=== PATIENT | female | born 1980 | race Caucasian/White ===

== ENCOUNTER → 2019-05-11 16:18 | Outpatient (BNVA) | payer MEDICAID, SELFPAY | PROVIDERS: Family Provider Family Medicine; PCP Family Medicine; Visit Provider Podiatrist Foot & Ankle Surgery | DX: M20.42 Other hammer toe(s) (acquired), left foot (principal); M21.619 Bunion of unspecified foot; Z98.890 Other specified postprocedural states | CPT/HCPCS: 73630 ==

== ENCOUNTER 2019-05-11 17:08 | Outpatient (CLI) | payer MEDICAID, SELFPAY | END 2019-05-11 17:09 | disposition home or self-care (01) | LOC: SPT 17:11 | PROVIDERS: Family Provider Family Medicine; PCP Family Medicine; Visit Provider Podiatrist Foot & Ankle Surgery | DX: M20.42 Other hammer toe(s) (acquired), left foot (principal); M21.619 Bunion of unspecified foot | CPT/HCPCS: L4361 ==

== ENCOUNTER → 2019-05-18 13:18 | Outpatient (BNVA) | payer MEDICAID, SELFPAY | PROVIDERS: Family Provider Family Medicine; PCP Family Medicine; Visit Provider Podiatrist Foot & Ankle Surgery | DX: M79.673 Pain in unspecified foot (principal) | CPT/HCPCS: 73620; 73630 ==

== ENCOUNTER 2019-05-23 21:58 | Emergency (ER) | payer MEDICAID, SELFPAY ==
[2019-05-23 23:10] VITALS: BMI 23.0
[2019-05-23 23:13] VITALS: BP 119/84; PULSE 104; RESP 16; TEMP 36.6; O2SAT 97
--- NOTE | 2019-05-24 00:03 | ED_ITS ---
Entered by Ne De La Torre, acting as scribe for Maranda Choi MD May 23, 2019 21:58 HPI - Extremity Problem General: Chief complaint: Extremity Problem,Nontraumatic Stated complaint: SURGERY SITE OPENED Time Seen by Provider: 05/24/19 00:01 Source: patient Limitations: no limitations History of Present Illness: HPI Narrative: 38 y/o female presents to the ED with complaint of left lower extremity pain post bunionectomy. Pt states Dr. West removed a bunion in April 2019. She recently had the stitches removed and today she noticed [place] green discharge when she removed the bandage. Pt s tates she has pain that radiates into her ankle and up her left leg. Complaint: extremity pain Onset (ago): hour(s) Pain Consistency: constant Location: left and lower extremity Severity scale (1-10): 10 Quality: stabbing, sharp and constant Relieving factors: nothing Exacerbating factors: walking and palpation Associated symptoms: Deny chest pain, fever(s) or rash Context: recent surgery/procedure Review of Systems Const: Denies: fever or chills Eyes: Denies: change in vision ENMT: Denies: throat pain or mouth pain Card: Denies: chest pain Resp: Denies: shortness of breath GI: Denies: abdominal pain, nausea, vomiting or diarrhea : Denies: difficulty urinating Musc: Denies: back pain or joint pain Skin/Breast: Reports: skin tenderness; Denies: rash Neuro: Denies: headache or behavioral changes Psych: Denies: depression Endo: Denies: excessive urination Ilya/Lymph: Denies: easy bruising All/Imm: Denies: hives PFSH ED PFSH: Statuses (acute, chronic, etc) shown below reflect problem list status as previously entered and may not be historically accurate Social History Smoking and tobacco status: current every day smoker Alcohol intake: never Physical Exam Const: COMMON NORMALS: no apparent distress, oriented x3 and healthy appearing HENMT: COMMON NORMALS: normocephalic and external nose normal HEAD & SCALP: normocephalic NOSE: external nose normal Eye: COMMON NORMALS: PERRL PUPIL: Yes PERRL Neck/C-Spine: COMMON NORMALS: full ROM and no lymphadenopathy Chest: COMMONS NORMALS: inspection of chest normal Resp: COMMON NORMALS: normal respiratory effort, no use of accessory muscles and clear to auscultation bilaterally AUSCULTATION: clear to auscultation bilaterally Cardio: COMMON NORMALS: regular rate and regular rhythm RATE: regular rate RHYTHM: regular rhythm GI: COMMON NORMALS: normal to inspection, nondistended, normoactive bowel sounds, soft to palpation, non-tender and no masses PALPATION: Yes soft Back/Pelvis: THORACIC SPINE/UPPER BACK: Yes normal to inspection Extremity: COMMON NORMALS: normal capillary refill GENERAL: Yes calf tenderness LEFT LOWER EXTREMITY: Yes lower leg Neuro: COMMON NORMALS: oriented x3 Psych: COMMON NORMALS: mental status grossly normal and cooperative Skin: NARRATIVE SKIN EXAM: incision noted to left foot. Mild erythema around it with very mild cellulitis. No pus noted. Course Vital Signs: Vital signs: Vital Signs Temperature 97.9 F 05/23/19 23:13 Pulse Rate 97 05/24/19 01:44 Respiratory Rate 17 05/24/19 01:44 Blood Pressure 124/90 05/24/19 01:44 Pulse Oximetry 95 05/24/19 01:44 MDM - Extremity (Nontraumatic) MDM Narrative: Medical decision making narrative: Patient presents here with foot pain after her surgery. Patient has very mild cellulitis. She has no signs of osteomyelitis. Patient is stable for discharge and will place on Keflex. She is to follow-up with her office coordinator receptionist in 2 to 4 days and return if worsening. Lab Data: Labs: Lab Results 05/24/19 Range/Units 00:15 WBC 11.1 H (4.0-10.0) 10^3/ uL RBC 4.18 (4.1-5.3) 10^6/u L Hgb 13.5 (11.5-15.3) g/dL Hct 39.3 (37.0-47.0) % MCV 94.0 (81-99) fL MCH 32.3 (28.0-34.0) pg MCHC 34.4 (30.0-36.0) g/dL RDW 13.0 (12.1-15.1) % Plt Count 316 (130-400) 10^3/c mm MPV 9.1 (7.4-10.4) fL Neut % (Auto) 54.6 % Lymph % (Auto) 38.8 % [place] % (Auto) 4.4 % Eos % (Auto) 1.3 % Baso % (Auto) 0.6 % Neut # (Auto) 6.1 (1.8-7.7) 10^3/u L Lymph # (Auto) 4.3 (0.8-4.8) 10^3/u L [place] # (Auto) 0.5 (0.2-0.9) 10^3/u L Eos # (Auto) 0.2 (0.0-0.8) 10^3/u L Baso # (Auto) 0.1 (0.0-0.1) 10^3/u L Nucleated RBC % (a uto) 0 % Nucleated RBCs # 0.0 /100WBC Imaging Data^: xr left foot: Attestation: I personally reviewed and interpreted this imaging study as follows: My impression: no acute fx Discharge Plan Discharge Patient Disposition: Home, Self-Care Clinical Impression: Post-op pain Condition: Stable Prescriptions: New Keflex 500 mg capsule 500 mg PO Q6H 7 Days Qty: 28 RF: 0 No Action dicyclomine 20 mg tablet 20 mg PO QID RF: 0 ondansetron HCl [Zofran] 4 mg tablet 4 mg PO Q8H PRN (Reason: nausea and vomiting) RF: 0 oxycodone-acetaminophen [Percocet] 7.5-325 mg tablet 1 tab PO Q6H PRNRF: 0 diphenoxylate-atropine [Lomotil] 2.5-0.025 mg tablet 3 tab PO QID RF: 0 Viberzi 100 mg tablet 100 mg PO BID RF: 0 tramadol 50 mg tablet 50 mg PO Q6H PRNRF: 0 prenat.vits,greg,etv-jpmb-eehwe Tablet 1 tab PO ONCE RF: 0 acetaminophen [Tylenol] 325 mg tablet 650 mg PO Q6H PRNRF: 0 albuterol sulfate [Proventil HFA] 90 mcg/actuation HFA aerosol inhaler 2 puff INHALATION Q6H PRNRF: 0 montelukast [Singulair] 10 mg tablet 10 mg PO ONCE RF: 0 (DME) CAM WALKER Qty: 1 RF: 0 sulfamethoxazole-trimethoprim [Bactrim DS] 800-160 mg tablet 1 tab PO BID 10 Days Qty: 20 RF: 0 Discharge Orders: Discharge Order (Routine); Ordered 05/24/19 Ordered By: Maranda Choi Referrals: Akshat Hoskins MD [Primary Care Provider] - Discharge Diet: Advance as tolerated Discharge Activity: Resume usual activity Patient Instructions: Cellulitis (ED) Discharge Date/Time: 05/24/19 01:44 Coding Level of Care Code ED Fur Scraper for Chg Fwd Exam Problem Focused The documentation recorded by the Wil wynne Ashley, accurately reflects the service I personally performed and the decisions made by Jimbo velarde Korby, MD May 23, 2019 21:58
[2019-05-24 00:04] VITALS: BP 148/87; PULSE 101; RESP 18; O2SAT 98
--- NOTE | 2019-05-24 00:05 | XR_ITS ---
WS: [id number] LEFT FOOT: 3 VIEW(S) TECHNIQUE: PA, oblique and lateral. HISTORY: pain COMPARISON: 05/18/2019 Postoperative hardware for osteotomy fixation and bunionectomy and at the proximal second phalanx aga in identified. No change in position or alignment. No obvious lucency around the screws. Mild soft tissue swelling around the first toe. XR/XR foot LT min 3V* [id number] IMPRESSION: 1. Postsurgical changes of bunionectomy and osteotomy remain unchanged. 2. Mild soft tissue swelling around the first toe. No significant change since the prior study. No definite bone involvement or osteomyelitis identified radi ographically.
--- NOTE | 2019-05-24 00:08 | PC.NURSE ---
Patient reports that she had surgery on her foot Apr 28. Patient states yesterday she began to get a lot of pain in her foot. Patient also states her foot is still swollen, red, warm to touch, and had green pus on the incision site.
[2019-05-24 00:20] VITALS: RESP 18; O2SAT 98
[2019-05-24] MEDS: morphine 4 mg/mL SDV 1 mL IVP (00:20)
[2019-05-24] MEDS: vancomycin 1,000 MG in sodium chloride 0.9% 250 ML 250 MG IV (00:24)
[2019-05-24 00:35] LABS: Basophils # 0.1 10^3/uL (0.0-0.1); Basophils % 0.6 %; Eosinophils # 0.2 10^3/uL (0.0-0.8); Eosinophils % 1.3 %; Hematocrit 39.3 % (37.0-47.0); Hemoglobin 13.5 g/dL (11.5-15.3); Lymphocytes # 4.3 10^3/uL (0.8-4.8); Lymphocytes % 38.8 %; Mean Corpuscular HGB Conc 34.4 g/dL (30.0-36.0); Mean Corpuscular Hemoglobin 32.3 pg (28.0-34.0); Mean Platelet Volume 9.1 fL (7.4-10.4); Monocytes # 0.5 10^3/uL (0.2-0.9); Monocytes % 4.4 %; Neutrophils # 6.1 10^3/uL (1.8-7.7); Neutrophils % 54.6 %; Nucleated Red Blood Cells % 0 %; Platelet Count 316 10^3/cmm (130-400); Red Blood Count 4.18 10^6/uL (4.1-5.3); White Blood Count 11.1 10^3/uL (4.0-10.0)
[2019-05-24] MEDS: diphenhydrAMINE 50 mg/mL SDV 1mL IVP (01:06)
[2019-05-24] MEDS: ondansetron 2 mg/ML SDV 2 mL 4 MG IVP (01:08)
--- NOTE | 2019-05-24 01:09 | PC.NURSE ---
Patient calls out using the call light. Patient states I am itching all over. Patient shows me her stomach she has a red rash on her stomach. Patient continues itching her body. Physician notified and orders given for Benadryl. Benadryl obtained and administered.
[2019-05-24 01:44] VITALS: BP 124/90; PULSE 97; RESP 17; O2SAT 95
== END 2019-05-24 01:44 | disposition home or self-care (01) ==
PROVIDERS: Emergency Provider Emergency Medicine; Family Provider Family Medicine; PCP Family Medicine
DX: G89.18 Other acute postprocedural pain (principal); F17.210 Nicotine dependence, cigarettes, uncomplicated
CPT/HCPCS: 36415; 73630; 85025; 96365; 96374; 99281; J1200; J2270; J2405; J3370; J7050

== ENCOUNTER 2019-05-27 10:01 | Inpatient (IN) | payer MEDICAID, SELFPAY ==
[2019-05-27] VITALS (7 sets, daily range): BP systolic 100–101; BP diastolic 60–66; PULSE 70–105; RESP 16–24; TEMP 36.6–36.8; O2SAT 93–98; BMI 23.0
--- NOTE | 2019-05-27 10:06 | ED_ITS ---
Entered by Azalea Gutiérrez, acting as scribe for HPI - Psych General: Chief Complaint: Altered Mental Status Stated Complaint: AMS S/P DRUG USE Time Seen by Provider: 05/27/19 10:07 Source: patient, EMS and police Mode of arrival: ambulatory Limitations: no limitations History of Present Illness: HPI Narrative: 38 yo female presents with hallucinations that the IRS was at her house digging in and around her house. pt has recently used laced drugs last night around 11 pm. pt's daughter's are in the waiting room of the ED filling out affidavits due to their mothers conditions. Pt denies any other symptoms. MD complaint: other (hallucinations ) Onset (ago): day(s) (today) Duration: constant History of same: Yes Relieving factors: none Exacerbating factors: drug use Context: recent drug abuse (laced weed per pt) Associated symptoms: Reports auditory hallucinations (IRS at her home), delusions and racing thoughts Treatments prior to arrival: other (Pt brought in by EMS and police) Review of Systems Const: Denies: fever, chills, body aches, fatigue, malaise or night sweats Eyes: Denies: change in vision or blurry vision ENMT: Denies: throat pain, oral sores/lesions, dental pain, nasal discharge or nasal congestion Card: Denies: chest pain, palpitations, irregular heart rhythm, edema, syncope, shortness of breath on exertion, shortness of breath when lying down or leg pain with exertion Resp: Denies: shortness of breath, productive cough, non-productive cough or wheezing : Denies: flank pain, painful urination, urinary frequency, urinary urgency, urinary incontinence or blood in urine Musc: Denies: neck pain, back pain, extremity pain, extremity swelling, joint pain or joint swelling Skin/Breast: Denies: rash, itching or redness Neuro: Denies: headache, numbness in extremities, weakness in extremities, changes in sensation, lack of coordination, difficulty walking, frequent falls, dizziness, vertigo or confusion Psych: Reports: auditory hallucinations (IRS at her home) Endo: Denies: excessive urination, excessive thirst, tired all the time or cold intolerance Ilya/Lymph: Denies: easy bruising, easy bleeding, petechiae, enlarged lymph nodes or tender lymph nodes PFSH ED PFSH: Statuses (acute, chronic, etc) shown below reflect problem list status as previously entered and may not be historically accurate Medical History History of drug use (Acute) Social History Smoking and tobacco status: current every day smoker Alcohol intake: never Physical Exam Const: COMMON NORMALS: average body habitus EXAM LIMITATIONS: altered mental status GENERAL APPEARANCE: anxious, disheveled and ill appearing ORIENTATION/CONSCIOUSNESS: Yes awake and Yes confused HENMT: COMMON NORMALS: normocephalic, head/scalp atraumatic, EAC's normal, TM's normal bilaterally, external nose normal, moist oral mucous membranes and oropharynx normal HEAD & SCALP: normocephalic and atraumatic NOSE: external nose normal EXTERNAL AUDITORY CANAL: EAC's normal TYMPANIC MEMBRANE: TM's normal bilaterally MOUTH: oral and palatal mucosa normal, lip normal and tongue normal THROAT: posterior oropharynx normal and tonsils normal Eye: COMMON NORMALS: PERRL, EOMs intact bilaterally, conjunctivae normal and no scleral icterus CONJUNCTIVA: Yes conjunctivae normal PUPIL: Yes PERRL Neck/C-Spine: COMMON NORMALS: full ROM, no lymphadenopathy, supple, no meningeal signs and thyroid normal THYROID: thyroid normal and asymmetrical Lymph: LYMPHATIC: no lymphadenopathy noted Resp: COMMON NORMALS: normal respiratory effort, no retractions, no use of accessory muscles and clear to auscultation bilaterally AUSCULTATION: clear to auscultation bilaterally Cardio: COMMON NORMALS: regular rate and regular rhythm RATE: regular rate RHYTHM: regular rhythm HEART SOUNDS: no murmurs GI: COMMON NORMALS: normal to inspection, nondistended, normoactive bowel sounds, soft to palpation and no hepatosplenomegaly PALPATION: Yes soft and Yes no hepatosplenomegaly : COMMON NORMALS: Yes no CVA tenderness BLADDER/KIDNEY EXAM: Yes no CVA tenderness Back/Pelvis: COMMON NORMALS: no CVA tenderness LUMBAR SPINE/LOWER BACK: Yes normal to inspection Extremity: NARRATIVE EXTREMITY EXAM: chronic foot pain Neuro: MENINGEAL SIGNS: Yes no meningeal signs Psych: COMMON NORMALS: negative for thought process normal APPEARANCE: Yes disheveled ATTITUDE: Yes paranoid and Yes bizarre ACTIVITY/MOTOR BEHAVIOR: Yes psychomotor agitation SPEECH: Yes excessive and Yes rapid MOOD & AFFECT: Yes anxious, Yes irritable and Yes labile affect THOUGHT PROCESS: abnormal, confabulating, illogical and loose associations THOUGHT CONTENT: No suicidality, No homicidality and Yes delusion(s) Skin: COMMON NORMALS: no rashes or lesions noted and skin turgor normal GENERAL SKIN EXAM: no rashes or lesions noted and turgor normal MDM - Psych Lab Data: Attestation: I reviewed the patient's lab results. Labs: Lab Results 05/27/19 05/27/19 Range/Units 09:48 09:48 WBC 15.9 H (4.0-10.0) 10^3/ uL RBC 4.09 L (4.1-5.3) 10^6/u L Hgb 12.8 (11.5-15.3) g/dL Hct 37.1 (37.0-47.0) % MCV 90.7 (81-99) fL MCH 31.3 (28.0-34.0) pg MCHC 34.5 (30.0-36.0) g/dL RDW 12.7 (12.1-15.1) % Plt Count 357 (130-400) 10^3/c mm MPV 10.0 (7.4-10.4) fL Neut % (Auto) 75.8 % Lymph % (Auto) 16.6 % [place] % (Auto) 6.3 % Eos % (Auto) 0.5 % Baso % (Auto) 0.4 % Neut # (Auto) 12.1 H (1.8-7.7) 10^3/u L Lymph # (Auto) 2.7 (0.8-4.8) 10^3/u L [place] # (Auto) 1.0 H (0.2-0.9) 10^3/u L Eos # (Auto) 0.1 (0.0-0.8) 10^3/u L Baso # (Auto) 0.1 (0.0-0.1) 10^3/u L Nucleated RBC % (a uto) 0 % Nucleated RBCs # 0.0 /100WBC TSH 1.00 (0.27-4.20) uIU/ mL Salicylates < 0.3 L (3-10) mg/dL Acetaminophen 17.5 (10-30) ug/mL Ethyl Alcohol < 10 (0-10) mg/dL Discharge Plan Discharge Patient Disposition: Admitted As Inpatient Admit Provider: Karlos Elias Referrals: Akshat Hoskins MD [Primary Care Provider] - Discharge Date/Time: 05/27/19 12:38 Coding Level of Care Code ED Drafter (Cad) Electrical for Chg Fwd Exam Problem Focused The documentation recorded by the Brock wynne Bridget Annette, accurately reflects the service I personally performed and the decisions made by , Madi Blum, May 27, 2019 10:01
--- NOTE | 2019-05-27 10:33 | PC.NURSE ---
Patient moving continuously, all extremities while sitting in bed. Patient is calm but is uncooperative due to mental state at this time. Pt is alert to herself only at this time and mumbles incoherently when speaking. unable to obtain accurrate BP due to continuous movement and not cooperating. One on one sitter has been placed with pt for her safety. Will continue to monitor.
[2019-05-27] MEDS: LORazepam 1 mg Tablet PO (10:52)
[2019-05-27] MEDS: ziprasidone 20 mg/mL SDV 10 MG IM (10:53)
[2019-05-27 10:54] LABS: Basophils # 0.1 10^3/uL (0.0-0.1); Basophils % 0.4 %; Eosinophils # 0.1 10^3/uL (0.0-0.8); Eosinophils % 0.5 %; Hematocrit 37.1 % (37.0-47.0); Hemoglobin 12.8 g/dL (11.5-15.3); Lymphocytes # 2.7 10^3/uL (0.8-4.8); Lymphocytes % 16.6 %; Mean Corpuscular HGB Conc 34.5 g/dL (30.0-36.0); Mean Corpuscular Hemoglobin 31.3 pg (28.0-34.0); Mean Corpuscular Volume 90.7 fL (81-99); Monocytes % 6.3 %; Neutrophils # 12.1 10^3/uL (1.8-7.7); Neutrophils % 75.8 %; Nucleated Red Blood Cells % 0 %; Platelet Count 357 10^3/cmm (130-400); Red Blood Count 4.09 10^6/uL (4.1-5.3); Red Cell Distribution Width 12.7 % (12.1-15.1); White Blood Count 15.9 10^3/uL (4.0-10.0)
[2019-05-27] MEDS: water for injection-sterile 10 ML 1.2 ML (10:55)
[2019-05-27 11:22] LABS: Acetaminophen 17.5 ug/mL (10-30)
[2019-05-27 11:54] LABS: Alcohol Level < 10 mg/dL (0-10); Salicylate < 0.3 mg/dL (3-10)
--- NOTE | 2019-05-27 11:57 | PC.NURSE ---
HOspital sitter remains with patient for safety. Patient is resting with both eyes closed at this time.
--- NOTE | 2019-05-27 12:12 | PC.NURSE ---
Hospital sitter remains present to sit one on one with patient. Patient is resting with both eyes closed at this time. Will continue to monitor.
[2019-05-27] MEDS: acetaminophen 325 mg Tablet 650 MG PO (23:35)
[2019-05-28 06:00] VITALS: BP 99/66; PULSE 113; RESP 22; TEMP 36.6; O2SAT 96
--- NOTE | 2019-05-28 07:09 | P.HP_ITS ---
Providers/Chief Complaint Admitting Physician: Karlos Elias MD Primary Care Provider: Akshat Hoskins MD Chief Complaint: AMS S/P DRUG USE HPI NPU History of Present Illness Ann Fuentes is a 38 year old female Chief complaint: What I thought was truly wasn't. History of present illness: Ann Fuentes is a 38 year old Woman with no history of psychosis up until this past week. She reports that on 2 separate occasions, she became confused to the point where she was not sure what was real and was not. She describes that prior to her presentation, she was fairly convinced that agents from the internal revenue service were sitting at her kit morgan table. They were talking about arresting her. She reported multiple other perceptions that she firmly believed to be true at the time but now realizes they were not. She recalls her daughter telling her that the things that she was verbalizing and experiencing were not accurate. She is glad that she took her daughter's advice and came to the emergency room. She is unsure why she has had this experience. She had surgery on her foot one week ago. She was given Percocet for pain following this surgery on the bunion on her foot. However she has had pain medications in the past and in fact takes tramadol on occasion for pain and has never had any problems with changes in perception or cognition. Her other explanation was that she does smoke marijuana and it is possible that she could have had some marijuana that was laced with something else. Unfortunately no drug screen was performed in the emergency room so we have no correlating data. Whatever the event, she is now 36 hours out from the insult to her brain. She feels that she is generally able to think clearly. She is not questioning her perceptions at this time. She is quite embarrassed. She does endorse symptoms of depression. She feels hopeless and helpless at times. She would like her life to be different. However she denies suicidal or homicidal ideation. She denies the presence of auditory or visual hallucinations. She has good hedonic capacity in that she enjoys her children although they are quite a burden on her. She also enjoys going to zoroastrianism. Information provided by emergency room:HPI Narrative: 38 yo female presents with hallucinations that the IRS was at her house digging in and around her house. pt has recently used laced drugs last night around 11 pm. pt's daughter's are in the waiting room of the ED filling out affidavits due to their mothers conditions. Pt denies any other symptoms. IT IS NOTED THAT NO URINE DRUG SCREEN WAS PERFORMED ON THIS DELIRIOUS DISORIENTED PATIENT. Mental health history:The patient has 1 prior psychiatric hospitalization nearly 10 years ago. She was admitted for a self-inflicted injury to her neck that she said was involving suicidal thoughts but was not a suicide attempt. She has never had any such problems since then. Family psychiatric history is positive for a daughter who has apparently been admitted to this unit on multiple occasions. She says that the daughter also to last admission. The identity of her daughter is unknown to this physician. Social history:The patient grew up in [place]. She has an associates degree from college. She moved to this area in 1999, returned to [place] in 2006 for her children benefit, and then returned to the [facility] in 2013. She has children ages 24, 18, 16, 7, and 4. She is a [id number] mom. Legal history:There are no reports of arrests or convictions in the public record. Past medical history:The patient was diagnosed with colon cancer in 18 years of age. She has had a hemicolectomy and resection of part of her small intestine. Mental Status Exam: The patient is alert and appropriately engaged. She is disheveled. She demonstrates elevated psychomotoric action and has difficulty sitting still. She exhibits a multiple twitches and moves in short quick movements. She has some difficulty ambulating due to the effects of her bunion surgery. Eye contact is good. She is believed to be a reliable informant to the best of her ability. Appearance: hygiene is fair; no gross neurological deficits., No tics or tremors. Speech: Speech is of normal rate and rhythm and easily understood. Thought processes: Thought processes are abstract. Judgment is adequate for safety. Associations: intact Psychotic processes: There is no indication of guarding or paranoia. There is no attention to the internal stimuli. Auditory and visual hallucinations are denied. Judgment: Insight is fair. Problem solving skills are adequate for safety. Orientation: The patient is oriented to person, place time and situation. Memory: no deficits noted in immediate, intermediate, or remote spheres. Attention: The patient is alert and interpersonally engaged. Language: Verbalizations are coherent. Fund of knowledge: Fund of knowledge is adequate. Affect/Mood: Affect is consistent with a depressed mood. She denied suicidal ideation Affective range appropriate. Psychosis: perception unimpaired except through cognitive distortion; reality testing intact. Diagnoses: Delirium?presumably substance-induced Assessment:The patient apparently presented in a floridly psychotic state oriented not even to herself. He is not in the habit of being psychotic. Her mental health history is generally clean but she does present with symptoms of depression. Her explanation that she smoked marijuana with some sort of contaminant is most likely to be accurate. She is being treated status post surgery to her bunion, she says that opiates were given sparsely and not likely to cause the radical events leading to her hospitalization. Treatment plan: Due to the psychiatric conditions and treatment listed in the Assessment and Plan - the patient requires continued hospitalization. Will provide a safe and therapeutic environment for patient.. Will continue inpatient treatment to allow for medication adjustment and monitoring. Will continue q15 min safety checks. Will continue Home medications and monitor for medication side effects. Will continue to monitor for signs of psychosis. Monitor patient's mood, sleep, appetite, and behavior closely. Encourage patient to participate in individual and group therapeutic sessions on the alfaro. Estimated length of stay 5 days The expected benefits and potential side effects of patient's psychiatric medications were discussed with the patient. The patient understands and consents to treatment.CRITERIA FOR DISCHARGE: stable on medications and no longer an im Meds NPU Home Medications Medication Instructions Recorded Confirmed Type acetaminophen 325 mg tablet 650 mg PO Q6H PRN 05/11/19 05/18/19 History albuterol sulfate 90 mcg/actuation 2 puff INHALATION Q6H PRN 05/11/19 05/18/19 History aerosol inhaler dicyclomine 20 mg tablet 20 mg PO QID 05/11/19 05/18/19 History diphenoxylate-atropine 2.5 3 tab PO QID tab 05/11/19 05/18/19 History mg-0.025 mg tablet eluxadoline 100 mg tablet 100 mg PO BID 05/11/19 05/18/19 History montelukast 10 mg tablet 10 mg PO ONCE 05/11/19 05/18/19 History ondansetron HCl 4 mg tablet 4 mg PO Q8H PRN 05/11/19 05/18/19 History oxycodone-acetaminophen 7.5 mg-325 1 tab PO Q6H PRN 05/11/19 05/18/19 History mg tablet prenat.vits,greg,bxs-rinl-yecvo 1 tab PO ONCE 05/11/19 05/18/19 History tramadol 50 mg tablet 50 mg PO Q6H PRN 05/11/19 05/18/19 History Allergies Allergy/AdvReac Type Severity Reaction Status Date / Time codeine Allergy Unknown Verified 05/11/19 16:29 PFSH NPU PFSH: Statuses (acute, chronic, etc) shown below reflect problem list status as previously entered and may not be historically accurate Medical History History of drug use (Acute) Social History Smoking and tobacco status: current every day smoker Alcohol intake: never Vitals/I&O/Wt Last Vital Signs Temp 97.9 F 05/28/19 06:00 Pulse 113 H 05/28/19 06:00 Resp 22 H 05/28/19 06:00 BP 99/66 05/28/19 06:00 Pulse Ox 96 05/28/19 06:00 Weight last 48 hrs Weight 52.98 kg Weight 52.98 kg Weight 57.153 kg Data NPU : 05/27/19 09:48 Other Labs: IT IS NOTED THAT NO URINE DRUG SCREEN WAS PERFORMED ON THIS DELIRIOUS DISORIENTED PATIENT. Involuntary Hold Information 96 Hour Hold: 96 Hour Involuntary Admission: Yes Attestations NPU Medical Necessity Statement*: Patient will remain at hospital 3 more nights until the completion of her involuntary commitment. Coding Level of Care Code Acute Sex Crimes Detective for Anton Ruff
[2019-05-28] MEDS: prenatal vitamin Capsule 1 CAP PO (10:31)
[2019-05-28 10:46] LABS: HCG Qualitative Urine. Negative (Negative)
[2019-05-28] MEDS: dicyclomine 20 mg Tablet PO ×4 (10:49→20:21)
[2019-05-28 10:54] LABS: Add Urine Microscopic? YES; Bilirubin Urine Neg (NEGATIVE); Blood Urine Neg (Negative); Glucose Urine UA Norm (Normal); Ketones Urine 1+ (Negative); Leukocyte Esterase Urine Negative (Negative); Nitrate Urine Negative (Negative); Protein Urine Neg (Negative); Specific Gravity, Urine 1.025 (1.005-1.030); Urine Appearance SL Hazy (CLEAR); Urine Color Straw (Yellow); Urobilinogen Urine Norm (Negative); pH Urine 5 (5-7)
[2019-05-28 10:55] LABS: Bacteria Urine TRACE; Mucus Urine 2+; Squamous Epithelial Cell Urine 15-25 (0-5)
[2019-05-28 10:56] LABS: Add Urine Culture? No
[2019-05-28] MEDS: ondansetron 4 MG Tablet PO ×2 (11:07→16:40)
[2019-05-28] MEDS: diphenoxylate/atropine Tablet 1 TAB PO ×2 (11:07→16:51)
[2019-05-28 11:09] LABS: Barbiturates Screen Urine Negative (Negative); Benzodiazepines Screen Urine Negative (Negative); Cocaine Screen Urine Negative (Negative); Opiate Screen Urine Negative (Negative); PCP Screen Urine Negative (Negative); THC Screen Urine Negative (Negative)
[2019-05-28 11:11] LABS: Amphetamines Screen Urine Positive (Negative)
[2019-05-28 14:00] VITALS: BP 107/80; PULSE 87; RESP 18; TEMP 36.7; O2SAT 97
[2019-05-28] MEDS: montelukast sodium 10 mg Tablet PO (17:51)
[2019-05-28] MEDS: acetaminophen 325 mg Tablet 650 MG PO (19:48)
[2019-05-28 19:57] VITALS: BP 102/65; PULSE 92; RESP 18; TEMP 36.7; O2SAT 97
[2019-05-28] MEDS: LORazepam 1 mg Tablet PO (20:21)
[2019-05-29 06:00] VITALS: BP 86/44; PULSE 102; RESP 18; TEMP 36.8; O2SAT 97
[2019-05-29] MEDS: prenatal vitamin Capsule 1 CAP PO (09:39)
[2019-05-29] MEDS: dicyclomine 20 mg Tablet PO ×2 (09:41→12:30)
[2019-05-29] MEDS: acetaminophen 325 mg Tablet 650 MG PO ×2 (09:42→15:14)
[2019-05-29] MEDS: diphenoxylate/atropine Tablet 1 TAB PO (09:42)
[2019-05-29] MEDS: loperamide 2 mg Capsule PO (12:29)
[2019-05-29] MEDS: ondansetron 4 MG Tablet PO (12:30)
[2019-05-29 14:00] VITALS: BP 93/62; PULSE 76; RESP 20; TEMP 36.7; O2SAT 98
[2019-05-29 15:16] VITALS: BP 93/62; PULSE 76; RESP 20; TEMP 36.7; O2SAT 98
[2019-05-29 15:31] VITALS: BP 93/62; PULSE 76; RESP 20; TEMP 36.7; O2SAT 98
[2019-05-29 15:48] VITALS: BP 93/62; PULSE 76; RESP 20; TEMP 36.7; O2SAT 98
== END 2019-05-29 15:49 | disposition home or self-care (01) | DRG 897 ==
LOC: ER 10:14 → NP 12:32
PROVIDERS: Admitting Provider Psychiatry & Neurology Psychiatry; Emergency Provider Family Medicine; Family Provider Family Medicine; PCP Family Medicine; Visit Provider Psychiatry & Neurology Psychiatry
DX: F19.921 Other psychoactive substance use, unspecified with intoxication with delirium (principal); F32.9 Major depressive disorder, single episode, unspecified; Z91.5 Personal history of self-harm; Z85.038 Personal history of other malignant neoplasm of large intestine; Z90.49 Acquired absence of other specified parts of digestive tract; Z81.8 Family history of other mental and behavioral disorders; Z79.899 Other long term (current) drug therapy; Z88.5 Allergy status to narcotic agent
CPT/HCPCS: 12345; 80307; 81003; 81025; 84443; 85025; 96372; 99281; J3486; Q0162

== ENCOUNTER → 2019-06-08 15:23 | Outpatient (BNVA) | payer MEDICAID, SELFPAY | PROVIDERS: Family Provider Family Medicine; PCP Family Medicine; Visit Provider Podiatrist Foot & Ankle Surgery | DX: Z98.890 Other specified postprocedural states (principal); M79.672 Pain in left foot | CPT/HCPCS: 73630 ==

== ENCOUNTER → 2019-06-21 13:28 | Outpatient (BNVA) | payer MEDICAID, SELFPAY | PROVIDERS: Family Provider Family Medicine; PCP Family Medicine; Visit Provider Podiatrist Foot & Ankle Surgery | DX: M79.672 Pain in left foot (principal); Z98.890 Other specified postprocedural states | CPT/HCPCS: 73630 ==

== ENCOUNTER → 2019-07-27 07:56 | Outpatient (BNVA) | payer MEDICAID, SELFPAY | PROVIDERS: Family Provider Family Medicine; PCP Family Medicine; Visit Provider Psychiatry & Neurology Psychiatry | DX: F60.3 Borderline personality disorder (principal); F33.1 Major depressive disorder, recurrent, moderate; F12.20 Cannabis dependence, uncomplicated; F11.21 Opioid dependence, in remission; F15.11 Other stimulant abuse, in remission; F42.9 Obsessive-compulsive disorder, unspecified | CPT/HCPCS: 99204 ==

== ENCOUNTER → 2019-08-24 07:57 | Outpatient (BNVA) | payer MEDICAID, SELFPAY | PROVIDERS: Family Provider Family Medicine; PCP Family Medicine; Visit Provider Psychiatry & Neurology Psychiatry | DX: F42.9 Obsessive-compulsive disorder, unspecified (principal); F15.11 Other stimulant abuse, in remission; F11.21 Opioid dependence, in remission; F12.20 Cannabis dependence, uncomplicated; F33.1 Major depressive disorder, recurrent, moderate; F60.3 Borderline personality disorder | CPT/HCPCS: 99213 ==

== ENCOUNTER → 2019-09-21 08:24 | Outpatient (BNVA) | payer MEDICAID, SELFPAY | PROVIDERS: Family Provider Family Medicine; Visit Provider Psychiatry & Neurology Psychiatry | DX: F42.9 Obsessive-compulsive disorder, unspecified (principal); F15.11 Other stimulant abuse, in remission; F11.21 Opioid dependence, in remission; F12.20 Cannabis dependence, uncomplicated; F33.1 Major depressive disorder, recurrent, moderate | CPT/HCPCS: 99213 ==

== ENCOUNTER 2019-11-07 20:36 | Emergency (ER) | payer MEDICAID, SELFPAY ==
[2019-11-07 20:47] VITALS: BP 139/97; PULSE 92; RESP 14; TEMP 36.7; O2SAT 97; BMI 24.7
--- NOTE | 2019-11-07 20:56 | CTR_ITS ---
PROCEDURE INFORMATION: Exam: CT Abdomen And Pelvis With Contrast Exam date and time: 11/07/2019 9:17 PM Age: 39 years old Clinical indication: Abdominal pain; Localized; Right; Prior surgery; Surgery type: Gb, bowel, appy, hyst, liver, hernia; Additional info: Abd pain TECHNIQUE: Imaging protocol: Computed tomography of the abdomen and pelvis with intravenous contrast. Radiation optimization: All CT scans at this facility use at least one of these dose optimization techniques: automated exposure control; mA and/or kV adjustment per patient size (includes targeted exams where dose is matched to clinical indication); or iterative reconstruction. Contrast material: OMNI 300; Contrast volume: 95 ml; Contrast route: INTRAVENOUS (IV); COMPARISON: CT abdomen pelvis w con* [id number] 05/07/2016 4:37 AM RADIATION DOSE METRICS: Total DLP (mGy-cm): 530.38 FINDINGS: Liver: The liver is mildly enlarged. No parenchymal lesion. Gallbladder and bile ducts: The gallbladder has been removed. No biliary ductal dilatation. Pancreas: Normal. No ductal dilation. Spleen: Normal. No splenomegaly. Adrenals: Normal. No mass. Kidneys and ureters: Normal. No hydronephrosis. Stomach and bowel: Surgical changes of subtotal colectomy with enterorectal anastomosis are appreciated. No intestinal obstruction. Appendix: No evidence of appendicitis. Intraperitoneal space: Unremarkable. No free air. No significant fluid collection. Vasculature: Unremarkable. No abdominal aortic aneurysm. Lymph nodes: Unremarkable. No enlarged lymph nodes. Bladder: Unremarkable as visualized. Reproductive: The uterus has been removed. The ovaries appear normal. Bones/joints: Unremarkable. No acute fracture. Soft tissues: Unremarkable. CT/CT abdomen pelvis w con* [id number] IMPRESSION: No acute abnormality is seen in the abdomen or pelvis. Mild hepatomegaly is noted. Radiation Dose CTDIVOL = (mGy): DLP = 530.38 (mGy-cm)
--- NOTE | 2019-11-07 20:57 | ED_ITS ---
HPI - Abdominal Pain General: Chief Complaint: Abdominal Pain Stated Complaint: abd pain Time Seen by Provider: 11/07/19 20:51 History of Present Illness: HPI narrative: Right upper abdominal pain that started his afternoon. Denies any other related symptoms. MD elicited complaint: abdominal pain Pertinent past history: constipation, gastritis and other Onset (ago): hour(s) Pain Consistency: constant Location: RUQ Severity: moderate Quality: cramping Migration to: no migration Exacerbating factors: nothing Relieving factors: nothing Associated Symptoms: Reports no associated symptoms; Denies chills, fever(s), nausea and vomiting Related Data: Date of Last Menstrual Period: 05/27/19 Review of Systems Const: Denies: fever(s), chills or body aches Eyes: Denies: change in vision or blurry vision ENMT: Denies: throat pain or nasal congestion Card: Denies: chest pain or dyspnea on exertion Resp: Denies: dyspnea, productive cough or non-productive cough GI: Reports: abdominal pain; Denies: nausea or vomiting Musc: Denies: extremity pain Skin/Breast: Denies: rash Neuro: Denies: headache(s) Psych: Denies: anxiety or depression Ilya/Lymph: Denies: easy bruising PFSH ED PFSH: Medical History Colon cancer History of drug use Surgical History (Updated 06/25/19 @ 19:25 by Ten West DPM) History of bunionectomy History of hammertoe correction Family History (Updated 06/21/19 @ 13:28 by Ne Ndiaye LPN) Denies family history of Diabetes CAD (coronary artery disease) Clotting disorder Dementia Hyperlipidemia Psychiatric illness Chronic kidney disease (CKD) Suicide Anesthesia complication Bleeding disorder Family history of premature coronary artery disease Lung disease Cancer Hypertension Stroke Social History (Updated 07/27/19 @ 09:02 by Arsen Lester LPN) Smoking and tobacco status: current every day smoker cigarettes Packs smoked per day: 1 Years cigarettes smoked: 25 Quit status (tobacco): has tried quititng Number of times tried to quit tobacco: 3 Second hand smoke exposure: Yes Alcohol intake: never Current gender identity: Female Female Reproductive History: Date of last menstrual period: 05/27/19 Physical Exam Const: COMMON NORMALS: no acute distress, average body habitus and patient oriented x3 HENMT: COMMON NORMALS: normocephalic HEAD & SCALP: normal to inspection and normocephalic FACE & SINUS: normal facial exam Eye: COMMON NORMALS: conjunctivae normal GENERAL EYE: appearance normal, both eyes and all related structures CONJUNCTIVA: Yes conjunctivae normal Neck/C-Spine: COMMON NORMALS: no JVD Chest: COMMONS NORMALS: normal inspection of the chest Resp: COMMON NORMALS: normal respiratory effort and clear to auscultation bilaterally AUSCULTATION: clear to auscultation bilaterally Cardio: COMMON NORMALS: no JVD, regular rate and regular rhythm RATE: regular rate RHYTHM: regular rhythm GI: COMMON NORMALS: Normal to inspection, nondistended, normoactive bowel so unds present PALPATION: Yes Tenderness to palpation present (GI) Details: RUQ Extremity: COMMON NORMALS: normal to inspection and full ROM Neuro: COMMON NORMALS: patient oriented x3 Course Vital Signs: Vital signs: Vital Signs Temperature 98.0 F 11/07/19 20:47 Pulse Rate 86 11/07/19 22:47 Respiratory Rate 18 11/07/19 22:47 Blood Pressure 132/94 11/07/19 22:47 Pulse Oximetry 97 11/07/19 22:47 MDM - Abdominal Pain 2 MDM Narrative: Medical decision making narrative: Patient with resolve of abdominal pain after acetaminophen CT was negative labs look good patient follow-up family medical provider if no significant provement Lab Data: Labs: Lab Results 11/07/19 11/07/19 Range/Units 21:15 21:15 WBC 14.5 H (4.0-10.0) 10^3/ uL RBC 4.45 (4.1-5.3) 10^6/u L Hgb 13.7 (11.5-15.3) g/dL Hct 41.3 (37.0-47.0) % MCV 92.8 (81-99) fL MCH 30.8 (28.0-34.0) pg MCHC 33.2 (30.0-36.0) g/dL RDW 14.1 (12.1-15.1) % Plt Count 384 (130-400) 10^3/c mm MPV 8.8 (7.4-10.4) fL Neut % (Auto) 82.5 % Lymph % (Auto) 12.9 % [facility] % (Auto) 3.3 % Eos % (Auto) 0.4 % Baso % (Auto) 0.6 % Neut # (Auto) 11.9 H (1.8-7.7) 10^3/u L Lymph # (Auto) 1.9 (0.8-4.8) 10^3/u L [facility] # (Auto) 0.5 (0.2-0.9) 10^3/u L Eos # (Auto) 0.1 (0.0-0.8) 10^3/u L Baso # (Auto) 0.1 (0.0-0.1) 10^3/u L Nucleated RBC % (a uto) 0 % Nucleated RBCs # 0.0 /100WBC Sodium 137 (136-145) mmol/L Potassium 4.2 (3.5-5.1) mmol/L Chloride 102 (98-107) mmol/L Carbon Dioxide 24 (22-29) mmol/L Anion Gap 15.2 (5-19) BUN 8 (6-20) mg/dL Creatinine 0.5 (0.5-0.9) mg/dL GFR Calculation 136.0 H (90-130) mL/min Glucose 133 H (65-115) mg/dL Calculated Osmolal ity 282 L (285-295) mOsm/k g Calcium 9.3 (8.5-10.5) mg/dL Total Bilirubin 0.2 (0.15-1.2) mg/dL AST 18 (0-32) U/L ALT 17 (0-33) U/L Alkaline Phosphata se 100 (35-105) IU/L Total Protein 7.1 (6.6-8.7) g/dL Albumin 4.4 (3.5-5.2) g/dL Globulin 2.7 (1.3-4.6) g/dL Lipase 19 (13-60) U/L Discharge Plan Discharge Patient Disposition: Home, Self-Care Clinical Impression: Abdominal pain Qualifiers: Abdominal location: right upper quadrant Qualified Code(s): R10.11 - Right upper quadrant pain Condition: Stable Prescriptions: No Action prenat.vits,greg,ooy-uhct-jfsag Tablet 1 tab PO QDAY RF: 0 ondansetron 4 mg tablet,disintegrating 4 mg PO Q8H PRN (Reason: NAUSEA/VOMITING) RF: 0 gabapentin 100 mg capsule 100 mg PO BID RF: 0 diphenoxylate-atropine [Lomotil] 2.5-0.025 mg tablet 3 tab PO QID RF: 0 dicyclomine 20 mg tablet 20 mg PO QID RF: 0 Viberzi 75 mg tablet 75 mg PO BID RF: 0 tizanidine [Zanaflex] 2 mg capsule 2 mg PO BID PRN (Reason: UNKNOWN) RF: 0 tramadol 50 mg tablet 100 mg PO BID RF: 0 clomipramine 50 mg capsule 100 mg PO .HS Qty: 60 RF: 1 Tylenol 325 mg Tablet 325 mg PO QID PRN (Reason: Pain) RF: 0 ProAir HFA 90 mcg/actuation Hfa Aerosol Inhaler 2 puff INHALATION QID PRN (Reason: Bronchospasm) RF: 0 Discharge Orders: Discharge Order (Routine); Ordered 11/07/19 Ordered By: Андрей Fisher Referrals: Akshat Hoskins MD [Primary Care Provider] - Discharge Diet: As Directed Discharge Activity: Increase activity as tolerated Patient Instructions: Abdominal Pain (ED) Activity Restrictions/Additional Instructions: Follow-up your family medicine provider if no significant improvement try Gas-X tablets bland diet for next few days Discharge Date/Time: 11/07/19 22:48 Coding Level of Care Code ED Viscosity Inspector for Chg Fwd Exam Comprehensive
[2019-11-07 21:30] LABS: Basophils # 0.1 10^3/uL (0.0-0.1); Basophils % 0.6 %; Eosinophils # 0.1 10^3/uL (0.0-0.8); Eosinophils % 0.4 %; Hematocrit 41.3 % (37.0-47.0); Hemoglobin 13.7 g/dL (11.5-15.3); Lymphocytes # 1.9 10^3/uL (0.8-4.8); Lymphocytes % 12.9 %; Mean Corpuscular HGB Conc 33.2 g/dL (30.0-36.0); Mean Corpuscular Hemoglobin 30.8 pg (28.0-34.0); Mean Corpuscular Volume 92.8 fL (81-99); Mean Platelet Volume 8.8 fL (7.4-10.4); Monocytes # 0.5 10^3/uL (0.2-0.9); Monocytes % 3.3 %; Neutrophils # 11.9 10^3/uL (1.8-7.7); Neutrophils % 82.5 %; Nucleated Red Blood Cells % 0 %; Platelet Count 384 10^3/cmm (130-400); Red Blood Count 4.45 10^6/uL (4.1-5.3); Red Cell Distribution Width 14.1 % (12.1-15.1); White Blood Count 14.5 10^3/uL (4.0-10.0)
[2019-11-07] MEDS: sodium chloride 0.9% 1,000 ML 999 ML IV (21:35)
[2019-11-07] MEDS: iohexol 300 mg/mL 100 mL Btl IV (21:43)
[2019-11-07 21:54] LABS: Alanine Aminotransferase 17 U/L (0-33); Albumin Level 4.4 g/dL (3.5-5.2); Alkaline Phosphatase 100 IU/L (35-105); Anion Gap 15.2 (5-19); Aspartate Amino Transferase 18 U/L (0-32); Blood Urea Nitrogen 8 mg/dL (6-20); Calcium 9.3 mg/dL (8.5-10.5); Carbon Dioxide 24 mmol/L (22-29); Chloride 102 mmol/L (98-107); Globulin 2.7 g/dL (1.3-4.6); Glucose 133 mg/dL (65-115); Lipase 19 U/L (13-60); Osmolality Calculated 282 mOsm/kg (285-295); Potassium 4.2 mmol/L (3.5-5.1); Sodium 137 mmol/L (136-145); Total Bilirubin 0.2 mg/dL (0.15-1.2); Total Protein 7.1 g/dL (6.6-8.7)
[2019-11-07 22:47] VITALS: BP 132/94; PULSE 86; RESP 18; O2SAT 97
== END 2019-11-07 22:48 | disposition home or self-care (01) ==
PROVIDERS: Emergency Provider Nurse Practitioner Family; PCP Family Medicine
DX: R10.11 Right upper quadrant pain (principal); Z85.038 Personal history of other malignant neoplasm of large intestine; F17.210 Nicotine dependence, cigarettes, uncomplicated
CPT/HCPCS: 12345; 36415; 74177; 80053; 83690; 85025; 96361; 96374; 99282; 99283; J0131; J7030; Q9967

== ENCOUNTER → 2019-11-16 07:49 | Outpatient (BNVA) | payer MEDICAID, SELFPAY | PROVIDERS: PCP Family Medicine; Visit Provider Psychiatry & Neurology Psychiatry | DX: F42.9 Obsessive-compulsive disorder, unspecified (principal); F15.11 Other stimulant abuse, in remission; F11.21 Opioid dependence, in remission; F12.20 Cannabis dependence, uncomplicated; F33.1 Major depressive disorder, recurrent, moderate; F60.3 Borderline personality disorder | CPT/HCPCS: 99213 ==

== ENCOUNTER → 2020-02-29 08:10 | Outpatient (BNVA) | payer MEDICAID, SELFPAY | PROVIDERS: PCP Family Medicine; Visit Provider Psychiatry & Neurology Psychiatry | DX: F42.9 Obsessive-compulsive disorder, unspecified (principal); F33.1 Major depressive disorder, recurrent, moderate; F60.3 Borderline personality disorder; F15.11 Other stimulant abuse, in remission; F11.21 Opioid dependence, in remission; F12.20 Cannabis dependence, uncomplicated; F32.9 Major depressive disorder, single episode, unspecified | CPT/HCPCS: 99214 ==

== ENCOUNTER → 2020-04-10 07:42 | Outpatient (BNVA) | payer MEDICAID, SELFPAY | PROVIDERS: PCP Family Medicine; Visit Provider Psychiatry & Neurology Psychiatry | DX: F42.9 Obsessive-compulsive disorder, unspecified (principal); F33.1 Major depressive disorder, recurrent, moderate; F15.11 Other stimulant abuse, in remission; F11.21 Opioid dependence, in remission; F12.20 Cannabis dependence, uncomplicated; F60.3 Borderline personality disorder; F41.1 Generalized anxiety disorder | CPT/HCPCS: 99213 ==

== ENCOUNTER 2020-06-06 06:02 | Emergency (ER) | payer MEDICAID, SELFPAY ==
[2020-06-06 06:07] VITALS: BP 124/83; PULSE 95; RESP 20; TEMP 36.7; O2SAT 96; BMI 25.6
[2020-06-06 06:19] VITALS: O2SAT 96
--- NOTE | 2020-06-06 06:27 | W.ED.COVID ---
HPI - COVID General: Chief Complaint: COVID symptoms Stated Complaint: SOB/Coughing Time Seen by Provider: 06/06/20 06:17 Triage information: No fever, cough or shortness of breath. No known COVID + exposure last 14 days History of Present Illness: HPI Narrative: 39-year-old female presents to the emergency room with complaint of cough congestion short of breath and anosmia that began over the last 3 to 4 days getting progressively worse. When she is resting she has no difficulty. She has some chronic diarrhea due to a previous colon resection. He has no known Covid exposure. MD complaint: has COVID symptoms Prior covid testing: no COVID 19 common symptoms: positive fever(s), chills, cough and non-productive cough; negative throat pain, nasal congestion, nausea, vomiting or diarrhea COVID 19 other sytmptoms: negative chest pain or requiring oxygen Onset (ago): day(s) Severity: mild Treatment prior to arrival: none COVID Results: Nasal/Oral Coronavirus 2019 PCR Not detected 06/06/20 06:25 06/06/20 Review of Systems Const: Reports: fever(s) and chills ENMT: Denies: throat pain, ear or mastoid pain, nasal discharge or nasal congestion Card: Denies: chest pain, edema, dyspnea on exertion or orthopnea Resp: Reports: non-productive cough GI: Denies: abdominal pain, nausea, vomiting, hematemesis, coffee ground emesis, diarrhea, constipation, bloating, hematochezia or melena : Denies: flank pain, difficulty voiding, dysuria, urinary frequency or urinary urgency Skin/Breast: Denies: rash or pruritus PFSH ED PFSH: Medical History Colon cancer History of drug use Surgical History History of bunionectomy History of hammertoe correction Family History Denies family history of Diabetes CAD (coronary artery disease) Clotting disorder Dementia Hyperlipidemia Psychiatric illness Chronic kidney disease (CKD) Suicide Anesthesia complication Bleeding disorder Family history of premature coronary artery disease Lung disease Cancer Hypertension Stroke Social History Smoking and tobacco status: current every day smoker cigarettes Packs smoked per day: 1 Years cigarettes smoked: 25 Quit status (tobacco): has tried quititng Number of times tried to quit tobacco: 3 Second hand smoke exposure: Yes Alcohol intake: never Current gender identity: Female Female Reproductive History: Date of last menstrual period: 05/27/19 Physical Exam Const: COMMON NORMALS: no acute distress GENERAL APPEARANCE: cooperative and comfortable ORIENTATION/CONSCIOUSNESS: Yes awake, Yes oriented to person, Yes oriented to place and Yes oriented to time HENMT: COMMON NORMALS: normocephalic, atraumatic and hearing grossly normal bilaterally HEAD & SCALP: normocephalic and atraumatic Neck/C-Spine: COMMON NORMALS: no JVD Resp: COMMON NORMALS: normal respiratory effort, No retractions, No use of accessory muscles and clear to auscultation bilaterally AUSCULTATION: clear to auscultation bilaterally Cardio: COMMON NORMALS: no JVD, regular rate, regular rhythm and No murmurs present (Cardio) RATE: regular rate RHYTHM: regular rhythm GI: COMMON NORMALS: Soft to palpation and No hepatosplenomegaly present AUSCULTATION: Yes normoactive bowel sounds PALPATION: Yes Soft to palpation, No Tenderness to palpation present (GI), No Guarding due to palpation present (GI) and Yes No hepatosplenomegaly present Extremity: COMMON NORMALS: normal to inspection, capillary refill normal, no clubbing, cyanosis or edema, no calf tenderness and no pedal edema Neuro: SENSORIUM/ORIENTATION: Yes oriented to person, Yes oriented to place and Yes oriented to time Skin: COMMON NORMALS: no rashes or lesions noted GENERAL SKIN EXAM: no rashes or lesions noted Course Vital Signs: Vital signs: Vital Signs Temperature 98.1 F 06/06/20 06:07 Pulse Rate 101 H 06/06/20 06:42 Respiratory Rate 20 H 06/06/20 06:07 Blood Pressure 124/83 06/06/20 06:07 Pulse Oximetry 97 06/06/20 06:42 MDM - COVID Lab Data: Labs: Lab Results 06/06/20 Range/Units 06:25 Nasal/Oral COVID-1 9 PCR Not detected COVID Results: Nasal/Oral Coronavirus 2019 PCR Not detected 06/06/20 06:25 06/06/20 Discharge Plan Discharge Patient Disposition: Home Clinical Impression: Suspected severe acute respiratory syndrome coronavirus 2 (SARS-CoV-2) infection Condition: Stable Prescriptions: No Action prenat.vits,greg,dbp-pagz-ychxk Tablet 1 tab PO QDAY RF: 0 ondansetron 4 mg tablet,disintegrating 4 mg PO Q8H PRN (Reason: NAUSEA/VOMITING) RF: 0 gabapentin 100 mg capsule 100 mg PO BID RF: 0 diphenoxylate-atropine [Lomotil] 2.5-0.025 mg tablet 3 tab PO QID RF: 0 dicyclomine 20 mg tablet 20 mg PO QID RF: 0 Viberzi 75 mg tablet 75 mg PO BID RF: 0 tizanidine [Zanaflex] 2 mg capsule 2 mg PO BID PRN (Reason: UNKNOWN) RF: 0 tramadol 50 mg tablet 100 mg PO BID RF: 0 fluoxetine [Prozac] 40 mg capsule 40 mg PO QAM Qty: 30 RF: 2 trazodone 50 mg tablet 100 mg PO .HS Qty: 60 RF: 2 Tylenol 325 mg Tablet 325 mg PO QID PRN (Reason: Pain) RF: 0 ProAir HFA 90 mcg/actuation Hfa Aerosol Inhaler 2 puff INHALATION QID PRN (Reason: Bronchospasm) RF: 0 Discharge Orders: Discharge ED (Routine); Ordered 06/06/20 Ordered By: Madi Blum Referrals: Akshat Hoskins MD [Primary Care Provider] - Discharge Diet: Usual diet Discharge Activity: Limit activity as instructed Activity Restrictions/Additional Instructions: Maintain self quarantine until results are available. Wear a mask whenever you are not alone. Return if he has significant shortness of breath. Coding Level of Care Code ED Ballast Cleaning Operator for Anton Ruff
[2020-06-06 06:42] VITALS: PULSE 101; O2SAT 97
[2020-06-06 15:20] LABS: Coronavirus Test Green County Not Detected
--- NOTE | 2020-06-06 16:09 | PC.NURSE ---
Patient called to be notified of COVID results. No answer at this time. Message left to call the ER back to get results.
== END 2020-06-06 06:44 | disposition home or self-care (01) ==
PROVIDERS: Emergency Provider Family Medicine; PCP Family Medicine
DX: Z20.822 Contact with and (suspected) exposure to COVID-19 (principal); Z85.038 Personal history of other malignant neoplasm of large intestine; F17.210 Nicotine dependence, cigarettes, uncomplicated
CPT/HCPCS: 12345; 87635; 99281

== ENCOUNTER → 2020-06-10 08:35 | Outpatient (BNVA) | payer MEDICAID, SELFPAY | PROVIDERS: PCP Family Medicine; Visit Provider Psychiatry & Neurology Psychiatry | DX: F33.1 Major depressive disorder, recurrent, moderate (principal); F42.9 Obsessive-compulsive disorder, unspecified; F15.11 Other stimulant abuse, in remission; F11.21 Opioid dependence, in remission; F12.20 Cannabis dependence, uncomplicated; F60.3 Borderline personality disorder | CPT/HCPCS: 99214 ==

== ENCOUNTER → 2020-07-01 15:35 | Outpatient (BNVA) | payer MEDICAID, SELFPAY | PROVIDERS: PCP Family Medicine; Visit Provider Podiatrist Foot & Ankle Surgery | DX: Z47.89 Encounter for other orthopedic aftercare (principal) | CPT/HCPCS: 73630 ==

== ENCOUNTER → 2020-09-25 08:35 | Outpatient (BNVA) | payer MEDICAID, SELFPAY | PROVIDERS: PCP Family Medicine; Visit Provider Podiatrist Foot & Ankle Surgery | DX: M77.42 Metatarsalgia, left foot (principal); M20.42 Other hammer toe(s) (acquired), left foot; M24.572 Contracture, left ankle | CPT/HCPCS: 73630 ==

== ENCOUNTER 2020-09-25 11:09 | Outpatient (CLI) | payer MEDICAID, SELFPAY ==
[2020-09-25 12:23] LABS: Basophils # 0.1 10^3/uL (0.0-0.1); Basophils % 0.8 %; Eosinophils # 0.4 10^3/uL (0.0-0.8); Eosinophils % 3.3 %; Hematocrit 38.1 % (37.0-47.0); Hemoglobin 12.8 g/dL (11.5-15.3); Lymphocytes # 3.8 10^3/uL (0.8-4.8); Lymphocytes % 35.8 %; Mean Corpuscular HGB Conc 33.6 g/dL (30.0-36.0); Mean Corpuscular Hemoglobin 31.4 pg (28.0-34.0); Mean Corpuscular Volume 93.4 fL (81-99); Mean Platelet Volume 9.3 fL (7.4-10.4); Monocytes # 0.7 10^3/uL (0.2-0.9); Monocytes % 6.6 %; Neutrophils # 5.65 10^3/uL (1.8-7.7); Nucleated Red Blood Cells % 0 %; Platelet Count 340 10^3/cmm (130-400); Red Blood Count 4.08 10^6/uL (4.1-5.3); Red Cell Distribution Width 14.9 % (12.1-15.1); White Blood Count 10.6 10^3/uL (4.0-10.0)
[2020-09-25 12:55] LABS: 25 Hydroxy Vitamin D 17 ng/mL (30-100); Anion Gap 11.8 (5-19); Blood Urea Nitrogen 12 mg/dL (6-20); C Reactive Protein 6.5 mg/L (0.0-4.9); Calcium 8.4 mg/dL (8.5-10.5); Carbon Dioxide 26 mmol/L (22-29); Chloride 104 mmol/L (98-107); Glucose 120 mg/dL (65-115); Osmolality Calculated 287 mOsm/kg (285-295); Potassium 3.8 mmol/L (3.5-5.1); Sodium 138 mmol/L (136-145)
[2020-09-25 13:15] LABS: Erythrocyte Sedimentation Rate 15 mm/hr (0-15)
[2020-09-26 12:13] LABS: COMPLEMENT COMPONENT C3C 137 mg/dL (83-193); COMPLEMENT COMPONENT C4C 16 mg/dL (15-57)
[2020-09-26 13:53] LABS: CENTROMERE B ANTIBODY <1.0 NEG AI (<1.0 NEG); JO-1 ANTIBODY <1.0 NEG AI (<1.0 NEG); RNP ANTIBODY <1.0 NEG AI (<1.0 NEG); SCL-70 ANTIBODY <1.0 NEG AI (<1.0 NEG); SJOGREN'S ANTIBODY (SS-A) <1.0 NEG AI (<1.0 NEG); SM ANTIBODY <1.0 NEG AI (<1.0 NEG); SS-B <1.0 NEG AI (<1.0 NEG)
[2020-09-27 13:38] LABS: ANA SCREEN, IFA NEGATIVE (NEGATIVE); COMPLEMENT, TOTAL (CH50) >60 U/mL (31-60)
[2020-09-27 14:48] LABS: THYROID PEROXIDASE ANTIBODIES <1 IU/mL (<9)
[2020-09-27 18:08] LABS: HLA-B27 POSITIVE (NEGATIVE)
[2020-09-28 23:17] LABS: ANCA Interp Negative (Negative)
[2020-09-30 23:27] LABS: DNA AB (DS) CRITHIDIA,IFA NEGATIVE (NEGATIVE)
== END 2020-09-25 11:10 | disposition home or self-care (01) ==
LOC: LAB 11:25
PROVIDERS: PCP Family Medicine; Visit Provider Podiatrist Foot & Ankle Surgery
DX: M24.572 Contracture, left ankle (principal); M79.673 Pain in unspecified foot; M77.42 Metatarsalgia, left foot
CPT/HCPCS: 36415; 80048; 82306; 83516; 85025; 85651; 86140; 86160; 86162; 86235; 86255; 86376; 86431; 86812

== ENCOUNTER 2020-12-17 14:07 | Outpatient (CLI) | payer MEDICAID, SELFPAY | END 2020-12-17 14:08 | disposition home or self-care (01) | LOC: SPT 14:08 | PROVIDERS: PCP Family Medicine; Visit Provider Podiatrist Foot & Ankle Surgery | DX: Z46.89 Encounter for fitting and adjustment of other specified devices (principal); M21.619 Bunion of unspecified foot; M20.42 Other hammer toe(s) (acquired), left foot | CPT/HCPCS: 97760; L4361 ==

== ENCOUNTER → 2020-12-18 10:20 | Outpatient (BNVA) | payer MEDICAID, SELFPAY | PROVIDERS: PCP Family Medicine; Visit Provider Internal Medicine Rheumatology | DX: Z15.89 Genetic susceptibility to other disease (principal); Z79.899 Other long term (current) drug therapy; M54.89 Other dorsalgia; M15.9 Polyosteoarthritis, unspecified; Z11.59 Encounter for screening for other viral diseases; Z11.1 Encounter for screening for respiratory tuberculosis; Z85.038 Personal history of other malignant neoplasm of large intestine; Z92.21 Personal history of antineoplastic chemotherapy; Z90.49 Acquired absence of other specified parts of digestive tract; F17.210 Nicotine dependence, cigarettes, uncomplicated | CPT/HCPCS: 99204 ==

== ENCOUNTER 2020-12-20 11:38 | Emergency (ER) | payer MEDICAID, SELFPAY ==
[2020-12-20 12:16] VITALS: BP 130/86; PULSE 97; RESP 18; TEMP 36.8; O2SAT 97; BMI 27.2
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
== END 2020-12-20 13:37 | disposition home or self-care (01) ==
PROVIDERS: Emergency Provider Nurse Practitioner Family; PCP Family Medicine
DX: M54.5 Low back pain (principal); F17.210 Nicotine dependence, cigarettes, uncomplicated
CPT/HCPCS: 99281

== ENCOUNTER → 2020-12-23 16:12 | Outpatient (BNVA) | payer MEDICAID, SELFPAY | PROVIDERS: PCP Family Medicine; Visit Provider Podiatrist Foot & Ankle Surgery | DX: Z01.812 Encounter for preprocedural laboratory examination (principal); Z20.822 Contact with and (suspected) exposure to COVID-19 | CPT/HCPCS: 87635 ==

== ENCOUNTER 2020-12-27 07:17 | Day surgery (SDC) | payer MEDICAID, SELFPAY ==
[2020-12-26 16:35] VITALS: BMI 26.4
[2020-12-27] VITALS (7 sets, daily range): BP systolic 103–125; BP diastolic 40–86; PULSE 88–118; RESP 16–20; TEMP 36.3–36.7; O2SAT 94–97
--- NOTE | 2020-12-27 | SCC_ITS ---
Procedure Done: Left first metatarsophalangeal joint arthrodesis, left second metatarsal head resection, left third metatarsal head resection, left second, third, fourth, fifth hammertoe corrections, deep hardware removal left foot. 15 seconds of fluoroscopic guidance, for a cumulative dose of 0.228 mGy, was provided to Dr. West by the radiology department. C-arm images of the LEFT foot were saved for the patient's permanent record. JOSE
[2020-12-27] MEDS: sodium chloride 0.9% 1,000 ML 30 ML IV (07:54)
[2020-12-27 07:59] LABS: Amphetamines Screen Urine Negative (Negative); Barbiturates Screen Urine Negative (Negative); Benzodiazepines Screen Urine Negative (Negative); Cocaine Screen Urine Negative (Negative); Opiate Screen Urine Negative (Negative); PCP Screen Urine Negative (Negative); THC Screen Urine Negative (Negative)
--- NOTE | 2020-12-27 08:01 | ANES.PREANE2 ---
Pre-Anesthetic Assessment Pre-Anesthetic Assessment: Height/Weight: Height 1.6 m Weight 67.585 kg Temp Pulse Resp BP Pulse Ox 98.1 F 88 19 H 104/74 94 12/27/20 07:42 12/27/20 07:42 12/27/20 07:42 12/27/20 07:42 12/27/20 07:42 Preop Diagnosis: Equinus, hammertoe 2 through 5 and bunion, painful hardware, left foot Proposed Procedure: Operation Date: 12/27/20 08:15 Proposed Procedures p Gastrocnemius recession, first metatarsophalangeal joint arthrodesis, deep hardware removal, hammertoe correction 2, 3, 4 and 5, Galiloe osteotomy metatarsals 2 and 3 all left lower extremity 95246, 84954, 89142, 10851, 95534 M20.42(Left) - [facility] D[facility] s Gastrocnemius recession, first metatarsophalangeal joint arthrodesis, deep hardware removal, hammertoe correction 2, 3, 4 and 5, Galileo osteotomy metatarsals 2 and 3 all left lower extremity 38286, 00489, 55789, 59446, 90973 M20.42(Left) - [facility] Gastrocnemius recession, first metatarsophalangeal joint arthrodesis, deep hardware removal, hammertoe correction 2, 3, 4 and 5, Galileo osteotomy metatarsals 2 and 3 all left lower extremity 49981, 00208, 78049, 66909, 71826 M20.42(Left) - [facility] Gastrocnemius recession, first metatarsophalangeal joint arthrodesis, deep hardware removal, hammertoe correction 2, 3, 4 and 5, Galileo osteotomy metatarsals 2 and 3 all left lower extremity 13978, 64366, 37182, 98538, 66527 M20.42(Left) - [facility] Gastrocnemius recession, first metatarsophalangeal joint arthrodesis, deep hardware removal, hammertoe correction 2, 3, 4 and 5, Galileo osteotomy metatarsals 2 and 3 all left lower extremity 83263, 85618, 62229, 84613, 56772 M20.42(Left) - [facility] Familial anesthetic complications: NOne Was Clonidine taken within 24 hours: N/A Last intake: Intake Last Liquid Date 12/27/20 Last Liquid Time 02:00 Last Solid Date 12/26/20 Last Solid Time 23:00 Social: Social History: Tobacco and No alcohol Comment: Denies recent illicit drug use Exam: Pre-Anes Outpt Exam: alert, oriented x 3, clear to auscultation bilaterally and regular rate & rhythm Airway: Cervical ROM: WNL MP: 2 Dentition: False GI: GI: GERD Comments: IBS Musc/skel: Comments: inflammatory arthritis Anesthetic Plan: ASA status: 2 Anesthesia: General and Regional (specify below) (popliteal) Risk of > 500 ml blood loss (7ml/kg in children): No Meds/Allergies Current Medications: Current Medications Generic Name Dose Route Start Last Admin Trade Name Freq PRN Reason Stop Dose Admin Sodium Chloride 1,000 mls @ 30 ml s/hr 12/27/20 07:30 12/27/20 07:54 Sodium Chloride 0.9% IV 12/28/20 07:29 30 mls/hr .Q24H MARYAN Administration PFSH Anesthesia PFSH: Medical History (Updated 12/20/20 @ 12:58 by PARMINDER Perez) Cervical cancer pt had hysterectomy Colon cancer High risk medication use History of drug use Inflammatory arthritis Inflammatory back pain Surgical History (Updated 12/18/20 @ 11:36 by Chase Casas MD) History of appendectomy History of bunionectomy History of cholecystectomy History of hammertoe correction History of hysterectomy pt states done for cervical cancer History of intestinal surgery pt states had removal of large intestines and uses antidiarrhea meds and vitamins due to low absorption Family History (Updated 12/18/20 @ 10:48 by Ellie Gilbert LPN) Other Cancer Chronic kidney disease (CKD) Lung disease Lupus Rheumatoid arthritis Denies family history of Diabetes CAD (coronary artery disease) Clotting disorder Dementia Hyperlipidemia Psychiatric illness Suicide Anesthesia complication Bleeding disorder Family history of premature coronary artery disease Hypertension Stroke Social History (Updated 12/18/20 @ 10:47 by Ellie Gilbert LPN) Smoking and tobacco status: current some day smoker cigarettes Packs smoked per day: 1 Years cigarettes smoked: 25 [ Other cigarette details: states is quitting ] Quit status (tobacco): has tried quititng Number of times tried to quit tobacco: 3 Second hand smoke exposure: Yes Alcohol intake: never History of recent travel: No Current gender identity: Female Female Reproductive History: Date of last menstrual period: 05/27/19 Data Anesthesia Other Labs: Laboratory Results - last 48 hr 12/27/20 07:40 Urine Opiates Screen Negative Ur Barbiturates Screen Negative Ur Phencyclidine Scrn Negative Ur Amphetamines Screen Negative U Benzodiazepines Scrn Negative Urine Cocaine Screen Negative U Marijuana (THC) Screen Negative Cardiac Studies: No Data to Display
[2020-12-27] MEDS: midazolam 1 mg/mL INJ 5 ML 5 MG IVP (08:15)
--- NOTE | 2020-12-27 08:44 | P.HPUD_ITS ---
Surgery/Procedure H&P Update DATE OF PROCEDURE: December 27, 2020 DATE H&P PERFORMED: 12/02/20 H&P UPDATE INFORMATION: I have reviewed H&P completed within last 30 days, I have examined patient prior to procedure and H&P is in [facility] EMR on date indicated PREOP DIAGNOSIS: Equinus, hammertoe 2 through 5 and bunion, painful hardware, left foot PLANNED PROCEDURE: Operation Date: 12/27/20 08:15 Proposed Procedures p Gastrocnemius recession, first metatarsophalangeal joint arthrodesis, deep hardware removal, hammertoe correction 2, 3, 4 and 5, Galileo osteotomy metatarsals 2 and 3 all left lower extremity 98784, 18752, 38400, 96740, 35073 M20.42(Left) - [facility] Gastrocnemius recession, first metatarsophalangeal joint arthrodesis, deep hardware removal, hammertoe correction 2, 3, 4 and 5, Galileo osteotomy metatarsals 2 and 3 all left lower extremity 90355, 34018, 82312, 50577, 44692 M20.42(Left) - [facility] Gastrocnemius recession, first metatarsophalangeal joint arthrodesis, deep hardware removal, hammertoe correction 2, 3, 4 and 5, Galileo osteotomy metatarsals 2 and 3 all left lower extremity 57986, 79805, 85720, 36531, 50536 M20.42(Left) - [facility] Gastrocnemius recession, first metatarsophalangeal joint arthrodesis, deep hardware removal, hammertoe correction 2, 3, 4 and 5, Galileo osteotomy metatarsals 2 and 3 all left lower extremity 32283, 17178, 08023, 60720, 18044 M20.42(Left) - [facility] s Gastrocnemius recession, first metatarsophalangeal joint arthrodesis, deep hardware removal, hammertoe correction 2, 3, 4 and 5, Galileo osteotomy metatarsals 2 and 3 all left lower extremity 79364, 33877, 40747, 07265, 93025 M20.42(Left) - [facility]
--- NOTE | 2020-12-27 08:44 | W.PM.OPSUD ---
Surgery/Procedure H&P Update DATE OF PROCEDURE: December 27, 2020 DATE H&P PERFORMED: 12/02/20 H&P UPDATE INFORMATION: I have reviewed H&P completed within last 30 days, I have examined patient prior to procedure and H&P is in [facility] EMR on date indicated PREOP DIAGNOSIS: Equinus, hammertoe 2 through 5 and bunion, painful hardware, left foot PLANNED PROCEDURE: Operation Date: 12/27/20 08:15 Proposed Procedures p Gastrocnemius recession, first metatarsophalangeal joint arthrodesis, deep hardware removal, hammertoe correction 2, 3, 4 and 5, Galileo osteotomy metatarsals 2 and 3 all left lower extremity 90651, 18078, 13999, 63450, 97742 M20.42(Left) - [facility] s Gastrocnemius recession, first metatarsophalangeal joint arthrodesis, deep hardware removal, hammertoe correction 2, 3, 4 and 5, Galileo osteotomy metatarsals 2 and 3 all left lower extremity 48933, 68726, 40509, 43040, 63580 M20.42(Left) - [facility] Gastrocnemius recession, first metatarsophalangeal joint arthrodesis, deep hardware removal, hammertoe correction 2, 3, 4 and 5, Galileo osteotomy metatarsals 2 and 3 all left lower extremity 70689, 97765, 43658, 25499, 80947 M20.42(Left) - [facility] Gastrocnemius recession, first metatarsophalangeal joint arthrodesis, deep hardware removal, hammertoe correction 2, 3, 4 and 5, Galileo osteotomy metatarsals 2 and 3 all left lower extremity 40447, 57001, 00827, 54942, 42323 M20.42(Left) - [facility] s Gastrocnemius recession, first metatarsophalangeal joint arthrodesis, deep hardware removal, hammertoe correction 2, 3, 4 and 5, Galileo osteotomy metatarsals 2 and 3 all left lower extremity 12779, 13124, 01624, 91193, 25546 M20.42(Left) - [facility]
--- NOTE | 2020-12-27 09:07 | ANES.PROC ---
Anesthesia Procedures Procedure/Date: 12/27/20 Nerve Block ^: Nerve Block 1: Main Anesthesia: general anesthesia Time Out Performed: Yes Consent: requested by attending/covering physician, from patient, risks and benefits reviewed and patient agrees to proceed Nerve block location: popliteal (L) Anesthesia monitors applied: pulse oximetry, EKG, BP cuff and oxygen Nerve block position: supine Anesthetic Used: ropivicaine 0.5% (30 ml) and with decadron (4 mg) Ultrasound used to: recognize landmarks Nerve Stimulator Used?: No Interscalene/Femoral BLK: 4 stimuplex 21 g needle used for position and inplane approach, visualize local anesthetic spread and no vascular puncture identified Injection: neg aspiration of heme Patient Tolerated Procedure: well and no complications Complications: none
[2020-12-27] MEDS: lidocaine 1% INJ 20 mL 10 ML INJECTION (09:45)
--- NOTE | 2020-12-27 12:16 | XR_ITS ---
WS: [id number] Left foot, 3 views, 12/27/2020 Clinical Data: post op Comparison: Left foot, 09/25/2020 Findings: The patient has had extensive revision of the previous fusions and deformities. The plate on the medi al aspect of the base of the left first metatarsal and left first cuneiform has been removed and now there is only a single orthopedic screw fusing the joint space. There is a plate on the distal left f irst metatarsal and base of left first proximal phalanx attached with multiple screws straightening t he left great toe. There are orthopedic pins in the second through fifth toes extending into the meta tarsals correcting the flexion deformities and subluxations of those toes. XR/XR foot LT min 3V* [id number] Impression: Extensive surgery correcting medial and flexion deformities of the toes of the left foot.
--- NOTE | 2020-12-27 12:17 | P.OP_ITS ---
Operative Report Date of procedure: December 27, 2020 Pre-op Diagnosis: Buinion, hammertoe two, three, four, five, painful hardware, all left foot Post-op diagnosis: same Post-op Findings: Arthrosis of the second and third metatarsal heads with significant joint space loss and cartilage loss. Procedure Done: Left first metatarsophalangeal joint arthrodesis, left second metatarsal head resection, left third metatarsal head resection, left second, third, fourth, fifth hammertoe corrections, deep hardware removal left foot. Implants: Sundown 28 first metatarsophalangeal joint arthrodesis plate with a combination of 3.5 millimeter screws and 2.7 millimeters screws, 0.062 K wire x4, 4-0 Vicryl, 3-0 Vicryl, 4-0 nylon. Specimens removed/disposition: Deep hardware screws and plate from [facility] site as well as staple from [facility] site Pathology: none sent Surgeon: [facility] D.P.M. Supervisor [employer] Education: Zander Anesthesia: General Estimated blood loss: Less than 25 mL Tourniquet time: 120 minutes IV fluids: None Urine output: None Complications: None Findings: Arthrosis of the first,And third metatarsophalangeal joints Condition: stable Disposition: PACU Brief History: Patient recently diagnosed with inflammatory arthropathy has had a progression of forefoot pedal deformities consisting of bunion deformity and hammertoe deformities of 2, 3, 4 and 5 this has debilitated her ability to enjoy everyday activities standing and walking has pain that is significant. Would like to discuss surgical intervention. I am recommending hardware removal, first metatarsophalangeal arthrodesis, hammertoe correction 2 through 5 all left foot. Will also consist of metatarsal osteotomies 2 and 3. Patient is agreeable wishes to proceed. No guarantees written, expressed or implied. Risks discussed at length include but are not limited to pain, bleeding, numbness, infection, hardware failure, hardware irritation, recurrence of deformity, transfer pressure, transfer lesions, altered gait, altered mechanics, failure to correct deformity, overcorrection of deformity, chronic swelling, there is a likelihood for need for further surgical intervention down the road due to underlying inflammatory arthropathy. Patient is agreeable wishes to proceed has been n.p.o. since midnight, screening negative informed consent signed on initialed her left foot. Procedure: Under mild sedation the patient was brought to the operating room and placed on the operating table in supine position. A timeout was performed. Anesthesia was then administered by the anesthesia service. Popliteal block per anesthesia performed preoperatively. Well-padded pneumatic tourniquet applied to the left ankle. Left lower extremity was scrubbed, prepped and draped utilizing normal aseptic technique. Left foot was wrapped with an Esmarch bandage and a tourniquet inflated to 250 mmHg. Attention was directed to the previous cicatrix at the [place] site where a linear longitudinal incision was made and dissection carried down to hardware which was removed in total of this was commendation of plate and screws confirmed with fluoroscopy no remaining hardware is was passed from operative field the area was flushed and closed in a layered fashion 3-0 Vicryl and 4-0 nylon. Attention was then directed to the left first metatarsophalangeal joint where over the previous cicatrix a linear longitudinal incision was made down to and including subcutaneous tissue and periosteum. Care taken to retract and preserve neurovascular tendinous structures. All bleeders were ligated and cauterized as necessary. Linear periosteal incision was made in the head of the first metatarsal was denuded of its articular surface as well as the base of the proximal phalanx incision was flushed with saline solution followed by subchondral drilling at the first metatarsal head and base of the proximal phalanx a Sundown 28 first metatarsophalangeal joint arthrodesis plate was then inserted and fixated utilizing a combination of 3.5 millimeter screws proximally and 2.7 millimeter screws distally accommodation of locking and nonlocking screws with excellent bony apposition and compression noted. Confirmed a more rectus first ray with slight valgus and dorsiflexion on all 3 views of intraoperative C arm. Incision was flushed with saline solution and closed in a layered fashion utilizing 3-0 Vicryl and 4-0 nylon. Attention was then directed to the first and second metatarsophalangeal joints where a linear longitudinal incision was made with dissection carried down to the second and third metatarsal heads utilizing a combination of blunt and sharp technique with care taken to retract and preserve neurovascular tendinous structures. All bleeders were ligated and cauterized as necessary. A linear capsulotomy was performed in the head of the second and third metatarsal respectively was exposed and under direct association was noted to have significant arthrosis there was a lack of cartilage surface on the second and third metatarsal heads with dorsal enthesophyte. Due to underlying arthropathy the decision to avoid a Galileo osteotomy and due to a met head osteotomy/resection was performed this osteotomies performed at the head of the second and third metatarsal with a sagittal saw and the head was passed per operative field. The second and third toe dorsal metatarsophalangeal joint incisions were then extended distally to the intermediate phalanx of the second and third toe followed by resection of the second and third proximal phalanx heads and noted the articular surface of the base of the intermediate phalanx of the second and third toes area was flushed and a antegrade versus retrograde pinning of the second and third toe with a 0.062 K wire across the metatarsal phalangeal joint was performed keeping the toe out at length and in a rectus position followed flush of saline solution. Extensor tendon was reapproximated with 4-0 Vicryl, interpositional capsular closure with 4-0 Vicryl at the second and third metatarsophalangeal joints and skin closed with 4-0 nylon on the second and third hammertoe corrections. Attention was then directed to the left fourth and fifth hammertoe deformities where over the proximal interphalangeal joint of the fourth and fifth toes a linear longitudinal incision was made through skin and a transection of the extensor tendon at the proximal interphalangeal joint was performed in the head of the proximal phalanx and base of the intermediate phalanx was resected of its articular surface these were then fixated and pinned across the metatarsophalangeal joint utilizing a 0.062 K wire with excellent correction and all 3 planes noted. Incision of the fourth and fifth toe flushed with saline solution followed by extensor tendon reapproximation with 4-0 Vicryl and skin closed with 4-0 nylon. K wires and toes 2, 3, 4 and 5 bent at 90 degrees vertically and protected with a Barak ball. Total tourniquet time 120 minutes there was a prompt hyperemic response noted on toes 1 through 5 boot for leaving the operating room. Incision sites were dressed with Adaptic, sterile 4 x 4, Kerlix and a multilayer compressive Chester splint with posterior splint consisting of 4 inch Ortho-Magdiel. Tourniquet was deflated and a prompt hyperemic response is noted to the distal digits of the left foot. Patient tolerated the procedure well and was transferred to the PACU with vital signs stable and vascular status intact. Following a period of postoperative monitoring she will be discharged home is to remain strict nonweightbearing to the left lower extremity to elevate her left foot at all times while at rest. . Patient will require a wheelchair postoperatively to facilitate strict nonweightbearing will also require leg extension to elevate her left leg to avoid surgical site dehiscence and management of edema. She is not a candidate for crutches she has bad shoulders as well as bad balance with history of falls. Will require a wheelchair for greater than 99 days.
--- NOTE | 2020-12-27 18:25 | ANE.PACU2 ---
Inpatient post-anesthesia follow up: Airway intact: Yes Vital signs: Temperature 97.8 F Pulse Rate 104 Respiratory Rate 20 Blood Pressure 120/80 Pulse Oximetry 94 Oxygen Delivery Me thod Room Air Oxygen Flow Rate Fraction of Inspir ed Oxygen Hydration adequate: Yes Nausea and vomiting: No Pain level: 2 Mental status: Baseline
== END 2020-12-27 13:20 | disposition home or self-care (01) ==
PROVIDERS: Anesthesiology; PCP Family Medicine; Visit Provider Podiatrist Foot & Ankle Surgery
PROC: (CPT 20680; principal; 2020-12-27 08:15)
PROC: (CPT 28740; 2020-12-27 08:15)
PROC: (CPT 28308; 2020-12-27 08:15)
DX: M21.612 Bunion of left foot (principal); M20.42 Other hammer toe(s) (acquired), left foot; M77.42 Metatarsalgia, left foot; T84.84XA Pain due to internal orthopedic prosthetic devices, implants and grafts, initial encounter; Z85.41 Personal history of malignant neoplasm of cervix uteri; Z90.710 Acquired absence of both cervix and uterus; Z85.038 Personal history of other malignant neoplasm of large intestine; Z79.899 Other long term (current) drug therapy; F17.210 Nicotine dependence, cigarettes, uncomplicated
CPT/HCPCS: 20680; 28112 ×2; 28285 ×4; 28750; 64450; 73630; 76000; 76942; 80306; 96365; C1713; J0690; J1100; J2250; J2405; J2704; J2795; J3010; J3490; J7030

== ENCOUNTER 2021-01-09 15:42 | Outpatient (CLI) | payer MEDICAID, SELFPAY | END 2021-01-09 15:43 | disposition home or self-care (01) | LOC: SPT 15:43 | PROVIDERS: PCP Family Medicine; Visit Provider Podiatrist Foot & Ankle Surgery | DX: Z46.89 Encounter for fitting and adjustment of other specified devices (principal); M20.42 Other hammer toe(s) (acquired), left foot; M21.612 Bunion of left foot; M77.42 Metatarsalgia, left foot; M24.572 Contracture, left ankle; Q66.221 Congenital metatarsus adductus, right foot; Q66.222 Congenital metatarsus adductus, left foot; Z15.89 Genetic susceptibility to other disease; E55.9 Vitamin D deficiency, unspecified; Z98.890 Other specified postprocedural states; M79.673 Pain in unspecified foot | CPT/HCPCS: 97760; L4361 ==

== ENCOUNTER → 2021-01-14 12:45 | Outpatient (BNVA) | payer MEDICAID, SELFPAY | PROVIDERS: PCP Family Medicine; Visit Provider Podiatrist Foot & Ankle Surgery | DX: M79.672 Pain in left foot (principal); Z98.890 Other specified postprocedural states | CPT/HCPCS: 73630 ==

== ENCOUNTER → 2021-01-23 14:16 | Outpatient (BNVA) | payer MEDICAID, SELFPAY | PROVIDERS: PCP Family Medicine; Visit Provider Podiatrist Foot & Ankle Surgery | DX: Z98.890 Other specified postprocedural states (principal) | CPT/HCPCS: 73630 ==

== ENCOUNTER → 2021-01-30 13:42 | Outpatient (BNVA) | payer MEDICAID, SELFPAY | PROVIDERS: PCP Family Medicine; Visit Provider Podiatrist Foot & Ankle Surgery | DX: Z98.890 Other specified postprocedural states (principal) | CPT/HCPCS: 73630 ==

== ENCOUNTER 2021-07-11 17:45 | Inpatient (IN) | payer MEDICAID, SELFPAY ==
[2021-07-11 18:06] VITALS: BMI 21.2
[2021-07-11 18:52] LABS: HCG Qualitative Urine. Negative (Negative)
--- NOTE | 2021-07-11 18:55 | W.ED.PSYCHS ---
HPI - Psych General: Chief Complaint: Psychiatric Symptoms Stated Complaint: SI Time Seen by Provider: 07/11/21 18:12 History of Present Illness: Ms. Fuentes is a 40-year-old lady with reported psychiatric history of depression, PTSD, reported bipolar and per chart review borderline personality disorder presents emergency department due to psychiatric concerns. She reports a longstanding history of psychiatric complaints however more recently these have been complicated by prolonged polysubstance abuse. She was in [facility] sometime in 2019 however reports that she was dishonest and therefore therapy was not successful. Additionally she is seeing [facility] [place] though nothing within the past few months. She does endorse continued amphetamine use however feels that her depression is getting worse and that she wants help. Overall intensity symptoms is moderate to severe. Course has been worsening. Denies new medical concerns or traumatic injuries. No other specific exacerbating, alleviating, or provoking factors identified. Onset (ago): month(s) Duration: getting worse History of same: Yes Exacerbating factors: other Context: not taking psychiatric medications and significant life stressor Review of Systems General: Reports: 10 or more systems reviewed and unremarkable except in HPI and below PFSH ED PFSH: Medical History (Updated 07/21/21 @ 16:20 by Natalia Pablo) Cervical cancer pt had hysterectomy Colon cancer High risk medication use History of drug use Inflammatory arthritis Inflammatory back pain Surgical History History of appendectomy History of bunionectomy History of cholecystectomy History of hammertoe correction History of hysterectomy pt states done for cervical cancer History of intestinal surgery pt states had removal of large intestines and uses antidiarrhea meds and vitamins due to low absorption Family History Other Cancer Chronic kidney disease (CKD) Lung disease Lupus Rheumatoid arthritis Denies family history of Diabetes CAD (coronary artery disease) Clotting disorder Dementia Hyperlipidemia Psychiatric illness Suicide Anesthesia complication Bleeding disorder Family history of premature coronary artery disease Hypertension Stroke Social History Quit status (tobacco): has tried quititng Number of times tried to quit tobacco: 3 Second hand smoke exposure: Yes Alcohol intake: never History of recent travel: No Current gender identity: Female Female Reproductive History: Date of last menstrual period: 05/27/19 Physical Exam Const: COMMON NORMALS: alert GENERAL APPEARANCE: cooperative and well developed HENMT: COMMON NORMALS: normocephalic and atraumatic HEAD & SCALP: normocephalic and atraumatic Eye: COMMON NORMALS: conjunctivae normal CONJUNCTIVA: Yes conjunctivae normal SCLERA: sclerae normal Neck/C-Spine: COMMON NORMALS: supple GENERAL: Yes trachea midline Resp: COMMON NORMALS: normal respiratory effort EFFORT & INSPECTION: Yes able to speak in complete sentences Cardio: COMMON NORMALS: regular rate and regular rhythm RATE: regular rate RHYTHM: regular rhythm GI: COMMON NORMALS: Soft to palpation PALPATION: Yes Soft to palpation and No Tenderness to palpation present (GI) PERCUSSION: normal to percussion Extremity: GENERAL: Yes normal exam except as noted and No edema Neuro: COMMON NORMALS: moves all extremities SENSORIUM/ORIENTATION: Yes alert and No Orientation impaired Psych: ATTITUDE: Yes Withdrawn affect present MOOD & AFFECT: Yes depressed mood Course ED course: - Patient was seen and evaluated by me at bedside -Vital signs obtained - Initial evaluation notable for exam as above, depressed, tearful - Labs notable for mild leukocytosis. Mild evidence of dehydration on metabolic panel however patient can adequately orally rehydrate. Hypokalemia present. -Treatment noted for hypokalemia. - Based on ED evaluation at this point there is no obvious condition that would preclude the patient from inpatient management of psychiatric concerns. Urinalysis not concerning for urinary tract infection in the absence of specific urinary symptoms and in the presence of squamous epithelial contamination. Drug screen as tested notable for minimal elevation in ethyl alcohol, phencyclidines and amphetamines screen positive. - Case discussed with psychiatry service. Patient to be admitted to neuropsych unit for definitive treatment and management. Note: Click bubbles or prepopulated arzola in note writing are used for assistance with data collection and billing and are inherently more limited than narrative and other text portions of this note. Please use narrative for additional clinical history and defer to narrative/free test for any case of contradictory information. If information appears in only free text or click bubble it should be considered present or absent as reported. Please contact note fiction writer for clarifications of clinical information or contradictory information. MDM is a brief summary, contradictory or erroneous seeming information should be clarified and full note should be reviewed. Vital Signs: Vital signs: Vital Signs Temperature 97.8 F 07/16/21 06:00 Pulse Rate 93 03/09/22 13:06 Respiratory Rate 16 07/16/21 15:26 Blood Pressure 116/81 07/16/21 06:00 Pulse Oximetry 100 07/16/21 13:06 MDM - Psych Medical Decision Making 40-year-old lady with history of psychiatric disorder and substance abuse disorder presenting with worsening depression. Hypokalemia noted on labs, replenishment ordered. Admitted to neuropsych unit for definitive management and treatment. Medical Records I reviewed the patient's medical records. Lab Data I reviewed the patient's lab results. : 07/11/21 19:09 07/12/21 11:52 Laboratory Results WBC 11.2 10^3/uL (4.0-10.0) H 07/11/21 19:09 RBC 4.30 10^6/uL (4.1-5.3) 07/11/21 19:09 Hgb 13.5 g/dL (11.5-15.3) 07/11/21 19:09 Hct 38.8 % (37.0-47.0) 07/11/21 19:09 MCV 90.2 fl (81-99) 07/11/21 19:09 MCH 31.4 pg (28.0-34.0) 07/11/21 19:09 MCHC 34.8 g/dL (30.0-36.0) 07/11/21 19:09 RDW 13.7 % (12.1-15.1) 07/11/21 19:09 Plt Count 365 10^3/cmm (130-400) 07/11/21 19:09 MPV 9.3 fL (7.4-10.4) 07/11/21 19:09 Neut % (Auto) 62.3 % 07/11/21 19:09 Lymph % (Auto) 28.8 % 07/11/21 19:09 [place] % (Auto) 6.8 % 07/11/21 19:09 Eos % (Auto) 1.2 % 07/11/21 19:09 Baso % (Auto) 0.6 % 07/11/21 19:09 Neut # (Auto) 6.98 10^3/uL (1.8-7.7) 07/11/21 19:09 Lymph # (Auto) 3.2 10^3/uL (0.8-4.8) 07/11/21 19:09 [place] # (Auto) 0.8 10^3/uL (0.2-0.9) 07/11/21 19:09 Eos # (Auto) 0.1 10^3/uL (0.0-0.8) 07/11/21 19:09 Baso # (Auto) 0.1 10^3/uL (0.0-0.1) 07/11/21 19:09 Nucleated RBC % (auto) 0 % 07/11/21 19:09 Nucleated RBCs # 0.0 /100WBC 07/11/21 19:09 Sodium 136 mmol/L (136-145) 07/11/21 19:09 Potassium 2.8 mmol/L (3.5-5.1) L* 07/11/21 19:09 Chloride 102 mmol/L (98-107) 07/11/21 19:09 Carbon Dioxide 21 mmol/L (22-29) L 07/11/21 19:09 Anion Gap 15.8 (5-19) 07/11/21 19:09 BUN 10 mg/dL (6-20) 07/11/21 19:09 Creatinine 0.5 mg/dL (0.5-0.9) 07/11/21 19:09 GFR Calculation 135.3 mL/min (90-130) H 07/11/21 19:09 Glucose 143 mg/dL (65-115) H 07/11/21 19:09 Calculated Osmolality 284 mOsm/kg (285-295) L 07/11/21 19:09 Calcium 9.4 mg/dL (8.5-10.5) 07/11/21 19:09 Total Bilirubin 0.3 mg/dL (0.15-1.2) 07/11/21 19:09 AST 21 U/L (0-32) 07/11/21 19:09 ALT 14 U/L (0-33) 07/11/21 19:09 Alkaline Phosphatase 86 IU/L (35-105) 07/11/21 19:09 Total Protein 7.5 g/dL (6.6-8.7) 07/11/21 19:09 Albumin 4.7 g/dL (3.5-5.2) 07/11/21 19:09 Globulin 2.8 g/dL (1.3-4.6) 07/11/21 19:09 HCG, Qual Negative (Negative) 07/11/21 18:00 Urine Color Yellow (Yellow) 07/11/21 18:00 Urine Appearance Sl hazy (CLEAR) 07/11/21 18:00 Urine pH 5 (5-7) 07/11/21 18:00 Ur Specific Bennett 1.030 (1.005-1.030) 07/11/21 18:00 Urine Protein 1+ (Negative) H 07/11/21 18:00 Urine Glucose (UA) Norm (Normal) 07/11/21 18:00 Urine Ketones 1+ (Negative) H 07/11/21 18:00 Urine Blood 2+ (Negative) H 07/11/21 18:00 Urine Nitrate Positive (Negative) H 07/11/21 18:00 Urine Bilirubin Neg (Negative) 07/11/21 18:00 Urine Urobilinogen 4 mg/dL (Negative) H 07/11/21 18:00 Ur Leukocyte Esterase Trace (Negative) H 07/11/21 18:00 Urine RBC 15-25 /hpf (0-2) H 07/11/21 18:00 Urine WBC 0-4 /hpf (0-5) H 07/11/21 18:00 Ur Squamous Epith Cells 15-25 /hpf (0-5) H 07/11/21 18:00 Calcium Oxalate Crystal 25-40 /hpf H 07/11/21 18:00 Amorphous Sediment Not Reportable 07/11/21 18:00 Urine Bacteria 1+ /hpf (NONE) H 07/11/21 18:00 Urine Mucus 3+ /hpf 07/11/21 18:00 Salicylates 0.5 mg/dL (3-10) L 07/11/21 19:09 Urine Opiates Screen Negative ng/mL (Negative) 07/11/21 18:00 Acetaminophen 6.8 ug/mL (10-30) L 07/11/21 19:09 Ur Barbiturates Screen Negative ng/mL (Negative) 07/11/21 18:00 Ur Phencyclidine Scrn Positive ng/mL (Negative) H 07/11/21 18:00 Ur Amphetamines Screen Positive ng/mL (Negative) H 07/11/21 18:00 U Benzodiazepines Scrn Negative ng/mL (Negative) 07/11/21 18:00 Urine Cocaine Screen Negative ng/mL (Negative) 07/11/21 18:00 U Marijuana (THC) Screen Negative ng/mL (Negative) 07/11/21 18:00 Ethyl Alcohol 15 mg/dL (0-10) H 07/11/21 19:09 Discharge Plan Discharge Patient Disposition: Admitted As Inpatient Admit Provider: Warren Hackett Clinical Impression: Depression Condition: Stable Discharge Diet: Regular Discharge Activity: Resume usual activity Coding Level of Care Code ED [employer] Equipment Operator for Anton Ruff
[2021-07-11 19:04] LABS: Amphetamines Screen Urine Positive (Negative); Barbiturates Screen Urine Negative (Negative); Benzodiazepines Screen Urine Negative (Negative); Cocaine Screen Urine Negative (Negative); Opiate Screen Urine Negative (Negative); PCP Screen Urine Positive (Negative); THC Screen Urine Negative (Negative)
[2021-07-11 19:08] LABS: Add Urine Microscopic? YES; Bilirubin Urine Neg (Negative); Blood Urine 2+ (Negative); Glucose Urine UA Norm (Normal); Ketones Urine 1+ (Negative); Leukocyte Esterase Urine Trace (Negative); Nitrate Urine Positive (Negative); Protein Urine 1+ (Negative); RBC Urine 15-25 /hpf (0-2); Urine Appearance SL Hazy (CLEAR); Urine Color Yellow (Yellow); Urobilinogen Urine 4 mg/dL (Negative); pH Urine 5 (5-7)
[2021-07-11 19:09] LABS: Add Urine Culture? No; Bacteria Urine 1+ /hpf; Calcium Oxalate Crystals Urine 25-40 /hpf; Mucus Urine 3+ /hpf; Squamous Epithelial Cell Urine 15-25 /hpf (0-5); WBC Urine 0-4 /hpf (0-5)
[2021-07-11 19:28] LABS: Basophils # 0.1 10^3/uL (0.0-0.1); Basophils % 0.6 %; Eosinophils # 0.1 10^3/uL (0.0-0.8); Eosinophils % 1.2 %; Hematocrit 38.8 % (37.0-47.0); Hemoglobin 13.5 g/dL (11.5-15.3); Lymphocytes # 3.2 10^3/uL (0.8-4.8); Lymphocytes % 28.8 %; Mean Corpuscular HGB Conc 34.8 g/dL (30.0-36.0); Mean Corpuscular Hemoglobin 31.4 pg (28.0-34.0); Mean Corpuscular Volume 90.2 fl (81-99); Mean Platelet Volume 9.3 fL (7.4-10.4); Monocytes # 0.8 10^3/uL (0.2-0.9); Monocytes % 6.8 %; Neutrophils # 6.98 10^3/uL (1.8-7.7); Neutrophils % 62.3 %; Nucleated Red Blood Cells % 0 %; Platelet Count 365 10^3/cmm (130-400); Red Cell Distribution Width 13.7 % (12.1-15.1); White Blood Count 11.2 10^3/uL (4.0-10.0)
[2021-07-11 19:50] LABS: Acetaminophen 6.8 ug/mL (10-30); Alanine Aminotransferase 14 U/L (0-33); Albumin Level 4.7 g/dL (3.5-5.2); Alcohol Level 15 mg/dL (0-10); Alkaline Phosphatase 86 IU/L (35-105); Anion Gap 15.8 (5-19); Aspartate Amino Transferase 21 U/L (0-32); Blood Urea Nitrogen 10 mg/dL (6-20); Calcium 9.4 mg/dL (8.5-10.5); Carbon Dioxide 21 mmol/L (22-29); Chloride 102 mmol/L (98-107); Globulin 2.8 g/dL (1.3-4.6); Glomerular Filtration Rate 135.3 mL/min (90-130); Glucose 143 mg/dL (65-115); Osmolality Calculated 284 mOsm/kg (285-295); Salicylate 0.5 mg/dL (3-10); Sodium 136 mmol/L (136-145); Total Bilirubin 0.3 mg/dL (0.15-1.2); Total Protein 7.5 g/dL (6.6-8.7)
[2021-07-11 19:58] LABS: Potassium 2.8 mmol/L (3.5-5.1)
[2021-07-11] MEDS: potassium chloride oral liq 20 mEq/15 mL UDC 60 MEQ PO (20:31)
[2021-07-11] MEDS: OLANZapine 5 mg ODT PO (23:19)
[2021-07-11] MEDS: trazodone 50 mg Tablet PO (23:20)
[2021-07-11] MEDS: tizanidine 4 mg Tablet PO (23:20)
--- NOTE | 2021-07-11 23:40 | PC.NURSE ---
patient tearful, agitated. states what happened to my kids what did I do to my kids, are my kids safe . patient verbally redirected
--- NOTE | 2021-07-12 00:05 | PC.NURSE ---
patient banging head against wall, states I can't be alone with my thoughts I want the pain to stop I want the thoughts to stop . Patient tearing up welcome packet in room, threw sandwich on the floor after ripping it up. patient crying. patient cannot be verbally redirected. no obvious deformity to patient's head, no apparent injury. no obvious contusion, bleeding, lacerations, abrasions. patient insistent something terrible happened to her children, believes she is in [place].
--- NOTE | 2021-07-12 00:07 | PC.NURSE ---
patient wants staff to stay at bedside, stating tearfully Please don't leave me alone I can't be alone with my thoughts make them stop . Patient picking at skin, trying to rip off her toenails
[2021-07-12] MEDS: acetaminophen 325 mg Tablet 650 MG PO (00:14)
[2021-07-12] MEDS: LORazepam 2 mg/mL INJ 1 mL IM (00:14)
[2021-07-12] MEDS: haloperidol inj 5 mg/mL INJ 1 mL IM (00:15)
[2021-07-12] MEDS: diphenhydrAMINE 50 mg/mL SDV 1mL IM (00:15)
--- NOTE | 2021-07-12 00:44 | PC.ADMIT ---
[email or web address] Charley Mack Admission Note:patient presents from ED, states her reason for being here is she needs a psych eval. patient has been admitted to psychiatric facilities before, but she says i don't know when asked when and where she was admitted. she does have one past suicide attempt by cutting her wrists, scars noted to bilateral anterior wrists and anterior bilateral thighs. patient has tattoo on lower back above buttocks. patient has flight of ideas, pressured speech, picking at her skin, tearful off and on. she is paranoid, wanting to read the label of all medications she is offered, agitated and easily angered, for example because she can't chew the sandwich given to her. patient responds with i don't know to most questions, has to be asked multiple times to get an answer other than that. patient has overwhelming anxiety and has a hard time catching her breath when these episodes come on. she has been using meth once a week for the past 6 months, and the last week she has used everyday. denies alcohol and other illicit drug use. states her oldest daughter is going to live with her when she is discharged and is a good support system. states she was prescribed Prozac but has not been taking it for several months, when asked why she says I don't know . patient particularly apprehensive when asked about abuse history, states I don't know I don't want to get into it . The patient,Ann Fuentes,40 y/o, was given written information regarding hospital policies, unit procedures and contact persons. Patient's smoking status:
--- NOTE | 2021-07-12 00:45 | PC.NURSE ---
patient resting with eyes closed. respirations even and unlabored. Q15 min rounding.
[2021-07-12] MEDS: cholecalciferol (vitamin D3) 5,000 unit Tablet 5000 UNIT PO (08:56)
[2021-07-12] MEDS: gabapentin 100 mg Capsule PO ×2 (08:56→17:40)
--- NOTE | 2021-07-12 09:47 | P.NPUHP_ITS ---
Providers/Chief Complaint Admitting Physician: Warren Hackett MD Primary Care Provider: Akshat Hoskins MD Chief Complaint: SI HPI NPU History of Present Illness Ann Fuentes is a 40 year old female who presented to the emergency department with the following report: Chief Complaint: Psychiatric Symptoms Stated Complaint: SI Time Seen by Provider: 07/11/21 18:12 History of Present Illness:?? Ms. Fuentes is a 40-year-old lady with reported psychiatric history of depression, PTSD, reported bipolar and per chart review borderline personality disorder presents emergency department due to psychiatric concerns.? She reports a longstanding history of psychiatric complaints however more recently these have been complicated by prolonged polysubstance abuse.? She was in [facility] [place] sometime in 2019 however reports that she was dishonest and therefore therapy was not successful.? Additionally she is seeing [facility] though nothing within the past few months.? She does endorse continued amphetamine use however feels that her depression is getting worse and that she wants help.? Overall intensity symptoms is moderate to severe.? Course has been worsening.? Denies new medical concerns or traumatic injuries.? No other specific exacerbating, alleviating, or provoking factors identified. Patient presented today unable to participate in the evaluation. On multiple occasions I entered her room and try to engage her/wake her up without success. On one occasion she did wake up see this gag writer and make identifying eye contact but then she drifted right back to sleep and was once again unable to be engaged. She had received some medication but she was also likely withdrawing from substances as well as possibly having not slept well. An excerpt of her 1/ History of Present Illness Ann Fuentes is a 38 year old female Chief complaint: What I thought was truly wasn't. History of present illness: Ann Fuentes is a 38 year old Woman with no history of psychosis up until this past week.? She reports that on 2 separate occasions, she became confused to the point where she was not sure what was real and was not.? She describes that prior to her presentation, she was fairly convinced that agents from the internal revenue service were sitting at her kitchen table.? They were talking about arresting her.? She reported multiple other perceptions that she firmly believed to be true at the time but now realizes they were not.? She recalls her daughter telling her that the things that she was verbalizing and experiencing were not accurate.? She is glad that she took her daughter's advice and came to the emergency room.? She is unsure why she has had this experience.? She had surgery on her foot one week ago.? She was given Percocet for pain following this surgery on the bunion on her foot.? However she has had pain medications in the past and in fact takes tramadol on occasion for pain and has never had any problems with changes in perception or cognition.? Her other explanation was that she does smoke marijuana and it is possible that she could have had some marijuana that was laced with something else.? Unfortunately no drug screen was performed in the emergency room so we have no correlating data.? Whatever the event, she is now 36 hours out from the insult to her brain.? She feels that she is generally able to think clearly.? Anderson granados is not questioning her perceptions at this time.? She is quite embarrassed. She does endorse symptoms of depression.? She feels hopeless and helpless at times.? She would like her life to be different.? However she denies suicidal or homicidal ideation.? She denies the presence of auditory or visual hallucinations.? She has good hedonic capacity in that she enjoys her children although they are quite a burden on her.? She also enjoys going to scientology. Information provided by emergency room:HPI Narrative: 38 yo female presents with hallucinations that the [employer] was at her house digging in and around her house. pt has recently used laced drugs last night around 11 pm. pt's daughter's are in t he waiting room of the ED filling out affidavits due to their mothers conditions. Pt denies any other symptoms. IT IS NOTED THAT NO URINE DRUG SCREEN WAS PERFORMED ON THIS DELIRIOUS DISORIENTED PATIENT. Mental health history:The patient has 1 prior psychiatric hospitalization nearly 10 years ago.? She was admitted for a self-inflicted injury to her neck that she said was involving suicidal thoughts but was not a suicide attempt.? She has never had any such problems since then. Family psychiatric history is positive for a daughter who has apparently been admitted to this unit on multiple occasions.? She says that the daughter also to last admission.? The identity of her daughter is unknown to this physician. Social history:The patient grew up in [place].? She has an associates degree fro [employer].? She moved to this area in 1999, returned to [place] in 2006 for her children benefit, and then returned to the [facility] in 2013.? She has children ages 24, 18, 16, 7, and 4.? She is a [id number] mom. Legal history:There are no reports of arrests or convictions in the public cord. Past medical history:The patient was diagnosed with colon cancer in 18 years of age.? She has had a hemicolectomy and resection of part of her small intestine. Mental Status Exam: The patient is alert and appropriately engaged.? She is disheveled.? She demonstrates elevated psychomotoric action and has difficulty sitting still.? She exhibits a multiple twitches and moves in short quick mov ements.? She has some difficulty ambulating due to the effects of her bunion surgery.? Eye contact is good.? She is believed to be a reliable informant to the best of her ability. Appearance: hygiene is fair; no gross neurological deficits., No tics or tremors. Speech: Speech is of normal rate and rhythm and easily understood.? Thought processes: Thought processes are abstract.? Judgment is adequate for safety. Associations: intact Psychotic processes: There is no indication of guarding or paranoia.? There is no attention to the internal stimuli.? Auditory and visual hallucinations are denied.? Judgment: Insight is fair.? Problem solving skills are adequate for safety. Orientation: The patient is oriented to person, place time and situation. Memory: no deficits noted in immediate, intermediate, or remote spheres. Attention: The patient is alert and interpersonally engaged.? Language: Verbalizations are coherent. Fund of knowledge: Fund of knowledge is adequate.? Affect/Mood: Affect is consistent with a depressed mood. She denied suicidal ideation Affective range appropriate.? Psychosis: perception unimpaired except through cognitive distortion; reality testing intact. Diagnoses: Delirium?presumably substance-induced Assessment:The patient apparently presented in a floridly psychotic state oriented not even to herself.? He is not in the habit of being psychotic.? Her mental health history is generally clean but she does present with symptoms of depression.? Her explanation that she smoked marijuana with some sort of contaminant is most likely to be accurate.? She is being treated status post surgery to her bunion, she says that opiates were given sparsely and not likely to cause the radical events leading to her hospitalization. inpatient psychiatric evaluation is included below for context. After that she engaged at [facility] for over a year with her last psychiatric follow-up in June 2020 but she did have some engagement in therapeutic interventions as recently as April last year. Per her 05/28/2019 inpatient psychiatric evaluation: Meds NPU Home Medications Medication Instructions Recorded Confirmed Last Taken Type gabapentin 100 mg capsule 100 mg PO BID 06/08/19 07/11/21 07/11/21 History prenat.vits,greg,kwa-ceor-wpvyq 1 tab PO DAILY 06/08/19 07/11/21 12/25/20 History dicyclomine 20 mg tablet 20 mg PO QID PRN tab 07/27/19 07/11/21 12/25/20 History diphenoxylate-atropine 2.5 3 tab PO QID PRN tab 07/27/19 07/11/21 12/25/20 History mg-0.025 mg tablet (Lomotil) eluxadoline 75 mg tablet (Viberzi) 75 mg PO BID tab 07/27/19 07/11/21 12/25/20 History tizanidine 2 mg capsule (Zanaflex) 4 mg PO TID PRN 07/27/19 07/11/21 12/22/20 History tramadol 50 mg tablet 100 mg PO BID tab 07/27/19 07/11/21 07/11/21 History acetaminophen 325 mg tablet 325 mg PO QID PRN 11/07/19 07/11/21 12/26/20 History (Tylenol) albuterol sulfate 90 mcg/actuation 2 puff INHALATION QID PRN 11/07/19 07/11/21 12/25/20 History aerosol inhaler (ProAir HFA) cyclobenzaprine 5 mg tablet 5 mg PO TID PRN #10 tab 12/20/20 07/11/21 12/20/20 Rx Wheelchair and Bedside Commode #1 ea 12/27/20 07/11/21 Unknown Rx cam boot #1 ea 01/09/21 07/11/21 Unknown Rx cholecalciferol (vitamin D3) 125 125 mcg PO DAILY 07/11/21 07/11/21 07/10/21 History mcg (5,000 unit) capsule Allergies Allergy/AdvReac Type Severity Reaction Status Date / Time codeine Allergy Severe Hives, Verified 01/23/21 14:10 Itching, & breathing problems vancomycin Allergy Severe Hives, Verified 01/23/21 14:10 Itching, Breathing problems PFSH NPU PFSH: Medical History Cervical cancer pt had hysterectomy Colon cancer High risk medication use History of drug use Inflammatory arthritis Inflammatory back pain Psychiatric care Surgical History History of appendectomy History of bunionectomy History of cholecystectomy History of hammertoe correction History of hysterectomy pt states done for cervical cancer History of intestinal surgery pt states had removal of large intestines and uses antidiarrhea meds and vitamins due to low absorption Family History Other Cancer Chronic kidney disease (CKD) Lung disease Lupus Rheumatoid arthritis Denies family history of Diabetes CAD (coronary artery disease) Clotting disorder Dementia Hyperlipidemia Psychiatric illness Suicide Anesthesia complication Bleeding disorder Family history of premature coronary artery disease Hypertension Stroke Social History Quit status (tobacco): has tried quititng Number of times tried to quit tobacco: 3 Second hand smoke exposure: Yes Alcohol intake: never History of recent travel: No Current gender identity: Female Mental Status Exam MSE Comments: This is a slender/underweight white female in hospital scrubs with limited grooming and no eye contact. No abnormal movements except for psychomotor retardation. Uncooperative with exam in no acute distress. Speech was nonexistent and mood not described affect subdued thought process not identified thought content unappreciated as there was no additional communication except for one response to the low at one point in the interview. Vitals/I&O/Wt Weight last 48 hrs Weight 54.431 kg Data NPU : 07/11/21 19:09 07/12/21 11:52 A&P Assessment and plan (1) Depression: Status: Acute (2) Inflammatory back pain: Status: Acute (3) Inflammatory arthritis: Status: Acute (4) Vitamin D deficiency, unspecified: Status: Acute (5) Obsessive compulsive disorder: Status: Acute (6) Opioid use disorder, severe, in sustained remission: Status: Acute (7) Cannabis dependence, uncomplicated: Status: Acute (8) Major depressive disorder, recurrent, moderate: Status: Acute (9) Borderline personality disorder: Status: Acute (10) Methamphetamine addiction: Status: Acute Plan This is a 40-year-old white female with a long history of addiction and mental health concerns who presents to the unit lethargic after receiving medication. 1. Continue current medication. We will discuss medication possibilities when alert. 2. Continue every 15 minute checks for safety. 3. Encourage individual, group and milieu therapies. 4. Encourage sober living treatment after discharge at the highest level of care to which he is willing to commit. Involuntary Hold Information 96 Hour Hold: 96 Hour Involuntary Admission: No Attestations NPU Medical Necessity Statement*: Inpatient hospitalization is medically necessary and the clinically appropriate intervention at this time. We will monitor medication to make changes as indicated. Patient will be in the hospital for over two midnights. Likely length of stay 3 to 5 days. Coding Level of Care Code Acute Sustainable Communities Designer for Anton Ruff Diagnoses Depression F32.A Inflammatory back pain M54.89 Inflammatory arthritis M19.90 Vitamin D deficiency, unspecified E55.9 Obsessive compulsive disorder F42.9 Opioid use disorder, severe, in sustained remission F11.21 Cannabis dependence, uncomplicated F12.20 Major depressive disorder, recurrent, moderate F33.1 Borderline personality disorder F60.3 Methamphetamine addiction F15.20
[2021-07-12] MEDS: potassium chloride oral liq 20 mEq/15 mL UDC 60 MEQ PO (12:04)
[2021-07-12 14:00] VITALS: BP 106/68; PULSE 91; RESP 16; TEMP 36.8; O2SAT 94
--- NOTE | 2021-07-12 16:18 | PC.NURSE ---
prn note Patient has remained very sleepy this shift. She awakens to verbal stimuli and goes back to sleep.
[2021-07-12 20:21] VITALS: RESP 18
[2021-07-13 05:25] VITALS: BP 106/68; PULSE 91; RESP 18; TEMP 36.8; O2SAT 94
--- NOTE | 2021-07-13 06:45 | PC.NURSE ---
0645+ She refused her vital signs this morning.
[2021-07-13 06:54] VITALS: RESP 20
[2021-07-13] MEDS: cholecalciferol (vitamin D3) 5,000 unit Tablet 5000 UNIT PO (08:42)
[2021-07-13] MEDS: gabapentin 100 mg Capsule PO ×2 (08:42→20:28)
[2021-07-13 09:05] VITALS: PULSE 95; RESP 16; O2SAT 97
--- NOTE | 2021-07-13 11:22 | W.PM.NPUPNS ---
Subjective NPU Subjective: Interval history: Patient presented today appearing irritable and upset with this aligner typewriter wondering when she was going to get to see this aligner typewriter. We had a discussion about the fact that this aligner typewriter attempted to engage her multiple times yesterday without success as the other staff members. Eventually we sat down and she was identifying that she had slid back into some old behaviors. But she does not want to and she wants to be sober but she needs help. Identify that she has a lot to live for but that she continues to make this mistake. We discussed that recovery with in large part about accountability and creating situations where people can hold her accountable for what she has established insert interest which is to be sober. She endorses having perceptual disturbances we discussed the risk benefits and alternatives of a trial of Abilify and she understood and agreed proceed as documented in his note. Additionally we discussed the treatment team would convene tomorrow morning and to begin assisting her and determining where she might find options for her sobriety. Mental Status Exam MSE Comments: This is a slender white female in [facility] scr[facility] with improved grooming and contact. No abnormal movements except for psychomotor retardation. More cooperative with exam in mild to moderate distress. Speech was decreased rate and volume. Mood described as depressed and confused affect congruent and tearful. Thought process organized. Thought content: Patient denied suicidal or homicidal ideation, she reported some paranoia and she did appear to be guarded, she endorsed some perceptual disturbances but did not go to details. Attention and concentration were intact and memory was somewhat reliable but none were formally tested. She is alert and oriented x3. Insight and judgment are improving impulse control is impaired. Vitals/I&O/Wt Last Vital Signs Temp 98.2 F 07/13/21 05:25 Pulse 95 07/13/21 09:05 Resp 16 07/13/21 09:05 BP 106/68 07/13/21 05:25 Pulse Ox 97 07/13/21 09:05 Weight last 48 hrs Weight 54.431 kg Data NPU : 07/11/21 19:09 07/12/21 11:52 A&P Assessment and plan (1) Methamphetamine addiction: Status: Acute (2) Depression: Status: Acute (3) Inflammatory back pain: Status: Acute (4) Inflammatory arthritis: Status: Acute (5) Vitamin D deficiency, unspecified: Status: Acute (6) Obsessive compulsive disorder: Status: Acute (7) Opioid use disorder, severe, in sustained remission: Status: Acute (8) Cannabis dependence, uncomplicated: Status: Acute (9) Major depressive disorder, recurrent, moderate: Status: Acute (10) Borderline personality disorder: Status: Acute Plan This is a 40-year-old white female with a long history of addiction and mental health concerns who presents to the unit lethargic after receiving medication. 1.? Continue current medication.? We will discuss medication possibilities when alert. 2.? Continue every 15 minute checks for safety. 3.? Encourage individual, group and milieu therapies. 4.? Encourage sober living treatment after discharge at the highest level of care to which he is willing to commit. Involuntary Hold Information 96 Hour Hold: 96 Hour Involuntary Admission: No Attestations NPU Medical Necessity Statement*: Inpatient hospitalization is medically necessary and the clinically appropriate intervention at this time. We will monitor medication to make changes as indicated. Likely length of stay 2-4 days. Coding Level of Care Code Acute Supervisor Post [employer] for Anton Ruff Diagnoses Methamphetamine addiction F15.20 Depression F32.A Inflammatory back pain M54.89 Inflammatory arthritis M19.90 Vitamin D deficiency, unspecified E55.9 Obsessive compulsive disorder F42.9 Opioid use disorder, severe, in sustained remission F11.21 Cannabis dependence, uncomplicated F12.20 Major depressive disorder, recurrent, moderate F33.1 Borderline personality disorder F60.3
[2021-07-13 14:00] VITALS: BP 106/67; PULSE 112; RESP 17; TEMP 36.9; O2SAT 97
[2021-07-13] MEDS: hyDROXYzine 25 mg Capsule 50 MG PO (19:40)
[2021-07-13] MEDS: OLANZapine 5 mg ODT PO (20:28)
[2021-07-13] MEDS: haloperidol 5 mg Tablet PO (21:20)
--- NOTE | 2021-07-13 21:31 | PC.NURSE ---
Patient anxious, with pressured speech, shaking and rocking back and forth while sitting on bed and holding head. States I just want it to stop, Its so loud, the talking is so loud. When asked she states she hears talking but they arent talking to her. PRN hydroxyzine given, with no effectiveness. Patient continued with same behavior, at times crying. PRN zyprexa given as ordered approx 45 mins later, with no effectiveness. Patient continued with same behavior, pacing in room at times, and on the phone crying. Given PRN haldol approx an hr later as ordered.
[2021-07-14 06:00] VITALS: BP 124/83; PULSE 102; RESP 18; TEMP 36.7; O2SAT 96
[2021-07-14 07:59] VITALS: PULSE 99; RESP 16; O2SAT 77
--- NOTE | 2021-07-14 08:49 | PC.NURSE ---
Am assessment patient is resting quietly with am assessment. She awakens easily to verbal stimuli. She is alert and oriented in all aspects. She denies SI, HI or hallucinations. Affect is bland, depressed and flat. Hr regular in rhythm with ppp x 2, no edema noted. Lungs clear with breathing even and nonlabored. Bowel sounds active in all quads. Denies pain with urination. Denies all other pain. Skin is warm and dry.
[2021-07-14] MEDS: gabapentin 100 mg Capsule PO ×2 (08:57→20:49)
[2021-07-14] MEDS: cholecalciferol (vitamin D3) 5,000 unit Tablet 5000 UNIT PO (08:58)
[2021-07-14] MEDS: ARIPiprazole 10 mg Tablet PO (08:58)
[2021-07-14 14:00] VITALS: BP 108/71; PULSE 97; RESP 18; TEMP 36.6; O2SAT 99
[2021-07-14] MEDS: LORazepam 0.5 mg Tablet PO (18:10)
[2021-07-14] MEDS: acetaminophen 325 mg Tablet 650 MG PO (18:12)
--- NOTE | 2021-07-14 18:14 | W.PM.NPUPNS ---
Subjective NPU Subjective: Interval history: Patient presented today still having residual psychosis likely from methamphetamine use. She continues to seem open to the prospect of recovery based treatment. She reports that she did work with the social work team and filled out some forms and applications. We discussed that we would meet with him in the morning and figure out what options seem to exist. She reports that she is eating okay and sleeping still challenging and we discussed the importance of staying focused on the importance of following through with drug and alcohol treatment. Mental Status Exam MSE Comments: This is a slender white female in [facility] scrubs with improved grooming and eye contact.? No abnormal movements except for psychomotor retardation.? More cooperative with exam in mild to moderate distress.? Speech was decreased rate and volume.? Mood described as depressed and confused, affect congruent and tearful.? Thought process organized.? Thought content: Patient denied suicidal or homicidal ideation, she reported some paranoia and she did appear to be guarded, she endorsed some perceptual disturbances but did not go to details, but expressed being fearful and anxious secondary to those experiences. Attention and concentration were intact and memory was somewhat reliable but none were formally tested.? She is alert and oriented x3.? Insight and judgment are improving, impulse control is impaired. Vitals/I&O/Wt Last Vital Signs Temp 97.6 F 07/14/21 22:00 Pulse 94 07/14/21 22:00 Resp 19 H 07/14/21 22:00 BP 114/83 07/14/21 22:00 Pulse Ox 99 07/14/21 22:00 Data NPU : 07/11/21 19:09 07/12/21 11:52 A&P Assessment and plan (1) Methamphetamine addiction: Status: Acute (2) Depression: Status: Acute (3) High risk medication use: Status: Acute (4) Inflammatory back pain: Status: Acute (5) Inflammatory arthritis: Status: Acute (6) Vitamin D deficiency, unspecified: Status: Acute (7) HLA B27 (HLA B27 positive): Status: Acute (8) Metatarsus adductus of both feet: Status: Acute (9) Equinus contracture of left ankle: Status: Acute (10) Metatarsalgia, left foot: Status: Acute (11) Bunion, left: Status: Acute (12) Acquired hammertoe of left foot: Status: Acute (13) Obsessive compulsive disorder: Status: Acute (14) Amphetamine abuse in remission: Status: Acute (15) Opioid use disorder, severe, in sustained remission: Status: Acute (16) Cannabis dependence, uncomplicated: Status: Acute (17) Major depressive disorder, recurrent, moderate: Status: Acute (18) Borderline personality disorder: Status: Acute Plan This is a 40-year-old white female with a long history of addiction and mental health concerns who presents to the unit lethargic after receiving medication. 1.? Continue current medication.? We will discuss medication possibilities when alert. 2.? Continue every 15 minute checks for safety. 3.? Encourage individual, group and milieu therapies. 4.? Encourage sober living treatment after discharge at the highest level of care to which he is willing to commit. Involuntary Hold Information 96 Hour Hold: 96 Hour Involuntary Admission: No Attestations NPU Medical Necessity Statement*: Inpatient hospitalization is medically necessary and the clinically appropriate intervention at this time. We will monitor medication to make changes as indicated.? Likely length of stay 2-4 days. Coding Level of Care Code Acute Sleep Tech for Anton Tomlinsond Diagnoses Methamphetamine addiction F15.20 Depression F32.A High risk medication use Z79.899 Inflammatory back pain M54.89 Inflammatory arthritis M19.90 Vitamin D deficiency, unspecified E55.9 HLA B27 (HLA B27 positive) Z15.89 Metatarsus adductus of both feet Q66.221; Q66.222 Equinus contracture of left ankle M24.572 Metatarsalgia, left foot M77.42 Bunion, left M21.612 Acquired hammertoe of left foot M20.42 Obsessive compulsive disorder F42.9 Amphetamine abuse in remission F15.11 Opioid use disorder, severe, in sustained remission F11.21 Cannabis dependence, uncomplicated F12.20 Major depressive disorder, recurrent, moderate F33.1 Borderline personality disorder F60.3
[2021-07-14] MEDS: loperamide 2 mg Capsule PO (19:28)
[2021-07-14] MEDS: dicyclomine 20 mg Tablet PO (20:49)
[2021-07-14] MEDS: OLANZapine 5 mg ODT PO (21:00)
[2021-07-14 22:00] VITALS: BP 114/83; PULSE 94; RESP 19; TEMP 36.4; O2SAT 99
[2021-07-15 06:00] VITALS: BP 104/75; PULSE 88; RESP 20; TEMP 36.6; O2SAT 97
[2021-07-15] MEDS: cholecalciferol (vitamin D3) 5,000 unit Tablet 5000 UNIT PO (09:21)
[2021-07-15] MEDS: gabapentin 100 mg Capsule PO ×2 (09:21→20:04)
[2021-07-15] MEDS: ARIPiprazole 10 mg Tablet PO (09:21)
--- NOTE | 2021-07-15 10:39 | NPU.GN ---
[facility] Group Topic:Megan Ruiz General Mood of Group: Ann did attend and participate in group today. She enjoyed the activity and sharing experiences with others in group. Her hygiene was good, She appeared to be stable mentally and emotionally.
[2021-07-15 14:00] VITALS: BP 126/83; PULSE 97; RESP 17; TEMP 36.7; O2SAT 100
[2021-07-15] MEDS: loperamide 2 mg Capsule PO ×2 (15:13→17:28)
[2021-07-15] MEDS: dicyclomine 20 mg Tablet PO (15:13)
[2021-07-15] MEDS: OLANZapine 5 mg ODT PO (19:25)
--- NOTE | 2021-07-15 19:25 | PC.NURSE ---
Pt experiencing anxiety and racing thoughts, administered 5mg zyprexa zydis at this time.
--- NOTE | 2021-07-15 19:50 | P.NPUPN_ITS ---
Subjective NPU Subjective: Interval history: Patient presents today reporting that her work with the treatment team is going okay but still having some soft signs of psychosis, confusion and lack of certainty about what she is even doing here. We spent time talking about the plan overall and how we planned on trying to improve her situation and with the prospects of discharge were specifically the criteria. Otherwise she reports that there are no side effects of the medication and she is eating okay and sleeping fine. Mental Status Exam MSE Comments: This is a slender white female in [facility] scrubs with improved grooming and eye contact.? No abnormal movements except for psychomotor retardation.? More cooperative with exam in mild distress.? Speech was decreased rate and volume.? Mood described as confused, affect congruent and less tearful.? Thought process organized.? Thought content: Patient denied suicidal or homicidal ideation, she reported some paranoia and she did appear to be guarded, she endorsed some perceptual disturbances, but expressed being fearful and anxious secondary to those experiences.? Attention and concentration were intact and memory was somewhat reliable but none were formally tested.? She is alert and oriented x3.? Insight and judgment are improving, impulse control is impaired. Vitals/I&O/Wt Last Vital Signs Temp 98.0 F 07/15/21 14:00 Pulse 97 07/15/21 14:00 Resp 17 07/15/21 14:00 BP 126/83 07/15/21 14:00 Pulse Ox 100 07/15/21 14:00 Data NPU : 07/11/21 19:09 07/12/21 11:52 A&P Assessment and plan (1) Methamphetamine addiction: Status: Acute (2) Depression: Status: Acute (3) High risk medication use: Status: Acute (4) Inflammatory back pain: Status: Acute (5) Inflammatory arthritis: Status: Acute (6) Vitamin D deficiency, unspecified: Status: Acute (7) HLA B27 (HLA B27 positive): Status: Acute (8) Metatarsus adductus of both feet: Status: Acute (9) Equinus contracture of left ankle: Status: Acute (10) Metatarsalgia, left foot: Status: Acute (11) Bunion, left: Status: Acute (12) Acquired hammertoe of left foot: Status: Acute (13) Obsessive compulsive disorder: Status: Acute (14) Opioid use disorder, severe, in sustained remission: Status: Acute (15) Cannabis dependence, uncomplicated: Status: Acute (16) Major depressive disorder, recurrent, moderate: Status: Acute (17) Borderline personality disorder: Status: Acute Plan This is a 40-year-old white female with a long history of addiction and mental health concerns who presents to the unit lethargic after receiving medication with clear thought disorder. 1.? Continue current medication.? Increase Abilify to 15 mg p.o. every morning. 2.? Continue every 15 minute checks for safety. 3.? Encourage individual, group and milieu therapies. 4.? Encourage sober living treatment after discharge at the highest level of care to which he is willing to commit. Involuntary Hold Information 96 Hour Hold: 96 Hour Involuntary Admission: No Attestations NPU Medical Necessity Statement*: Inpatient hospitalization is medically necessary and the clinically appropriate intervention at this time. We will monitor medication to make changes as indicated.? Likely length of stay 2-4 days. Coding Level of Care Code Acute [employer] for [employer] Diagnoses Methamphetamine addiction F15.20 Depression F32.A High risk medication use Z79.899 Inflammatory back pain M54.89 Inflammatory arthritis M19.90 Vitamin D deficiency, unspecified E55.9 HLA B27 (HLA B27 positive) Z15.89 Metatarsus adductus of both feet Q66.221; Q66.222 Equinus contracture of left ankle M24.572 Metatarsalgia, left foot M77.42 Bunion, left M21.612 Acquired hammertoe of left foot M20.42 Obsessive compulsive disorder F42.9 Opioid use disorder, severe, in sustained remission F11.21 Cannabis dependence, uncomplicated F12.20 Major depressive disorder, recurrent, moderate F33.1 Borderline personality disorder F60.3
[2021-07-15 20:30] VITALS: BP 117/82; PULSE 89; RESP 17; TEMP 36.3; O2SAT 100
[2021-07-15] MEDS: haloperidol 5 mg Tablet PO (20:39)
[2021-07-15] MEDS: efferdent effervescent 1 EACH DENTAL (20:43)
[2021-07-15] MEDS: acetaminophen 325 mg Tablet 650 MG PO (21:01)
[2021-07-16 06:00] VITALS: BP 116/81; PULSE 95; RESP 20; TEMP 36.6; O2SAT 96
[2021-07-16] MEDS: fixodent 39 gm Tube 1 APPLIC DENTAL (06:41)
[2021-07-16] MEDS: dicyclomine 20 mg Tablet PO (10:22)
[2021-07-16] MEDS: cyclobenzaprine 10 mg Tablet 5 MG PO (10:22)
[2021-07-16] MEDS: ARIPiprazole 10 mg Tablet 15 MG PO (10:22)
[2021-07-16] MEDS: cholecalciferol (vitamin D3) 5,000 unit Tablet 5000 UNIT PO (10:23)
[2021-07-16] MEDS: gabapentin 100 mg Capsule PO (10:23)
--- NOTE | 2021-07-16 10:31 | NPU.GN ---
[facility] Group Topic: Balta Mendoza General Mood of Group: Ann attended and participated in group. She was social, her hygiene was good and she seemed stable at this time. She did make a complaint about how confusing her stay has been about her hospital stay at the NPU. How meeting the doctor is hard to do and that staff all tell her different things. She wishes that the unit was more structured with treatment.
[2021-07-16] MEDS: loperamide 2 mg Capsule PO (10:48)
[2021-07-16] MEDS: diphenoxylate/atropine Tablet 3 TAB PO (12:44)
[2021-07-16 13:06] VITALS: PULSE 93; RESP 18; O2SAT 100
[2021-07-16 14:00] VITALS: RESP 16
[2021-07-16] MEDS: ondansetron 4 MG Tablet PO (15:20)
--- NOTE | 2021-07-16 15:21 | W.PM.NPUDCS ---
Diagnoses at Discharge Discharge Diagnosis (1) Methamphetamine addiction: Status: Acute (2) Depression: Status: Acute (3) High risk medication use: Status: Acute (4) Inflammatory back pain: Status: Acute (5) Inflammatory arthritis: Status: Acute (6) Vitamin D deficiency, unspecified: Status: Acute (7) HLA B27 (HLA B27 positive): Status: Acute (8) Metatarsus adductus of both feet: Status: Acute (9) Equinus contracture of left ankle: Status: Acute (10) Metatarsalgia, left foot: Status: Acute (11) Bunion, left: Status: Acute (12) Acquired hammertoe of left foot: Status: Acute (13) Obsessive compulsive disorder: Status: Acute (14) Opioid use disorder, severe, in sustained remission: Status: Acute (15) Cannabis dependence, uncomplicated: Status: Acute (16) Major depressive disorder, recurrent, moderate: Status: Acute (17) Borderline personality disorder: Status: Acute Reason for Visit Reason for Visit: SI Brief History: History of Present Illness Ann Fuentes is a 40 year old female who presented to the emergency department with the following report: Chief Complaint: P sychiatric Symptom s Stated Complaint : SI Time Seen by Provider: 07/11/21 18:12? ? History of Present Illness:??? Ms. Fuentes is a 40- year-old lady with reported psychiat mario alberto history of dep ression, PTSD, rep orted bipolar and per chart review b orderline personal ity disorder prese nts emergency depa rtment due to psyc hiatric concerns.? She reports a malinda gstanding history of psychiatric com plaints however mo re recently these have been complica terese by prolonged p olysubstance abuse .? She was in turn ing leaf sometime in 2019 however re ports that she was dishonest and the refore therapy was not successful.? Additionally she i s seeing [facility] thoug h nothing within t he past few months .? She does endors e continued amphet amine use however feels that her dep ression is getting worse and that sh e wants help.? Ove rall intensity sym ptoms is moderate to severe.? Course has been worsenin g.? Denies new med ical concerns or t raumatic injuries. ? No other specifi c exacerbating, al leviating, or prov oking factors iden tified. Patient presented today unable to participate in the evaluation.? On multiple occasions I entered her room and try to engage her/wake her up without success.? On one occasion she did wake up see this script writer and make identifying eye contact but then she drifted right back to sleep and was once again unable to be engaged.? She had received some medication but she was also likely withdrawing from substances as well as possibly having not slept well.? An excerpt of her 05/28/2019 inpatient psychiatric evaluation is included below for context.? After that she engaged at [facility] for over a year with her last psychiatric follow-up in June 2020 but she did have some engagement in therapeutic interventions as recently as April last year. Per her 05/28/2019 inpatient psychiatric evaluation: History of Present Illness Ann Fuentes is a 38 year old female Chief complaint: What I thought was truly wasn't. History of present illness: Ann Fuentes is a 38 year old Woman with no history of psychosis up until this past week.? She reports that on 2 separate occasions, she became confused to the point where she was not sure what was real and was not.? She describes that prior to her presentation, she was fairly convinced that agents from the internal revenue service were sitting at her kitchen table.? They were talking about arresting her.? She reported multiple other perceptions that she firmly believed to be true at the time but now realizes they were not.? She recalls her daughter telling her that the things that she was verbalizing and experiencing were not accurate.? She is glad that she took her daughter's advice and came to the emergency room.? She is unsure why she has had this experience.? She had surgery on her foot one week ago.? She was given Percocet for pain following this surgery on the bunion on her foot.? However she has had pain medications in the past and in fact takes tramadol on occasion for pain and has never had any problems with changes in perception or cognition.? Her other explanation was that she does smoke marijuana and it is possible that she could have had some marijuana that was laced with something else.? Unfortunately no drug screen was performed in the emergency room so we have no correlating data.? Whatever the event, she is now 36 hours out from the insult to her brain.? She feels that she is generally able to think clearly.? She is not questioning her perceptions at this time.? She is quite embarrassed. She does endorse symptoms of depression.? She feels hopeless and helpless at times.? She would like her life to be different.? However she denies suicidal or homicidal ideation.? She denies the presence of auditory or visual hallucinations.? She has good hedonic capacity in that she enjoys her children although they are quite a burden on her.? She also enjoys going to [employer]abaptist. Information provided by emergency room:HPI Narrative: 38 yo female presents with hallucinations that the IRS was at her house digging in and around her house. pt has recently used laced drugs last night around 11 pm. pt's daughter's are in the waiting room of the ED filling out affidavits due to their mothers conditions. Pt denies any other symptoms. IT IS NOTED THAT NO URINE DRUG SCREEN WAS PERFORMED ON THIS DELIRIOUS DISORIENTED PATIENT. Mental health history:The patient has 1 prior psychiatric hospitalization nearly 10 years ago.? She was admitted for a self-inflicted injury to her neck that she said was involving suicidal thoughts but was not a suicide attempt.? She has never had any such problems since then. Family psychiatric history is positive for a daughter who has apparently been admitted to this unit on multiple occasions.? She says that the daughter also to last admission.? The identity of her daughter is unknown to this physician. Social history:The patient grew up in [place].? She has an associates degree from college.? She moved to this area in 1999, returned to [place] in 2006 for her children benefit, and then returned to the [facility] in 2013.? She has children ages 24, 18, 16, 7, and 4.? She is a [id number] mom. Legal history:There are no reports of arrests or convictions in the public record. Past medical history:The patient was diagnosed with colon cancer in 18 years of age.? She has had a hemicolectomy and resection of part of her small intestine. Mental Status Exam: The patient is alert and appropriately engaged.? She is disheveled.? She demonstrates elevated psychomotoric action and has difficulty sitting still.? She exhibits a multiple twitches and moves in short quick movements.? She has some difficulty ambulating due to the effects of her bunion surgery.? Eye contact is good.? She is believed to be a reliable informant to the best of her ability. Appearance: hygiene is fair; no gross neurological deficits., No tics or tremors. Speech: Speech is of normal rate and rhythm and easily understood.? Thought processes: Thought processes are abstract.? Judgment is adequate for safety. Associations: intact Psychotic processes: There is no indication of guarding or paranoia.? There is no attention to the internal stimuli.? Auditory and visual hallucinations are denied.? Judgment: Insight is fair.? Problem solving skills are adequate for safety. Orientation: The patient is oriented to person, place time and situation. Memory: no deficits noted in immediate, intermediate, or remote spheres. Attention: The patient is alert and interpersonally engaged.? Language: Verbalizations are coherent. Fund of knowledge: Fund of knowledge is adequate.? Affect/Mood: Affect is consistent with a depressed mood. She denied suicidal ideation Affective range appropriate.? Psychosis: perception unimpaired except through cognitive distortion; reality testing intact. Diagnoses: Delirium?presumably substance-induced Assessment:The patient apparently presented in a floridly psychotic state oriented not even to herself.? He is not in the habit of being psychotic.? Her mental health history is generally clean but she does present with symptoms of depression.? Her explanation that she smoked marijuana with some sort of contaminant is most likely to be accurate.? She is being treated status post surgery to her bunion, she says that opiates were given sparsely and not likely to cause the radical events leading to her hospitalization. Hospital Course Hospital Course She slowly acclimated to the individual, group milieu therapies provided. When she presented she had significant psychosis and anxiety and eventually was agreeable to a trial of Abilify which was titrated to 10 mg p.o. daily. She showed significant improvement in her psychosis and was able to work with the treatment team to make sure she had appropriate outpatient treatment after discharge. She was able to contract for safety outside the hospital prior to discharge. During the hospitalization, patient had routine laboratory studies which were within normal limits except for few outliers. Additionally there was a general medical evaluation which was also within normal limits and revealed no new acute processes. Discharge Summary: At the time of discharge, lethality was denied and psychosis was resolving. Mood and anxiety were well managed. Patient endorsed a plan to avoid all drugs of abuse and follow-up with the aftercare recommendations of the treatment team. Patient was evaluated and deemed to be absent credible lethality, and had achieved the maximum benefit from an inpatient hospitalization, so was discharged. Involuntary Hold Information 96 Hour Hold: 96 Hour Involuntary Admission: No Mental Status Exam MSE Comments: This is a slender white female in [facility] scrubs with improved grooming and eye contact.? No abnormal movements except for psychomotor retardation.? More cooperative with exam in no acute distress.? Speech was more normal rate and volume.? Mood described as a little better, affect congruent.? Thought process organized.? Thought content: Patient denied suicidal or homicidal ideation, she reported less paranoia and she did appear to be less guarded, she denied any specific auditory or visual hallucinations.? Attention and concentration were intact and memory was somewhat reliable but none were formally tested.? She is alert and oriented x3.? Insight and judgment are improving, impulse control is impaired. Discharge Data Studies Completed and Pending: Laboratory Results WBC 11.2 10^3/uL (4.0 -10.0) H 07/11/21 19:09 RBC 4.30 10^6/uL (4.1 -5.3) 07/11/21 19:09 Hgb 13.5 g/dL (11.5-1 5.3) 07/11/21 19:09 Hct 38.8 % (37.0-47.0 ) 07/11/21 19:09 MCV 90.2 fl (81-99) 07/11/21 19:09 MCH 31.4 pg (28.0-34. 0) 07/11/21 19: MCHC 34.8 g/dL (30.0-3 6.0) 07/11/21 19:09 RDW 13.7 % (12.1-15.1 ) 07/11/21 19:09 Plt Count 365 10^3/cmm (130 -400) 07/11/21 19:09 MPV 9.3 fL (7.4-10.4) 07/11/21 19:09 Neut % (Auto) 62.3 % 07/11/21 19:09 Lymph % (Auto) 28.8 % 07/11/21 19:09 [place] % (Auto) 6.8 % 07/11/21 19:09 Eos % (Auto) 1.2 % 07/11/21 19:09 Baso % (Auto) 0.6 % 07/11/21 19:09 Neut # (Auto) 6.98 10^3/uL (1.8 -7.7) 07/11/21 19:09 Lymph # (Auto) 3.2 10^3/uL (0.8- 4.8) 07/11/21 19:09 [place] # (Auto) 0.8 10^3/uL (0.2- 0.9) 07/11/21 19:09 Eos # (Auto) 0.1 10^3/uL (0.0- 0.8) 07/11/21 19:09 Baso # (Auto) 0.1 10^3/uL (0.0- 0.1) 07/11/21 19:09 Nucleated RBC % (a uto) 0 % 07/11/21 19:09 Nucleated RBCs # 0.0 /100WBC 07/11/21 19:09 Sodium 136 mmol/L (136-1 45) 07/11/21 19:09 Potassium 4.0 mmol/L (3.5-5 .1) 07/12/21 11:52 Chloride 102 mmol/L (98-10 7) 07/11/21 19:09 Carbon Dioxide 21 mmol/L (22-29) L 07/11/21 19:09 Anion Gap 15.8 (5-19) 07/11/21 19:09 BUN 10 mg/dL (6-20) 07/11/21 19:09 Creatinine 0.5 mg/dL (0.5-0. 9) 07/11/21 19:09 GFR Calculation 135.3 mL/min (90- 130) H 07/11/21 19:09 Glucose 143 mg/dL (65-115 ) H 07/11/21 19:09 Calculated Osmolal ity 284 mOsm/kg (285- 295) L 07/11/21 19:09 Calcium 9.4 mg/dL (8.5-10 .5) 07/11/21 19:09 Total Bilirubin 0.3 mg/dL (0.15-1 .2) 07/11/21 19:09 AST 21 U/L (0-32) 07/11/21 19:09 ALT 14 U/L (0-33) 07/11/21 19:09 Alkaline Phosphata se 86 IU/L (35-105) 07/11/21 19:09 Total Protein 7.5 g/dL (6.6-8.7 ) 07/11/21 19:09 Albumin 4.7 g/dL (3.5-5.2 ) 07/11/21 19:09 Globulin 2.8 g/dL (1.3-4.6 ) 07/11/21 19:09 HCG, Qual Negative (Negati ve) 07/11/21 18:00 Urine Color Yellow (Yellow) 07/11/21 18:00 Urine Appearance Sl hazy (CLEAR) 07/11/21 18:00 Urine pH 5 (5-7) 07/11/21 18:00 Ur Specific Gravit y 1.030 (1.005-1.0 30) 07/11/21 18:00 Urine Protein 1+ (Negative) H 07/11/21 18:00 Urine Glucose (UA) Norm (Normal) 07/11/21 18:00 Urine Ketones 1+ (Negative) H 07/11/21 18:00 Urine Blood 2+ (Negative) H 07/11/21 18:00 Urine Nitrate Positive (Negati ve) H 07/11/21 18:00 Urine Bilirubin Neg (Negative) 07/11/21 18:00 Urine Urobilinogen 4 mg/dL (Negative ) H 07/11/21 18:00 Ur Leukocyte Miriam ase Trace (Negative) H 07/11/21 18:00 Urine RBC 15-25 /hpf (0-2) H 07/11/21 18:00 Urine WBC 0-4 /hpf (0-5) H 07/11/21 18:00 Ur Squamous Epith Cells 15-25 /hpf (0-5) H 07/11/21 18:00 Calcium Oxalate Cr ystal 25-40 /hpf H 07/11/21 18:00 Amorphous Sediment Not Reportable 07/11/21 18:00 Urine Bacteria 1+ /hpf (NONE) H 07/11/21 18:00 Urine Mucus 3+ /hpf 07/11/21 18:00 Salicylates 0.5 mg/dL (3-10) L 07/11/21 19:09 Urine Opiates Scre en Negative ng/mL (N egative) 07/11/21 18:00 Acetaminophen 6.8 ug/mL (10-30) L 07/11/21 19:09 Ur Barbiturates Sc reen Negative ng/mL (N egative) 07/11/21 18:00 Ur Phencyclidine S crn Positive ng/mL (N egative) H 07/11/21 18:00 Ur Amphetamines Sc reen Positive ng/mL (N egative) H 07/11/21 18:00 U Benzodiazepines Scrn Negative ng/mL (N egative) 07/11/21 18:00 Urine Cocaine Scre en Negative ng/mL (N egative) 07/11/21 18:00 U Marijuana (THC) Screen Negative ng/mL (N egative) 07/11/21 18:00 Ethyl Alcohol 15 mg/dL (0-10) H 07/11/21 19:09 Vitals: Last Vital Signs Temp 97.8 F 07/16/21 06:00 Pulse 93 07/16/21 13:06 Resp 16 07/16/21 14:00 BP 116/81 07/16/21 06:00 Pulse Ox 100 07/16/21 13:06 Discharge Plan Discharge Patient Disposition: Home Condition: Stable Prescriptions: New aripiprazole 10 mg Tablet 15 mg PO DAILY 30 Days 1RF Continued prenat.vits,greg,xtt-cqoj-poeqt Tablet 1 tab PO DAILY 0RF gabapentin 100 mg capsule 100 mg PO BID 0RF diphenoxylate-atropine [Lomotil] 2.5-0.025 mg tablet 3 tab PO QID PRN (Reason: Diarrhea) 0RF dicyclomine 20 mg tablet 20 mg PO QID PRN (Reason: stomach cramps) 0RF Viberzi 75 mg tablet 75 mg PO BID 0RF tizanidine [Zanaflex] 2 mg capsule 4 mg PO TID PRN (Reason: Muscle Pain) 0RF tramadol 50 mg tablet 100 mg PO BID 0RF (DME) cam boot See Rx Instructions .ROUTE .MEDSUPPLY Qty: 1 0RF Rx Instructions: As directed (DME) Wheelchair and Bedside Commode See Rx Instructions .Route .MEDSUPPLY Qty: 1 0RF Rx Instructions: As directed HOME acetaminophen [Tylenol] 325 mg Tablet 325 mg PO QID PRN (Reason: Pain) 0RF albuterol sulfate [ProAir HFA] 90 mcg/actuation Hfa Aerosol Inhaler 2 puff INHALATION QID PRN (Reason: Bronchospasm) 0RF cholecalciferol (vitamin D3) 125 mcg (5,000 unit) capsule 125 mcg PO DAILY 0RF cyclobenzaprine 5 mg tablet 5 mg PO TID PRN (Reason: muscle spasm) Qty: 10 0RF Discharge Orders: Discharge Order (Routine); Ordered 07/16/21 Ordered By: Warren Hackett Referrals: [facility] [Outside] () Akshat Hoskins MD [Primary Care Provider] - Akshat Garsia MD [Physician] - (Walk in Wednesday or 7:30 am to 3:00 pm. ) Discharge Diet: Regular Discharge Activity: Resume usual activity Patient Instructions: Generalized Anxiety Disorder, Opioid Safety Discharge Attestations NPU Time Spent in Discharge Care*: less than 30 min Specific Discharge Activities: Specific discharge activities: educating patient, discussing with family independence case manager/social workers/dc planners, documenting/other paperwork and evaluating patient/reviewing data Coding Level of Care Code Acute Chg FW DC note Diagnoses Methamphetamine addiction F15.20 Depression F32.A High risk medication use Z79.899 Inflammatory back pain M54.89 Inflammatory arthritis M19.90 Vitamin D deficiency, unspecified E55.9 HLA B27 (HLA B27 positive) Z15.89 Metatarsus adductus of both feet Q66.221; Q66.222 Equinus contracture of left ankle M24.572 Metatarsalgia, left foot M77.42 Bunion, left M21.612 Acquired hammertoe of left foot M20.42 Obsessive compulsive disorder F42.9 Opioid use disorder, severe, in sustained remission F11.21 Cannabis dependence, uncomplicated F12.20 Major depressive disorder, recurrent, moderate F33.1 Borderline personality disorder F60.3
[2021-07-16 15:26] VITALS: RESP 16
== END 2021-07-16 15:52 | disposition home or self-care (01) | DRG 885 ==
LOC: ER 20:46 → NP 21:40
PROVIDERS: Emergency Medicine; Admitting Provider Psychiatry & Neurology Psychiatry; Emergency Provider Emergency Medicine; PCP Family Medicine; Visit Provider Psychiatry & Neurology Psychiatry
DX: F33.1 Major depressive disorder, recurrent, moderate (principal); F15.20 Other stimulant dependence, uncomplicated; F43.10 Post-traumatic stress disorder, unspecified; F60.3 Borderline personality disorder; F17.210 Nicotine dependence, cigarettes, uncomplicated; E87.6 Hypokalemia; F42.9 Obsessive-compulsive disorder, unspecified; F11.11 Opioid abuse, in remission; F12.20 Cannabis dependence, uncomplicated
CPT/HCPCS: 36415; 80053; 80306; 80307; 81001; 81025; 84132; 85025; 96372; 97150; 97165; 99285; J1200; J1630; J2060; Q0162

== ENCOUNTER → 2021-08-07 17:37 | Outpatient (BNVA) | payer MEDICAID, SELFPAY | PROVIDERS: PCP Family Medicine; Visit Provider Registered Nurse Neonatal Intensive Care | DX: M79.672 Pain in left foot (principal) | CPT/HCPCS: 73630 ==

== ENCOUNTER → 2021-09-02 10:13 | Outpatient (BNVA) | payer MEDICAID, SELFPAY | PROVIDERS: PCP Family Medicine; Visit Provider Podiatrist Foot & Ankle Surgery | DX: M77.42 Metatarsalgia, left foot (principal); M24.572 Contracture, left ankle; Q66.221 Congenital metatarsus adductus, right foot; Q66.222 Congenital metatarsus adductus, left foot; Z15.89 Genetic susceptibility to other disease; E55.9 Vitamin D deficiency, unspecified; F17.210 Nicotine dependence, cigarettes, uncomplicated | CPT/HCPCS: 73630; 99214 ==

== ENCOUNTER → 2021-10-21 14:57 | Outpatient (BNVA) | payer MEDICAID, SELFPAY | PROVIDERS: PCP Family Medicine; Visit Provider Internal Medicine Rheumatology | DX: Z15.89 Genetic susceptibility to other disease (principal); M15.9 Polyosteoarthritis, unspecified; Z79.899 Other long term (current) drug therapy; Z11.59 Encounter for screening for other viral diseases; Z11.1 Encounter for screening for respiratory tuberculosis; F15.11 Other stimulant abuse, in remission; Z92.21 Personal history of antineoplastic chemotherapy; Z90.49 Acquired absence of other specified parts of digestive tract; Z85.038 Personal history of other malignant neoplasm of large intestine; Z85.41 Personal history of malignant neoplasm of cervix uteri | CPT/HCPCS: 71046; 72170; 73130; 73562; 80076; 82306; 82565; 85025; 85651; 86140; 86200; 86431; 86480; 86704; 86803; 87340; 99214 ==

== ENCOUNTER → 2021-11-05 13:54 | Outpatient (BNVA) | payer MEDICAID, SELFPAY | PROVIDERS: PCP Family Medicine; Visit Provider Podiatrist Foot & Ankle Surgery | DX: M20.42 Other hammer toe(s) (acquired), left foot (principal); M21.612 Bunion of left foot; M77.42 Metatarsalgia, left foot; M24.572 Contracture, left ankle; M79.672 Pain in left foot; Z15.89 Genetic susceptibility to other disease; E55.9 Vitamin D deficiency, unspecified; M21.622 Bunionette of left foot; S90.32XA Contusion of left foot, initial encounter; W22.09XA Striking against other stationary object, initial encounter | CPT/HCPCS: 73630; 99214 ==

== ENCOUNTER 2021-11-05 15:29 | Outpatient (CLI) | payer MEDICAID, SELFPAY | END 2021-11-05 15:30 | disposition home or self-care (01) | LOC: SPT 15:30 | PROVIDERS: PCP Family Medicine; Visit Provider Podiatrist Foot & Ankle Surgery | DX: Z46.89 Encounter for fitting and adjustment of other specified devices (principal); S99.929D Unspecified injury of unspecified foot, subsequent encounter; X58.XXXD Exposure to other specified factors, subsequent encounter | CPT/HCPCS: 97760; L4361 ==

== ENCOUNTER → 2022-02-03 14:25 | Outpatient (BNVA) | payer MEDICAID, SELFPAY | PROVIDERS: PCP Family Medicine; Visit Provider Internal Medicine Rheumatology | DX: Z79.899 Other long term (current) drug therapy (principal); M19.90 Unspecified osteoarthritis, unspecified site; Z15.89 Genetic susceptibility to other disease | CPT/HCPCS: 36415; 80076; 82565; 85025; 86140 ==

== ENCOUNTER 2022-09-15 17:56 | Outpatient (CLI) | payer MEDICAID, SELFPAY ==
[2022-09-15 18:35] LABS: Basophils # 0.1 10^3/uL (0.0-0.1); Basophils % 0.8 %; Eosinophils # 0.2 10^3/uL (0.0-0.8); Eosinophils % 2.2 %; Hematocrit 39.7 % (37.0-47.0); Hemoglobin 13.5 g/dL (11.5-15.3); Lymphocytes # 5.9 10^3/uL (0.8-4.8); Lymphocytes % 54.5 %; Mean Corpuscular Hemoglobin 30.7 pg (28.0-34.0); Mean Corpuscular Volume 90.2 fl (81-99); Mean Platelet Volume 8.9 fL (7.4-10.4); Monocytes # 0.8 10^3/uL (0.2-0.9); Monocytes % 7.3 %; Neutrophils # 3.74 10^3/uL (1.8-7.7); Neutrophils % 34.9 %; Nucleated Red Blood Cells % 0 %; Platelet Count 410 10^3/cmm (130-400); Red Cell Distribution Width 13.6 % (12.1-15.1); White Blood Count 10.7 10^3/uL (4.0-10.0)
[2022-09-15 18:53] LABS: Alanine Aminotransferase 22 U/L (0-33); Albumin Level 3.8 g/dL (3.5-5.2); Alkaline Phosphatase 90 U/L (35-105); Aspartate Amino Transferase 22 U/L (0-32); C Reactive Protein 4.3 mg/L (0.0-4.9); Globulin 2.5 g/dL (1.3-4.6); Glomerular Filtration Rate 109.1 mL/min (90-130); Total Bilirubin 0.2 mg/dL (0.15-1.2); Total Protein 6.3 g/dL (6.6-8.7)
== END 2022-09-15 17:57 | disposition home or self-care (01) ==
LOC: LAB 17:59
PROVIDERS: PCP Family Medicine; Visit Provider Internal Medicine Rheumatology
DX: M19.90 Unspecified osteoarthritis, unspecified site (principal); M54.89 Other dorsalgia; Z79.899 Other long term (current) drug therapy
CPT/HCPCS: 36415; 80076; 82565; 85025; 86140

== ENCOUNTER → 2023-02-15 15:29 | Outpatient (BNVA) | payer MEDICAID, SELFPAY | PROVIDERS: PCP Family Medicine; Visit Provider Internal Medicine Rheumatology | DX: M46.90 Unspecified inflammatory spondylopathy, site unspecified (principal); Z79.899 Other long term (current) drug therapy; Z15.89 Genetic susceptibility to other disease; M19.90 Unspecified osteoarthritis, unspecified site | CPT/HCPCS: 36415; 80076; 82565; 85025; 86140 ==

== ENCOUNTER 2023-09-24 20:45 | Inpatient (IN) | payer MEDICAID, SELFPAY ==
[2023-09-24 20:50] VITALS: BP 118/67; PULSE 146; RESP 22; TEMP 37.8; O2SAT 94; BMI 26.4
--- NOTE | 2023-09-24 21:03 | XRR_ITS ---
PROCEDURE INFORMATION: Exam: XR Chest Exam date and time: 09/24/2023 9:12 PM Age: 42 years old Clinical indication: Patient HX: Cough; Copd attack; SOB TECHNIQUE: Imaging protocol: Radiologic exam of the chest. Views: 1 view. COMPARISON: CR XR chest 2V* [id number] 10/21/2021 4:06 PM FINDINGS: Lungs: Hazy opacities in the lung bases, possibly artifactual. Pleural spaces: No pleural effusion or pneumothorax. Heart/Mediastinum: The cardiomediastinal silhouette is within normal limits. Bones/joints: No acute osseous abnormalities are seen. XR/XR chest 1V portable [id number] IMPRESSION: Hazy opacities in the lung bases, possibly artifactual related to overlying soft tissue. Peripheral edema or atypical infection could also cause this appearance. Short interval follow-up is recommended.
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
[2023-09-24 21:50] LABS: Basophils # 0.1 10^3/uL (0.0-0.1); Basophils % 0.2 %; Hematocrit 34.3 % (36-47); Lymphocytes # 2.6 10^3/uL (0.8-4.8); Lymphocytes % 10.9 %; Mean Corpuscular HGB Conc 34.1 g/dL (30-55); Mean Corpuscular Hemoglobin 31.4 pg (27-33); Mean Platelet Volume 9.3 fL (7.4-10.4); Monocytes # 1.5 10^3/uL (0.2-0.9); Monocytes % 6.1 %; Neutrophils # 19.45 10^3/uL (1.8-7.7); Neutrophils % 82.3 %; Nucleated Red Blood Cells % 0 %; Platelet Count 349 10^3/cmm (157-399); Red Blood Count 3.73 10^6/uL (3.85-5.65); Red Cell Distribution Width 13.7 % (12.1-15.1); White Blood Count 23.64 10^3/uL (3.29-11.43)
[2023-09-24 22:12] LABS: Alanine Aminotransferase 18 U/L (0-33); Albumin Level 3.8 g/dL (3.5-5.2); Alkaline Phosphatase 100 U/L (35-105); Anion Gap 16.4 (5-19); Aspartate Amino Transferase 34 U/L (0-32); Blood Urea Nitrogen 7 mg/dL (6-20); Calcium 8.4 mg/dL (8.5-10.5); Carbon Dioxide 21 mmol/L (22-29); Chloride 101 mmol/L (98-107); Creatinine Clr Calc Pharmacy 110.4509; Glomerular Filtration Rate 108.6 mL/min (90-130); Glucose 121 mg/dL (65-115); Osmolality Calculated 279 mOsm/kg (285-295); Potassium 3.4 mmol/L (3.5-5.1); Sodium 135 mmol/L (136-145); Total Bilirubin 0.2 mg/dL (0.15-1.2); Total Protein 6.8 g/dL (6.6-8.7)
--- NOTE | 2023-09-24 22:35 | CTR_ITS ---
PROCEDURE INFORMATION: Exam: CT Chest With Contrast; Diagnostic Exam date and time: 09/24/2023 11:17 PM Age: 42 years old Clinical indication: Cough and shortness of breath; Prior surgery; Surgery date: 6+ months; Surgery type: Gb; Patient HX: Persistent dry cough with SOB; Additional info: SOB, cxr findings TECHNIQUE: Imaging protocol: Diagnostic computed tomography of the chest with contrast. Radiation optimization: All CT scans at this facility use at least one of these dose optimization techniques: automated exposure control; mA and/or kV adjustment per patient size (includes targeted exams where dose is matched to clinical indication); or iterative reconstruction. Contrast material: OMNI 350; Contrast volume: 100 ml; Contrast route: INTRAVENOUS (IV); COMPARISON: CR (CHEST, ) 09/24/2023 9:12 PM RADIATION DOSE METRICS: Total DLP (mGy-cm): 354.86 FINDINGS: Lungs: [id number] emphysematous changes. Scattered peripheral interstitial opacities with central lucency are nonspecific. No miley pulmonary consolidation is identified. No pulmonary mass or suspicious pulmonary nodules identified. Pleural spaces: No pleural effusion or pneumothorax. Heart: Heart size is within normal limits. There is no pericardial effusion or pericardial thickening. Coronary arteries: No coronary artery calcification. Lymph nodes: There are no enlarged mediastinal, axillary, or hilar lymph nodes identified. Vasculature: The aorta is normal in course and caliber. No significant atherosclerotic calcifications are present. Bones/joints: No acute osseous abnormalities are seen. Soft tissues: The soft tissues are within normal limits. CT/CT chest w con* [id number] IMPRESSION: Scattered moderate peripheral interstitial opacities are nonspecific. Differential diagnosis includes cryptogenic organizing pneumonia, other interstitial pneumonias, and atypical infection among others. Recommend nonemergent pulmonology consultation.
[2023-09-24] MEDS: ipratropium-albuterol 3 mL Neb INHALATION (22:45)
[2023-09-24 22:46] VITALS: PULSE 128; RESP 24; O2SAT 95
[2023-09-24 22:55] VITALS: PULSE 124
[2023-09-24] MEDS: dexamethasone 4 mg/mL INJ 8 MG IM (23:06)
[2023-09-24] MEDS: acetaminophen 500 mg Tablet 1000 MG PO (23:06)
[2023-09-24] MEDS: LORazepam 0.5 mg Tablet PO (23:06)
[2023-09-24] MEDS: sodium chloride 0.9% 1,000 ML 30 ML IV (23:07)
[2023-09-24] MEDS: iohexol 350 mg/mL 500 mL Btl (per mL) IV (23:18)
--- NOTE | 2023-09-24 23:41 | PC.NURSE ---
VERBAL ORDERS TAKEN FROM DR SMITH FOR LACTIC, BLOOD CULTURES, RESPIRATORY PANEL, ANTIBIOTIC, AND FLUIDS.
[2023-09-24 23:55] LABS: Lactic Sepsis W/Reflex 2.1 mmol/L (0.5-2.2)
[2023-09-24] MEDS: SODIUM CHLORIDE 0.9% 2027.54999999999995 ML IV (23:55)
[2023-09-25] VITALS (17 sets, daily range): BP systolic 95–152; BP diastolic 57–87; PULSE 93–132; RESP 14–24; TEMP 36.4–37; O2SAT 90–97; BMI 29.0
[2023-09-25] MEDS: cefTRIAXone 1,000 MG in sodium chloride 0.9% (plus) 50 ML 100 MG IV (00:42)
[2023-09-25 01:07] LABS: Troponin(5th) Baseline 9 ng/L (0-10)
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
[2023-09-25 01:17] LABS: Erythrocyte Sedimentation Rate 23 mm/hr (0-15)
[2023-09-25] MEDS: azithromycin 500 MG in sodium chloride 0.9% 250 ML 250 MG IV (01:26)
[2023-09-25 01:31] LABS: Reflex Lactate Order REFLEX LACTIC ORDERD
[2023-09-25 01:38] LABS: NT Pro B Type Natriuretic Pept 385 pg/mL (0-125); Procalcitonin 0.16 ng/mL (0-0.5)
--- NOTE | 2023-09-25 01:39 | ECG_ITS ---
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 Measurements Intervals [place] Rate: 115 P: 59 NM: 155 QRS: 58 QRSD: 83 T: 41 QT: 326 QTc: 451 Interpretive Statements SINUS TACHYCARDIA POSSIBLE LEFT ATRIAL ENLARGEMENT [-0.1mV P-WAVE IN V1/V2] ABNORMAL RHYTHM ECG Compared to ECG 05/09/2014 12:36:36 Sinus rhythm no longer present Electronically Signed On 09-25-2023 12:09:17 CDT by Feliciano Garcia M.D. [email or web address] [email or web address] [facility] biloxiGrain Managementfulton [email or web address].[email or web address]/store/[id number] f
[2023-09-25 01:46] LABS: Adenovirus Not Detected (NOT DETECT); Chlamydia Pneumoniae Not Detected (NOT DETECT); Coronavirus 229E,HKU1,NL63,OC4 Not Detected (NOT DETECT); Human Metapneumovirus Not Detected (NOT DETECT); Human Rhinovirus/Enterovirus Not Detected (NOT DETECT); Influenza A Not Detected (NOT DETECT); Influenza A H1 Not Detected (NOT DETECT); Influenza A H1-2009 Not Detected (NOT DETECT); Influenza A H3 Not Detected (NOT DETECT); Influenza B Not Detected (NOT DETECT); Mycoplasma Pneumoniae Not Detected (NOT DETECT); Parainfluenza Virus Type 1 Not Detected (NOT DETECT); Parainfluenza Virus Type 2 Not Detected (NOT DETECT); Parainfluenza Virus Type 3 Not Detected (NOT DETECT); Parainfluenza Virus Type 4 Not Detected (NOT DETECT); Respiratory Syncytial Virus A Not Detected (NOT DETECT); Respiratory Syncytial Virus B Not Detected (NOT DETECT); SARS-COV-2 Not Detected (NOT DETECT)
[2023-09-25 01:48] LABS: C Reactive Protein 90.3 mg/L (0.0-4.9)
[2023-09-25 01:51] LABS: Alcohol Level < 10 mg/dL (0-10)
[2023-09-25 01:53] LABS: ABG PCO2 37.3 mmHg (35-45); ABG PH Result 7.37 (7.35-7.45); Arterial Blood Gas Hematocrit 35.5 % (37-47); Base Excess ABG -3.7 mmol/L (-2.0-2.0); Blood Gas Allen Test Pos; Blood Gas Operator Identificat JB; Blood Gas Sample Site Radial, right; Blood Gas Sample Type Arterial; HCO3 ABG 21.3 mmol/L (22-26); PO2 ABG 54.6 mmHg (80.0-100.0); PO2 FiO2 Ratio Arterial Blood 0
--- NOTE | 2023-09-25 02:22 | PC.NURSE ---
Report was called to Teena ÁLVAREZ on Med-Surg. All questions and concerns were addressed at time of report. Pt was transported with all paperwork and belongings to room 267.
[2023-09-25 02:39] LABS: Troponin 5 2HR 7.41 ng/L (0-10)
--- NOTE | 2023-09-25 02:40 | ECG_ITS ---
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 Measurements Intervals [place] Rate: 115 P: 59 GA: 155 QRS: 58 QRSD: 83 T: 41 QT: 326 QTc: 451 Interpretive Statements SINUS TACHYCARDIA POSSIBLE LEFT ATRIAL ENLARGEMENT [-0.1mV P-WAVE IN V1/V2] ABNORMAL RHYTHM ECG Compared to ECG 05/09/2014 12:36:36 Sinus rhythm no longer present Electronically Signed On 09-26-2023 13:51:27 CDT by Feliciano Garcia M.D. [id number] f
[2023-09-25 02:44] LABS: Troponin 5 2HR Delta -1.59 ABS# (0-10)
[2023-09-25] MEDS: pantoprazole 40 mg SDV IVP (02:51)
[2023-09-25] MEDS: enoxaparin 40 mg/0.4 mL Syringe SUBCUT (02:51)
[2023-09-25] MEDS: sodium chloride 0.9% 1,000 ML 75 ML IV (02:51)
[2023-09-25 02:55] LABS: Chol HDL Ratio 2.58 mg/dL (0.0-4.40); Cholesterol 142 mg/dL (0-200); HDL Cholesterol 55 mg/dL (60-100); LDL Cholesterol Calculated 72 mg/dL (50-129); LDL HDL Ratio 1.31 RATIO (0.00-3.22); Thyroid Stimulating Hormone 0.65 uIU/mL (0.27-4.20); Triglycerides 74 mg/dL (0-150)
[2023-09-25 02:59] LABS: Estmated Average Glucose 114; Hemoglobin A1C 5.6 % (4.0-6.0)
[2023-09-25] MEDS: ipratropium-albuterol 3 mL Neb INHALATION ×4 (03:12→14:10)
[2023-09-25 03:32] LABS: Amphetamines Screen Urine Negative (Negative); Barbiturates Screen Urine Negative (Negative); Benzodiazepines Screen Urine Negative (Negative); Cocaine Screen Urine Negative (Negative); Opiate Screen Urine Negative (Negative); PCP Screen Urine Negative (Negative); THC Screen Urine Negative (Negative)
[2023-09-25] MEDS: LORazepam 2 mg/mL INJ 10 mL MDV 0.5 MG IVP (03:38)
[2023-09-25 03:54] LABS: Lactic Acid level (Lactate) 3.2 mmol/L (0.5-2.2)
--- NOTE | 2023-09-25 06:40 | ECG_ITS ---
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 Measurements Intervals [place] Rate: 99 P: 58 IN: 150 QRS: 55 QRSD: 93 T: 49 QT: 353 QTc: 453 Interpretive Statements SINUS RHYTHM LOW QRS VOLTAGE IN PRECORDIAL LEADS [QRS DEFLECTION < 1.0 mV IN CHEST LEADS] Compared to ECG 09/25/2023 01:39:44 Low QRS voltage now present Sinus tachycardia no longer present Electronically Signed On 09-26-2023 13:51:08 CDT by Feliciano Garcia M.D. [id number]
[2023-09-25] MEDS: benzonatate 100 mg Capsule PO ×3 (06:55→20:13)
[2023-09-25] MEDS: budesonide 0.5 mg/2 mL Neb INHALATION ×2 (07:44→20:36)
[2023-09-25] MEDS: nystatin 100,000 unit/mL UDC 5 mL 100000 UNIT PO ×4 (08:57→20:12)
[2023-09-25] MEDS: gabapentin 100 mg Capsule PO ×2 (08:57→16:49)
[2023-09-25] MEDS: piperacillin-tazobactam 3.375 GM in sodium chloride 0.9% (plus) 50 ML IV ×2 (12:13→20:11)
[2023-09-25] MEDS: methylPREDNISolone sod succ 40 mg/mL INJ IVP ×3 (12:14→20:13)
[2023-09-25] MEDS: fluconazole premix 100 MG in empty flexible container 1 EACH 50 MG IV (12:15)
[2023-09-25] MEDS: fluticasone nasal spray 16gm Btl 1 SPRAY INTRANASAL (12:17)
[2023-09-25 14:34] LABS: Adenovirus Not Detected (NOT DETECT); Chlamydia Pneumoniae Not Detected (NOT DETECT); Coronavirus 229E,HKU1,NL63,OC4 Not Detected (NOT DETECT); Human Metapneumovirus Not Detected (NOT DETECT); Human Rhinovirus/Enterovirus Not Detected (NOT DETECT); Influenza A Not Detected (NOT DETECT); Influenza A H1 Not Detected (NOT DETECT); Influenza A H1-2009 Not Detected (NOT DETECT); Influenza A H3 Not Detected (NOT DETECT); Influenza B Not Detected (NOT DETECT); Mycoplasma Pneumoniae Not Detected (NOT DETECT); Parainfluenza Virus Type 1 Not Detected (NOT DETECT); Parainfluenza Virus Type 2 Not Detected (NOT DETECT); Parainfluenza Virus Type 3 Not Detected (NOT DETECT); Parainfluenza Virus Type 4 Not Detected (NOT DETECT); Respiratory Syncytial Virus A Not Detected (NOT DETECT); Respiratory Syncytial Virus B Not Detected (NOT DETECT); SARS-COV-2 Not Detected (NOT DETECT)
--- NOTE | 2023-09-25 16:58 | ECG_ITS ---
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 Measurements Intervals [place] Rate: 126 P: 73 [place]: 146 QRS: 67 QRSD: 94 T: 40 QT: 306 QTc: 443 Interpretive Statements SINUS TACHYCARDIA ABNORMAL RHYTHM ECG Compared to ECG 09/25/2023 05:47:05 Sinus rhythm no longer present Electronically Signed On 09-26-2023 13:31:59 CDT by Feliciano Garcia M.D. [email or web address]/[id number] f
[2023-09-25 18:48] LABS: Iron 9 ug/dL (37-145); Percent Saturation 3.6 % (20-50); Total Iron Binding Capacity 245 mcg/dl; Unsaturated Iron Binding 236 ug/dL (112-347)
[2023-09-25 19:05] LABS: Vitamin B12 602 pg/mL (232-1245)
[2023-09-25] MEDS: acetaminophen 325 mg Tablet 650 MG PO (20:12)
[2023-09-25] MEDS: ipratropium 0.5 mg/2.5 mL Neb INHALATION (20:36)
[2023-09-25] MEDS: levalbuterol 0.63 mg/3 mL Neb 0.630000000000000004 MG INHALATION (20:36)
[2023-09-25 20:40] LABS: Troponin 5 6HR 6.97 ng/L (0-10)
[2023-09-25 21:13] LABS: Troponin 5 6HR Delta -2.03 ng/L (0-12)
[2023-09-26] VITALS (14 sets, daily range): BP systolic 105–138; BP diastolic 58–81; PULSE 88–134; RESP 18–30; TEMP 36.3–37; O2SAT 78–94
[2023-09-26] MEDS: enoxaparin 40 mg/0.4 mL Syringe SUBCUT (01:34)
[2023-09-26] MEDS: pantoprazole 40 mg SDV IVP (01:34)
[2023-09-26] MEDS: ipratropium 0.5 mg/2.5 mL Neb INHALATION ×4 (01:56→20:41)
[2023-09-26] MEDS: levalbuterol 0.63 mg/3 mL Neb 0.630000000000000004 MG INHALATION ×4 (01:56→20:41)
[2023-09-26] MEDS: piperacillin-tazobactam 3.375 GM in sodium chloride 0.9% (plus) 50 ML IV ×3 (05:08→20:05)
[2023-09-26] MEDS: azithromycin 500 MG in sodium chloride 0.9% 250 ML 250 MG IV (05:10)
[2023-09-26 05:31] LABS: Basophils % 0.1 %; Hematocrit 31.5 % (36-47); Lymphocytes # 1.7 10^3/uL (0.8-4.8); Lymphocytes % 8.3 %; Mean Corpuscular HGB Conc 33.3 g/dL (30-55); Mean Corpuscular Hemoglobin 31.4 pg (27-33); Mean Corpuscular Volume 94.3 fl (85-98); Mean Platelet Volume 9.4 fL (7.4-10.4); Monocytes # 0.8 10^3/uL (0.2-0.9); Neutrophils # 17.39 10^3/uL (1.8-7.7); Nucleated Red Blood Cells % 0 %; Platelet Count 344 10^3/cmm (157-399); Red Blood Count 3.34 10^6/uL (3.85-5.65); Red Cell Distribution Width 14.2 % (12.1-15.1); White Blood Count 20.03 10^3/uL (3.29-11.43)
[2023-09-26 05:51] LABS: Alanine Aminotransferase 20 U/L (0-33); Albumin Level 3.2 g/dL (3.5-5.2); Alkaline Phosphatase 81 U/L (35-105); Anion Gap 11.8 (5-19); Aspartate Amino Transferase 28 U/L (0-32); Blood Urea Nitrogen 5 mg/dL (6-20); Calcium 7.7 mg/dL (8.5-10.5); Carbon Dioxide 22 mmol/L (22-29); Chloride 113 mmol/L (98-107); Creatinine Clr Calc Pharmacy 172.3052; Globulin 2.8 g/dL (1.3-4.6); Glomerular Filtration Rate 173.4 mL/min (90-130); Glucose 170 mg/dL (65-115); Osmolality Calculated 297 mOsm/kg (285-295); Potassium 3.8 mmol/L (3.5-5.1); Sodium 143 mmol/L (136-145); Total Bilirubin 0.2 mg/dL (0.15-1.2)
[2023-09-26] MEDS: budesonide 0.5 mg/2 mL Neb INHALATION ×2 (08:00→20:41)
[2023-09-26] MEDS: nystatin 100,000 unit/mL UDC 5 mL 100000 UNIT PO ×4 (09:01→20:03)
[2023-09-26] MEDS: methylPREDNISolone sod succ 40 mg/mL INJ IVP ×2 (09:02→16:32)
[2023-09-26] MEDS: gabapentin 100 mg Capsule PO ×2 (09:02→16:32)
[2023-09-26] MEDS: fluticasone nasal spray 16gm Btl 1 SPRAY INTRANASAL (09:02)
[2023-09-26] MEDS: benzonatate 100 mg Capsule PO ×3 (09:02→20:03)
[2023-09-26] MEDS: fluconazole premix 100 MG in empty flexible container 1 EACH 50 MG IV (12:03)
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
[2023-09-26] MEDS: guaiFENesin 600 mg Tablet PO (16:32)
[2023-09-27] VITALS (35 sets, daily range): BP systolic 88–137; BP diastolic 55–101; PULSE 68–125; RESP 13–40; TEMP 36–37.5; O2SAT 88–95; BMI 29.0
[2023-09-27] MEDS: ipratropium 0.5 mg/2.5 mL Neb INHALATION ×3 (02:06→14:40)
[2023-09-27] MEDS: levalbuterol 0.63 mg/3 mL Neb 0.630000000000000004 MG INHALATION ×3 (02:06→14:40)
--- NOTE | 2023-09-27 02:35 | ECG_ITS ---
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 Measurements Intervals [place] Rate: 112 P: 69 MA: 124 QRS: 62 QRSD: 85 T: 56 QT: 303 QTc: 414 Interpretive Statements SINUS TACHYCARDIA Compared to ECG 09/25/2023 16:58:46 No significant changes Electronically Signed On 09-27-2023 12:52:11 CDT by Maximilian Matthew M.D. [id number]
[2023-09-27] MEDS: ondansetron 2 mg/ML SDV 2 mL 4 MG IVP (02:37)
[2023-09-27] MEDS: morphine 4 mg/mL SDV 1 mL 2 MG IVP (02:45)
[2023-09-27] MEDS: LORazepam 2 mg/mL INJ 1 mL 0.5 MG IVP (02:52)
[2023-09-27] MEDS: methylPREDNISolone sod succ 40 mg/mL INJ IVP ×3 (02:56→17:31)
--- NOTE | 2023-09-27 02:56 | PC.NURSE ---
RESPIRATORY DISTRESS EVENT patient became distressed with chest pain and difficulty breathing. RT called patient care nurse to the room and non rebreather applied to patient. IV had been lost d/t patient flailing anxiously. Dr Rivera arrived at bedside to assess patient while IV access was obtained. verbal orders given for 2mg IVP morphine, 0.5mg IVP ativan, and onetime IVP solumedrol 40mg. TELE pharmacy was called to expedite the verification of the orders so that they could be administered. Still no verification after several minutes, doctor inquiring to medications. Charge nurse Boy Correa RN overrode the pyxis so that patient was treated in a timely manner. medications were administered promptly and scanned once able. patient was transferred to ICU per hospitalists order for closer monitoring.
[2023-09-27] MEDS: enoxaparin 40 mg/0.4 mL Syringe SUBCUT (03:27)
[2023-09-27] MEDS: piperacillin-tazobactam 3.375 GM in sodium chloride 0.9% (plus) 50 ML IV ×3 (03:27→19:50)
[2023-09-27] MEDS: pantoprazole 40 mg SDV IVP (03:27)
[2023-09-27] MEDS: LORazepam 2 mg/mL INJ 10 mL MDV 0.5 MG IVP (04:31)
[2023-09-27] MEDS: azithromycin 500 MG in sodium chloride 0.9% 250 ML 250 MG IV (05:54)
[2023-09-27 06:10] LABS: Basophils % 0.1 %; Hematocrit 30.8 % (36-47); Lymphocytes # 1.6 10^3/uL (0.8-4.8); Lymphocytes % 6.6 %; Mean Corpuscular HGB Conc 33.4 g/dL (30-55); Mean Corpuscular Hemoglobin 31.1 pg (27-33); Mean Corpuscular Volume 93.1 fl (85-98); Mean Platelet Volume 9.4 fL (7.4-10.4); Monocytes # 1.1 10^3/uL (0.2-0.9); Monocytes % 4.7 %; Neutrophils # 20.64 10^3/uL (1.8-7.7); Neutrophils % 87.5 %; Nucleated Red Blood Cells % 0 %; Platelet Count 379 10^3/cmm (157-399); Red Blood Count 3.31 10^6/uL (3.85-5.65); Red Cell Distribution Width 14.3 % (12.1-15.1); White Blood Count 23.57 10^3/uL (3.29-11.43)
[2023-09-27 06:33] LABS: Alanine Aminotransferase 21 U/L (0-33); Albumin Level 3.2 g/dL (3.5-5.2); Alkaline Phosphatase 88 U/L (35-105); Aspartate Amino Transferase 26 U/L (0-32); Blood Urea Nitrogen 7 mg/dL (6-20); Calcium 7.7 mg/dL (8.5-10.5); Carbon Dioxide 25 mmol/L (22-29); Chloride 109 mmol/L (98-107); Globulin 2.3 g/dL (1.3-4.6); Glomerular Filtration Rate 173.4 mL/min (90-130); Glucose 125 mg/dL (65-115); Lactate Dehydrogenase 523 U/L (135-214); Osmolality Calculated 295 mOsm/kg (285-295); Sodium 143 mmol/L (136-145); Total Bilirubin 0.2 mg/dL (0.15-1.2); Total Protein 5.5 g/dL (6.6-8.7)
--- NOTE | 2023-09-27 07:19 | XR_ITS ---
WS: [id number] PORTABLE CHEST HISTORY: sob COMPARISON: 09/24/2023 Significant progression of the bilateral areas of opacification since 09/24/2023. Multi lobar areas of opacification and reticular nodular opacifications. These opacifications were predominantly in a per ipheral distribution on the prior exam. No pleural effusion or pneumothorax. Cardiac size: Normal. Mediastinum/Aorta: Normal mediastinum. No osseous abnormality seen. Surgical clips in the upper abdomen. XR/XR chest 1V portable [id number] IMPRESSION: Significant progression of opacifications and reticular nodular opacifications throughout both lungs involving all lobes.
[2023-09-27] MEDS: benzonatate 100 mg Capsule PO ×3 (08:15→21:41)
[2023-09-27] MEDS: fluticasone nasal spray 16gm Btl 1 SPRAY INTRANASAL (08:15)
[2023-09-27] MEDS: gabapentin 100 mg Capsule PO ×2 (08:15→17:31)
[2023-09-27] MEDS: nystatin 100,000 unit/mL UDC 5 mL 100000 UNIT PO ×4 (08:15→21:41)
[2023-09-27] MEDS: guaiFENesin 600 mg Tablet PO ×2 (08:15→17:31)
[2023-09-27] MEDS: budesonide 0.5 mg/2 mL Neb INHALATION ×2 (08:27→20:39)
[2023-09-27 11:12] LABS: ABG PCO2 40.2 mmHg (35-45); ABG PH Result 7.43 (7.35-7.45); Base Excess ABG 2.2 mmol/L (-2.0-2.0); Blood Gas Allen Test Pos; Blood Gas Operator Identificat GD; Blood Gas Sample Site Radial, left; Blood Gas Sample Type Arterial; HCO3 ABG 26.7 mmol/L (22-26); Oxygen Device NC; PO2 ABG 61.3 mmHg (80.0-100.0)
[2023-09-27] MEDS: dexmedeTOMIDine 0.9 % NaCL 400 MCG/100 ML PREMIX 1.80000000000000004 MCG IV (11:25)
[2023-09-27] MEDS: sulfamethoxazole-trimeth inj 480 MG in dextrose 5 % 500 ML 300 MG IV (11:55)
--- NOTE | 2023-09-27 12:06 | PC.NURSE ---
Bactrim IV started slower that ordered dose of 500ml/hr. Infusing at 300ml.hr at this time. Pt very difficult stick, IV size on 22 gauge. Will continue to monitor and advance rate to 500ml/hr as tolerated.
[2023-09-27] MEDS: acetaminophen 325 mg Tablet 650 MG PO (12:42)
[2023-09-27] MEDS: fluconazole premix 100 MG in empty flexible container 1 EACH 50 MG IV (12:44)
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
--- NOTE | 2023-09-27 13:04 | USCV_ITS ---
Ann Fuentes Age: 42 Gender: F : 1980 Exam Date: 09/27/2023 15:08 Ordering Phys: Katarina Nicole MD Technologist: Exam Location: [facility] – [place] Indication: chest pain sob BP: 106 / 77 HR: 79 Rhythm: Sinus Technical Quality: Adequate MEASUREMENTS (Male / Female) Normal Values 2D ECHO LV Diastolic Diameter PLAX 5.0 cm 4.2 - 5.9 / 3.9 - 5.3 cm IVS Diastolic Thickness 0.9 cm 0.6 - 1.0 / 0.6 - 0.9 cm IVS Systolic Thickness 1.4 cm LVPW Diastolic Thickness 0.8 cm 0.6 - 1.0 / 0.6 - 0.9 cm LVPW Systolic Thickness 1.5 cm LVOT Diameter 1.8 cm LV Ejection Fraction 2D Teich 65.9 % LV Ejection Fraction MOD 2C 66.8 % LV Ejection Fraction 2C AL 67.1 % LA Diameter 3.1 cm RA Systolic Volume 4C AL 27.7 ml RA Systolic Volume 4C MOD 27.2 ml LA Sys Volume AL 53.9 cm cubed LA Sys Volume Index AL 25.0 cm cubed/m squared Aorta at Sinotubular Diameter 2.5 cm IVC Diameter 1.2 cm M-MODE LA Ao Ratio MM 0.9 AV Cusp Separation MM 2.5 cm DOPPLER AV Peak Velocity 119.0 cm/s LVOT Peak Velocity 74.0 cm/s AV Area Cont Eq vti 1.9 cm squared AV Area Cont Eq pk 1.6 cm squared MV Peak Velocity 103.0 cm/s MV Area PHT 3.5 cm squared Mitral E to A Ratio 1.3 TV Peak Velocity 158.0 cm/s TR Peak Velocity 219.0 cm/s TR Peak Gradient 19.2 mmHg Right Atrial Pressure 3.0 mmHg Pulmonary Artery Systolic Pressu 22.2 mmHg PV Peak Velocity 95.0 cm/s FINDINGS Left Ventricle Normal left ventricular size and systolic function, EF 67%.no regional wall motion abnormalities. Right Ventricle The right ventricle is normal in size and function. Right Atrium The right atrium is normal in size. Left Atrium The left atrium is normal in size. Mitral Valve No gross abnormalities noted Aortic Valve No gross abnormalities noted. Appears to be a tricuspid valve Tricuspid Valve Mild tricuspid valve regurgitation. Pulmonic Valve No gross abnormalities noted Pericardium Normal pericardium without effusion. Aorta Normal ascending aorta dimension. IVC Inferior vena cava not visualized. CONCLUSIONS Normal left ventricular size and systolic function, EF 67%.no regional wall motion abnormalities. Mild tricuspid valve regurgitation. Estimated pulmonary artery peak systolic pressure 22 mmHg Normal cardiac chamber sizes. There is no pericardial effusion. There are no intracardiac masses. No similar previous studies are available for comparison Dr Sofia Martínez MD FACC (Electronically Signed) Final Date: 28 Sep 2023 06:58 S
[2023-09-27] MEDS: FUROsemide 10 mg/mL SDV 2mL 20 MG IVP (14:03)
[2023-09-27 14:37] LABS: NT Pro B Type Natriuretic Pept 1617 pg/mL (0-125)
--- NOTE | 2023-09-27 15:55 | P.CONIM_ITS ---
Providers/Reason For Consult 2 Consulting Physician/Specialty*: Travis Andrea MD FCCP/pulmonary critical care Reason for Consult*: Hypoxic respiratory failure Requesting Physician: Juan Pena Attending Physician: Katarina Nicole MD Primary Care Provider: Akshat Hoskins MD History of Present Illness History of Present Illness Ann Fuentes is a 42 year old female with past medical history of COPD, history of splenectomy, HLA-B27 positive, presented to emergency room 09/24/2023 at [facility] due to shortness of breath. She has been feeling increasingly short of breath, has been coughing quite frequently, no fevers, no chills. She tells me that this evening, she was making food, over a hot landrum, and she inhaled grease fumes, she breathed in the vapor, after that she was short of breath, with a nonproductive cough, she took prednisone that she had at home she was using Advair and albuterol up frequently for her shortness of breath however she continued to have shortness of breath, persistent cough so she came to the emergency room for evaluation. In the emergency room, she was given fluids, steroids, antibiotics, CT of the chest showed scattered moderate interstitial opacities. Initially she was on room air. She did have significant oral thrush and she was started on oral fluconazole She was admitted for COPD exacerbation in the setting of smoking elation-given scheduled nebulizations, Solu-Medrol 40 Mg every 12 hours, started on empiric Zosyn. Overnight her respiratory status worsened-she is requiring 7 L supplemental oxygen and was moved to intensive care unit. There is also concern for panic attack given her underlying anxiety disorder, PTSD and possible bipolar depression. Patient was started on Precedex drip. Her ABG showed pH 7.43/pCO2 40/pO2 61 on 7 L-calculated PF ratio 125. Chest x- ray showed progression of opacifications and reticulonodular opacification throughout both lungs. So far bacterial antigens were negative for Streptococcus, HIV, strep pneumo. Her respiratory viral panel is negative. Given patient on high-dose steroids, multiple courses of steroids as outpatient, immunocompromised due to splenectomy and using etanercept and leflunomide for her arthritis-there is a high likelihood of PJP pneumonia.-Patient was started on Bactrim. LDH is elevated; sputum PCP PCR, BD glucan was sent Pulmonary critical care consult requested for hypoxic respiratory failure secondary to pneumonia. Patient seen on bedside in ICU Appeared anxious and complaining of difficulty breathing Review of Systems 2 General: Reports: 10 or more systems reviewed and unremarkable except in HPI and below Medications/Allergies Home Medications Medication Instructions Recorded Confirmed Last Taken Type gabapentin 100 mg capsule 100 mg PO BID 06/08/19 09/25/23 07/11/21 History dicyclomine 20 mg tablet 20 mg PO QID PRN stomach cramps 07/27/19 09/25/23 12/25/20 History diphenoxylate-atropine 2.5 3 tab PO QID PRN Diarrhea 07/27/19 09/25/23 12/25/20 History mg-0.025 mg tablet (Lomotil) eluxadoline 75 mg tablet (Viberzi) 75 mg PO BID 07/27/19 09/25/23 12/25/20 History tizanidine 2 mg capsule (Zanaflex) 4 mg PO TID PRN Muscle Pain 07/27/19 09/25/23 12/22/20 History tramadol 50 mg tablet 50 mg PO Q6H PRN Pain 07/27/19 09/25/23 07/11/21 History acetaminophen 325 mg tablet 325 mg PO QID PRN Pain 11/07/19 09/25/23 12/26/20 History (Tylenol) Sole Supports #1 ea 09/02/21 09/25/23 Unknown Rx Cam Boot to the left #1 ea 11/05/21 09/25/23 Unknown Rx Custom Molded Orthotics #1 ea 11/05/21 09/25/23 Unknown Rx diclofenac sodium 75 mg See Rx Instructions .Route 04/13/23 09/25/23 Unknown Rx tablet,delayed release .COMPLEX #30 tabs etanercept 50 mg/mL (1 mL) See Rx Instructions .Route 06/28/23 09/25/23 Unknown Rx subcutaneous syringe (Enbrel) .COMPLEX #4 mL leflunomide 20 mg tablet 20 mg PO DAILY #30 tabs 07/19/23 09/25/23 Unknown Rx prednisone 20 mg tablet See Rx Instructions .Route 07/19/23 09/25/23 Unknown Rx .COMPLEX #30 tabs cetirizine 10 mg tablet 10 mg PO DAILY 09/25/23 09/25/23 Unknown History fluticasone 250 mcg-salmeterol 50 1 inh inhalation BID 09/25/23 09/25/23 Unknown History mcg/dose blistr powdr for inhalation (Advair Diskus) fluticasone propionate 50 1 spray intranasal DAILY 09/25/23 09/25/23 Unknown History mcg/actuation nasal spray,suspension vitamin with calcium 1 tab PO DAILY 09/25/23 09/25/23 Unknown History no.72-iron 27 mg-folic acid 1 mg tablet (M-Jm Plus) Allergies Allergy/AdvReac Type Severity Reaction Status Date / Time codeine Allergy Severe Hives, Verified 09/24/23 20:54 Itching, & breathing problems vancomycin Allergy Severe Hives, Verified 09/24/23 20:54 Itching, Breathing problems Current Medications Generic Name Dose Route Start Last Admin Trade Name Freq PRN Reason Stop Dose Admin Acetaminophen 650 mg 09/25/23 02:14 09/27/23 12:42 Acetaminophen 325 Mg Tablet PO 650 mg Q6H PRN Administration Mild/Mod Pain Or Temp >/= 101 Benzonatate 100 mg 09/25/23 15:00 09/27/23 14:03 Benzonatate 100 Mg Capsule PO 100 mg TID MARYAN Administration Budesonide 0.5 mg 09/25/23 08:00 09/27/23 08:27 Budesonide 0.5 Mg/2 Ml Neb INHALATION 0.5 mg BID.RESPIRATORY MARYAN Administration Enoxaparin Sodium 40 mg 09/25/23 02:14 09/27/23 03:27 Enoxaparin 40 Mg/0.4 Ml Syringe SUBCUT 40 mg Q24H MARYAN Administration Fluticasone Propionate 1 spray 09/25/23 10:45 09/27/23 08:15 Fluticasone Nasal [place] 16gm Btl INTRANASAL 1 spray DAILY MARYAN Administration Gabapentin 100 mg 09/25/23 09:00 09/27/23 08:15 Gabapentin 100 Mg Capsule PO 100 mg BID MARYAN Administration Guaifenesin 600 mg 09/26/23 18:00 09/27/23 08:15 Guaifenesin 600 Mg Tablet PO 600 mg BID MARYAN Administration Azithromycin 500 mg/ Sodium 250 mls @ 250 mls/hr 09/26/23 06:00 09/27/23 07:00 Chloride IV Infused Q24H MARYAN Infusion Protocol Piperacillin Sod/Tazobactam 50 mls @ 12.5 mls/hr 09/25/23 12:00 09/27/23 12:09 Sod 3.375 gm/ Sodium Chloride IV 12.5 mls/hr Q8H MARYAN Administration Protocol Fluconazole 100 mg/ N/A 50 mls @ 50 mls/hr 09/25/23 11:00 09/27/23 12:44 IV 50 mls/hr Q24H MARYAN Administration Dexmedetomidine/Sodium Chloride 400 mcg in 100 mls @ 0 mls/hr 09/27/23 11:00 09/27/23 11:48 Precedex IV 0.2 mcg/kg/hr .Q0M MARYAN 3.6 mls/hr Titration Protocol Per Protocol Trimethoprim/Sulfamethoxazole 530 mls @ 500 mls/hr 09/27/23 12:00 09/27/23 11:55 480 mg/ Dextrose IV 300 mls/hr Q8H MARYAN Administration Ipratropium [place] 0.5 mg 09/27/23 03:01 09/27/23 14:40 Ipratropium 0.5 Mg/2.5 Ml Neb INHALATION 0.5 mg Q6H.RESP PRN Administration SHORTNESS OF BREATH Levalbuterol HCl 0.63 mg 09/27/23 03:01 09/27/23 14:40 Levalbuterol 0.63 Mg/3 Ml Neb INHALATION 0.63 mg Q6H.RESP PRN Administration SHORTNESS OF BREATH Methylprednisolone Sodium Succinate 40 mg 09/26/23 18:00 09/27/23 08:15 Methylprednisolone Sod Succ 40 Mg/Ml Inj IVP 40 mg BID MARYAN Administration Nystatin 100,000 unit 09/25/23 09:00 09/27/23 12:43 Nystatin 100,000 Unit/Ml Udc 5 Ml PO 100,000 unit QID MARYAN Administration Ondansetron HCl 4 mg 09/25/23 02:14 09/27/23 02:37 Ondansetron 2 Mg/Ml Sdv 2 Ml IVP 4 mg Q8H PRN Administration vomiting, or N/V if npo Pantoprazole Sodium 40 mg 09/25/23 02:14 09/27/23 03:27 Pantoprazole 40 Mg Sdv IVP 40 mg Q24H MARYAN Administration PFSH Acute 2 PFSH: Medical History Axial spondyloarthritis High risk medication use Inflammatory back pain Inflammatory arthritis Cervical cancer pt had hysterectomy Colon cancer History of drug use Surgical History History of intestinal surgery pt states had removal of large intestines and uses antidiarrhea meds and vitamins due to low absorption History of hysterectomy pt states done for cervical cancer History of appendectomy History of cholecystectomy History of hammertoe correction History of bunionectomy Family History Other Cancer Chronic kidney disease (CKD) Lung disease Lupus Rheumatoid arthritis Denies family history of Diabetes CAD (coronary artery disease) Clotting disorder Dementia Hyperlipidemia Psychiatric illness Suicide Anesthesia complication Bleeding disorder Family history of premature coronary artery disease Hypertension Stroke Social History Smoking and tobacco/nicotine status: current every day tobacco/nicotine user cigarettes Packs smoked per day: 0.5 Years cigarettes smoked: 25 [ Other cigarette details: states is quitting] Quit status (tobacco/nicotine): has tried quititng Number of times tried to quit tobacco: 3 Second hand smoke exposure: Yes Alcohol intake: unknown Substance/Drug Use: unknown Adopted: No Caregiver/support person: No Lives independently: Yes service: No Do you think of yourself as: Straight/Heterosexual Current gender identity: Female Vitals/I&O/Wt Last Vital Signs Temp 97.8 F 09/27/23 12:00 Pulse 84 09/27/23 14:38 Resp 20 H 09/27/23 14:30 BP 114/86 09/27/23 08:00 Pulse Ox 93 09/27/23 14:30 O2 Del Method High Flow Nasal Cannula 09/27/23 14:30 O2 Flow Rate 7 09/27/23 14:30 09/27/23 09/27/23 09/27/23 06:59 14:59 22:59 Intake Total 50 / 1160 1300.69 / 1300.69 Output Total 200 / 200 400 / 400 Balance -150 / 960 900.69 / 900.69 Weight last 48 hrs Weight 158 lb 11.2 oz Weight 169 lb 8 oz Physical Exam 2 Narrative: General: alert, NAD HEENT: conj clear, EOMI, PERRL, mmm, Neck: supple, no meningismus Heme: no cervical LAP Respiratory: Inspection: No visible deformity of the chest wall Palpation: Trachea is mildly deviated to the right, bilateral symmetric expansion Percussion: Bilateral tympanic percussion note both anterior and posteriorly Auscultation: Bilateral diffuse crackles Cardiovascular: rrr, nl s1s2, no mrg Abdomen: soft, nt, nd, no r/g, bs+ Extremities: pulses +, no edema, no c/c : no CVA tenderness Skin: intact, no rash MSK: no back or neck pain Neurologic: grossly intact Data 09/27/23 05:28 09/27/23 05:28 Other Labs: Radiology Impressions Chest CT 09/24/23 22:35 IMPRESSION: Scattered moderate peripheral interstitial opacities are nonspecific. Differential diagnosis includes cryptogenic organizing pneumonia, other interstitial pneumonias, and atypical infection among others. Recommend nonemergent pulmonology consultation. Chest X-Ray 09/27/23 07:19 IMPRESSION: Significant progression of opacifications and reticular nodular opacifications throughout both lungs involving all lobes. Laboratory Results WBC 23.57 10^3/uL (3.29-11.43) H 09/27/23 05:28 RBC 3.31 10^6/uL (3.85-5.65) L 09/27/23 05:28 Hgb 10.30 g/dL (11.27-16.99) L 09/27/23 05:28 Hct 30.8 % (36-47) L 09/27/23 05:28 MCV 93.1 fl (85-98) 09/27/23 05:28 MCH 31.1 pg (27-33) 09/27/23 05: MCHC 33.4 g/dL (30-55) 09/27/23 05:28 RDW 14.3 % (12.1-15.1) 09/27/23 05:28 Plt Count 379 10^3/cmm (157-399) 09/27/23 05:28 MPV 9.4 fL (7.4-10.4) 09/27/23 05:28 Neut % (Auto) 87.5 % 09/27/23 05:28 Lymph % (Auto) 6.6 % 09/27/23 05:28 [place] % (Auto) 4.7 % 09/27/23 05:28 Eos % (Auto) 0.0 % 09/27/23 05:28 Baso % (Auto) 0.1 % 09/27/23 05:28 Neut # (Auto) 20.64 10^3/uL (1.8-7.7) H 09/27/23 05:28 Lymph # (Auto) 1.6 10^3/uL (0.8-4.8) 09/27/23 05:28 [place] # (Auto) 1.1 10^3/uL (0.2-0.9) H 09/27/23 05:28 Eos # (Auto) 0.0 10^3/uL (0.0-0.8) 09/27/23 05:28 Baso # (Auto) 0.0 10^3/uL (0.0-0.1) 09/27/23 05:28 Nucleated RBC % (auto) 0 % 09/27/23 05: Nucleated RBCs # 0.0 /100WBC 09/27/23 05: ESR 23 mm/hr (0-15) H 09/24/23 21:28 D-Dimer 0.42 ug/mLFEU (0-0.59) 09/27/23 19:20 Specimen Type Arterial 09/27/23 10:57 Sample Site Radial, left 09/27/23 10:57 ABG pH 7.43 (7.35-7.45) 09/27/23 10:57 ABG pCO2 40.2 mmHg (35-45) 09/27/23 10:57 ABG pO2 61.3 mmHg (80.0-100.0) L 09/27/23 10:57 ABG PO2/FiO2 Ratio 0 09/25/23 01:50 ABG HCO3 26.7 mmol/L (22-26) H 09/27/23 10:57 ABG Base Excess 2.2 mmol/L (-2.0-2.0) H 09/27/23 10:57 Jorge Test Pos 09/27/23 10:57 Hematocrit 33.0 % (37-47) L 09/27/23 10:57 O2 Delivery Device Nc 09/27/23 10:57 O2 Liters/Min 7.0 % 09/27/23 10:57 FiO2 21.0 % 09/25/23 01:50 Patternmaker ID Gd 09/27/23 10:57 Sodium 143 mmol/L (136-145) 09/27/23 05:28 Potassium 4.0 mmol/L (3.5-5.1) 09/27/23 05:28 Chloride 109 mmol/L (98-107) H 09/27/23 05:28 Carbon Dioxide 25 mmol/L (22-29) 09/27/23 05:28 Anion Gap 13.0 (5-19) 09/27/23 05:28 BUN 7 mg/dL (6-20) 09/27/23 05:28 Creatinine 0.4 mg/dL (0.5-0.9) L 09/27/23 05:28 GFR Calculation 173.4 mL/min (90-130) H 09/27/23 05:28 Glucose 125 mg/dL (65-115) H 09/27/23 05:28 Estimat Average Glucose 114 09/25/23 00:00 Hemoglobin A1c 5.6 % (4.0-6.0) 09/25/23 00:00 Calculated Osmolality 295 mOsm/kg (285-295) 09/27/23 05:28 Lactic Acid 2.1 mmol/L (0.5-2.2) 09/24/23 21:28 Lactic Acid (Sepsis) 3.2 mmol/L (0.5-2.2) H 09/25/23 03:27 Calcium 7.7 mg/dL (8.5-10.5) L 09/27/23 05:28 Iron 9 ug/dL (37-145) L 09/25/23 00:00 TIBC 245 mcg/dl 09/25/23 00:00 % Saturation 3.6 % (20-50) L 09/25/23 00:00 Unsat Iron Binding 236 ug/dL (112-347) 09/25/23 00:00 Total Bilirubin 0.2 mg/dL (0.15-1.2) 09/27/23 05: AST 26 U/L (0-32) 09/27/23 05:28 ALT 21 U/L (0-33) 09/27/23 05:28 Alkaline Phosphatase 88 U/L (35-105) 09/27/23 05:28 Lactate Dehydrogenase 523 U/L (135-214) H 09/27/23 05:28 Troponin T Baseline 9 ng/L (0-10) 09/25/23 00:00 Troponin T 120 Minute 7.41 ng/L (0-10) 09/25/23 02:02 Delta Troponin T -1.59 ABS# (0-10) L 09/25/23 02:02 Troponin T Hi Sens 6Hr 6.97 ng/L (0-10) 09/25/23 19:41 Troponin T Hi Sens 6Hr Delta -2.03 ng/L (0-12) L 09/25/23 19:41 C-Reactive Protein 90.3 mg/L (0.0-4.9) H 09/25/23 00:00 NT-Pro-B Natriuret Pep 1617 pg/mL (0-125) H 09/27/23 13:55 Total Protein 5.5 g/dL (6.6-8.7) L 09/27/23 05:28 Albumin 3.2 g/dL (3.5-5.2) L 09/27/23 05:28 Globulin 2.3 g/dL (1.3-4.6) 09/27/23 05:28 Triglycerides 74 mg/dL (0-150) 09/25/23 00:00 Cholesterol 142 mg/dL (0-200) 09/25/23 00:00 LDL Cholesterol, Calc 72 mg/dL (50-129) 09/25/23 00:00 HDL Cholesterol 55 mg/dL (60-100) L 09/25/23 00:00 LDL/HDL Ratio 1.31 RATIO (0.00-3.22) 09/25/23 00:00 Cholesterol/HDL Ratio 2.58 mg/dL (0.0-4.40) 09/25/23 00:00 Vitamin B12 602 pg/mL (232-1245) 09/25/23 00:00 Folate 5.0 ng/mL (4.8-37.3) 09/26/23 05:12 Procalcitonin 0.16 ng/mL (0-0.5) 09/25/23 00:00 TSH 0.65 uIU/mL (0.27-4.20) 09/25/23 00:00 Urine Opiates Screen Negative ng/mL (Negative) 09/25/23 03:00 Ur Barbiturates Screen Negative ng/mL (Negative) 09/25/23 03:00 Ur Phencyclidine Scrn Negative ng/mL (Negative) 09/25/23 03:00 Ur Amphetamines Screen Negative ng/mL (Negative) 09/25/23 03:00 U Benzodiazepines Scrn Negative ng/mL (Negative) 09/25/23 03:00 Urine Cocaine Screen Negative ng/mL (Negative) 09/25/23 03:00 U Marijuana (THC) Screen Negative ng/mL (Negative) 09/25/23 03:00 Ethyl Alcohol < 10 mg/dL (0-10) 09/25/23 00:00 Adenovirus (PCR) Not detected (NOT DETECT) 09/25/23 12:24 C. pneumoniae DNA (PCR) Not detected (NOT DETECT) 09/25/23 12:24 Coronavirus 229E (PCR) Not detected (NOT DETECT) 09/25/23 12:24 Human Metapneumovir PCR Not detected (NOT DETECT) 09/25/23 12:24 Influenza A (H1) PCR Not detected (NOT DETECT) 09/25/23 12:24 Influ A (H1/09) PCR Not detected (NOT DETECT) 09/25/23 12:24 Influenza A (H3) PCR Not detected (NOT DETECT) 09/25/23 12:24 Influenza Type A (PCR) Not detected (NOT DETECT) 09/25/23 12:24 Influenza Type B (PCR) Not detected (NOT DETECT) 09/25/23 12:24 M. pneumoniae (PCR) Not detected (NOT DETECT) 09/25/23 12:24 Parainfluenza 1 (PCR) Not detected (NOT DETECT) 09/25/23 12:24 Parainfluenza 2 (PCR) Not detected (NOT DETECT) 09/25/23 12:24 Parainfluenza 3 (PCR) Not detected (NOT DETECT) 09/25/23 12:24 Parainfluenza 4 (PCR) Not detected (NOT DETECT) 09/25/23 12:24 RSV Type A (PCR) Not detected (NOT DETECT) 09/25/23 12:24 RSV Type B (PCR) Not detected (NOT DETECT) 09/25/23 12:24 Entero/Rhino (PCR) Not detected (NOT DETECT) 09/25/23 12:24 SARS-CoV-2 (PCR) Not detected (NOT DETECT) 09/25/23 12:24 MRSA (PCR) Cancelled 09/25/23 00:00 Beta-(1,3)-D-Glucan Cancelled 09/25/23 00:00 B-(1,3)-D-Glucan Intrp Cancelled 09/25/23 00:00 A&P Assessment and plan (1) Hypoxic respiratory failure: Increasing oxygen requirements in the setting of significant progression of diffuse reticulonodular opacification throughout both lungs involving all lungs- suggestive of worsening pneumonia In the setting of frequent courses of high-dose steroids, immunosuppression medications like etanercept/leflunomide for inflammatory arthritis-patient is at high risk for PCP pneumonia; Patient has significant oral thrush during admission-currently she is on fluconazole 100 Mg daily; serology for histoplasma and Coccidioides are pending; respiratory viral panel is negative Elevated LDH-started on Bactrim Will continue Solu-Medrol 40 every 12 Sputum PCP PCR, serum beta D glucan were sent I will schedule for bronchoscopy to obtain BAL (2) Pneumonia, organism unspecified: Patient is broadly covered with Zosyn as well as azithromycin for atypical pneumonia Will send BAL for sputum cultures as well Qualifiers: Laterality: bilateral Lung location: lower lobe of lung Qualified Code(s): J18.9 - Pneumonia, unspecified organism (3) COPD exacerbation: Patient is half pack per day for 25 years Strongly counseled to quit smoking She uses Advair for her COPD Continue nebulizations and steroids She needs PFTs as outpatient (4) Toxic inhalation injury: (5) High risk medication use: She is on Enbrel, leflunomide for inflammatory arthritis (6) Anxiety: History of anxiety disorder/PTSD Started on Precedex (7) Oral thrush: Consult Attestations 2 Medical Necessity Statement: Continue close ICU monitoring for hypoxic respiratory failure Time Spent in Patient Care: Greater than 35 minutes (>than 50% of time spent in counselling and/or direct pt care on unit) . Critical Care Time: The high probability of a clinically significant, sudden or life threatening deterioration of the patient's [pulmonary] system(s) required my full and direct attention, intervention and personal management. The critical care time is as shown. This time is in addition to time spent performing any reported procedures but includes the following: [x] Data and vital sign review and interpretation [x] Patient assessment, examination and intervention [x] Documentation [x] Medication orders and management Critical Care Time (min): 71 Coding Level of Care Code Acute Code for Chg Fwd Diagnoses Hypoxic respiratory failure J96.91 Pneumonia, organism unspecified J18.9 Laterality: bilateral Lung location: lower lobe of lung COPD exacerbation J44.1 Toxic inhalation injury T59.94XA High risk medication use Z79.899 Anxiety F41.9 Oral thrush B37.0 Time Spent (min) 71
--- NOTE | 2023-09-27 18:22 | PC.NURSE ---
Shift summary: pt has rested in bed except for trips to use BSC today. She does has frequent coughing with very little sputum production. But she did have enough sputum expectorated to send to lab. SHe can get worked up and very anxious about the tightness in her chest. Her lungs auscultate very diminished and tight. She was stared on Precedex today, it is infusing at 0.2 mcg/kg/hr. The rate is to be kept at 0.1-0.2. SHe was started on Bactrim and Flucanozole IV. She was given Lasix. She started the shift on 10lpm/HFNC, she is now at 7 liters. She is to have broncoscopy tomorrow. No BM noted. Urine out put greater than 2 liters.
[2023-09-27 20:28] LABS: D Dimer 0.42 ug/mLFEU (0-0.59)
[2023-09-27] MEDS: sulfamethoxazole-trimeth inj 480 MG in dextrose 5 % 500 ML 500 MG IV (20:59)
[2023-09-27] MEDS: ALPRAZolam 0.5 mg Tablet PO (22:22)
[2023-09-28] VITALS (38 sets, daily range): BP systolic 109–153; BP diastolic 80–110; PULSE 65–103; RESP 15–32; TEMP 36.6; O2SAT 85–97
[2023-09-28] MEDS: pantoprazole 40 mg SDV IVP (02:58)
[2023-09-28] MEDS: enoxaparin 40 mg/0.4 mL Syringe SUBCUT (02:58)
[2023-09-28] MEDS: piperacillin-tazobactam 3.375 GM in sodium chloride 0.9% (plus) 50 ML IV ×3 (04:08→20:13)
[2023-09-28] MEDS: sulfamethoxazole-trimeth inj 480 MG in dextrose 5 % 500 ML 500 MG IV ×3 (04:09→20:25)
[2023-09-28] MEDS: ALPRAZolam 0.5 mg Tablet PO (05:40)
[2023-09-28] MEDS: azithromycin 500 MG in sodium chloride 0.9% 250 ML 250 MG IV (05:40)
[2023-09-28 05:42] LABS: Basophils % 0.2 %; Hematocrit 30.9 % (36-47); Mean Corpuscular Hemoglobin 31.2 pg (27-33); Mean Corpuscular Volume 91.7 fl (85-98); Mean Platelet Volume 8.9 fL (7.4-10.4); Monocytes # 0.9 10^3/uL (0.2-0.9); Monocytes % 4.6 %; Neutrophils # 14.69 10^3/uL (1.8-7.7); Neutrophils % 78.1 %; Nucleated Red Blood Cells % 0 %; Platelet Count 380 10^3/cmm (157-399); Red Blood Count 3.37 10^6/uL (3.85-5.65); White Blood Count 18.79 10^3/uL (3.29-11.43)
[2023-09-28 06:04] LABS: Alanine Aminotransferase 19 U/L (0-33); Alkaline Phosphatase 88 U/L (35-105); Anion Gap 14.7 (5-19); Aspartate Amino Transferase 15 U/L (0-32); Blood Urea Nitrogen 7 mg/dL (6-20); Carbon Dioxide 23 mmol/L (22-29); Chloride 106 mmol/L (98-107); Creatinine Clr Calc Pharmacy 132.0128; Glomerular Filtration Rate 133.4 mL/min (90-130); Glucose 242 mg/dL (65-115); Osmolality Calculated 296 mOsm/kg (285-295); Potassium 3.7 mmol/L (3.5-5.1); Sodium 140 mmol/L (136-145); Total Bilirubin 0.2 mg/dL (0.15-1.2)
[2023-09-28 06:23] LABS: HIV 1 & 2 Antigen Non-Reactive (Non-Reactiv)
[2023-09-28 06:24] LABS: HIV 1 & 2 Antibody Non-Reactive (Non-Reactiv)
[2023-09-28] MEDS: methylPREDNISolone sod succ 40 mg/mL INJ IVP ×2 (08:37→17:34)
[2023-09-28] MEDS: guaiFENesin 600 mg Tablet PO ×2 (08:57→17:34)
[2023-09-28] MEDS: gabapentin 100 mg Capsule PO ×2 (08:57→17:34)
[2023-09-28] MEDS: benzonatate 100 mg Capsule PO ×3 (08:58→20:12)
--- NOTE | 2023-09-28 09:00 | PC.NURSE ---
Datar rounded. Gave verbal order , ok to increase dose of Precedex.
[2023-09-28] MEDS: TRAMadol 50 mg Tablet PO ×2 (09:06→20:12)
[2023-09-28] MEDS: fluticasone nasal spray 16gm Btl 1 SPRAY INTRANASAL (09:06)
[2023-09-28] MEDS: nystatin 100,000 unit/mL UDC 5 mL 100000 UNIT PO ×3 (09:08→22:02)
[2023-09-28] MEDS: levalbuterol 0.63 mg/3 mL Neb 0.630000000000000004 MG INHALATION ×2 (09:26→14:37)
[2023-09-28] MEDS: budesonide 0.5 mg/2 mL Neb INHALATION (09:28)
[2023-09-28] MEDS: fluconazole premix 100 MG in empty flexible container 1 EACH IV (10:36)
--- NOTE | 2023-09-28 11:02 | ANES.PREANE2 ---
Pre-Anesthetic Assessment Height/Weight: Height 1.57 m Weight 71.486 kg Temp Pulse Resp BP Pulse Ox O2 Del Method O2 Flow Rate 97.8 F 92 28 H 109/80 90 High Flow Nasal Cannula 8 09/28/23 08:00 09/28/23 10:00 09/28/23 10:00 09/28/23 10:00 09/28/23 10:00 09/28/23 10:00 09/28/23 10:00 Operation Date: 09/28/23 11:45 Proposed Procedures p Bronchoscopy(Not Applicable) - Travis Sultana DatarMD Familial anesthetic complications: None Was Beta Amadou taken within 24 hours: N/A Was Clonidine taken within 24 hours: N/A Last intake: > 8 hrs Social Tobacco and No alcohol drug abuse Exam alert, oriented x 3, clear to auscultation bilaterally and regular rate & rhythm Airway Mallampati: Class I Dentition: false Pulmonary Chronic Obstructive Pulmonary Disease 10 L NC satting 90%, atypical pnuemonia GI colon resection Anesthetic Plan ASA status: 4 Anesthesia: General Risk of > 500 ml blood loss (7ml/kg in children): No Medications/Allergies Home Medications Medication Instructions Recorded Confirmed Last Taken Type gabapentin 100 mg capsule 100 mg PO BID 06/08/19 09/25/23 07/11/21 History dicyclomine 20 mg tablet 20 mg PO QID PRN stomach cramps 07/27/19 09/25/23 12/25/20 History diphenoxylate-atropine 2.5 3 tab PO QID PRN Diarrhea 07/27/19 09/25/23 12/25/20 History mg-0.025 mg tablet (Lomotil) eluxadoline 75 mg tablet (Viberzi) 75 mg PO BID 07/27/19 09/25/23 12/25/20 History tizanidine 2 mg capsule (Zanaflex) 4 mg PO TID PRN Muscle Pain 07/27/19 09/25/23 12/22/20 History tramadol 50 mg tablet 50 mg PO Q6H PRN Pain 07/27/19 09/25/23 07/11/21 History acetaminophen 325 mg tablet 325 mg PO QID PRN Pain 11/07/19 09/25/23 12/26/20 History (Tylenol) Sole Supports #1 ea 09/02/21 09/25/23 Unknown Rx Cam Boot to the left #1 ea 11/05/21 09/25/23 Unknown Rx Custom Molded Orthotics #1 ea 11/05/21 09/25/23 Unknown Rx diclofenac sodium 75 mg See Rx Instructions .Route 04/13/23 09/25/23 Unknown Rx tablet,delayed release .COMPLEX #30 tabs etanercept 50 mg/mL (1 mL) See Rx Instructions .Route 06/28/23 09/25/23 Unknown Rx subcutaneous syringe (Enbrel) .COMPLEX #4 mL leflunomide 20 mg tablet 20 mg PO DAILY #30 tabs 07/19/23 09/25/23 Unknown Rx prednisone 20 mg tablet See Rx Instructions .Route 07/19/23 09/25/23 Unknown Rx .COMPLEX #30 tabs cetirizine 10 mg tablet 10 mg PO DAILY 09/25/23 09/25/23 Unknown History fluticasone 250 mcg-salmeterol 50 1 inh inhalation BID 09/25/23 09/25/23 Unknown History mcg/dose blistr powdr for inhalation (Advair Diskus) fluticasone propionate 50 1 spray intranasal DAILY 09/25/23 09/25/23 Unknown History mcg/actuation nasal spray,suspension vitamin with calcium 1 tab PO DAILY 09/25/23 09/25/23 Unknown History no.72-iron 27 mg-folic acid 1 mg tablet (M- Plus) Allergies Allergy/AdvReac Type Severity Reaction Status Date / Time codeine Allergy Severe Hives, Verified 09/24/23 20:54 Itching, & breathing problems vancomycin Allergy Severe Hives, Verified 09/24/23 20:54 Itching, Breathing problems Current Medications Generic Name Dose Route Start Last Admin Trade Name Freq PRN Reason Stop Dose Admin Acetaminophen 650 mg 09/25/23 02:14 09/27/23 12:42 Acetaminophen 325 Mg Tablet PO 650 mg Q6H PRN Administration Mild/Mod Pain Or Temp >/= 101 Alprazolam 0.5 mg 09/25/23 10:41 09/28/23 05:40 Alprazolam 0.5 Mg Tablet PO 0.5 mg TID PRN Administration ANXIETY Benzonatate 100 mg 09/25/23 15:00 09/28/23 08:58 Benzonatate 100 Mg Capsule PO 100 mg TID MARYAN Administration Budesonide 0.5 mg 09/25/23 08:00 09/28/23 09:28 Budesonide 0.5 Mg/2 Ml Neb INHALATION 0.5 mg BID.RESPIRATORY MARYAN Administration Enoxaparin Sodium 40 mg 09/25/23 02:14 09/28/23 02:58 Enoxaparin 40 Mg/0.4 Ml Syringe SUBCUT 40 mg Q24H MARYAN Administration Fluticasone Propionate 1 spray 09/25/23 10:45 09/28/23 09:06 Fluticasone Nasal [place] 16gm Btl INTRANASAL 1 spray DAILY MARYAN Administration Gabapentin 100 mg 09/25/23 09:00 09/28/23 08:57 Gabapentin 100 Mg Capsule PO 100 mg BID MARYAN Administration Guaifenesin 600 mg 09/26/23 18:00 09/28/23 08:57 Guaifenesin 600 Mg Tablet PO 600 mg BID MARYAN Administration Azithromycin 500 mg/ Sodium 250 mls @ 250 mls/hr 09/26/23 06:00 09/28/23 06:47 Chloride IV Infused Q24H MARYAN Infusion Protocol Piperacillin Sod/Tazobactam 50 mls @ 12.5 mls/hr 09/25/23 12:00 09/28/23 08:15 Sod 3.375 gm/ Sodium Chloride IV Infused Q8H MARYAN Infusion Protocol Fluconazole 100 mg/ N/A 50 mls @ 50 mls/hr 09/25/23 11:00 09/28/23 10:36 IV 100 mls/hr Q24H MARYAN Administration Dexmedetomidine/Sodium Chloride 400 mcg in 100 mls @ 0 mls/hr 09/27/23 11:00 09/28/23 09:11 Precedex IV 0.4 mcg/kg/hr .Q0M MARYAN 7.2 mls/hr Titration Protocol Per Protocol Trimethoprim/Sulfamethoxazole 530 mls @ 500 mls/hr 09/27/23 12:00 09/28/23 05:13 480 mg/ Dextrose IV Infused Q8H MARYAN Infusion Ipratropium [place] 0.5 mg 09/27/23 03:01 09/27/23 14:40 Ipratropium 0.5 Mg/2.5 Ml Neb INHALATION 0.5 mg Q6H.RESP PRN Administration SHORTNESS OF BREATH Levalbuterol HCl 0.63 mg 09/27/23 03:01 09/28/23 09:26 Levalbuterol 0.63 Mg/3 Ml Neb INHALATION 0.63 mg Q6H.RESP PRN Administration SHORTNESS OF BREATH Methylprednisolone Sodium Succinate 40 mg 09/26/23 18:00 09/28/23 08:37 Methylprednisolone Sod Succ 40 Mg/Ml Inj IVP 40 mg BID MARYAN Administration Nystatin 100,000 unit 09/25/23 09:00 09/28/23 09:08 Nystatin 100,000 Unit/Ml Udc 5 Ml PO 100,000 unit QID MARYAN Administration Ondansetron HCl 4 mg 09/25/23 02:14 09/27/23 02:37 Ondansetron 2 Mg/Ml Sdv 2 Ml IVP 4 mg Q8H PRN Administration vomiting, or N/V if npo Pantoprazole Sodium 40 mg 09/25/23 02:14 09/28/23 02:58 Pantoprazole 40 Mg Sdv IVP 40 mg Q24H MARYAN Administration Tramadol HCl 50 mg 09/25/23 10:42 09/28/23 09:06 Tramadol 50 Mg Tablet PO 50 mg Q6H PRN Administration Pain PFSH Anesthesia Medical History Axial spondyloarthritis High risk medication use Inflammatory back pain Inflammatory arthritis Cervical cancer pt had hysterectomy Colon cancer History of drug use Surgical History History of intestinal surgery pt states had removal of large intestines and uses antidiarrhea meds and vitamins due to low absorption History of hysterectomy pt states done for cervical cancer History of appendectomy History of cholecystectomy History of hammertoe correction History of bunionectomy Family History Other Cancer Chronic kidney disease (CKD) Lung disease Lupus Rheumatoid arthritis Denies family history of Diabetes CAD (coronary artery disease) Clotting disorder Dementia Hyperlipidemia Psychiatric illness Suicide Anesthesia complication Bleeding disorder Family history of premature coronary artery disease Hypertension Stroke Social History Smoking and tobacco/nicotine status: current every day tobacco/nicotine user cigarettes Packs smoked per day: 0.5 Years cigarettes smoked: 25 [ Other cigarette details: states is quitting] Quit status (tobacco/nicotine): has tried quititng Number of times tried to quit tobacco: 3 Second hand smoke exposure: Yes Alcohol intake: unknown Substance/Drug Use: unknown Adopted: No Caregiver/support person: No Lives independently: Yes service: No Do you think of yourself as: Straight/Heterosexual Current gender identity: Female Data Anesthesia 09/28/23 05:27 09/28/23 05:27 Short CBC 09/27/23 09/28/23 Range/Units 05:28 05:27 WBC 23.57 H 18.79 H (3.29-11.43) 10^3/uL Hgb 10.30 L 10.50 L (11.27-16.99) g/dL Hct 30.8 L 30.9 L (36-47) % MCV 93.1 91.7 (85-98) fl Plt Count 379 380 (157-399) 10^3/cmm Neut % (Auto) 87.5 78.1 % Neut # (Auto) 20.64 H 14.69 H (1.8-7.7) 10^3/uL BMP 09/27/23 09/28/23 05:28 05:27 Sodium 143 140 Potassium 4.0 3.7 Chloride 109 H 106 Carbon Dioxide 25 23 BUN 7 7 Creatinine 0.4 L 0.5 Glucose 125 H 242 H Calcium 7.7 L 8.0 L Cardiac Enzymes 09/27/23 Range/Units 13:55 NT-Pro-B Natriuret Pep 1617 H (0-125) pg/mL Liver Function 09/27/23 09/28/23 Range/Units 05:28 05:27 Total Bilirubin 0.2 0.2 (0.15-1.2) mg/dL AST 26 15 (0-32) U/L ALT 21 19 (0-33) U/L Alkaline Phosphatase 88 88 (35-105) U/L Albumin 3.2 L 3.0 L (3.5-5.2) g/dL Coags 09/27/23 09/27/23 09/27/23 13:55 16:00 19:20 D-Dimer Cancelled Cancelled 0.42 ABG 09/27/23 10:57 Specimen Type Arterial Sample Site Radial, left ABG pH 7.43 ABG pCO2 40.2 ABG pO2 61.3 L ABG HCO3 26.7 H ABG Base Excess 2.2 H O2 Delivery Device Nc O2 Liters/Min 7.0 Cardiac Studies: Echocardiogram 09/27/23
[2023-09-28] MEDS: dexmedeTOMIDine 0.9 % NaCL 400 MCG/100 ML PREMIX 7.20000000000000018 MCG IV (11:30)
[2023-09-28] MEDS: sodium chloride 0.9% 1,000 ML 30 ML IV (12:00)
--- NOTE | 2023-09-28 12:05 | PC.NURSE ---
Pt off the unit to GI lab.
--- NOTE | 2023-09-28 12:06 | P.PN_ITS ---
Subjective 2 Subjective: -No overnight events -Today morning supplemental oxygen up to 8 L -Underwent bronchoscopy and obtain BAL-s ent for PCP PCR/galactomannan/fungal cultures/bacterial cultures/MTB PCR-bronchoscopy revealed, thrush on glottis, weak posterior tracheal wall collapsing on coughing. There are clear secretions bilaterally. Post bronchoscopy she was placed on 12 L high flow nasal cannula. -On Precedex patient appears to be more calm Medications: Reviewed: Yes Vitals/I&O/Wt Last Vital Signs Temp 97.8 F 09/28/23 08:00 Pulse 92 09/28/23 10:00 Resp 28 H 09/28/23 10:00 BP 109/80 09/28/23 10:00 Pulse Ox 90 09/28/23 10:00 O2 Del Method High Flow Nasal Cannula 09/28/23 10:00 O2 Flow Rate 8 09/28/23 10:00 09/27/23 09/28/23 09/28/23 22:59 06:59 14:59 Intake Total 580 / 2460.69 830 / 3290.69 179.31 / 179.31 Output Total 900 / 2450 475 / 475 Balance -320 / 10.69 830 / 840.69 -295.69 / -295.69 Weight last 48 hrs Weight 157 lb 9.6 oz Weight 158 lb 11.2 oz Physical Exam 2 Narrative: General: alert, NAD HEENT: conj clear, EOMI, PERRL, mmm, Neck: supple, no meningismus Heme: no cervical LAP Respiratory: Inspection: No visible deformity of the chest wall Palpation: Trachea is mildly deviated to the right, bilateral symmetric expansion Percussion: Bilateral tympanic percussion note both anterior and posteriorly Auscultation: Bilateral diffuse crackles Cardiovascular: rrr, nl s1s2, no mrg Abdomen: soft, nt, nd, no r/g, bs+ Extremities: pulses +, no edema, no c/c : no CVA tenderness Skin: intact, no rash MSK: no back or neck pain Neurologic: grossly intact Data 09/28/23 05:27 09/28/23 05:27 Other Labs: Radiology Impressions Chest CT 09/24/23 22:35 IMPRESSION: Scattered moderate peripheral interstitial opacities are nonspecific. Differential diagnosis includes cryptogenic organizing pneumonia, other interstitial pneumonias, and atypical infection among others. Recommend nonemergent pulmonology consultation. Chest X-Ray 09/27/23 07:19 IMPRESSION: Significant progression of opacifications and reticular nodular opacifications throughout both lungs involving all lobes. Laboratory Results WBC 18.79 10^3/uL (3.29-11.43) H 09/28/23 05:27 RBC 3.37 10^6/uL (3.85-5.65) L 09/28/23 05:27 Hgb 10.50 g/dL (11.27-16.99) L 09/28/23 05:27 Hct 30.9 % (36-47) L 09/28/23 05:27 MCV 91.7 fl (85-98) 09/28/23 05:27 MCH 31.2 pg (27-33) 09/28/23 05:27 MCHC 34.0 g/dL (30-55) 09/28/23 05:27 RDW 14.0 % (12.1-15.1) 09/28/23 05:27 Plt Count 380 10^3/cmm (157-399) 09/28/23 05:27 MPV 8.9 fL (7.4-10.4) 09/28/23 05:27 Neut % (Auto) 78.1 % 09/28/23 05:27 Lymph % (Auto) 16.0 % 09/28/23 05:27 [place] % (Auto) 4.6 % 09/28/23 05:27 Eos % (Auto) 0.0 % 09/28/23 05:27 Baso % (Auto) 0.2 % 09/28/23 05:27 Neut # (Auto) 14.69 10^3/uL (1.8-7.7) H 09/28/23 05:27 Lymph # (Auto) 3.0 10^3/uL (0.8-4.8) 09/28/23 05:27 [place] # (Auto) 0.9 10^3/uL (0.2-0.9) 09/28/23 05:27 Eos # (Auto) 0.0 10^3/uL (0.0-0.8) 09/28/23 05:27 Baso # (Auto) 0.0 10^3/uL (0.0-0.1) 09/28/23 05:27 Nucleated RBC % (auto) 0 % 09/28/23 05:27 Nucleated RBCs # 0.0 /100WBC 09/28/23 05:27 ESR 23 mm/hr (0-15) H 09/24/23 21:28 D-Dimer 0.42 ug/mLFEU (0-0.59) 09/27/23 19:20 Specimen Type Arterial 09/27/23 10:57 Sample Site Radial, left 09/27/23 10:57 ABG pH 7.43 (7.35-7.45) 09/27/23 10:57 ABG pCO2 40.2 mmHg (35-45) 09/27/23 10:57 ABG pO2 61.3 mmHg (80.0-100.0) L 09/27/23 10:57 ABG PO2/FiO2 Ratio 0 09/25/23 01:50 ABG HCO3 26.7 mmol/L (22-26) H 09/27/23 10:57 ABG Base Excess 2.2 mmol/L (-2.0-2.0) H 09/27/23 10:57 Jorge Test Pos 09/27/23 10:57 Hematocrit 33.0 % (37-47) L 09/27/23 10:57 O2 Delivery Device Nc 09/27/23 10:57 O2 Liters/Min 7.0 % 09/27/23 10:57 FiO2 21.0 % 09/25/23 01:50 Extraction Machine Operator ID Gd 09/27/23 10:57 Sodium 140 mmol/L (136-145) 09/28/23 05:27 Potassium 3.7 mmol/L (3.5-5.1) 09/28/23 05:27 Chloride 106 mmol/L (98-107) 09/28/23 05:27 Carbon Dioxide 23 mmol/L (22-29) 09/28/23 05:27 Anion Gap 14.7 (5-19) 09/28/23 05:27 BUN 7 mg/dL (6-20) 09/28/23 05:27 Creatinine 0.5 mg/dL (0.5-0.9) 09/28/23 05:27 GFR Calculation 133.4 mL/min (90-130) H 09/28/23 05:27 Glucose 242 mg/dL (65-115) H 09/28/23 05:27 Estimat Average Glucose 114 09/25/23 00:00 Hemoglobin A1c 5.6 % (4.0-6.0) 09/25/23 00:00 Calculated Osmolality 296 mOsm/kg (285-295) H 09/28/23 05:27 Lactic Acid 2.1 mmol/L (0.5-2.2) 09/24/23 21:28 Lactic Acid (Sepsis) 3.2 mmol/L (0.5-2.2) H 09/25/23 03:27 Calcium 8.0 mg/dL (8.5-10.5) L 09/28/23 05:27 Iron 9 ug/dL (37-145) L 09/25/23 00:00 TIBC 245 mcg/dl 09/25/23 00:00 % Saturation 3.6 % (20-50) L 09/25/23 00:00 Unsat Iron Binding 236 ug/dL (112-347) 09/25/23 00:00 Total Bilirubin 0.2 mg/dL (0.15-1.2) 09/28/23 05:27 AST 15 U/L (0-32) 09/28/23 05:27 ALT 19 U/L (0-33) 09/28/23 05:27 Alkaline Phosphatase 88 U/L (35-105) 09/28/23 05:27 Lactate Dehydrogenase 523 U/L (135-214) H 09/27/23 05:28 Troponin T Baseline 9 ng/L (0-10) 09/25/23 00:00 Troponin T 120 Minute 7.41 ng/L (0-10) 09/25/23 02:02 Delta Troponin T -1.59 ABS# (0-10) L 09/25/23 02:02 Troponin T Hi Sens 6Hr 6.97 ng/L (0-10) 09/25/23 19:41 Troponin T Hi Sens 6Hr Delta -2.03 ng/L (0-12) L 09/25/23 19:41 C-Reactive Protein 90.3 mg/L (0.0-4.9) H 09/25/23 00:00 NT-Pro-B Natriuret Pep 1617 pg/mL (0-125) H 09/27/23 13:55 Total Protein 6.0 g/dL (6.6-8.7) L 09/28/23 05: Albumin 3.0 g/dL (3.5-5.2) L 09/28/23 05:27 Globulin 3.0 g/dL (1.3-4.6) 09/28/23 05:27 Triglycerides 74 mg/dL (0-150) 09/25/23 00:00 Cholesterol 142 mg/dL (0-200) 09/25/23 00:00 LDL Cholesterol, Calc 72 mg/dL (50-129) 09/25/23 00:00 HDL Cholesterol 55 mg/dL (60-100) L 09/25/23 00:00 LDL/HDL Ratio 1.31 RATIO (0.00-3.22) 09/25/23 00:00 Cholesterol/HDL Ratio 2.58 mg/dL (0.0-4.40) 09/25/23 00:00 Vitamin B12 602 pg/mL (232-1245) 09/25/23 00:00 Folate 5.0 ng/mL (4.8-37.3) 09/26/23 05:12 Procalcitonin 0.16 ng/mL (0-0.5) 09/25/23 00:00 TSH 0.65 uIU/mL (0.27-4.20) 09/25/23 00:00 Bronch Specimen Source Right lower lobe bal 09/28/23 12:36 Bronchial Fluid Color Colorless 09/28/23 12:36 Bronchial Fluid Appearance Cloudy (CLEAR) 09/28/23 12:36 Bronch Cells Counted 200 09/28/23 12:36 Bronchial Neutrophils 16.00 % (0.9-2.3) H 09/28/23 12:36 Bronchial Lymphocytes 9.00 % (10.71-12.91) L 09/28/23 12:36 Bronchial Eosinophils 0.00 % (0.13-0.25) L 09/28/23 12:36 Bronchial Macrophages 75.00 % (83.6-86.8) L 09/28/23 12:36 Bronchial Diff Comment Yes 09/28/23 12:36 Urine Opiates Screen Negative ng/mL (Negative) 09/25/23 03:00 Ur Barbiturates Screen Negative ng/mL (Negative) 09/25/23 03:00 Ur Phencyclidine Scrn Negative ng/mL (Negative) 09/25/23 03:00 Ur Amphetamines Screen Negative ng/mL (Negative) 09/25/23 03:00 U Benzodiazepines Scrn Negative ng/mL (Negative) 09/25/23 03:00 Urine Cocaine Screen Negative ng/mL (Negative) 09/25/23 03:00 U Marijuana (THC) Screen Negative ng/mL (Negative) 09/25/23 03:00 Ethyl Alcohol < 10 mg/dL (0-10) 09/25/23 00:00 Adenovirus (PCR) Not detected (NOT DETECT) 09/25/23 12:24 C. pneumoniae DNA (PCR) Not detected (NOT DETECT) 09/25/23 12:24 Coronavirus 229E (PCR) Not detected (NOT DETECT) 09/25/23 12:24 HIV 1&2 Ab & HIV 1 Ag Non-reactive (Non-Reactiv) 09/28/23 05:27 HIV 1&2 Antibody Non-reactive (Non-Reactiv) 09/28/23 05:27 Human Metapneumovir PCR Not detected (NOT DETECT) 09/25/23 12:24 Influenza A (H1) PCR Not detected (NOT DETECT) 09/25/23 12:24 Influ A (H1/09) PCR Not detected (NOT DETECT) 09/25/23 12:24 Influenza A (H3) PCR Not detected (NOT DETECT) 09/25/23 12:24 Influenza Type A (PCR) Not detected (NOT DETECT) 09/25/23 12:24 Influenza Type B (PCR) Not detected (NOT DETECT) 09/25/23 12:24 M. pneumoniae (PCR) Not detected (NOT DETECT) 09/25/23 12:24 Parainfluenza 1 (PCR) Not detected (NOT DETECT) 09/25/23 12:24 Parainfluenza 2 (PCR) Not detected (NOT DETECT) 09/25/23 12:24 Parainfluenza 3 (PCR) Not detected (NOT DETECT) 09/25/23 12:24 Parainfluenza 4 (PCR) Not detected (NOT DETECT) 09/25/23 12:24 RSV Type A (PCR) Not detected (NOT DETECT) 09/25/23 12:24 RSV Type B (PCR) Not detected (NOT DETECT) 09/25/23 12:24 Entero/Rhino (PCR) Not detected (NOT DETECT) 09/25/23 12:24 SARS-CoV-2 (PCR) Not detected (NOT DETECT) 09/25/23 12:24 MRSA (PCR) Cancelled 09/25/23 00:00 Beta-(1,3)-D-Glucan Cancelled 09/25/23 00:00 B-(1,3)-D-Glucan Intrp Cancelled 09/25/23 00:00 A&P Assessment and plan (1) Hypoxic respiratory failure: Increasing oxygen requirements in the setting of significant progression of diffuse reticulonodular opacification throughout both lungs involving all lungs- suggestive of worsening pneumonia In the setting of frequent courses of high-dose steroids, immunosuppression medications like etanercept/leflunomide for inflammatory arthritis-patient is at high risk for PCP pneumonia; Patient has significant oral thrush during admission-currently she is on fluconazole 100 Mg daily; serology for histoplasma and Coccidioides are pending; respiratory viral panel is negative Elevated LDH-started on Bactrim Will continue Solu-Medrol 40 every 12 Sputum PCP PCR, serum beta D glucan were sent Today morning supplemental oxygen up to 8 L S/p bronchoscopy 09/28/2023 and obtain BAL-sent for PCP PCR/galactomannan/fungal cultures/bacterial cultures/MTB PCR-bronchoscopy revealed, thrush on glottis, weak posterior tracheal wall collapsing on coughing. There are clear secretions bilaterally. Post bronchoscopy she was placed on 12 L high flow nasal cannula. -On Precedex patient appears to be more calm (2) Pneumonia, organism unspecified: Patient is broadly covered with Zosyn as well as azithromycin for atypical pneumonia BAL-sent for PCP PCR/galactomannan/fungal cultures/bacterial cultures/MTB PCR Qualifiers: Laterality: bilateral Lung location: lower lobe of lung Qualified Code(s): J18.9 - Pneumonia, unspecified organism (3) COPD exacerbation: Patient is half pack per day for 25 years Strongly counseled to quit smoking She uses Advair for her COPD Continue nebulizations and steroids She needs PFTs as outpatient (4) Toxic inhalation injury: (5) High risk medication use: She is on Enbrel, leflunomide for inflammatory arthritis (6) Anxiety: History of anxiety disorder/PTSD She appears to be more calm on Precedex (7) Oral thrush: She is on IV fluconazole Attestations 2 Medical Necessity Statement*: Needs close ICU monitoring for hypoxemia Time Spent in Patient Care: Greater than 35 minutes (>than 50% of time spent in counselling and/or direct pt care on unit) . Critical Care Time: The high probability of a clinically significant, sudden or life threatening deterioration of the patient's [pulmonary] system(s) required my full and direct attention, intervention and personal management. The critical care time is as shown. This time is in addition to time spent performing any reported procedures but includes the following: [x] Data and vital sign review and interpretation [x] Patient assessment, examination and intervention [x] Documentation [x] Medication orders and management Critical Care Time (min): 58 Coding Level of Care Code Acute Code for [facility] Diagnoses Hypoxic respiratory failure J96.91 Pneumonia, organism unspecified J18.9 Laterality: bilateral Lung location: lower lobe of lung COPD exacerbation J44.1 Toxic inhalation injury T59.94XA High risk medication use Z79.899 Anxiety F41.9 Oral thrush B37.0 Time Spent (min) 58
[2023-09-28] MEDS: lidocaine 1% INJ 10 mL (per mL) XX (12:30)
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
[2023-09-28 13:00] LABS: Cyto Order Verification Order Verified
[2023-09-28 13:03] LABS: Apprearance, Bronch Wash Cloudy (CLEAR); Color, Bronc Wash Colorless; PATH Referral Yes
--- NOTE | 2023-09-28 13:30 | ANE.PACU2 ---
Inpatient post-anesthesia follow up: Airway intact: Yes Vital signs: Temperature 97.8 F Pulse Rate 91 Respiratory Rate 24 Blood Pressure 123/92 Pulse Oximetry 92 Oxygen Delivery Me thod High Flow Nasal Ca nnula Oxygen Flow Rate 8 Fraction of Inspir ed Oxygen Hydration adequate: Yes Nausea and vomiting: No Pain level: 1 Mental status: Baseline
[2023-09-28] MEDS: ipratropium 0.5 mg/2.5 mL Neb INHALATION (14:37)
[2023-09-28 16:14] LABS: Total Cells Counted Bronch 200
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
--- NOTE | 2023-09-28 19:03 | PC.NURSE ---
Shift summary: Pt rested in bed most of shift except for use of BSC. Her anxiety level this am was higher than yesterday. PRecedex gtt increased from 0.2/mcg/kg/hr to 0.4. It seemed to help better. When she starts coughing she does have a hard time quitting. She has complained of her chest hurting it hurts to breath Her anxiety about hurting when breathing overwhelm her at times and she can be difficult to redirect. She had a broncoscopy done today. HEr HFNC is now at 10lpm. When she is sleeping, mouth breathing is noted, an oxymask works better than the HFNC. 1100ml of urine out put and 1 BM this shift.
[2023-09-28] MEDS: dexmedeTOMIDine 0.9 % NaCL 400 MCG/100 ML PREMIX 12.5999999999999996 MCG IV (20:22)
--- NOTE | 2023-09-28 20:37 | PC.NURSE ---
Precedex titration: Upon arrival to shift, patient's precedex was running at 0.6mcg/kg/hr, MAR adjusted to show dose.
[2023-09-29] VITALS (31 sets, daily range): BP systolic 110–146; BP diastolic 73–98; PULSE 66–100; RESP 17–25; TEMP 36.4–36.8; O2SAT 84–96; BMI 28.8
[2023-09-29] MEDS: pantoprazole 40 mg SDV IVP (01:34)
[2023-09-29] MEDS: enoxaparin 40 mg/0.4 mL Syringe SUBCUT (01:34)
[2023-09-29] MEDS: TRAMadol 50 mg Tablet PO ×2 (03:02→16:38)
[2023-09-29] MEDS: piperacillin-tazobactam 3.375 GM in sodium chloride 0.9% (plus) 50 ML IV ×3 (03:03→19:49)
[2023-09-29] MEDS: sulfamethoxazole-trimeth inj 480 MG in dextrose 5 % 500 ML 500 MG IV ×3 (03:06→19:49)
[2023-09-29] MEDS: dexmedeTOMIDine 0.9 % NaCL 400 MCG/100 ML PREMIX 12.5999999999999996 MCG IV (03:31)
[2023-09-29 04:48] LABS: Basophils % 0.1 %; Hematocrit 31.8 % (36-47); Lymphocytes # 2.8 10^3/uL (0.8-4.8); Lymphocytes % 16.9 %; Mean Corpuscular HGB Conc 33.6 g/dL (30-55); Mean Corpuscular Volume 92.2 fl (85-98); Mean Platelet Volume 9.1 fL (7.4-10.4); Monocytes # 0.9 10^3/uL (0.2-0.9); Monocytes % 5.2 %; Neutrophils # 12.49 10^3/uL (1.8-7.7); Neutrophils % 76.3 %; Nucleated Red Blood Cells % 0 %; Platelet Count 375 10^3/cmm (157-399); Red Blood Count 3.45 10^6/uL (3.85-5.65); Red Cell Distribution Width 13.8 % (12.1-15.1); White Blood Count 16.37 10^3/uL (3.29-11.43)
[2023-09-29 05:14] LABS: Alanine Aminotransferase 20 U/L (0-33); Albumin Level 2.9 g/dL (3.5-5.2); Alkaline Phosphatase 95 U/L (35-105); Anion Gap 14.3 (5-19); Aspartate Amino Transferase 13 U/L (0-32); Blood Urea Nitrogen 9 mg/dL (6-20); Calcium 7.8 mg/dL (8.5-10.5); Carbon Dioxide 20 mmol/L (22-29); Chloride 103 mmol/L (98-107); Creatinine Clr Calc Pharmacy 109.6376; Globulin 2.8 g/dL (1.3-4.6); Glomerular Filtration Rate 108.1 mL/min (90-130); Glucose 246 mg/dL (65-115); Osmolality Calculated 285 mOsm/kg (285-295); Potassium 3.3 mmol/L (3.5-5.1); Sodium 134 mmol/L (136-145); Total Bilirubin 0.2 mg/dL (0.15-1.2); Total Protein 5.7 g/dL (6.6-8.7)
[2023-09-29] MEDS: azithromycin 500 MG in sodium chloride 0.9% 250 ML 250 MG IV (05:56)
[2023-09-29] MEDS: levalbuterol 0.63 mg/3 mL Neb 0.630000000000000004 MG INHALATION ×2 (06:00→14:38)
--- NOTE | 2023-09-29 06:00 | XRR_ITS ---
PROCEDURE INFORMATION: Exam: XR Chest Exam date and time: 09/29/2023 5:57 AM Age: 43 years old Clinical indication: Other: Pneumonia; Additional info: Follow up pneumonia TECHNIQUE: Imaging protocol: Radiologic exam of the chest. Views: 1 view. COMPARISON: CR XR chest 1V portable [id number] 09/27/2023 8:03 AM FINDINGS: Lungs: Persistent patchy granular opacities throughout the bilateral lungs. Pleural spaces: No large pleural effusion. No distinct pneumothorax. Heart/Mediastinum: Cardiomediastinal silhouette is midline and normal in size. Bones/joints: Osseous structures are unchanged. Intraperitoneal space: Surgical clips project about the central upper abdomen. XR/XR chest 1V portable [id number] IMPRESSION: Persistent patchy granular opacities throughout the bilateral lungs, unchanged.
[2023-09-29] MEDS: budesonide 0.5 mg/2 mL Neb INHALATION ×2 (07:56→19:35)
[2023-09-29] MEDS: gabapentin 100 mg Capsule PO ×2 (09:10→18:11)
[2023-09-29] MEDS: guaiFENesin 600 mg Tablet PO ×2 (09:10→18:11)
[2023-09-29] MEDS: methylPREDNISolone sod succ 40 mg/mL INJ IVP ×2 (09:10→18:11)
[2023-09-29] MEDS: benzonatate 100 mg Capsule PO (09:10)
[2023-09-29] MEDS: fluticasone nasal spray 16gm Btl 1 SPRAY INTRANASAL (09:11)
[2023-09-29] MEDS: nystatin 100,000 unit/mL UDC 5 mL 100000 UNIT PO ×4 (09:11→21:31)
[2023-09-29] MEDS: lanolin oint 7 gm 1 APPLIC TOPICAL (09:50)
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
[2023-09-29] MEDS: levoFLOXacin 750 mg Tablet PO (11:18)
[2023-09-29] MEDS: guaiFENesin-dextromethorphan UDC 10 mL 5 ML PO ×2 (11:19→18:11)
[2023-09-29] MEDS: lidocaine 1% 5 ML in potassium chloride premix 100 ML 52.5 ML IV (11:19)
[2023-09-29] MEDS: fluconazole premix 100 MG in empty flexible container 1 EACH 50 MG IV (11:30)
[2023-09-29] MEDS: acetaminophen 325 mg Tablet 650 MG PO ×3 (11:49→21:51)
[2023-09-29 12:25] LABS: Methicillin-Resist S.aureu PCR NOT DETECTED (NOT DETECTED)
[2023-09-29 12:25] LABS: Quantiferon Mitogen 5.79 IU/mL; Quantiferon Nil 0.01 IU/mL; Quantiferon TB Gold NEGATIVE (NEGATIVE)
[2023-09-29] MEDS: dexmedeTOMIDine 0.9 % NaCL 400 MCG/100 ML PREMIX 14.4000000000000004 MCG IV (12:41)
[2023-09-29] MEDS: ipratropium 0.5 mg/2.5 mL Neb INHALATION (14:38)
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
[2023-09-29] MEDS: benzonatate 100 mg Capsule 200 MG PO ×2 (15:27→21:32)
[2023-09-29] MEDS: dexmedeTOMIDine 0.9 % NaCL 400 MCG/100 ML PREMIX 16.1999999999999993 MCG IV ×2 (18:08→23:51)
--- NOTE | 2023-09-29 21:55 | PC.NURSE ---
Early Tylenol dose: Patient had been complaining of a headache 10/17. Dr. Rivera was contacted and gave telephone orders to give the PRN ordered tylenol early.
[2023-09-30] VITALS (35 sets, daily range): BP systolic 102–134; BP diastolic 66–94; PULSE 63–90; RESP 16–22; TEMP 36.5–36.8; O2SAT 88–97; BMI 29.0
[2023-09-30] MEDS: TRAMadol 50 mg Tablet PO ×2 (00:54→23:27)
[2023-09-30] MEDS: pantoprazole 40 mg SDV IVP (01:31)
[2023-09-30] MEDS: enoxaparin 40 mg/0.4 mL Syringe SUBCUT (01:31)
[2023-09-30] MEDS: guaiFENesin-dextromethorphan UDC 10 mL 5 ML PO ×3 (01:33→18:19)
[2023-09-30] MEDS: sulfamethoxazole-trimeth inj 480 MG in dextrose 5 % 500 ML 500 MG IV ×3 (03:37→20:19)
[2023-09-30] MEDS: piperacillin-tazobactam 3.375 GM in sodium chloride 0.9% (plus) 50 ML IV ×3 (03:37→19:47)
--- NOTE | 2023-09-30 03:55 | PC.NURSE ---
Morphine: Patient was complaining of a headache 11/16, tylenol and tramadol provided no relief. Dr. Rivera was contacted and gave telephone orders for 2mg morphine IVP ONCE.
[2023-09-30] MEDS: morphine 4 mg/mL SDV 1 mL 2 MG IVP ×2 (04:08→14:50)
[2023-09-30 06:05] LABS: Basophils % 0.2 %; Hematocrit 33.1 % (36-47); Lymphocytes # 2.4 10^3/uL (0.8-4.8); Lymphocytes % 14.3 %; Mean Corpuscular HGB Conc 33.8 g/dL (30-55); Mean Corpuscular Hemoglobin 30.9 pg (27-33); Mean Corpuscular Volume 91.2 fl (85-98); Mean Platelet Volume 8.8 fL (7.4-10.4); Monocytes # 0.8 10^3/uL (0.2-0.9); Monocytes % 4.9 %; Neutrophils # 12.89 10^3/uL (1.8-7.7); Neutrophils % 78.7 %; Nucleated Red Blood Cells % 0 %; Platelet Count 387 10^3/cmm (157-399); Red Blood Count 3.63 10^6/uL (3.85-5.65); Red Cell Distribution Width 13.7 % (12.1-15.1); White Blood Count 16.38 10^3/uL (3.29-11.43)
[2023-09-30 06:25] LABS: Alanine Aminotransferase 16 U/L (0-33); Albumin Level 2.8 g/dL (3.5-5.2); Alkaline Phosphatase 94 U/L (35-105); Anion Gap 15.9 (5-19); Aspartate Amino Transferase 10 U/L (0-32); Blood Urea Nitrogen 8 mg/dL (6-20); Carbon Dioxide 19 mmol/L (22-29); Chloride 105 mmol/L (98-107); Glomerular Filtration Rate 133.4 mL/min (90-130); Glucose 199 mg/dL (65-115); Osmolality Calculated 286 mOsm/kg (285-295); Potassium 3.9 mmol/L (3.5-5.1); Sodium 136 mmol/L (136-145); Total Bilirubin 0.2 mg/dL (0.15-1.2); Total Protein 5.8 g/dL (6.6-8.7)
[2023-09-30] MEDS: dexmedeTOMIDine 0.9 % NaCL 400 MCG/100 ML PREMIX 16.1999999999999993 MCG IV ×2 (06:27→11:45)
[2023-09-30] MEDS: levalbuterol 0.63 mg/3 mL Neb 0.630000000000000004 MG INHALATION ×3 (08:19→19:42)
[2023-09-30] MEDS: ipratropium 0.5 mg/2.5 mL Neb INHALATION ×2 (08:19→13:18)
[2023-09-30] MEDS: budesonide 0.5 mg/2 mL Neb INHALATION ×2 (08:20→19:42)
[2023-09-30] MEDS: methylPREDNISolone sod succ 40 mg/mL INJ IVP (08:23)
[2023-09-30] MEDS: nystatin 100,000 unit/mL UDC 5 mL 100000 UNIT PO ×4 (08:23→20:20)
[2023-09-30] MEDS: guaiFENesin 600 mg Tablet PO ×2 (08:23→18:18)
[2023-09-30] MEDS: levoFLOXacin 750 mg Tablet PO (08:23)
[2023-09-30] MEDS: fluticasone nasal spray 16gm Btl 1 SPRAY INTRANASAL (08:24)
[2023-09-30] MEDS: gabapentin 100 mg Capsule PO ×2 (08:24→18:18)
[2023-09-30] MEDS: benzonatate 100 mg Capsule 200 MG PO ×3 (08:24→20:21)
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
[2023-09-30] MEDS: fluconazole 100 mg Tablet PO (10:25)
[2023-09-30 11:14] LABS: Glucose Point of Care 210 mg/dL (70-110)
[2023-09-30] MEDS: acetaminophen 325 mg Tablet 650 MG PO ×2 (12:28→20:42)
[2023-09-30] MEDS: insulin lispro 100 unit/1 mL SUBCUT ×3 (12:29→21:50)
--- NOTE | 2023-09-30 15:49 | P.CONIM_ITS ---
Providers/Reason For Consult 2 Consulting Physician/Specialty*: Katarina Nicole MD / Infectious disease Reason for Consult*: presumed PJP pneumonia Requesting Physician: Keya Hackett MD Attending Physician: Keya Hackett MD Primary Care Provider: Akshat Hoskins MD History of Present Illness History of Present Illness Ann Fuentes is a 43 year old female with PMH HLA b27 associated inflammatory arthritis, currenlty on leflunomide, etanercept and is s/p splenectomy remotely. Additionally takes intermittent doses of high dose steroids with prednisone equivalent of up to 40mg daily frequently for COPD. She is a chronic smoker. She is currently admitted here since after p/w shortness of breath. Patient had reported inhaling some fumes while cooking food and she was admitted with an impression of smoke inhalation vs COPD exacerbation. She started treatment with scheduled nebulization, systemic iv steroids and empiric abx. CT chest showed B/L scattered non specific interstital opacities. Overight on September 25, she developed acute worsening with hypoxic respiratory failure. 02 requirements increased dramatically to 7-10lpm via HFNC, CXR showed worsening of B/L chest infiltrates. She was moved to the ICU due to concern for impending respiratory failure. P/F ratio at 152. A-a gradient 174 with clinical picture of ARDS. She exhibited sever anxiety/panic attack which prompted precedex infusion to help tolerate medical interventions. I had previously seen her as hospitalist. Due to high clinical suspicion of PJP pneumonia, she was started on empiric treatment with iv bactrim on 09/27/23. PJP PCR taken from induced sputum on 09.26 is pending, as is serum BDG. LDH is elevated ~ 500. She underwent bronchoscopy with RLL BAL on 09/27, majority testing is pending from this day. No recent travel. ROS + for chronic diarrhea. 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 She has a remote h/0 colectomy (?total), ileorectal anastomosis, spelenectomy, and cholecystectomy at the same time. ROS + productive cough, low grade fever and chills. Chest pain + , located over lateral ribs B/L. At the aung eof this exam patient is on HFNC @ 12lpm - previosuly on HHF 50% fi02 at 45 lpm until this morning and all day on 09/28. Review of Systems 2 General: Reports: 10 or more systems reviewed and unremarkable except in HPI and below Const: Denies: fever(s), chills or body aches Eyes: Denies: change in vision, blurry vision or photophobia ENMT: Reports: hoarseness; Denies: throat pain, enlarged tonsils, odynophagia or nasal congestion Card: Denies: chest pain, palpitations, irregular heart rhythm, edema, swelling of feet/ankles, lightheadedness, pre-syncope, dyspnea on exertion or orthopnea Resp: Denies: dyspnea, productive cough, non-productive cough, wheezing, stridor, pain on inspiration, change in phlegm color, hemoptysis or chest congestion GI: Denies: abdominal pain, nausea, vomiting, hematemesis, coffee ground emesis, dysphagia, heartburn, diarrhea, constipation, GI cramping, change in stool character, hematochezia or melena : Denies: flank pain, difficulty voiding, dysuria, urinary frequency, urinary urgency, urinary hesitancy or hematuria Musc: Denies: neck pain, back pain, extremity pain, joint swelling, joint warmth or deformity Neuro: Denies: headache(s), numbness in extremities, weakness in extremities, sensory changes, difficulty walking, frequent falls, dizziness, vertigo, behavioral changes, Slurred speech present or seizure-like activity Psych: Denies: anxiety, depression, suicidal ideation or homicidal ideation Endo: Denies: polyuria, polydipsia, tired all the time, cold intolerance or hot flashes Ilya/Lymph: Denies: easy bruising or easy bleeding Medications/Allergies Home Medications Medication Instructions Recorded Confirmed Last Taken Type gabapentin 100 mg capsule 100 mg PO BID 06/08/19 09/25/23 07/11/21 History dicyclomine 20 mg tablet 20 mg PO QID PRN stomach cramps 07/27/19 09/25/23 12/25/20 History diphenoxylate-atropine 2.5 3 tab PO QID PRN Diarrhea 07/27/19 09/25/23 12/25/20 History mg-0.025 mg tablet (Lomotil) eluxadoline 75 mg tablet (Viberzi) 75 mg PO BID 07/27/19 09/25/23 12/25/20 History tizanidine 2 mg capsule (Zanaflex) 4 mg PO TID PRN Muscle Pain 07/27/19 09/25/23 12/22/20 History tramadol 50 mg tablet 50 mg PO Q6H PRN Pain 07/27/19 09/25/23 07/11/21 History acetaminophen 325 mg tablet 325 mg PO QID PRN Pain 11/07/19 09/25/23 12/26/20 History (Tylenol) Sole Supports #1 ea 09/02/21 09/25/23 Unknown Rx Cam Boot to the left #1 ea 11/05/21 09/25/23 Unknown Rx Custom Molded Orthotics #1 ea 11/05/21 09/25/23 Unknown Rx diclofenac sodium 75 mg See Rx Instructions .Route 04/13/23 09/25/23 Unknown Rx tablet,delayed release .COMPLEX #30 tabs etanercept 50 mg/mL (1 mL) See Rx Instructions .Route 06/28/23 09/25/23 Unknown Rx subcutaneous syringe (Enbrel) .COMPLEX #4 mL leflunomide 20 mg tablet 20 mg PO DAILY #30 tabs 07/19/23 09/25/23 Unknown Rx prednisone 20 mg tablet See Rx Instructions .Route 07/19/23 09/25/23 Unknown Rx .COMPLEX #30 tabs cetirizine 10 mg tablet 10 mg PO DAILY 09/25/23 09/25/23 Unknown History fluticasone 250 mcg-salmeterol 50 1 inh inhalation BID 09/25/23 09/25/23 Unknown History mcg/dose blistr powdr for inhalation (Advair Diskus) fluticasone propionate 50 1 spray intranasal DAILY 09/25/23 09/25/23 Unknown History mcg/actuation nasal spray,suspension vitamin with calcium 1 tab PO DAILY 09/25/23 09/25/23 Unknown History no.72-iron 27 mg-folic acid 1 mg tablet (M-Jm Plus) Allergies Allergy/AdvReac Type Severity Reaction Status Date / Time codeine Allergy Severe Hives, Verified 09/24/23 20:54 Itching, & breathing problems vancomycin Allergy Severe Hives, Verified 09/24/23 20:54 Itching, Breathing problems Current Medications Generic Name Dose Route Start Last Admin Trade Name Freq PRN Reason Stop Dose Admin Acetaminophen 650 mg 09/25/23 02:14 09/30/23 12:28 Acetaminophen 325 Mg Tablet PO 650 mg Q6H PRN Administration Mild/Mod Pain Or Temp >/= 101 Alprazolam 0.5 mg 09/25/23 10:41 09/28/23 05:40 Alprazolam 0.5 Mg Tablet PO 0.5 mg TID PRN Administration ANXIETY Benzonatate 200 mg 09/29/23 15:00 09/30/23 14:50 Benzonatate 100 Mg Capsule PO 200 mg TID MARYAN Administration Budesonide 0.5 mg 09/25/23 08:00 09/30/23 08:20 Budesonide 0.5 Mg/2 Ml Neb INHALATION 0.5 mg BID.RESPIRATORY MARYAN Administration Enoxaparin Sodium 40 mg 09/25/23 02:14 09/30/23 01:31 Enoxaparin 40 Mg/0.4 Ml Syringe SUBCUT 40 mg Q24H MARYAN Administration Fluconazole 100 mg 09/30/23 11:00 09/30/23 10:25 Fluconazole 100 Mg Tablet PO 100 mg Q24H MARYAN Administration Fluticasone Propionate 1 spray 09/25/23 10:45 09/30/23 08:24 Fluticasone Nasal [place] 16gm Btl INTRANASAL 1 spray DAILY MARYAN Administration Gabapentin 100 mg 09/25/23 09:00 09/30/23 08:24 Gabapentin 100 Mg Capsule PO 100 mg BID MARYAN Administration Guaifenesin 600 mg 09/26/23 18:00 09/30/23 08:23 Guaifenesin 600 Mg Tablet PO 600 mg BID MARYAN Administration Guaifenesin/Dextromethorphan 5 ml 09/29/23 10:30 09/30/23 09:47 Guaifenesin-Dextromethorphan Udc 10 Ml PO 5 ml Q8H MARYAN Administration Piperacillin Sod/Tazobactam 50 mls @ 12.5 mls/hr 09/25/23 12:00 09/30/23 12:29 Sod 3.375 gm/ Sodium Chloride IV 12.5 mls/hr Q8H MARYAN Administration Protocol Dexmedetomidine/Sodium Chloride 400 mcg in 100 mls @ 0 mls/hr 09/27/23 11:00 09/30/23 11:45 Precedex IV 0.9 mcg/kg/hr .Q0M MARYAN 16.2 mls/hr Administration Protocol Per Protocol Trimethoprim/Sulfamethoxazole 530 mls @ 500 mls/hr 09/27/23 12:00 09/30/23 12:53 480 mg/ Dextrose IV 500 mls/hr Q8H MARYAN Administration Insulin Human Lispro 0 unit 09/30/23 12:00 09/30/23 12:29 Insulin Lispro 100 Unit/1 Ml SUBCUT 6 unit WM&BEDTIME MARYAN Administration Protocol Ipratropium [place] 0.5 mg 09/27/23 03:01 09/30/23 13:18 Ipratropium 0.5 Mg/2.5 Ml Neb INHALATION 0.5 mg Q6H.RESP PRN Administration SHORTNESS OF BREATH Lanolin 1 applic 09/29/23 09:12 09/29/23 09:50 Lanolin Oint 7 Gm TOPICAL 1 applic PRN PRN Administration DRYNESS Levalbuterol HCl 0.63 mg 09/27/23 03:01 09/30/23 13:18 Levalbuterol 0.63 Mg/3 Ml Neb INHALATION 0.63 mg Q6H.RESP PRN Administration SHORTNESS OF BREATH Levofloxacin 750 mg 09/29/23 10:20 09/30/23 08:23 Levofloxacin 750 Mg Tablet PO 750 mg DAILY MARYAN Administration Protocol Nystatin 100,000 unit 09/25/23 09:00 09/30/23 12:29 Nystatin 100,000 Unit/Ml Udc 5 Ml PO 100,000 unit QID MARYAN Administration Ondansetron HCl 4 mg 09/25/23 02:14 09/27/23 02:37 Ondansetron 2 Mg/Ml Sdv 2 Ml IVP 4 mg Q8H PRN Administration vomiting, or N/V if npo Pantoprazole Sodium 40 mg 09/25/23 02:14 09/30/23 01:31 Pantoprazole 40 Mg Sdv IVP 40 mg Q24H MARYAN Administration Tramadol HCl 50 mg 09/25/23 10:42 09/30/23 00:54 Tramadol 50 Mg Tablet PO 50 mg Q6H PRN Administration Pain PFSH Acute 2 PFSH: Medical History Axial spondyloarthritis High risk medication use Inflammatory back pain Inflammatory arthritis Cervical cancer pt had hysterectomy Colon cancer History of drug use Surgical History (Updated 09/30/23 @ 16:04 by Katarina Nicole MD) H/O splenectomy History of intestinal surgery pt states had removal of large intestines and uses antidiarrhea meds and vitamins due to low absorption History of hysterectomy pt states done for cervical cancer History of appendectomy History of cholecystectomy History of hammertoe correction History of bunionectomy Family History Other Cancer Chronic kidney disease (CKD) Lung disease Lupus Rheumatoid arthritis Denies family history of Diabetes CAD (coronary artery disease) Clotting disorder Dementia Hyperlipidemia Psychiatric illness Suicide Anesthesia complication Bleeding disorder Family history of premature coronary artery disease Hypertension Stroke Social History Smoking and tobacco/nicotine status: current every day tobacco/nicotine user cigarettes Packs smoked per day: 0.5 Years cigarettes smoked: 25 [ Other cigarette details: states is quitting] Quit status (tobacco/nicotine): has tried quititng Number of times tried to quit tobacco: 3 Second hand smoke exposure: Yes Alcohol intake: unknown Substance/Drug Use: unknown Adopted: No Caregiver/support person: No Lives independently: Yes service: No Do you think of yourself as: Straight/Heterosexual Current gender identity: Female Vitals/I&O/Wt Last Vital Signs Temp 98.0 F 09/30/23 04:00 Pulse 90 09/30/23 14:00 Resp 18 09/30/23 14:50 BP 102/79 09/30/23 12:00 Pulse Ox 90 09/30/23 14:50 O2 Del Method Heated High Flow 09/30/23 13:10 O2 Flow Rate 45 09/30/23 13:21 FiO2 50 09/30/23 13:21 09/30/23 09/30/23 09/30/23 06:59 14:59 22:59 Intake Total 780.0 / 3476.12 535.86 / 535.86 Output Total 1200 / 5400 Balance -420.0 / -1923.88 535.86 / 535.86 Weight last 48 hrs Weight 71.866 kg Weight 71.384 kg Physical Exam 2 Narrative: General: No acute distress, AO x3, calm and cooperative at exam HEENT: PERRLA, pupils bilaterally equal and reactive, pallors not present Chest: Normal vesicular breath sounds, no added sounds, equal good air entry bilaterally CVS: S1-S2 regular, no murmurs, no tachycardia, no gallops, no rubs Abdomen: Soft, nontender, no organomegaly, bowel sounds present Neuro: No focal deficits, no facial deformity, AO x3, power 5/5 in all limbs Urinary Catheter Management: Bond: Cath Placed During This Visit: yes Reason for Continuing Indwelling Catheter: Accurate Measurement of Urinary Output in Critically Ill Patients Urinary Catheter Date of Insertion: 09/29/23 Urinary Catheter Time of Insertion: 11:00 Data 09/30/23 05:30 09/30/23 05:30 Micro: Microbiology 09/28/23 12:36 Gram Stain - Final Lung Right Lower Lobe Bronchoalveolar Lavage Culture - Final Yeast species 09/25/23 00:00 Blood Culture - Final Blood NO GROWTH AFTER 5 DAYS 09/25/23 00:00 Blood Culture - Final Blood NO GROWTH AFTER 5 DAYS Other data: Microbiology 09/28/23 12:36 Lung Right Lower Lobe Gram Stain - Final 09/28/23 12:36 Lung Right Lower Lobe Bronchoalveolar Lavage Culture - Final Yeast species 09/25/23 00:00 Blood Blood Culture - Final NO GROWTH AFTER 5 DAYS 09/25/23 00:00 Blood Blood Culture - Final NO GROWTH AFTER 5 DAYS 09/27/23 05:12 Blood Cryptococcal Antigen (Serum) - negative 09/25/23 03:00 Urine,Clean Catch Bacterial Antigens - negative From BAL on 09/27: Fungal cx : epnding Gram stain and cx : Yeast sp MRSA screen : negative Ag/GM: pending AFB smear : cancelled by lab MTB PCR: pending PJP PCR : pending From induced sputum 09/26: PJP PCR: pending Serology : 09/26: Serum BDG : pending 09/26: Serum cryptococcal Ag : pending 09/26: Histoplasma serology : pending 09/26: urine histoplasma Ag : pending 09/26: Coccidiodes Ab : pending 09/27: HIV AG/AB : negative 09/26: Quantiferon : negative 09/24: urine yehuda ag: negative urine legionella Ag : negative A&P Assessment and plan (1) ARDS (adult respiratory distress syndrome): (2) Oral thrush: (3) High risk medication use: (4) Pneumocystis jiroveci pneumonia: (5) Bilateral pneumonia: (6) Hypoxic respiratory failure: Plan 43F 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 Differential currently broad, possibilities include bacterial vs fungal etiology s/p bronchsscopy on 09/27 for diagnostic cx Thus far respiratory cx with yeast spp, likely seen as a result of noted thrush, less likely to be the true culprit Will await final identification with regards to breanne vs cryptococcus ; low probability of cryptococcus given negative Ag Low possibility of MTB given negative qunetiferon from 2021 and current admission, lack of historical risk factors, will follow pending AFB cx Pending fungal serologies as noted above High clinical suspicion for PJP pneumonia based on B/L diffuse infiltrates, hypoxia, elevated LDH- currently on presumptive treatment for the same while pending results of confirmatory tests. Plan: Continue iv bactrim at 20mg/kg/d in 3 divided doses Continue piperacillin tazobactam and levaquin empirically (atypical coverage exapanded from azithromycin to levaquin) Negative MRSA PCR screen f/u pending serum BDG, induced sputum PJP PCR (09/26) and BAL PJP PCR (09/27) F/up pending fungal serologies Patient afebrile, hemodynamically stable, stable 02 requirements last 24 hrs Continue fluconazole 100mg for total 10 days for oropharyngeal candidiasis Consult Attestations 2 Medical Necessity Statement: per admitting Coding Level of Care Code Acute Code for Chg Fwd High MDM includes number and complexity of problems actively addressed during encounter, amount and/or complexity of data reviewed/ordered and described risk of complication, morbidity or mortality of management as documented Diagnoses ARDS (adult respiratory distress syndrome) J80 Oral thrush B37.0 High risk medication use Z79.899 Pneumocystis jiroveci pneumonia B59 Bilateral pneumonia J18.9 Hypoxic respiratory failure J96.91
[2023-09-30 17:04] LABS: Glucose Point of Care 166 mg/dL (70-110)
[2023-09-30] MEDS: predniSONE 20 mg Tablet 40 MG PO (18:18)
[2023-09-30] MEDS: loperamide 2 mg Capsule PO (19:47)
[2023-09-30 20:27] LABS: Glucose Point of Care 41 mg/dL (70-110)
[2023-09-30] MEDS: dexmedeTOMIDine 0.9 % NaCL 400 MCG/100 ML PREMIX 10.8000000000000007 MCG IV (20:36)
[2023-09-30 21:06] LABS: Glucose Point of Care 237 mg/dL (70-110)
[2023-09-30 21:47] LABS: Glucose Point of Care 282 mg/dL (70-110)
[2023-09-30 22:31] LABS: Glucose Point of Care 224 mg/dL (70-110)
[2023-10-01] VITALS (29 sets, daily range): BP systolic 75–139; BP diastolic 47–93; PULSE 62–115; RESP 16–34; TEMP 36.4–37.1; O2SAT 91–98; BMI 27.3
[2023-10-01] MEDS: enoxaparin 40 mg/0.4 mL Syringe SUBCUT (01:34)
[2023-10-01] MEDS: guaiFENesin-dextromethorphan UDC 10 mL 5 ML PO ×3 (01:35→18:10)
[2023-10-01] MEDS: pantoprazole 40 mg SDV IVP (01:35)
[2023-10-01] MEDS: piperacillin-tazobactam 3.375 GM in sodium chloride 0.9% (plus) 50 ML IV ×3 (03:24→20:30)
[2023-10-01] MEDS: sulfamethoxazole-trimeth inj 480 MG in dextrose 5 % 500 ML 500 MG IV ×3 (03:25→21:25)
[2023-10-01] MEDS: loperamide 2 mg Capsule PO ×2 (03:28→08:05)
[2023-10-01] MEDS: acetaminophen 325 mg Tablet 650 MG PO ×3 (03:28→22:45)
[2023-10-01] MEDS: dexmedeTOMIDine 0.9 % NaCL 400 MCG/100 ML PREMIX 14.4000000000000004 MCG IV (05:07)
[2023-10-01 05:13] LABS: Basophils % 0.2 %; Hematocrit 34.8 % (36-47); Lymphocytes % 10.7 %; Mean Corpuscular HGB Conc 33.9 g/dL (30-55); Mean Corpuscular Hemoglobin 31.1 pg (27-33); Mean Corpuscular Volume 91.6 fl (85-98); Mean Platelet Volume 9.5 fL (7.4-10.4); Monocytes # 0.6 10^3/uL (0.2-0.9); Neutrophils # 15.24 10^3/uL (1.8-7.7); Neutrophils % 82.8 %; Nucleated Red Blood Cells % 0 %; Platelet Count 377 10^3/cmm (157-399); Red Cell Distribution Width 13.9 % (12.1-15.1); White Blood Count 18.42 10^3/uL (3.29-11.43)
[2023-10-01 05:37] LABS: Alanine Aminotransferase 15 U/L (0-33); Albumin Level 2.8 g/dL (3.5-5.2); Alkaline Phosphatase 85 U/L (35-105); Anion Gap 15.9 (5-19); Aspartate Amino Transferase 14 U/L (0-32); Blood Urea Nitrogen 8 mg/dL (6-20); Calcium 7.9 mg/dL (8.5-10.5); Carbon Dioxide 18 mmol/L (22-29); Chloride 102 mmol/L (98-107); Globulin 2.9 g/dL (1.3-4.6); Glomerular Filtration Rate 133.4 mL/min (90-130); Glucose 283 mg/dL (65-115); Osmolality Calculated 283 mOsm/kg (285-295); Potassium 3.9 mmol/L (3.5-5.1); Sodium 132 mmol/L (136-145); Total Bilirubin 0.2 mg/dL (0.15-1.2); Total Protein 5.7 g/dL (6.6-8.7)
[2023-10-01 07:59] LABS: Glucose Point of Care 134 mg/dL (70-110)
[2023-10-01] MEDS: TRAMadol 50 mg Tablet PO (08:03)
[2023-10-01] MEDS: nystatin 100,000 unit/mL UDC 5 mL 100000 UNIT PO ×4 (08:03→20:28)
[2023-10-01] MEDS: guaiFENesin 600 mg Tablet PO ×2 (08:03→18:08)
[2023-10-01] MEDS: levoFLOXacin 750 mg Tablet PO (08:03)
[2023-10-01] MEDS: gabapentin 100 mg Capsule PO ×2 (08:03→18:07)
[2023-10-01] MEDS: benzonatate 100 mg Capsule 200 MG PO ×3 (08:03→20:28)
[2023-10-01] MEDS: predniSONE 20 mg Tablet 40 MG PO ×2 (08:04→18:08)
[2023-10-01] MEDS: fluticasone nasal spray 16gm Btl 1 SPRAY INTRANASAL (08:06)
[2023-10-01 08:20] LABS: P. Jirovecii DNA QL PCR NOT DETECTED; P. Jirovecii DNA QL PCR Source induced sputum
[2023-10-01] MEDS: levalbuterol 0.63 mg/3 mL Neb 0.630000000000000004 MG INHALATION ×3 (09:37→20:05)
[2023-10-01] MEDS: ipratropium 0.5 mg/2.5 mL Neb INHALATION ×2 (09:37→14:20)
[2023-10-01] MEDS: budesonide 0.5 mg/2 mL Neb INHALATION ×2 (09:37→20:04)
[2023-10-01] MEDS: insulin glargine 100 units/1 mL 5 UNIT SUBCUT (09:52)
[2023-10-01 10:24] LABS: Fungitell 1-3-B Glucan Assay <31 pg/ml; Interpretation Negative (Negative)
--- NOTE | 2023-10-01 11:23 | P.PN_ITS ---
Subjective 2 Subjective: clinically improving down to 7-8 lpm HFNc from HHF PCP PCR from sputum negative and BAL PCP PCR remains pending Medications: Reviewed: Yes Vitals/I&O/Wt Last Vital Signs Temp 97.6 F 10/01/23 03:50 Pulse 73 10/01/23 09:41 Resp 22 H 10/01/23 09:41 BP 114/73 10/01/23 03:00 Pulse Ox 93 10/01/23 09:41 O2 Del Method Heated High Flow 10/01/23 09:37 O2 Flow Rate 30 10/01/23 09:41 FiO2 48 10/01/23 09:41 09/30/23 10/01/23 10/01/23 22:59 06:59 14:59 Intake Total 1429.75 / 1985.86 680.24 / 2666.10 109.64 / 109.64 Output Total 4500 / 4500 2300 / 6800 Balance -3070.25 / -2514.14 -1619.76 / -4133.90 109.64 / 109.64 Weight last 48 hrs Weight 149 lb 9 oz Weight 158 lb 7 oz Physical Exam 2 Narrative: General: alert, NAD HEENT: conj clear, EOMI, PERRL, mmm, Neck: supple, no meningismus Heme: no cervical LAP Respiratory: Inspection: No visible deformity of the chest wall Palpation: Trachea is mildly deviated to the right, bilateral symmetric expansion Percussion: Bilateral tympanic percussion note both anterior and posteriorly Auscultation: Bilateral breath sounds improving Cardiovascular: rrr, nl s1s2, no mrg Abdomen: soft, nt, nd, no r/g, bs+ Extremities: pulses +, no edema, no c/c : no CVA tenderness Skin: intact, no rash MSK: no back or neck pain Neurologic: grossly intact Urinary Catheter Management: Bond: Cath Placed During This Visit: yes Reason for Continuing Indwelling Catheter: Accurate Measurement of Urinary Output in Critically Ill Patients Urinary Catheter Date of Insertion: 09/29/23 Urinary Catheter Time of Insertion: 11:00 Data 10/04/23 04:33 10/04/23 05:46 Micro: Microbiology 09/28/23 12:36 Gram Stain - Final Lung Right Lower Lobe Bronchoalveolar Lavage Culture - Final Yeast species A&P Assessment and plan (1) Hypoxic respiratory failure: Increasing oxygen requirements in the setting of significant progression of diffuse reticulonodular opacification throughout both lungs involving all lungs- suggestive of worsening pneumonia In the setting of frequent courses of high-dose steroids, immunosuppression medications like etanercept/leflunomide for inflammatory arthritis-patient is at high risk for PCP pneumonia; Patient has significant oral thrush during admission-currently she is on fluconazole 100 Mg daily; serology for histoplasma and Coccidioides are pending; respiratory viral panel is negative Elevated LDH-currently on Bactrim -Switched to bactrim Will continue Solu-Medrol 40 every 12 and taper down from tomorrow Sputum PCP PCR, serum beta D glucan were sent Today morning supplemental oxygen up to 8 L S/p bronchoscopy 09/28/2023 and obtain BAL-sent for PCP PCR/galactomannan/fungal cultures/bacterial cultures/MTB PCR-bronchoscopy revealed, thrush on glottis, weak posterior tracheal wall collapsing on coughing. There are clear secretions bilaterally. BAL Eosinophils - 0 FI02 requirement down to 7-8 LPM -On Precedex patient appears to be more calm - Taper off (2) Pneumonia, organism unspecified: Patient is broadly covered with Zosyn as well as levofloxacin for atypical pneumonia BAL-sent for PCP PCR/galactomannan/fungal cultures/bacterial cultures/MTB PCR Qualifiers: Laterality: bilateral Lung location: lower lobe of lung Qualified Code(s): J18.9 - Pneumonia, unspecified organism (3) COPD exacerbation: Patient is half pack per day for 25 years Strongly counseled to quit smoking She uses Advair for her COPD Continue nebulizations and steroids She needs PFTs as outpatient (4) Toxic inhalation injury: (5) High risk medication use: She is on Enbrel, leflunomide for inflammatory arthritis (6) Anxiety: History of anxiety disorder/PTSD She appears to be more calm on Precedex (7) Oral thrush: She is on IV fluconazole Attestations 2 Medical Necessity Statement*: Patient continues to be on high oxygen requirements,-continue close ICU monitoring with low threshold for intubation Time Spent in Patient Care: Greater than 35 minutes (>than 50% of time spent in counselling and/or direct pt care on unit) . Critical Care Time: The high probability of a clinically significant, sudden or life threatening deterioration of the patient's [respiratory, ID ] system(s) required my full and direct attention, intervention and personal management. The critical care time is as shown. This time is in addition to time spent performing any reported procedures but includes the following: [x] Data and vital sign review and interpretation [x] Patient assessment, examination and intervention [x] Documentation [x] Medication orders and management Critical Care Time (min): 49 Coding Level of Care Code Acute Code for g Fwd Diagnoses Hypoxic respiratory failure J96.91 Pneumonia, organism unspecified J18.9 Laterality: bilateral Lung location: lower lobe of lung COPD exacerbation J44.1 Toxic inhalation injury T59.94XA High risk medication use Z79.899 Anxiety F41.9 Oral thrush B37.0 Time Spent (min) 49
[2023-10-01] MEDS: fluconazole 100 mg Tablet PO (11:33)
[2023-10-01 11:39] LABS: Glucose Point of Care 180 mg/dL (70-110)
[2023-10-01 12:19] LABS: Amphetamine negative; Barbiturates negative; Benzodiazepines negative; Cocaine Metabolites negative; Marijuana(Tetrahydrocannabino) negative; Opiates negative; PCP (Phencyclidine) negative
[2023-10-01] MEDS: fluoxetine 20 mg Capsule PO (12:44)
[2023-10-01] MEDS: diphenoxylate/atropine Tablet 3 TAB PO ×3 (12:44→20:48)
[2023-10-01] MEDS: insulin lispro 100 unit/1 mL SUBCUT ×3 (12:46→20:47)
[2023-10-01] MEDS: trolamine salicylate 10% 141 gm Cream 1 APPLIC TOPICAL (14:27)
--- NOTE | 2023-10-01 16:09 | P.PN_ITS ---
Subjective 2 Subjective: ID progress note 02 requirements improving. on 40% fi02 a t 28lpm States she feels symptomatically better off precedex Medications: Reviewed: Yes Vitals/I&O/Wt Last Vital Signs Temp 98.7 F 10/01/23 08:00 Pulse 109 H 10/01/23 14:24 Resp 22 H 10/01/23 14:24 BP 100/63 10/01/23 14:00 Pulse Ox 94 10/01/23 14:24 O2 Del Method Heated High Flow 10/01/23 14:20 O2 Flow Rate 25 10/01/23 14:24 FiO2 40 10/01/23 14:24 10/01/23 10/01/23 10/01/23 06:59 14:59 22:59 Intake Total 680.24 / 2666.10 836.37 / 836.37 Output Total 2300 / 6800 1000 / 1000 Balance -1619.76 / -4133.90 -163.63 / -163.63 Weight last 48 hrs Weight 67.84 kg Weight 71.866 kg Physical Exam 2 Narrative: General: No acute distress, AO x3, calm and cooperative at exam HEENT: PERRLA, pupils bilaterally equal and reactive, pallors not present Chest: Normal vesicular breath sounds, no added sounds, equal good air entry bilaterally CVS: S1-S2 regular, no murmurs, no tachycardia, no gallops, no rubs Abdomen: Soft, nontender, no organomegaly, bowel sounds present Neuro: No focal deficits, no facial deformity, AO x3, power 5/5 in all limbs Urinary Catheter Management: Bond: Cath Placed During This Visit: yes Reason for Continuing Indwelling Catheter: Accurate Measurement of Urinary Output in Critically Ill Patients Urinary Catheter Date of Insertion: 09/29/23 Urinary Catheter Time of Insertion: 11:00 Data 10/01/23 04:32 10/01/23 04:32 Micro: Microbiology 09/28/23 12:36 Gram Stain - Final Lung Right Lower Lobe Bronchoalveolar Lavage Culture - Final Yeast species Other data: From BAL on 09/27: Fungal cx : pending Gram stain and cx : Yeast sp- per discussion with micro- these are breanne spp MRSA screen : negative Ag/GM: pending ; reordered today from BAL and serum as previous order appears to have been cancelled AFB smear : cancelled by lab MTB PCR: pending PJP PCR : pending From induced sputum 09/26: PJP PCR: negative Serology : 09/26: Serum BDG : negative 09/26: Serum cryptococcal Ag : negative 09/26: Histoplasma serology : pending 09/26: urine histoplasma Ag : pending 09/26: Coccidiodes Ab : pending 09/27: HIV AG/AB : negative 09/26: Quantiferon : negative 09/24: urine yehuda ag: negative urine legionella Ag : negative A&P Assessment and plan (1) ARDS (adult respiratory distress syndrome): (2) Oral thrush: (3) High risk medication use: (4) Pneumocystis jiroveci pneumonia: (5) Bilateral pneumonia: (6) Hypoxic respiratory failure: Plan 43F 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 Differential currently broad, possibilities include bacterial vs fungal etiology s/p bronchsscopy on 09/27 for diagnostic cx Thus far respiratory cx with yeast spp, likely seen as a result of noted thrush, less likely to be the true culprit Will await final identification with regards to breanne vs cryptococcus ; low probability of cryptococcus given negative Ag Low possibility of MTB given negative qunetiferon from 2021 and current admission, lack of historical risk factors, will follow pending AFB cx Pending fungal serologies as noted above High clinical suspicion for PJP pneumonia based on B/L diffuse infiltrates, hypoxia, elevated LDH- currently on presumptive treatment for the same while pending results of confirmatory tests. Plan: Continue iv bactrim at 20mg/kg/d in 3 divided doses for now with negative serum BDG and negative induced sputum PJP PCR, appearing to be less likely now Awaiting BAL PJP PCR before stopping iv bactrim repeat CT chest w/o contrast to assess for interval change Continue piperacillin tazobactam and levaquin empirically (atypical coverage exapanded from azithromycin to levaquin) Negative MRSA PCR screen F/up pending fungal serologies inclding histoplasma and coccidiodes, add blatomyces serology Patient afebrile, hemodynamically stable, improving 02 requirements last 24 hrs Continue fluconazole 100mg for total 10 days for oropharyngeal candidiasis Attestations 2 Medical Necessity Statement*: per admitting Coding Level of Care Code Acute Code for Chg Fwd High MDM includes number and complexity of problems actively addressed during encounter, amount and/or complexity of data reviewed/ordered and described risk of complication, morbidity or mortality of management as documented Diagnoses ARDS (adult respiratory distress syndrome) J80 Oral thrush B37.0 High risk medication use Z79.899 Pneumocystis jiroveci pneumonia B59 Bilateral pneumonia J18.9 Hypoxic respiratory failure J96.91
[2023-10-01 17:15] LABS: Glucose Point of Care 157 mg/dL (70-110)
[2023-10-01] MEDS: lidocaine 1% INJ 10 mL (per mL) XX (17:49)
--- NOTE | 2023-10-01 19:23 | P.PN_ITS ---
Subjective 2 Subjective: Reported left back pain. She does not have a headache when she is off of high flow oxygen. She continues to have high oxygen requirement. On she was still Precedex drip overnight but was able to be weaned off. She was willing to be started on SSRI for her anxiety. She had a negative BDG and negative and do sputum PJP PCR. BAL PJP PCR is pending. Vitals/I&O/Wt Last Vital Signs Temp 98.7 F 10/01/23 08:00 Pulse 96 10/01/23 19:00 Resp 18 10/01/23 19:00 BP 113/75 10/01/23 19:00 Pulse Ox 98 10/01/23 19:00 O2 Del Method Heated High Flow 10/01/23 19:00 O2 Flow Rate 28 10/01/23 19:00 FiO2 40 10/01/23 19:00 10/01/23 10/01/23 10/01/23 06:59 14:59 22:59 Intake Total 680.24 / 2666.10 1366.37 / 1366.37 63.39 / 1429.76 Output Total 2300 / 6800 1000 / 1000 1310 / 2310 Balance -1619.76 / -4133.90 366.37 / 366.37 -1246.61 / -880.24 Weight last 48 hrs Weight 67.84 kg Weight 71.866 kg Physical Exam 2 Narrative: General: No acute distress, AO x3, calm and cooperative at exam HEENT: PERRLA, pupils bilaterally equal and reactive, pallors not present Chest: Normal vesicular breath sounds, no added sounds, equal good air entry bilaterally CVS: S1-S2 regular, no murmurs, no tachycardia, no gallops, no rubs Abdomen: Soft, nontender, no organomegaly, bowel sounds present Neuro: No focal deficits, no facial deformity, AO x3, power 5/5 in all limbs Const: COMMON NORMALS: patient oriented x3 and alert HENMT: COMMON NORMALS: normocephalic and atraumatic HEAD & SCALP: n ormocephalic and atraumatic Eye: COMMON NORMALS: Equal, round and reactive pupils present and conjunctivae normal CONJUNCTIVA: Yes conjunctivae normal PUPIL: Yes Equal, round and reactive pupils present Neck/C-Spine: COMMON NORMALS: full ROM Chest: COMMONS NORMALS: normal inspection of the chest Resp: COMMON NORMALS: normal respiratory effort and clear to auscultation bilaterally AUSCULTATION: clear to auscultation bilaterally Cardio: OTHER: S1, S2, regular rate and rhythm, no murmur rub or gallop GI: COMMON NORMALS: Normal to inspection, nondistended, normoactive bowel sounds present, Soft to palpation and non-tender PALPATION: Yes Soft to palpation Extremity: COMMON NORMALS: normal to inspection and full ROM Neuro: COMMON NORMALS: patient oriented x3 and no focal motor deficits S ENSORIUM/ORIENTATION: Yes alert Psych: COMMON NORMALS: mental status grossly normal, cooperative, normal affect and speech normal SPEECH: Yes normal speech Skin: COMMON NORMALS: no rashes or lesions noted GENERAL SKIN EXAM: no rashes or lesions noted Urinary Catheter Management: Bond: Cath Placed During This Visit: yes Reason for Continuing Indwelling Catheter: Accurate Measurement of Urinary Output in Critically Ill Patients Urinary Catheter Date of Insertion: 09/29/23 Urinary Catheter Time of Insertion: 11:00 Data 10/01/23 04:32 10/01/23 04:32 Micro: Microbiology 09/28/23 12:36 Gram Stain - Final Lung Right Lower Lobe Bronchoalveolar Lavage Culture - Final Yeast species A&P Assessment and plan (1) COPD exacerbation: COPD exacerbation in setting of inhalation of smoke. Patient takes multiple high-dose steroids multiple times for COPD exacerbation along with arthritis recently. Continue with inhalation treatment with Xopenex and ipratropium every 6 willie as needed, Pulmicort twice daily. Oxygen supplementation keeping saturation over 90%. Currently on Solu-Medrol to 40 mg IV every 12 hourly. (2) Toxic inhalation injury: Patient was cooking and inhaled grease fumes which triggered her current COPD exacerbation. (3) Pneumonia: Given use of high-dose steroids as an outpatient she is at high risk of pneumonia. She also has asplenia. Concern for PCP pneumonia. She had a bronchoscopy on 09/27 with cultures pending She is on IV Zosyn, IV Bactrim, oral Levaquin She had significant oral thrush and was not able to swallow. Continue with nystatin and fluconazole (4) Sinus tachycardia: Resolved. Continue with levalbuterol. (5) Hyperglycemia: She reports a history of prediabetes. Her hemoglobin A1c was 5.6% on 09/25/2023. She is on IV steroids for COPD exacerbation and suspected PJP pneumonia. COntinue SSI. Started lantus 5 mg daily. Continue to monitor glucose (6) Anxiety: She has had severe anxiety during this hospital stay. She has a history of PTSD and bipolar disorder but is not on any meds. She is on gabapentin and naproxen extra. Titrate Precedex off as tolerated. (7) Oral thrush: Noted during this admission and likely from IV steroids. She is on nystatin 4 times daily and fluconazole. Thrush has improved and no longer has problems swallowing. She is currently on a clear liquid diet will advance. (8) ARDS (adult respiratory distress syndrome): Suspected PJP pneumonia but less likely given negative induced sputum PJP PCR. BAL PJP PCR pending. BDG negative. Plan Continue with other chronic home medications. Continue with clear liquid diet Protonix for PUD prophylaxis Lovenox for DVT prophylaxis Discharge plan: Waiting for fungal telling PCP [facility] from [facility] done on 09/27. Patient would benefit with nebulizer as an outpatient. Discussed in detail with the patient for need of less steroids going forward as that puts her at a higher risk of more infections. She verbalizes understanding. She should benefit from pulmonology follow-up as an outpatient Plan for today September 27, 2023. Patient reported acute dyspnea overnight, had a new oxygen requirement of 4 to 10 L/min via high flow nasal cannula. Overnight also concern for possible panic attack. Patient was moved to the ICU with these changes. At the time of my evaluation this morning, patient continued to be extremely anxious, hyperventilating, needed reassurance for several minutes prior to being calm. While at rest, when calm, oxygen saturation 90 to 91% on 7 L/min supplemental O2 via high flow nasal cannula. Stat ABG has been ordered which shows pH 7.43/pCO2 40/pO2 61.3 on 7 L/min high flow nasal cannula/bicarb 26.7. Estimated P/F ratio of 152. Reviewed imaging obtained during course of this admission. Chest x-ray from this morning showing progression of opacifications and reticular nodular opacifications throughout both lungs. CT chest with contrast taken on September 24, 2023 showing scattered moderate peripheral interstitial opacities which are nonspecific. Blood culture from September 25, 2023 negative to date. Bacterial antigens from September 25, 2023 negative for Streptococcus, Hib, strep pneumo from urine. From admission baseline troponin at 9, no significant progression at 2 or 6 hours. Negative respiratory viral panel. Plan: Continue admission in the ICU given significantly changed respiratory parameters. Patient is significantly anxious, distressed. Reviewed past notes from [facility] admission in 2021. Past history of PTSD, depression and reported bipolar disorder. Start Precedex infusion to help tolerate current medical interventions better Stat ABG. 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 PJP PCR ordered from induced sputum elevated LDH, pending BDG from serum Start IV Bactrim 15 to 20 mg/kg?in 3 divided doses. check daily kidney function and electrolytes. Additionally check for Coccidioides antibody, histoplasma antibody, urine histoplasma antigen, HIV screening Stat BNP and D dimer, quantiferon (previously negative from 2021) pulmonary consult Plan for today September 28, 2023. Continue ICU admission in view of high oxygen requirements which are persisting. Status post bronchoscopic evaluation today. Underwent right lower lobe BAL Bacterial and fungal cultures, AFB cultures, pneumocystis PCR sent from BAL. Plan to continue with presumptive PJP treatment with IV Bactrim. Kidney function and electrolytes are stable today. Continue piperacillin/tazobactam and azithromycin empirically in addition to IV Bactrim. Once culture data is available from bronchoscopy, will aim to narrow down antibiotics. Repeat chest x-ray with a.m. labs. Pending multiple fungal serologies including Coccidioides histoplasma. Pending repeat QuantiFERON (previously negative from 2021). negative serum cryptococcal Ag Negative HIV screen. Continue fluconazole for severe thrush. Continue systemic glucocorticoids for adjunctive presumptive pneumocystis treatment. Continue Precedex. monitor for arrhythmias. Will aim to obtain psychiatry consult for severe anxiety once more stable from a respiratory standpoint. Plan for today October 01, 2023 Continued ICU admission for high oxygen requirements. Titrated of precedex drip this afternoon. Currently on heated high flow at 45. Hospital course complicated by severe anxiety requiring precedex drip. Drip was titrated off this afternoon. She has PTSD and bipolar disorder. Continue gabapentin, started fluoxetine today. Continue IV Bactrim, Zosyn, and Levaquin. Also on fluconazole for oral thrush. Total duration 10 days. Prednisone taper. She is on as needed DuoNebs and on budesonide nebs every 12 hours. Added lantus for hyperglycemia. Attestations 2 Medical Necessity Statement*: COntinued hospitalization for high O2 requirements. Anticipate ICU downgrade. Critical Care Time: The high probability of a clinically significant, sudden or life threatening deterioration of the patient's respiratory system(s) required my full and direct attention, intervention and personal management. The critical care time is as shown. This time is in addition to time spent performing any reported procedures but includes the following: [x] Data and vital sign review and interpretation [x] Patient assessment, examination and intervention [x] Documentation [x] Medication orders and management Critical Care Time (min): 40 Coding Level of Care Code Critical Care >/= 30 minutes Diagnoses COPD exacerbation J44.1 Toxic inhalation injury T59.94XA Pneumonia J18.9 Sinus tachycardia R00.0 Hyperglycemia R73.9 Anxiety F41.9 Oral thrush B37.0 ARDS (adult respiratory distress syndrome) J80
--- NOTE | 2023-10-01 19:24 | PC.NURSE ---
Shift summary: Pt much improved since I was last her nurse on Wednesday. She still had panic episode but much milder and she ws able to redirect herself. We were able to wean off the Precedex gtt. She was started on Prozaac. lidocaine patch ordered for her back muscle pain from coughing, it starts tomorrow per order. Aspercreme also ordered,, she stated that felt nice. She was restarted on her home Lomotil dose. Se needed acetaminophen this eveing for a headache, it helped per her. At beginning of shift she was using a oxymask at 11lpm. For the rest of the shift she sed HHF, which is now at 28L and 40%.. She is tolerating it well. Right now she has 8lpm/HFNC on, she is using one of those shampoo caps right now. Her o2 sats stayed greater than 94% today. Her lungs auscultated much clearer than before. Bases still noted to be diminished. Urine out put of 2310 and 2 BMs today
[2023-10-01 20:36] LABS: Glucose Point of Care 189 mg/dL (70-110)
[2023-10-01] MEDS: lidocaine 5% Patch 1 PATCH TOPICAL (20:49)
[2023-10-01] MEDS: cetacaine Spray 5 gm Can 5 SPRAY (22:27)
[2023-10-01] MEDS: ALPRAZolam 0.5 mg Tablet PO (22:45)
[2023-10-02] VITALS (22 sets, daily range): BP systolic 106–137; BP diastolic 63–102; PULSE 74–112; RESP 14–24; TEMP 36.1–37.2; O2SAT 91–97; BMI 27.0
[2023-10-02] MEDS: enoxaparin 40 mg/0.4 mL Syringe SUBCUT (02:15)
[2023-10-02] MEDS: guaiFENesin-dextromethorphan UDC 10 mL 5 ML PO ×3 (02:15→18:27)
[2023-10-02] MEDS: pantoprazole 40 mg SDV IVP (02:16)
[2023-10-02] MEDS: piperacillin-tazobactam 3.375 GM in sodium chloride 0.9% (plus) 50 ML IV ×3 (04:14→20:24)
[2023-10-02] MEDS: sulfamethoxazole-trimeth inj 480 MG in dextrose 5 % 500 ML 500 MG IV ×2 (06:19→14:47)
--- NOTE | 2023-10-02 07:00 | CTR_ITS ---
PROCEDURE INFORMATION: Exam: CT Chest Without Contrast; Diagnostic Exam date and time: 10/02/2023 6:59 AM Age: 43 years old Clinical indication: Cough and shortness of breath; Prior surgery; Surgery date: 6+ months; Surgery type: Gb; Patient HX: F/u for bilateral pneumonia/infiltrate. PT still has severe cough requiring 15l of supplimental oxygen. ; Additional info: Follow up lung infiltrates, admitted with b/l pneumonia, ards, f/up pulmonary TECHNIQUE: Imaging protocol: Diagnostic computed tomography of the chest without contrast. Radiation optimization: All CT scans at this facility use at least one of these dose optimization techniques: automated exposure control; mA and/or kV adjustment per patient size (includes targeted exams where dose is matched to clinical indication); or iterative reconstruction. COMPARISON: CT chest w con* [id number] 09/24/2023 11:17 PM RADIATION DOSE METRICS: Total DLP (mGy-cm): 367.61 FINDINGS: Lungs: Moderate centrilobular emphysema. Previously noted airspace opacities are now somewhat more diffuse, though appear decreased in density. Pleural spaces: Unremarkable. No pneumothorax. No pleural effusion. Heart: Unremarkable. No cardiomegaly. No pericardial effusion. Coronary arteries: Mild coronary artery calcification. Lymph nodes: Unremarkable. No enlarged lymph nodes. Vasculature: Unremarkable. No aortic aneurysm. Gallbladder and bile ducts: Cholecystectomy. Bones/joints: Unremarkable. No acute fracture. Soft tissues: Unremarkable. CT/CT chest wo con [id number] IMPRESSION: Previously noted airspace opacities are now somewhat more diffuse, though appear decreased in density.
[2023-10-02 07:24] LABS: Alanine Aminotransferase 16 U/L (0-33); Albumin Level 3.2 g/dL (3.5-5.2); Alkaline Phosphatase 87 U/L (35-105); Aspartate Amino Transferase 14 U/L (0-32); Blood Urea Nitrogen 12 mg/dL (6-20); Calcium 8.5 mg/dL (8.5-10.5); Carbon Dioxide 22 mmol/L (22-29); Chloride 100 mmol/L (98-107); Creatinine Clr Calc Pharmacy 106.2805; Glomerular Filtration Rate 108.1 mL/min (90-130); Glucose 228 mg/dL (65-115); Osmolality Calculated 285 mOsm/kg (285-295); Sodium 134 mmol/L (136-145); Total Bilirubin 0.2 mg/dL (0.15-1.2); Total Protein 6.2 g/dL (6.6-8.7)
[2023-10-02 08:22] LABS: Glucose Point of Care 132 mg/dL (70-110)
[2023-10-02] MEDS: levoFLOXacin 750 mg Tablet PO (08:29)
[2023-10-02] MEDS: benzonatate 100 mg Capsule 200 MG PO ×2 (08:30→20:30)
[2023-10-02] MEDS: guaiFENesin 600 mg Tablet PO ×2 (08:30→17:12)
[2023-10-02] MEDS: fluoxetine 20 mg Capsule PO (08:30)
[2023-10-02] MEDS: nystatin 100,000 unit/mL UDC 5 mL 100000 UNIT PO ×4 (08:30→20:31)
[2023-10-02] MEDS: gabapentin 100 mg Capsule PO ×2 (08:30→17:12)
[2023-10-02] MEDS: insulin glargine 100 units/1 mL 5 UNIT SUBCUT (08:31)
[2023-10-02] MEDS: fluticasone nasal spray 16gm Btl 1 SPRAY INTRANASAL (08:31)
[2023-10-02] MEDS: lidocaine 5% Patch 1 PATCH TOPICAL (08:31)
[2023-10-02] MEDS: predniSONE 20 mg Tablet 40 MG PO ×2 (08:32→17:13)
[2023-10-02] MEDS: diphenoxylate/atropine Tablet 3 TAB PO ×2 (08:38→17:11)
[2023-10-02] MEDS: levalbuterol 0.63 mg/3 mL Neb 0.630000000000000004 MG INHALATION (08:42)
[2023-10-02] MEDS: ipratropium 0.5 mg/2.5 mL Neb INHALATION (08:42)
[2023-10-02] MEDS: budesonide 0.5 mg/2 mL Neb INHALATION ×2 (08:42→20:32)
[2023-10-02] MEDS: acetaminophen 325 mg Tablet 650 MG PO (09:34)
[2023-10-02 11:00] LABS: Glucose Point of Care 161 mg/dL (70-110)
[2023-10-02] MEDS: insulin lispro 100 unit/1 mL SUBCUT ×3 (11:04→22:25)
[2023-10-02] MEDS: fluconazole 100 mg Tablet PO (11:04)
[2023-10-02] MEDS: TRAMadol 50 mg Tablet PO (11:05)
--- NOTE | 2023-10-02 15:03 | P.PN_ITS ---
Subjective 2 Subjective: ID progress note clinically improving down to 2lpm HFNc from [facility] remains off precedex to be transferred out of ICU today BAL PCR remains pending Medications: Reviewed: Yes Vitals/I&O/Wt Last Vital Signs Temp 98.0 F 10/03/23 12:00 Pulse 74 10/03/23 12:00 Resp 18 10/03/23 12:00 BP 110/65 10/03/23 12:00 Pulse Ox 93 10/03/23 12:00 O2 Del Method Nasal Cannula 10/03/23 12:00 O2 Flow Rate 2 10/03/23 08:16 FiO2 30 10/02/23 09:03 10/03/23 10/03/23 10/03/23 06:59 14:59 22:59 Intake Total 50 / 1410 1010 / 1010 Balance 50 / 810 1010 / 1010 Weight last 48 hrs Weight 66.723 kg Weight 66.996 kg Physical Exam 2 Narrative: Patient not examined today. Chart reviewed, care plan discussed with patient's primary hospitalist and RN Urinary Catheter Management: Bond: Cath Placed During This Visit: yes Reason for Continuing Indwelling Catheter: Accurate Measurement of Urinary Output in Critically Ill Patients Urinary Catheter Date of Insertion: 09/29/23 Urinary Catheter Time of Insertion: 11:00 Data 10/03/23 05:50 10/03/23 05:50 Micro: Microbiology 09/28/23 12:32 MTB Complex and Rifampin Resistance - Final Sputum - Endotracheal Tube Aspirate 09/28/23 12:36 Fungal Smear - Preliminary Tissue A&P Assessment and plan (1) ARDS (adult respiratory distress syndrome): (2) Oral thrush: (3) High risk medication use: (4) Pneumocystis jiroveci pneumonia: (5) Bilateral pneumonia: (6) Hypoxic respiratory failure: Plan 43F 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 Differential currently broad, possibilities include bacterial vs fungal etiology s/p bronchsscopy on 09/27 for diagnostic cx Thus far respiratory cx with yeast spp, likely seen as a result of noted thrush, less likely to be the true culprit Will await final identification with regards to breanne vs cryptococcus ; low probability of cryptococcus given negative Ag Low possibility of MTB given negative qunetiferon from 2021 and current admission, lack of historical risk factors, will follow pending AFB cx Pending fungal serologies as noted above High clinical suspicion for PJP pneumonia based on B/L diffuse infiltrates, hypoxia, elevated LDH- currently on presumptive treatment for the same while pending results of confirmatory tests. Plan: Discontinue Iv bactrim , change to po Bactrim DS 2 tab TID with negative serum BDG and negative induced sputum PJP PCR, PJP appearing to be less likely now Awaiting BAL PJP PCR before stopping bactrim CT chest w/o contrast taken today shows diffuse B/L GGOs, no gorss consolidation, previously appearing pneumatocoeles appear to be improving per personal review. Clinically signifcantly improved now- down to 2lpm supplemental 02 BAL CX remain unrevealing to date Alternate differentials include COOP vs eosinophilic pneumonia Continue steroids taper - Prednisone 40 mg bid until 10/04 then taper to 40mg po daily. Continue piperacillin tazobactam and levaquin empirically (atypical coverage exapanded from azithromycin to levaquin) to total 10 days treatment (day 8 today), then d/c abx. Negative MRSA PCR screen F/up pending fungal serologies inclding histoplasma and coccidiodes, add blatomyces serology Continue fluconazole 100mg for total 10 days for oropharyngeal candidiasis Attestations 2 Medical Necessity Statement*: per admitting attending Coding Level of Care Code Acute Code for Chg Fwd Moderate MDM includes number and complexity of problems actively addressed during encounter, amount and/or complexity of data reviewed/ordered and described risk of complication, morbidity or mortality of management as documented Diagnoses ARDS (adult respiratory distress syndrome) J80 Oral thrush B37.0 High risk medication use Z79.899 Pneumocystis jiroveci pneumonia B59 Bilateral pneumonia J18.9 Hypoxic respiratory failure J96.91
--- NOTE | 2023-10-02 15:45 | P.PN_ITS ---
Subjective 2 Subjective: She was titrated off of Precedex yesterday. Her oxygen was weaned to 2 L/min O2 today. She started on fluoxetine for anxiety yesterday and has been doing well with that. Lidocaine patch was placed for left-sided back pain and is improved. She denies headaches. She has been having high urine output in the last 3 days. She states that she pees an extraordinary amount at home. She denies polydipsia. She has been drinking a lot of water. Medications: Reviewed: Yes Vitals/I&O/Wt Last Vital Signs Temp 96.9 F L 10/02/23 04:00 Pulse 93 10/02/23 15:00 Resp 18 10/02/23 14:33 BP 137/84 10/02/23 14:00 Pulse Ox 97 10/02/23 15:00 O2 Del Method High Flow Nasal Cannula 10/02/23 14:33 O2 Flow Rate 2 10/02/23 14:33 FiO2 30 10/02/23 09:03 10/02/23 10/02/23 10/02/23 06:59 14:59 22:59 Intake Total 580 / 2249.76 580 / 580 Output Total 2250 / 4560 Balance -1670 / -2310.24 580 / 580 Weight last 48 hrs Weight 66.996 kg Weight 67.84 kg Physical Exam 2 Narrative: GEN: Alert, cooperative Neuro: Oriented x 4, no focal neurodeficits HEENT: Normocephalic, atraumatic, PERRLA Neck: Supple, no JVD Cardio: S1, S2, regular rate and rhythm, no murmur, rub or gallop Lungs: Normal effort, scattered crackles Abdomen: Soft, nontender, nondistended, normal bowel sounds Extremity: No edema Skin: No lesions Urinary Catheter Management: Bond: Cath Placed During This Visit: yes Reason for Continuing Indwelling Catheter: Accurate Measurement of Urinary Output in Critically Ill Patients Urinary Catheter Date of Insertion: 09/29/23 Urinary Catheter Time of Insertion: 11:00 Data 10/01/23 04:32 10/02/23 06:25 A&P Assessment and plan (1) COPD exacerbation: COPD exacerbation in setting of inhalation of smoke. Patient takes multiple high-dose steroids multiple times for COPD exacerbation along with arthritis recently. Continue with inhalation treatment with Xopenex and ipratropium every 6 hours as needed, Pulmicort twice daily. Oxygen supplementation keeping saturation over 90%. Continue prednisone taper (2) Toxic inhalation injury: Patient was cooking and inhaled grease fumes which triggered her current COPD exacerbation. (3) Pneumonia: Immunocompromised status - she was on high-dose steroids, etanercept and leflunonamide for her rheumatoid arthritis; also s/p splenectomy She had a bronchoscopy on 09/27 with cultures pending Concern for PJP pneumonia but less likely given given negative induce sputum PJP PCR; BAL PJP PCR pending QuantiFERON gold and BDG were negative; HIV negative Negative crytococcal Ag, Blastomyces, Coccidioides, histoplasma serology pending She is on IV Zosyn and oral Levaquin; plan for 10 days total Switched to PO Bactrium today Dr Nicole is following as ID (4) Sinus tachycardia: Resolved. Continue with levalbuterol. (5) Hyperglycemia: She reports a history of prediabetes. Her hemoglobin A1c was 5.6% on 09/25/2023. She is on steroids for COPD exacerbation and suspected PJP pneumonia. Continue SSI. Started lantus 5 mg daily. Continue to monitor glucose (6) Anxiety: She has had severe anxiety during this hospital stay requiring precedex infusion. She has a history of PTSD and bipolar disorder. She is on gabapentin and started fluoxeting 09/30. Off precedex. (7) Oral thrush: She had significant oral thrush and was not able to swallow. Continue with nystatin and fluconazole (total of 10 days of fluconazole) (8) ARDS (adult respiratory distress syndrome): From bilateral pneumonia and inhalation injury Also had COPD exacerbation Chest CT today (10/01) showed more diffuse but less dense airspace opacities Plan Now on 2 L/min O2 and off precedex drip. Downgrading to Med/surg today. CT chest showed improved infiltrates. Switched to PO Bactrim. Waiting for BAL PJP PCR. On zosyn and levaquin. Attestations 2 Medical Necessity Statement*: Patient requires continued hospitalization for antibiotics. She is waiting for BAL PJP PCR. Anticipate she may be able to be discharged on Wednesday. Patient is willing to go to LTAC if she has high O2 needs but less likely given she is down to 2 L/min O2. Coding Level of Care Code 03879 Diagnoses COPD exacerbation J44.1 Toxic inhalation injury T59.94XA Pneumonia J18.9 Sinus tachycardia R00.0 Hyperglycemia R73.9 Anxiety F41.9 Oral thrush B37.0 ARDS (adult respiratory distress syndrome) J80
[2023-10-02 17:01] LABS: Glucose Point of Care 199 mg/dL (70-110)
[2023-10-02 18:54] LABS: Histoplasma capsulatum H Ab NEGATIVE; Histoplasma capsulatum M Ab NEGATIVE
[2023-10-02] MEDS: sulfamethoxazole-trimeth DS 160-800 mg Tablet 2 TAB PO (20:30)
[2023-10-02 20:38] LABS: Glucose Point of Care 175 mg/dL (70-110)
[2023-10-03] VITALS (8 sets, daily range): BP systolic 110–131; BP diastolic 65–88; PULSE 74–103; RESP 18–19; TEMP 36.4–37; O2SAT 92–96
[2023-10-03] MEDS: guaiFENesin-dextromethorphan UDC 10 mL 5 ML PO ×3 (03:05→17:36)
[2023-10-03] MEDS: enoxaparin 40 mg/0.4 mL Syringe SUBCUT (03:05)
[2023-10-03] MEDS: pantoprazole 40 mg SDV IVP (03:05)
[2023-10-03] MEDS: piperacillin-tazobactam 3.375 GM in sodium chloride 0.9% (plus) 50 ML IV ×3 (04:27→19:38)
[2023-10-03] MEDS: acetaminophen 325 mg Tablet 650 MG PO (04:33)
[2023-10-03 06:17] LABS: Basophils # 0.1 10^3/uL (0.0-0.1); Basophils % 0.4 %; Hematocrit 37.1 % (36-47); Lymphocytes # 5.2 10^3/uL (0.8-4.8); Lymphocytes % 19.2 %; Mean Corpuscular HGB Conc 34.8 g/dL (30-55); Mean Corpuscular Hemoglobin 31.4 pg (27-33); Mean Corpuscular Volume 90.3 fl (85-98); Mean Platelet Volume 9.4 fL (7.4-10.4); Monocytes # 1.6 10^3/uL (0.2-0.9); Monocytes % 5.8 %; Neutrophils # 18.62 10^3/uL (1.8-7.7); Neutrophils % 69.6 %; Nucleated Red Blood Cells % 0 %; Platelet Count 527 10^3/cmm (157-399); Red Blood Count 4.11 10^6/uL (3.85-5.65); Red Cell Distribution Width 14.3 % (12.1-15.1); White Blood Count 26.81 10^3/uL (3.29-11.43)
[2023-10-03 06:23] LABS: Glucose Point of Care 131 mg/dL (70-110)
[2023-10-03 06:37] LABS: Alanine Aminotransferase 16 U/L (0-33); Albumin Level 3.3 g/dL (3.5-5.2); Alkaline Phosphatase 80 U/L (35-105); Blood Urea Nitrogen 11 mg/dL (6-20); Calcium 8.7 mg/dL (8.5-10.5); Carbon Dioxide 21 mmol/L (22-29); Chloride 98 mmol/L (98-107); Creatinine Clr Calc Pharmacy 106.0763; Glomerular Filtration Rate 108.1 mL/min (90-130); Glucose 148 mg/dL (65-115); Magnesium 1.8 mg/dL (1.7-2.3); Osmolality Calculated 276 mOsm/kg (285-295); Phosphorus 3.2 mg/dL (2.5-4.5); Sodium 132 mmol/L (136-145); Total Bilirubin 0.2 mg/dL (0.15-1.2); Total Protein 6.3 g/dL (6.6-8.7)
[2023-10-03 06:41] LABS: Anion Gap 17.3 (5-19); Aspartate Amino Transferase 19 U/L (0-32); Potassium 4.3 mmol/L (3.5-5.1)
[2023-10-03] MEDS: budesonide 0.5 mg/2 mL Neb INHALATION ×2 (08:15→21:00)
[2023-10-03] MEDS: nystatin 100,000 unit/mL UDC 5 mL 100000 UNIT PO ×4 (10:08→20:51)
[2023-10-03] MEDS: insulin glargine 100 units/1 mL 5 UNIT SUBCUT (10:08)
[2023-10-03] MEDS: fluoxetine 20 mg Capsule PO (10:09)
[2023-10-03] MEDS: levoFLOXacin 750 mg Tablet PO (10:09)
[2023-10-03] MEDS: benzonatate 100 mg Capsule 200 MG PO ×3 (10:09→20:51)
[2023-10-03] MEDS: sulfamethoxazole-trimeth DS 160-800 mg Tablet 2 TAB PO ×3 (10:09→20:50)
[2023-10-03] MEDS: predniSONE 20 mg Tablet 40 MG PO ×2 (10:10→17:37)
[2023-10-03] MEDS: gabapentin 100 mg Capsule PO ×2 (10:10→17:37)
[2023-10-03] MEDS: guaiFENesin 600 mg Tablet PO ×2 (10:10→17:37)
[2023-10-03] MEDS: cetirizine 10 mg Tablet PO (10:10)
[2023-10-03] MEDS: fluticasone nasal spray 16gm Btl 1 SPRAY INTRANASAL (10:12)
--- NOTE | 2023-10-03 10:47 | P.PN_ITS ---
Subjective 2 Subjective: She was transferred from the ICU yesterday (10/01). She is saturating well on 2 L/min O2. She reports improvement in her dyspnea. She denies any fever, chills, or chest pain. She has chronic diarrhea and high urine output (chronic). BAL PJP PCR still pending. She wants to leave today but advised her that we need to wait for the results to guide her antibiotic therapy. Medications: Reviewed: Yes Vitals/I&O/Wt Last Vital Signs Temp 98.2 F 10/03/23 07:59 Pulse 98 10/03/23 08:16 Resp 18 10/03/23 08:16 BP 121/75 10/03/23 07:59 Pulse Ox 96 10/03/23 08:16 O2 Del Method High Flow Nasal Cannula 10/03/23 08:16 O2 Flow Rate 2 10/03/23 08:16 FiO2 30 10/02/23 09:03 10/02/23 10/03/23 10/03/23 22:59 06:59 14:59 Intake Total 780 / 1360 50 / 1410 530 / 530 Output Total 600 / 600 Balance 180 / 760 50 / 810 530 / 530 Weight last 48 hrs Weight 66.723 kg Weight 66.996 kg Physical Exam 2 Narrative: GEN: Alert, cooperative Neuro: Oriented x 4, no focal neurodeficits HEENT: Normocephalic, atraumatic, PERRLA Neck: Supple, no JVD Cardio: S1, S2, regular rate and rhythm, no murmur, rub or gallop Lungs: Normal effort, scattered crackles Abdomen: Soft, nontender, nondistended, normal bowel sounds Extremity: No edema Skin: No lesions Urinary Catheter Management: Bond: Cath Placed During This Visit: yes Reason for Continuing Indwelling Catheter: Accurate Measurement of Urinary Output in Critically Ill Patients Urinary Catheter Date of Insertion: 09/29/23 Urinary Catheter Time of Insertion: 11:00 Data 10/03/23 05:50 10/03/23 05:50 A&P Assessment and plan (1) ARDS (adult respiratory distress syndrome): From bilateral pneumonia and inhalation injury Also had COPD exacerbation Transferred to the ICU on 09/26 and transferred out on 10/01 She required heated high flow oxygen but is now on 2 L/min O2 She had bronchoscopy on 09/28/[address] 10/01 showed more diffuse but less dense airspace opacities (2) Bilateral pneumonia: Immunocompromised status - she was on high-dose steroids, etanercept and leflunonamide for her rheumatoid arthritis; also s/p splenectomy She had a bronchoscopy on 09/27 with cultures pending Diffuse bilateral infiltrates seen on initial CT chest; CT chest on 10/01 showed improving infiltrates Concern for PJP pneumonia but less likely given given negative induce sputum PJP PCR; BAL PJP PCR pending QuantiFERON gold and BDG were negative; HIV negative Negative crytococcal Ag, Blastomyces, Coccidioides, histoplasma serology pending She is on IV Zosyn and oral Levaquin; plan for 10 days total Switched to PO Bactrium on 10/01 Dr Nicole is following as ID (3) COPD exacerbation: COPD exacerbation in setting of inhalation of smoke. Continue with inhalation treatment with Xopenex and ipratropium every 6 hours as needed, Pulmicort twice daily. Oxygen supplementation keeping saturation over 90%. Continue prednisone taper (4) Toxic inhalation injury: Patient was cooking and inhaled grease fumes which triggered her current COPD exacerbation. (5) Sinus tachycardia: Resolved. Continue with levalbuterol. (6) Hyperglycemia: She reports a history of prediabetes. Her hemoglobin A1c was 5.6% on 09/25/2023. She is on steroids for COPD exacerbation and suspected PJP pneumonia. Continue SSI. Started lantus 5 mg daily. Continue to monitor glucose (7) Oral thrush: She had significant oral thrush and was not able to swallow. Continue with nystatin and fluconazole (total of 10 days of fluconazole) (8) Anxiety: She has had severe anxiety during this hospital stay requiring precedex infusion. She has a history of PTSD and bipolar disorder. She is on gabapentin and was started fluoxetine 09/30. Off precedex on 09/30 (9) Chronic diarrhea: She is status post total colectomy history of colon cancer Continue Imodium as needed (10) Urine output high: She reports chronic high urine output. Urine output improved yesterday but still high. Continue to monitor. Plan Now on 2 L/min O2 and off precedex drip. Downgrading to Med/surg today. CT chest showed improved infiltrates. Switched to PO Bactrim. Waiting for BAL PJP PCR. On zosyn and levaquin. Attestations 2 Medical Necessity Statement*: Patient needs continued hospitalization. She is on antibiotics for pneumonia. Treating for suspected PJP pneumonia. Pending BAL PCR results. She continues to need oxygen. Attempting to titrate off. Coding Level of Care Code 39786 Diagnoses ARDS (adult respiratory distress syndrome) J80 Bilateral pneumonia J18.9 COPD exacerbation J44.1 Toxic inhalation injury T59.94XA Sinus tachycardia R00.0 Hyperglycemia R73.9 Oral thrush B37.0 Anxiety F41.9 Chronic diarrhea K52.9 Urine output high R35.89
[2023-10-03 12:01] LABS: Glucose Point of Care 155 mg/dL (70-110)
[2023-10-03] MEDS: fluconazole 100 mg Tablet PO (12:37)
[2023-10-03] MEDS: insulin lispro 100 unit/1 mL SUBCUT ×3 (12:39→22:12)
[2023-10-03] MEDS: diphenoxylate/atropine Tablet 3 TAB PO ×3 (12:42→23:14)
[2023-10-03 16:37] LABS: Glucose Point of Care 191 mg/dL (70-110)
[2023-10-03 21:08] LABS: Glucose Point of Care 262 mg/dL (70-110)
[2023-10-04] VITALS (11 sets, daily range): BP systolic 114–137; BP diastolic 76–80; PULSE 83–102; RESP 16–21; TEMP 36.7–36.8; O2SAT 91–95
[2023-10-04] MEDS: pantoprazole 40 mg SDV IVP (02:12)
[2023-10-04] MEDS: guaiFENesin-dextromethorphan UDC 10 mL 5 ML PO ×2 (02:21→10:36)
[2023-10-04] MEDS: enoxaparin 40 mg/0.4 mL Syringe SUBCUT (02:23)
[2023-10-04] MEDS: piperacillin-tazobactam 3.375 GM in sodium chloride 0.9% (plus) 50 ML IV (04:27)
[2023-10-04 05:12] LABS: Basophils # 0.1 10^3/uL (0.0-0.1); Basophils % 0.3 %; Hematocrit 37.3 % (36-47); Lymphocytes # 4.5 10^3/uL (0.8-4.8); Lymphocytes % 15.5 %; Mean Corpuscular HGB Conc 35.4 g/dL (30-55); Mean Corpuscular Hemoglobin 31.7 pg (27-33); Mean Corpuscular Volume 89.7 fl (85-98); Monocytes # 1.8 10^3/uL (0.2-0.9); Monocytes % 6.1 %; Neutrophils # 21.35 10^3/uL (1.8-7.7); Neutrophils % 73.9 %; Nucleated Red Blood Cells % 0 %; Platelet Count 584 10^3/cmm (157-399); Red Blood Count 4.16 10^6/uL (3.85-5.65); Red Cell Distribution Width 14.2 % (12.1-15.1); White Blood Count 28.92 10^3/uL (3.29-11.43)
[2023-10-04 06:06] LABS: Anion Gap 15.5 (5-19); Blood Urea Nitrogen 19 mg/dL (6-20); Calcium 8.7 mg/dL (8.5-10.5); Carbon Dioxide 24 mmol/L (22-29); Chloride 96 mmol/L (98-107); Creatinine Clr Calc Pharmacy 105.1313; Glomerular Filtration Rate 108.1 mL/min (90-130); Glucose 115 mg/dL (65-115); Osmolality Calculated 275 mOsm/kg (285-295); Potassium 4.5 mmol/L (3.5-5.1); Sodium 131 mmol/L (136-145)
[2023-10-04] MEDS: diphenoxylate/atropine Tablet 3 TAB PO ×2 (06:09→11:47)
[2023-10-04 06:30] LABS: Glucose Point of Care 128 mg/dL (70-110)
[2023-10-04] MEDS: budesonide 0.5 mg/2 mL Neb INHALATION (08:25)
[2023-10-04] MEDS: fluticasone nasal spray 16gm Btl 1 SPRAY INTRANASAL (09:06)
[2023-10-04] MEDS: fluoxetine 20 mg Capsule PO (09:07)
[2023-10-04] MEDS: cetirizine 10 mg Tablet PO (09:07)
[2023-10-04] MEDS: levoFLOXacin 750 mg Tablet PO (09:07)
[2023-10-04] MEDS: benzonatate 100 mg Capsule 200 MG PO (09:07)
[2023-10-04] MEDS: guaiFENesin 600 mg Tablet PO (09:07)
[2023-10-04] MEDS: sulfamethoxazole-trimeth DS 160-800 mg Tablet 2 TAB PO (09:07)
[2023-10-04] MEDS: gabapentin 100 mg Capsule PO (09:08)
[2023-10-04] MEDS: predniSONE 20 mg Tablet 40 MG PO (09:08)
[2023-10-04] MEDS: nystatin 100,000 unit/mL UDC 5 mL 100000 UNIT PO ×2 (09:08→14:11)
[2023-10-04] MEDS: insulin glargine 100 units/1 mL 5 UNIT SUBCUT (09:09)
[2023-10-04] MEDS: lidocaine 5% Patch 1 PATCH TOPICAL (09:20)
[2023-10-04] MEDS: fluconazole 100 mg Tablet PO (10:53)
[2023-10-04 11:48] LABS: Glucose Point of Care 226 mg/dL (70-110)
[2023-10-04] MEDS: insulin lispro 100 unit/1 mL SUBCUT (12:05)
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
--- NOTE | 2023-10-04 13:35 | PC.NURSE ---
Dr. Nicole stated not to give antibiotic. Patient is being discharged on oral antibiotics.
--- NOTE | 2023-10-04 14:45 | PC.NURSE ---
Discussed discharge new medications, hold medications, stopped medications, follow up appointments and discussed COPD [place] with patient. Patient verbalized understanding to all. Nebulizer was delivered and script for prednisone was given to patient.
--- NOTE | 2023-10-04 17:22 | PM.PN ---
Subjective Subjective: Infectious disease progress note. Patient is significantly improved over the weekend. She is currently on room air. Underwent a home O2 eval today, did not qualify for supplemental O2. States she feels much better. Bouts of cough have nearly resolved. States dyspnea is much improved. Medications: Reviewed: Yes Vitals/I&O/Wt Last Vital Signs Temp 98.0 F 10/04/23 15:33 Pulse 94 10/04/23 15:33 Resp 16 10/04/23 15:33 BP 114/76 10/04/23 15:33 Pulse Ox 91 10/04/23 12:42 O2 Del Method Room Air 10/04/23 11:16 O2 Flow Rate 2 10/04/23 08:00 FiO2 30 10/02/23 09:03 10/04/23 10/04/23 10/04/23 06:59 14:59 22:59 Intake Total 50 / 1590 437 / 437 Balance 50 / 1590 437 / 437 Weight last 48 hrs Weight 65.459 kg Weight 66.723 kg Physical Exam Narrative: General: No acute distress, AO x3 HEENT: PERRLA, pupils bilaterally equal and reactive, pallors not present Chest: Normal vesicular breath sounds, no added sounds, equal good air entry bilaterally CVS: S1-S2 regular, no murmurs, no tachycardia, no gallops, no rubs Abdomen: Soft, nontender, no organomegaly, bowel sounds present Neuro: No focal deficits, no facial deformity, AO x3, power 5/5 in all limbs Urinary Catheter Management: Bond: Cath Placed During This Visit: yes Reason for Continuing Indwelling Catheter: Accurate Measurement of Urinary Output in Critically Ill Patients Urinary Catheter Date of Insertion: 09/29/23 Urinary Catheter Time of Insertion: 11:00 Data 10/04/23 04:33 10/04/23 05:46 Micro: Microbiology 09/28/23 12:32 MTB Complex and Rifampin Resistance - Final Sputum - Endotracheal Tube Aspirate 09/28/23 12:36 Fungal Smear - Preliminary Tissue Other data: From BAL on 09/27: Fungal cx : No growth thus far Gram stain and cx : Yeast sp- per discussion with micro- these are patricia spp MRSA screen : negative Ag/GM: pending AFB smear : cancelled by lab MTB PCR: Negative PJP PCR : pending ; per personal log and into the [employer] database, it appears PJP PCR add on testing was awaiting physician signature. It has been signed and faxed over to [facility] today, hopefully will have results in the next 24 to 48 hours. From induced sputum 09/26: PJP PCR: negative Serology : 09/26: Serum BDG : negative 09/26: Serum cryptococcal Ag : negative 09/26: Histoplasma serology : Negative H and M protein, less likely to be histoplasmosis 09/26: urine histoplasma Ag : pending 09/26: Coccidiodes Ab : pending 09/27: HIV AG/AB : negative 09/26: Quantiferon : negative 09/24: urine yehuda ag: negative urine legionella Ag : negative A&P Assessment and plan (1) ARDS (adult respiratory distress syndrome): (2) Oral thrush: (3) High risk medication use: (4) Pneumocystis jiroveci pneumonia: (5) Bilateral pneumonia: (6) Hypoxic respiratory failure: Plan 43F 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 Differential currently broad, possibilities include bacterial vs fungal etiology s/p bronchsscopy on 09/27 for diagnostic cx Thus far respiratory cx with yeast spp, likely seen as a result of noted thrush, less likely to be the true culprit Patricia per discussion with micro lab. Pending fungal serologies as noted above High clinical suspicion for PJP pneumonia based on B/L diffuse infiltrates, hypoxia, elevated LDH- currently on presumptive treatment for the same while pending results of confirmatory tests. Plan: Discontinue po Bactrim DS 2 tab TID for presumptive PJP treatment. with negative serum BDG and negative induced sputum PJP PCR, PJP appearing to be less likely now ; awaiting final PJP PCR from bronchoscopy. Hopefully will have results in the next 24 to 48 hours. Patient is clinically much improved, currently on room air at rest and exertion. CT chest w/o contrast taken today shows diffuse B/L GGOs, no gorss consolidation, previously appearing pneumatocoeles appear to be improving per personal review. Clinically signifcantly improved now BAL CX remain unrevealing to date Alternate differentials include COOP vs eosinophilic pneumonia Continue steroids taper - Prednisone 40 mg daily followed by slow taper. Can maintain on prednisone 10 mg daily until evaluated by pulmonology as outpatient. Referral provided to outpatient pulmonology. Added prophylactic Bactrim DS for PJP prophylaxis Wednesday. Continue to hold leflunomide, etanercept until follow-up with rheumatology as outpatient. She has completed piperacillin tazobactam for 10 days empirically l; atypical coverage was expanded to levaquin empirically ; discharged with levofloxacin 750 mg p.o. daily for 5 days. Negative MRSA PCR screen F/up pending fungal serologies inclding histoplasma and coccidiodes, add blatomyces serology-will follow as outpatient from ID clinic Continue fluconazole 100mg for total 10 days for oropharyngeal candidiasis Attestations Medical Necessity Statement*: Stable for discharge from ID standpoint. Coding Level of Care Code Acute Code for Chg Fwd Moderate MDM includes number and complexity of problems actively addressed during encounter, amount and/or complexity of data reviewed/ordered and described risk of complication, morbidity or mortality of management as documented Diagnoses ARDS (adult respiratory distress syndrome) J80 Oral thrush B37.0 High risk medication use Z79.899 Pneumocystis jiroveci pneumonia B59 Bilateral pneumonia J18.9 Hypoxic respiratory failure J96.91
[2023-10-04 20:41] LABS: Coccidioides IgG Antibody NEGATIVE; Coccidioides IgM Antibody NEGATIVE
[2023-10-05 15:59] LABS: Pneumocystis Jirovecii Source RLL BRONCH
[2023-10-05 19:30] LABS: Aspergillus AG,EIA,Serum NOT DETECTED; Aspergillus Galactomannan Inde <0.50
[2023-10-06 12:20] LABS: Blastomyces AB Immunodiffusion Negative (Negative); Blastomyces Dermatitidis AB <1:8 titer (<1:8)
[2023-10-07 06:39] LABS: Histoplasma Antigen (Quant) NONE DETECTED; Histoplasma Antigen Interpreta NEGATIVE; Histoplasma Antigen Specimen LAVAGE,BRONCHIAL
[2023-10-07 06:39] LABS: Histoplasma Antigen (Quant) NONE DETECTED; Histoplasma Antigen Interpreta NEGATIVE; Histoplasma Antigen Specimen URINE
== END 2023-10-04 14:40 | disposition home or self-care (01) | DRG 193 ==
LOC: ER 09-25 01:05 → MEDSURG 09-25 01:47 → ICU 09-27 06:45 → MEDSURG 10-02 17:57
PROVIDERS: Emergency Medicine; Internal Medicine Pulmonary Disease; Student in an Organized Health Care Education/Training Program; Admitting Provider Family Medicine; Emergency Provider Physician Assistant; PCP Family Medicine; Visit Provider Student in an Organized Health Care Education/Training Program
PROC: 0BJ08ZZ Inspection of Tracheobronchial Tree, Via Natural or Artificial Opening Endoscopic (ICD-10-PCS; CPT 31622; principal; 2023-09-28 11:35)
DX: J18.9 Pneumonia, unspecified organism (principal); J80 Acute respiratory distress syndrome; J44.1 Chronic obstructive pulmonary disease with (acute) exacerbation; J44.0 Chronic obstructive pulmonary disease with (acute) lower respiratory infection; B37.0 Candidal stomatitis; T17.890A Other foreign object in other parts of respiratory tract causing asphyxiation, initial encounter; D84.89 Other immunodeficiencies; E87.1 Hypo-osmolality and hyponatremia; T59.811A Toxic effect of smoke, accidental (unintentional), initial encounter; F17.210 Nicotine dependence, cigarettes, uncomplicated; R00.0 Tachycardia, unspecified; F41.0 Panic disorder [episodic paroxysmal anxiety]; F41.9 Anxiety disorder, unspecified; F43.10 Post-traumatic stress disorder, unspecified; M35.3 Polymyalgia rheumatica; K52.9 Noninfective gastroenteritis and colitis, unspecified; E87.6 Hypokalemia; Z11.52 Encounter for screening for COVID-19; Z90.81 Acquired absence of spleen; Z85.41 Personal history of malignant neoplasm of cervix uteri; Z85.038 Personal history of other malignant neoplasm of large intestine; Z90.49 Acquired absence of other specified parts of digestive tract
CPT/HCPCS: 31624; 31645; 36415; 36416; 36600; 51702; 71045; 71250; 71260; 80048; 80053; 80061; 80306; 80307; 80503; 82607; 82746; 82803; 82962; 83036; 83540; 83550; 83605; 83615; 83735; 83880; 84100; 84145; 84443; 84484; 85025; 85378; 85651; 86140; 86403; 86480; 86612; 86635; 86698; 87015; 87040; 87070; 87102; 87116; 87205; 87206; 87281; 87305; 87385; 87449; 87486; 87581; 87633; 87641; 87798; 87801; 87806; 88112; 89050; 93005; 93306; 94640; 94664; 94760; 96360; 96372; 96374; 96376; 97110; 97161; 99285; C9113; G0378; J0456; J0696; J1100; J1450; J1650; J1815; J1940; J2060; J2270; J2405; J2543; J2919; J3010; J3480; J3490; J7030; J7050; J7060; J7512; J7614; J7626; J7644; Q9967

== ENCOUNTER → 2024-02-29 11:57 | Outpatient (BNVA) | payer MEDICAID, SELFPAY | PROVIDERS: PCP Family Medicine; Visit Provider Internal Medicine Rheumatology | DX: M46.90 Unspecified inflammatory spondylopathy, site unspecified (principal); Z79.899 Other long term (current) drug therapy | CPT/HCPCS: 36415; 80076; 82565; 85025; 85651; 86140 ==

== ENCOUNTER 2024-03-01 07:15 | Outpatient (CLI) | payer MEDICAID, SELFPAY ==
[2024-03-01 07:48] VITALS: PULSE 101; RESP 22; O2SAT 98
[2024-03-01] MEDS: albuterol 2.5 mg/3 mL Neb INHALATION (07:48)
[2024-03-01 07:52] VITALS: PULSE 100
== END 2024-03-01 07:23 | disposition home or self-care (01) ==
PROVIDERS: PCP Family Medicine; Visit Provider Family Medicine
DX: J44.9 Chronic obstructive pulmonary disease, unspecified (principal); R94.2 Abnormal results of pulmonary function studies
CPT/HCPCS: 94060; 94729; J7613

== ENCOUNTER → 2024-03-06 08:15 | Outpatient (BNVA) | payer MEDICAID, SELFPAY | PROVIDERS: PCP Family Medicine; Visit Provider Podiatrist Foot & Ankle Surgery | DX: E11.42 Type 2 diabetes mellitus with diabetic polyneuropathy (principal); M25.872 Other specified joint disorders, left ankle and foot; Q66.72 Congenital pes cavus, left foot | CPT/HCPCS: 73630 ==

== ENCOUNTER 2024-12-15 08:01 | Emergency (ER) | payer MEDICAID, SELFPAY ==
[2024-12-15] VITALS (8 sets, daily range): BP systolic 110–149; BP diastolic 62–97; PULSE 98–140; RESP 12–20; TEMP 37.1; O2SAT 90–95; BMI 24.7
--- OUTSIDE RECORDS SUMMARY | 2024-12-15 08:06 | XMS_ITS | Clinical Summary ---
Author Organization [facility] Address [address] [place] [address] Phone Care Team Providers Care Respiratory Therapy Technician Name Role Phone Akshat Hoskins MD Primary Care Provider [phone] Allergies Active Allergy Reactions Criticality Noted Date Comments Codeine Anaphylaxis High 08/24/2014 Medications diphenoxylate-at ropine 2.5-0.025 mg tablet Take 3 Tablet by mouth 4 times daily as needed for Diarrhea/Lo ose Stools . Active dicyclomine (BENTYL) 20 mg tablet Take 20 mg by mouth 4 times daily. Active vit-iron fumarate-FA ( S) 27-0.8 mg Tablet Take 1 Tab by mouth daily. Active ondansetron (ZOFRAN ODT) 4 mg Tablet, Rapid Dissolve Place 4 mg under tongue every 8 hours as needed for Nausea/Emes is. Active montelukast (SINGULAIR) 10 mg tablet Take 10 mg by mouth daily at bedtime. Active cholestyramine, with sugar, (QUESTRAN) 4 gram Powder in Packet Take 1 Packet by mouth 2 times daily. 60 Packet 11 09/30/2015 Active Active Problems Problem Noted Date Diagnosed Date Premature rupture of membranes in , ant epartum 08/24/2014 H/O delivery, currently 015 Immunizations Immunization Administration Dates Next Due Adacel Vaccine > 7 Yo IM 05/11/2014 Influenza Seasonal Unspecified Formulation IM Family History Medical History Relation Name Comments Colon Cancer Neg Hx Social History Tobacco Use Types Packs/Day Years Used Date Smoking Tobacco: Every Day Cigarettes 1 22 Smokeless Tobacco: Never Alcohol Use Standard Drinks/Week Comments No 0 (1 standard drink = 0.6 oz pur e alcohol) Comments No Sex and Gender Information Value Date Recorded Sex Assigned at Not on file 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 Gender Identity Not on file Sexual Orientation Not on file Last Filed Vital Signs Vital Sign Reading Time Taken Comments Blood Pressure 120/71 09/30/2015 9:56 AM CDT Pulse 105 09/30/2015 9:56 AM CDT Temperature 36.3 C (97.4 F) 09/24/2015 8:40 AM CDT Respiratory Rate 09/24/2015 10:29 AM CDT Oxygen Saturation 98% 09/30/2015 9:56 AM CDT Inhaled Oxygen Concentration - - Weight 60.8 kg (134 lb) 09/30/2015 9:56 AM CDT Height 162.6 cm (5' 4 ) 09/30/2015 9:56 AM CDT Body Mass Index 09/30/2015 9:56 AM CDT Plan of Treatment Health Maintenance Due Date Last Done Comments HEPATITIS B VACCINES (1 of 3 - 19+ 3-dose series) 1997 HPV/Cotest (21-29) 09/28/1999 CERVICAL CANCER SCREENING 2008 HPV/Cotest (30-65) 2008 PAP SMEAR 2008 BREAST CANCER SCREENING 2018 FIT-DNA Q 3 years 09/28/2023 FIT/FOBT Q 1 year 09/28/2023 Flex Sig/CT Colonography Q 5 years 09/28/2023 DTAP/TDAP/TD VACCINES (2 - T d or Tdap) 05/11/2024 05/11/2014 INFLUENZA VACCINE (#1) 2024 08/09/2014 COLORECTAL SCREENING 09/23/2025 09/24/2015, 09/24/2015, 11/01/2003 Colorectal Cancer Screening 09/23/2025 HPV VACCINES Aged Out No longer eligi ble based on patient's age to complete this topic Procedures Procedure Name Priority Date/Time Associated Diagnosis Comments ENDOSCOPY, COLON, DIAGNOSTIC Routine 09/24/2015 8:36 AM CDT Crohn's disease of small intestine with complication (CMS/HCC) Acute diarrhea Nausea Abdominal pain, unspecified abdominal location from Last 3 Months or Most Recently Relevant to Health Maintenance Insurance MEDICAID [place] Advance Directives For more information, please contact: [phone] * Full Code (Latest Code Status on File) Date Activated Date Inactivated Comments 09/24/2015 8:37 AM 09/24/2015 12:43 PM * Full Code Date Activated Date Inactivated Comments 08/25/2014 4:16 AM 08/27/2014 6:19 PM * Full Code Date Activated Date Inactivated Comments 08/24/2014 7:03 PM 08/25/2014 4:16 AM Care Teams Respiratory Therapy Technician Relationship Specialty Start Date End Date Akshat Hoskins MD [address] [address] PCP - General 10/29/03
--- OUTSIDE RECORDS SUMMARY | 2024-12-15 08:06 | XMS_ITS | Clinical Summary ---
Author Organization [facility] Address [address] [facility] Attn: Epic Prelude ADT [place] [address] Care Team Providers Care Rn Plastic Surgery Name Role Phone Akshat Hoskins MD Primary Care Provider [phone] Allergies Active Allergy Reactions Criticality Noted Date Comments Codeine Anaphylaxis High 08/24/2014 Medications cholestyramine, with sugar, (QUESTRAN) 4 gram Powder in Packet Take 1 Packet by mouth 2 times daily. 60 Packet 11 09/30/2015 Active ondansetron (ZOFRAN ODT) 4 mg Tablet, Rapid Dissolve Place 4 mg under tongue every 8 hours as needed for Nausea/Emes is. 08/24/2014 Active diphenoxylate-at ropine 2.5-0.025 mg tablet Take 3 Tablet by mouth 4 times daily as needed for Diarrhea/Lo ose Stools . 08/24/2014 Active dicyclomine (BENTYL) 20 mg tablet Take 20 mg by mouth 4 times daily. 08/24/2014 Active vitamin-iron fumarate-folic acid 27 mg-0.8 mg Tablet Take 1 Tab by mouth daily. 08/24/2014 Active montelukast (SINGULAIR) 10 mg tablet Take 10 mg by mouth daily at bedtime. 09/30/2015 Active Active Problems Problem Noted Date Diagnosed Date Panlobular emphysema 06/28/2024 Premature rupture of membranes in , ant epartum 08/24/2014 H/O delivery, currently 015 Encounters Date Type Department Care Team Description 11/22/2024 External Device Data ST[facility] ABSTRACTION Provider, Abstract 11/22/2024 External Device Data [facility] ABSTRACTION Provider, Abstract 11/22/2024 External Device Data [facility] ABSTRACTION Provider, Abstract 11/22/2024 External Device Data [facility] ABSTRACTION Provider, Abstract 11/21/2024 External Device Data [facility] ABSTRACTION Provider, Abstract 10/31/2024 External Device Data [facility] ABSTRACTION Provider, Abstract 2024 External Device Data [facility] ABSTRACTION Provider, Abstract 09/26/2024 External Device Data [facility] ABSTRACTION Provider, Abstract 09/19/2024 External Device Data [facility] ABSTRACTION Provider, Abstract 09/19/2024 External Device Data ST[facility] ABSTRACTION Provider, Abstract from Last 3 Months Immunizations Immunization Administration Dates Next Due Adacel Vaccine > 7 Yo IM 05/11/2014 Influenza Seasonal Unspecified Formulation IM Family History Medical History Relation Name Comments Colon Cancer Neg Hx Social History Tobacco Use Types Packs/Day Years Used Date Smoking Tobacco: Former Cigarettes Q uit: 03/10/2024 Passive Smoke Exposure: Never Smokeless Tobacco: Never Tobacco Cessation:Counseling Given: Not Answered Alcohol Use Standard Drinks/Week Comments No 0 (1 standard drink = 0.6 oz pur e alcohol) Comments Unknown Sex and Gender Information Value Date Recorded Sex Assigned at Not on file Legal 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 Gender Identity Not on file Sexual Orientation Not on file Last Filed Vital Signs Vital Sign Reading Time Taken Comments Blood Pressure 120/71 09/30/2015 9:56 AM CDT Pulse 105 09/30/2015 9:56 AM CDT Temperature 36.3 C (97.4 F) 09/24/2015 8:40 AM CDT Respiratory Rate 20 09/24/2015 10:29 AM CDT Oxygen Saturation - - Inhaled Oxygen Concentration - - Weight 60.8 kg (134 lb) 09/30/2015 9:56 AM CDT Height 162.6 cm (5' 4 ) 09/30/2015 9:56 AM CDT Body Mass Index 23 09/30/2015 9:56 AM CDT Plan of Treatment Health Maintenance Due Date Last Done Comments DIABETES ANNUAL FOOT EXAM 1996 DIABETES ANNUAL RETINAL EXAM 1996 DIABETES MICROALBUMIN ANNUAL SCREEN 1996 LDL CHOLESTEROL ANNUAL 1996 HEPATITIS B VACCINES (1 of 3 - 19+ 3-dose series) 1997 HPV/Cotest (21-29) 09/28/1999 CERVICAL CANCER SCREENING 2008 HPV/Cotest (30-65) 2008 PAP SMEAR 2008 BREAST CANCER SCREENING 2018 FIT-DNA Q 3 years 09/28/2023 FIT/FOBT Q 1 year 09/28/2023 Flex Sig/CT Colonography Q 5 years 09/28/2023 DIABETES HBA1C Q 6 MONTHS 04/11/2024 10/11/2023 DTAP/TDAP/TD VACCINES (3 - Td or Tdap) 06/07/2024 06/07/2014, 05/11/2014 INFLUENZA VACCINE (#1) 2024 2, 03/15/2018, 02/16/2017, Additional history exists COLORECTAL SCREENING 09/23/2025 09/24/2015, 09/24/19 16 Colorectal Cancer Screening 09/23/2025 HPV VACCINES Aged Out No longer eligi ble based on patient's age to complete this topic Insurance [address] [place] [address] [facility] MEDICAID Care Teams Rn Plastic Surgery Relationship Specialty Start Date End Date Akshat Hoskins MD [address] [address] [place] [address] PCP - General 10/29/03
--- OUTSIDE RECORDS SUMMARY | 2024-12-15 08:06 | XMS_ITS | Encounter Summary ---
Author Organization [facility] Address [address] [place] [address] Care Team Providers Care Play Therapist Name Role Phone Akshat Hoskins MD Primary Care Provider [phone] Encounter Details Date Type Department Care Team (Latest Contact Info) Description 10/29/2003 Outpatient Historical [facility] Imaging Services [address] [place] [address] He Mladonado MD NO ADDRESS ON FILE UNSPEC CONSTIPATION (Primary Dx) Social History Tobacco Use Types Packs/Day Years Used Date Smoking Tobacco: Never Assessed Comments Unknown Sex and Gender Information Value Date Recorded Sex Assigned at Not on file Legal Sex Female 2:50 AM HELP DESK 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
--- OUTSIDE RECORDS SUMMARY | 2024-12-15 08:06 | XMS_ITS | Encounter Summary ---
Author Organization [facility] Address [address] [place] [address] Care Team Providers Care Plate Glass Grinder Name Role Phone Akshat Hoskins MD Primary Care Provider [phone] Encounter Details Date Type Department Care Team (Latest Contact Info) Description 10/23/2003 Outpatient Historical [facility] Gastro[facility] [place] [address] He Maldonado MD NO ADDRESS ON FILE ABDOMINAL PAIN UNSPEC SITE (Primary Dx); UNSPEC CONSTIPATION Social History Tobacco Use Types Packs/Day Years Used Date Smoking Tobacco: Never Assessed Comments Unknown Sex and Gender Information Value Date Recorded Sex Assigned at Not on file Legal Sex Female 2:50 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
--- OUTSIDE RECORDS SUMMARY | 2024-12-15 08:06 | XMS_ITS | Encounter Summary ---
Author Organization [facility] Address [address] [place] [address] Care Team Providers Care Grounds Worker Name Role Phone Akshat Hoskins MD Primary Care Provider [phone] Encounter Details Date Type Department Care Team (Latest Contact Info) Description 11/01/2003 Outpatient Historical [facility] Endoscopy [place] [address] [facility] [address] [place] [address] He Maldonado MD NO ADDRESS ON FILE INTESTINAL DISORDERS NEC (Primary Dx) Social History Tobacco Use Types Packs/Day Years Used Date Smoking Tobacco: Never Assessed Comments Unknown Sex and Gender Information Value Date Recorded Sex Assigned at Not on file Legal Sex Female 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
--- OUTSIDE RECORDS SUMMARY | 2024-12-15 08:06 | XMS_ITS | Encounter Summary ---
Author Organization [facility] Address [address] [place] [address] Care Team Providers Care Nurse Specialist Name Role Phone Akshat Hoskins MD Primary Care Provider [phone] Encounter Details Date Type Department Care Team (Latest Contact Info) Description 11/09/2003 Outpatient Historical [facility] Imaging Services [address] [place] [id number] He Mcintosh MD [address] [place] [address] ABNORMAL FINDINGS-GI TRACT (Primary Dx) Social History Tobacco Use Types Packs/Day Years Used Date Smoking Tobacco: Never Assessed Comments Unknown Sex and Gender Information Value Date Recorded Sex Assigned at Not on file Legal Sex Female 2:50 AM NETWORK/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
--- OUTSIDE RECORDS SUMMARY | 2024-12-15 08:06 | XMS_ITS | Encounter Summary ---
Author Organization [facility] Address [address] [place] [address] Care Team Providers Care Pillow Cleaner Name Role Phone Akshat Hoskins MD Primary Care Provider [phone] Encounter Details Date Type Department Care Team (Latest Contact Info) Description 11/15/2003 Outpatient Historical [facility] [place] [address] [facility] [address] [place] [address] He Maldonado MD NO ADDRESS ON FILE UNSPEC CONSTIPATION (Primary Dx) Social History Tobacco Use Types Packs/Day Years Used Date Smoking Tobacco: Never Assessed Comments Unknown Sex and Gender Information Value Date Recorded Sex Assigned at Not on file Legal Sex Female 2:50 AM 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
--- OUTSIDE RECORDS SUMMARY | 2024-12-15 08:06 | XMS_ITS | Encounter Summary ---
Author Organization [facility] Address [address] [place] [address] Care Team Providers Care Heel Top Lift Splitter Name Role Phone Akshat Hoskins MD Primary Care Provider [phone] Encounter Details Date Type Department Care Team (Latest Contact Info) Description 11/01/2003 Outpatient Historical [facility] Gastroenterology[address] [place] [address] He Maldonado MD NO ADDRESS ON FILE UNSPEC CONSTIPATION (Primary Dx) Social History Tobacco Use Types Packs/Day Years Used Date Smoking Tobacco: Never Assessed Comments Unknown Sex and Gender Information Value Date Recorded Sex Assigned at Not on file Legal Sex Female 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
--- NOTE | 2024-12-15 08:11 | CT_ITS ---
WS: [id number] CT HEAD NONCONTRAST HISTORY: trauma TECHNIQUE: Contiguous axial imaging performed through the brain. Bone and soft tissue windows. Sagittal and coronal reformats reviewed. All CT scans at [facility] use at least one of these dose optimization techniques: automated exposure control; mA and/or kV adjustment per patient size (includes targeted exams where dose is matched to clinical indication); or iterative reconstruction. DLP: 2037.55 mGy.cm COMPARISON: None. There is motion artifact at the level of the ventricles. Otherwise brain is negative. No acute intracranial hemorrhage, midline shift or mass effect. No atrophy or prior infarcts or herniation. Ventricles: Normal size with no hydrocephalus. Paranasal sinuses: As visualized are clear. Mastoid air cells: Well pneumatized. Calvarium and scalp: Skull is intact with no soft tissue edema or swelling. CT/CT head wo con* [id number] IMPRESSION: 1. Limited by motion artifact. 2. No hemorrhage or edema identified. 3. No skull fracture.
--- NOTE | 2024-12-15 08:11 | CT_ITS ---
WS: [id number] CT CERVICAL SPINE HISTORY: trauma TECHNIQUE: Contiguous 2.0 mm axial imaging performed through the entire cervical spine. Sagittal and coronal reformats also performed. All CT scans at [facility] use at least one of these dose optimization techniques: automated exposure control; mA and/or kV adjustment per patient size (includes targeted exams where dose is matched to clinical indication); or iterative reconstruction. DLP: 2037.55 mGy.cm COMPARISON: None available. Reversal of the normal cervical lordosis centered at C4-C6. Advanced degenerative disc disease at C5-6. Hypertrophic osteophytes at C5-6 with disc space narrowing and small erosions along the endplates. C5 retrolisthesis by 2 mm. Lateral masses of C1 and C2 are aligned. The odontoid is intact. C2-C3: Normal. C3-C4: Normal. C4-C5: Normal. C5-C6: Vertebral body osteophytic ridging with mild encroachment upon the ventral thecal sac. Mild central and foraminal stenosis. C6-C7: Mild osteophytic ridging. Mild central and LEFT foraminal stenosis. C7-T1: Normal. Bullous lung disease at the apices. CT/CT cervical spin wo con* [id number] IMPRESSION: 1. No acute cervical spine fracture. 2. Reversal of the normal cervical lordosis centered at C4-C6. 3. Advanced degenerative disc disease at C5-6. 4. Mild central and foraminal stenosis at C5-6 and C6-7 as above.
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
[2024-12-15 08:27] LABS: Hematocrit 39.4 % (36-47); Hemoglobin 12.90 g/dL (11.27-16.99); Mean Corpuscular HGB Conc 32.7 g/dL (30-55); Mean Corpuscular Hemoglobin 31.5 pg (27-33); Mean Corpuscular Volume 96.1 fl (85-98); Nucleated Red Blood Cells % 0 %; Platelet Count 291 10^3/cmm (157-399); Red Blood Count 4.10 10^6/uL (3.85-5.65); White Blood Count 14.36 10^3/uL (3.29-11.43)
[2024-12-15 08:51] LABS: Alanine Aminotransferase 31 U/L (0-33); Albumin Level 4.0 g/dL (3.5-5.2); Alkaline Phosphatase 129 U/L (35-105); Aspartate Amino Transferase 61 U/L (0-32); Blood Urea Nitrogen 6 mg/dL (6-20); Calcium 8.8 mg/dL (8.5-10.5); Carbon Dioxide 23 mmol/L (22-29); Chloride 99 mmol/L (98-107); Creatinine Clr Calc Pharmacy 90.1113; Globulin 2.8 g/dL (1.3-4.6); Glucose 94 mg/dL (65-115); Osmolality Calculated 289 mOsm/kg (285-295); Sodium 141 mmol/L (136-145); Total Protein 6.8 g/dL (6.6-8.7)
[2024-12-15 08:57] LABS: Anion Gap 21.9 (5-19)
[2024-12-15 09:08] LABS: Alcohol Level < 10 mg/dL (0-10); Lactic Sepsis W/Reflex 7.8 mmol/L (0.5-2.2); Potassium 2.9 mmol/L (3.5-5.1)
[2024-12-15 09:26] LABS: HCG, Serum Qual Negative (Negative)
[2024-12-15 09:39] LABS: Glucose Urine UA Negative (Normal); Nitrate Urine Negative (Negative)
[2024-12-15 09:44] LABS: Add Urine Microscopic? YES
[2024-12-15 09:46] LABS: PCP Screen Urine Negative (Negative)
[2024-12-15 09:48] LABS: Specific Gravity, Urine 1.059 (1.005-1.030)
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
[2024-12-15 10:13] LABS: Reflex Lactate Order REFLEX LACTIC ORDERD
[2024-12-15 10:20] LABS: Magnesium 2.0 mg/dL (1.7-2.3)
[2024-12-15] MEDS: potassium chloride oral liq 20 mEq/15 mL UDC 40 MEQ PO (10:34)
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
[2024-12-15 12:05] LABS: Lactic Acid level (Lactate) 1.2 mmol/L (0.5-2.2)
--- NOTE | 2024-12-18 08:20 | DCPLANNER ---
messaged neurology for er f/u
== END 2024-12-15 12:34 | disposition home or self-care (01) ==
PROVIDERS: Emergency Provider Family Medicine; PCP Family Medicine
DX: S93.401A Sprain of unspecified ligament of right ankle, initial encounter (principal); R56.9 Unspecified convulsions; E87.6 Hypokalemia; Z87.891 Personal history of nicotine dependence; J44.9 Chronic obstructive pulmonary disease, unspecified; Z85.038 Personal history of other malignant neoplasm of large intestine; V89.2XXA Person injured in unspecified motor-vehicle accident, traffic, initial encounter
CPT/HCPCS: 29515; 36415; 70450; 71260; 72125; 73610; 74177; 80053; 80306; 80307; 81001; 82550; 83605; 83735; 84703; 85025; 99284; J7030; J9999

== ENCOUNTER 2024-12-22 18:01 | Inpatient (IN) | payer MEDICAID, SELFPAY ==
--- OUTSIDE RECORDS SUMMARY | 2024-12-22 18:08 | XMS_ITS | Encounter Summary ---
Author Organization [facility] Address [address] [place] [address] Care Team Providers Care Auto Research Engineer Name Role Phone Akshat Hoskins MD Primary Care Provider [phone] Encounter Details Date Type Department Care Team (Latest Contact Info) Description 10/23/2003 Outpatient Historical [facility] Gastroenterology[address] [place] [address] He Maldonado MD NO ADDRESS ON FILE ABDOMINAL PAIN UNSPEC SITE (Primary Dx); UNSPEC CONSTIPATION Social History Tobacco Use Types Packs/Day Years Used Date Smoking Tobacco: Never Assessed Comments Unknown Sex and Gender Information Value Date Recorded Sex Assigned at Not on file 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
--- OUTSIDE RECORDS SUMMARY | 2024-12-22 18:08 | XMS_ITS | Encounter Summary ---
Author Organization [facility] Address [address] [place] [address] Care Team Providers Care Dbas Name Role Phone Akshat Hoskins MD Primary Care Provider [phone] Encounter Details Date Type Department Care Team (Latest Contact Info) Description 10/29/2003 Outpatient Historical [facility] Imaging Services [address] [place] [address] He Maldonado MD NO ADDRESS ON FILE UNSPEC CONSTIPATION (Primary Dx) Social History Tobacco Use Types Packs/Day Years Used Date Smoking Tobacco: Never Assessed Comments Unknown Sex and Gender Information Value Date Recorded Sex Assigned at Not on file 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
--- OUTSIDE RECORDS SUMMARY | 2024-12-22 18:08 | XMS_ITS | Encounter Summary ---
Author Organization [facility] Address [address] [place] [address] Care Team Providers Care Frame Fixer Name Role Phone Akshat Hoskins MD Primary Care Provider Encounter Details Date Type Department Care Team (Latest Contact Info) Description 11/09/2003 Outpatient Historical [facility] Imaging Services [address] [place] [id number] He Mcintosh MD [address] [place] [address] ABNORMAL FINDINGS-GI TRACT (Primary Dx) Social History Tobacco Use Types Packs/Day Years Used Date Smoking Tobacco: Never Assessed Comments Unknown Sex and Gender Information Value Date Recorded Sex Assigned at Not on file 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
--- OUTSIDE RECORDS SUMMARY | 2024-12-22 18:08 | XMS_ITS | Encounter Summary ---
Author Organization [facility] Address [address] [place] [address] Care Team Providers Care Press Machine Feeder Name Role Phone Akshat Hoskins MD Primary Care Provider [phone] Encounter Details Date Type Department Care Team (Latest Contact Info) Description 11/15/2003 Outpatient Historical [facility] [place] [id number] [facility] [address] [place] [address] He Maldonado MD NO ADDRESS ON FILE UNSPEC CONSTIPATION (Primary Dx) Social History Tobacco Use Types Packs/Day Years Used Date Smoking Tobacco: Never Assessed Comments Unknown Sex and Gender Information Value Date Recorded Sex Assigned at Not on file 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
--- OUTSIDE RECORDS SUMMARY | 2024-12-22 18:08 | XMS_ITS | Encounter Summary ---
Author Organization [facility] Address [address] [place] [address] Care Team Providers Care Door To Door Salesperson Name Role Phone Akshat Hoskins MD Primary Care Provider [phone] Encounter Details Date Type Department Care Team (Latest Contact Info) Description 11/01/2003 Outpatient Historical [facility] End[facility] [address] [facility] [place] [address] [place] [address] He Maldonado MD NO ADDRESS ON FILE INTESTINAL DISORDERS NEC (Primary Dx) Social History Tobacco Use Types Packs/Day Years Used Date Smoking Tobacco: Never Assessed Comments Unknown Sex and Gender Information Value Date Recorded Sex Assigned at Not on file Legal Sex Female 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
--- OUTSIDE RECORDS SUMMARY | 2024-12-22 18:09 | XMS_ITS | Clinical Summary ---
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
--- OUTSIDE RECORDS SUMMARY | 2024-12-22 18:09 | XMS_ITS | Encounter Summary ---
Author Organization [facility] Address [address] [place] [address] Care Team Providers Care Carry Out Clerk And Shelf Stocker Name Role Phone Akshat Hoskins MD Primary Care Provider [phone] Encounter Details Date Type Department Care Team (Latest Contact Info) Description 11/01/2003 Outpatient Historical [facility] [place] [address] He Maldonado MD NO ADDRESS ON FILE UNSPEC CONSTIPATION (Primary Dx) Social History Tobacco Use Types Packs/Day Years Used Date Smoking Tobacco: Never Assessed Comments Unknown Sex and Gender Information Value Date Recorded Sex Assigned at Not on file 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
--- OUTSIDE RECORDS SUMMARY | 2024-12-22 18:09 | XMS_ITS | Clinical Summary ---
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 Gender Identity Not on file Sexual Orientation [...] Recently Relevant to Health Maintenance Insurance MEDICAID [place] Advance Directives For more information, please contact: [phone] * Full Code (Latest Code Status on File) Date Activated Date Inactivated Comments 09/24/2015 8:37 AM 09/24/2015 12:43 PM * Full Code Date Activated Date Inactivated Comments 08/25/2014 4:16 AM 08/27/2014 6:19 PM * Full Code Date Activated Date Inactivated Comments 08/24/2014 7:03 PM 08/25/2014 4:16 AM Care Teams Pen Tester Relationship Specialty Start Date End Date Akshat Hoskins MD [address] [id number] PCP - General 10/29/03
[2024-12-22 18:18] VITALS: PULSE 95; RESP 19; TEMP 36.7; O2SAT 97
[2024-12-22 19:20] LABS: Hematocrit 39.4 % (36-47); Hemoglobin 13.10 g/dL (11.27-16.99); Mean Corpuscular HGB Conc 33.2 g/dL (30-55); Mean Corpuscular Hemoglobin 30.5 pg (27-33); Mean Corpuscular Volume 91.8 fl (85-98); Nucleated Red Blood Cells % 0 %; Platelet Count 376 10^3/cmm (157-399); Red Blood Count 4.29 10^6/uL (3.85-5.65); White Blood Count 12.83 10^3/uL (3.29-11.43)
[2024-12-22 19:36] LABS: Alanine Aminotransferase 19 U/L (0-33); Albumin Level 3.7 g/dL (3.5-5.2); Alkaline Phosphatase 111 U/L (35-105); Anion Gap 14.0 (5-19); Aspartate Amino Transferase 16 U/L (0-32); Blood Urea Nitrogen 8 mg/dL (6-20); Calcium 8.8 mg/dL (8.5-10.5); Carbon Dioxide 27 mmol/L (22-29); Chloride 99 mmol/L (98-107); Creatinine Clr Calc Pharmacy 123.7394; Globulin 2.8 g/dL (1.3-4.6); Glucose 147 mg/dL (65-115); Osmolality Calculated 283 mOsm/kg (285-295); Potassium 4.0 mmol/L (3.5-5.1); Sodium 136 mmol/L (136-145); Total Protein 6.5 g/dL (6.6-8.7)
--- NOTE | 2024-12-22 19:44 | XRR_ITS ---
PROCEDURE INFORMATION: Exam: XR Right Ankle Exam date and time: 12/22/2024 7:45 PM Age: 44 years old Clinical indication: Pain; Swelling or effusion of joint; Right; Patient sustained laceration to RT ankle one week ago. Patient now has swelling and redness predominantly to fibular malleolus. ; Additional info: Pain, swelling, redness TECHNIQUE: Imaging protocol: Radiologic exam of the right ankle. Views: 3 or more views. COMPARISON: CR XR ankle RT min 3V* [id number] 12/15/2024 10:24 AM FINDINGS: Bones/joints: No acute fracture or traumatic malalignment. No definite areas of acute cortical erosive changes or periosteal reaction. Soft tissues: Soft tissue swelling surrounding the ankle joint greater laterally has increased in the interim with internal soft tissue gas. XR/XR ankle RT min 3V* [id number] IMPRESSION: As above.
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
[2024-12-22] MEDS: HYDROmorphone 0.5 MG/0.5 ML INJ IVP (20:21)
[2024-12-22] MEDS: ondansetron 2 mg/ML SDV 2 mL 4 MG IVP (20:21)
[2024-12-22 21:00] VITALS: BP 119/81; PULSE 84; RESP 16; O2SAT 92
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
--- NOTE | 2024-12-22 22:59 | CTR_ITS ---
PROCEDURE INFORMATION: Exam: CT Right Lower Extremity With Contrast, Ankle Exam date and time: 12/22/2024 11:15 PM Age: 44 years old Clinical indication: Pain; Swelling or effusion of joint; Right; Patient has swelling and redness to RT ankle primarily to fibular malleolus. Bedside aspiration performed prior to CT exam. ; Additional info: Right foot/ankle infection TECHNIQUE: Imaging protocol: CT of the right lower extremity with intravenous contrast was performed. Exam focused on the ankle. Radiation optimization: All CT scans at this facility use at least one of these dose optimization techniques: automated exposure control; mA and/or kV adjustment per patient size (includes targeted exams where dose is matched to clinical indication); or iterative reconstruction. Contrast material: OMNI 350; Contrast volume: 100 ml; Contrast route: INTRAVENOUS (IV); COMPARISON: CR (LOW EXM, ) 12/22/2024 7:45 PM RADIATION DOSE METRICS: Total DLP (mGy-cm): 228.26 FINDINGS: Bones/joints: Acute mildly displaced comminuted fracture of the posteromedial talus (03/30, ). Additional minimally displaced fracture line is visualized within the cuboid (). Soft tissues: Extensive soft tissue edema with significant overlying skin thickening. Peripherally enhancing collection with heterogeneous contents within anterolateral soft tissues. No subcutaneous gas. CT/[place] con [id number] IMPRESSION: 1. Acute mildly displaced comminuted fracture of posteromedial talus. 2. Minimally displaced fracture within the cuboid. 3. Extensive soft tissue thickening and edema with irregular peripherally enhancing collection with heterogeneous contents within anterolateral soft tissues concerning for cellulitis with an abscess formation. Contents are partially hyperdense which may represent blood products.
[2024-12-22] MEDS: piperacillin-tazobactam 3.375 GM in sodium chloride 0.9% (plus) 50 ML IV (23:04)
[2024-12-22] MEDS: iohexol 350 mg/mL 500 mL Btl (per mL) IV (23:18)
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
[2024-12-22 23:36] VITALS: RESP 16
[2024-12-22] MEDS: morphine 4 mg/mL SDV 1 mL 2 MG IVP (23:36)
[2024-12-22] MEDS: heparin 5,000 unit/mL INJ 1 mL 5000 UNIT SUBCUT (23:38)
[2024-12-22 23:41] VITALS: BMI 24.0
[2024-12-23] VITALS (16 sets, daily range): BP systolic 95–136; BP diastolic 57–81; PULSE 74–87; RESP 14–22; TEMP 36.3–37.1; O2SAT 92–98
[2024-12-23] MEDS: linezolid premix 600 MG/300 ML PREMIX 300 MG IV ×2 (00:11→21:36)
[2024-12-23] MEDS: morphine 4 mg/mL SDV 1 mL 2 MG IVP ×2 (04:57→19:53)
[2024-12-23 05:28] LABS: Hematocrit 39.1 % (36-47); Hemoglobin 12.90 g/dL (11.27-16.99); Mean Corpuscular HGB Conc 33.0 g/dL (30-55); Mean Corpuscular Hemoglobin 30.6 pg (27-33); Mean Corpuscular Volume 92.7 fl (85-98); Nucleated Red Blood Cells % 0 %; Platelet Count 373 10^3/cmm (157-399); Red Blood Count 4.22 10^6/uL (3.85-5.65); White Blood Count 10.87 10^3/uL (3.29-11.43)
[2024-12-23 06:06] LABS: Anion Gap 10.9 (5-19); Blood Urea Nitrogen 7 mg/dL (6-20); Calcium 8.4 mg/dL (8.5-10.5); Carbon Dioxide 27 mmol/L (22-29); Chloride 103 mmol/L (98-107); Creatinine Clr Calc Pharmacy 126.1159; Glucose 93 mg/dL (65-115); Osmolality Calculated 282 mOsm/kg (285-295); Potassium 3.9 mmol/L (3.5-5.1); Sodium 137 mmol/L (136-145)
[2024-12-23] MEDS: piperacillin-tazobactam 3.375 GM in sodium chloride 0.9% (plus) 50 ML IV ×3 (06:11→23:08)
[2024-12-23] MEDS: sodium chlor 0.9% + KCl 20 mEq 20 MEQ/1,000 ML BAG 100 MEQ IV ×2 (06:13→21:36)
--- NOTE | 2024-12-23 08:32 | W.PM.OPSUD ---
Surgery/Procedure H&P Update DATE OF PROCEDURE: December 23, 2024 DATE H&P PERFORMED: 12/22/24 H&P UPDATE INFORMATION: I have reviewed H&P completed within last 30 days, I have examined patient prior to procedure, No changes to prior documentation, H&P is in [facility] EMR on date indicated and Risks and benefits of the procedure reviewed PLANNED PROCEDURE: Operation Date: 12/23/24 09:10 Proposed Procedures p Right Ankle Incision And Drainage(Right) - He Perdomo DPM
[2024-12-23] MEDS: BUPivacaine 0.5% INJ 30 mL INJECTION (08:58)
--- NOTE | 2024-12-23 09:11 | ANES.PREANE2 ---
Pre-Anesthetic Assessment Height/Weight: Height 1.6 m Weight 63.458 kg Temp Pulse Resp BP Pulse Ox O2 Del Method 98.2 F 86 19 H 115/78 95 Room Air 12/23/24 07:44 12/23/24 07:44 12/23/24 07:44 12/23/24 07:44 12/23/24 07:44 12/23/24 07:44 Preop Diagnosis: Infection Rt. ankle Operation Date: 12/23/24 09:10 Proposed Procedures p Right Ankle Incision And Drainage(Right) - He Perdomo DPM Familial anesthetic complications: none Was Beta Amadou taken within 24 hours: N/A Was Clonidine taken within 24 hours: N/A Last Intake: 18:00 Social No alcohol and No tobacco quit 1 yr ago Exam alert, oriented x 3, clear to auscultation bilaterally and regular rate & rhythm Airway Cervical ROM: Other (limited due to ankylosing spondolysis) Mallampati: Class II Comments: Comments: missing Pulmonary Chronic Obstructive Pulmonary Disease CV/HEM None reported None reported Hepatic None reported GI None reported Metabolic None reported Musc/skel Lower Back Pain Neuropsych Anxiety PTSD Anesthetic Plan ASA status: 3 Anesthesia: MAC Risk of > 500 ml blood loss (7ml/kg in children): No Medications/Allergies Home Medications ?Medication ?Instructions ?Recorded ?Confirmed ?Last Taken ?Type dicyclomine 20 mg tablet 20 mg PO QID PRN stomach cramps 07/27/19 12/23/24 12/25/20 History diphenoxylate-atropine 2.5 3 tab PO QID PRN Diarrhea 07/27/19 12/23/24 12/25/20 History mg-0.025 mg tablet (Lomotil) tizanidine 2 mg capsule (Zanaflex) 4 mg PO TID PRN Muscle Pain 07/27/19 12/23/24 12/22/20 History tramadol 50 mg tablet 50 mg PO Q6H PRN Pain 07/27/19 12/23/24 07/11/21 History acetaminophen 325 mg tablet 325 mg PO QID PRN Pain 11/07/19 12/23/24 12/26/20 History (Tylenol) Sole Supports #1 ea 09/02/21 12/23/24 Unknown Rx Custom Molded Orthotics #1 ea 11/05/21 12/23/24 Unknown Rx cetirizine 10 mg tablet 10 mg PO DAILY 09/25/23 12/23/24 12/22/24 08:00 History fluticasone 250 mcg-salmeterol 50 1 inh inhalation BID 09/25/23 12/23/24 12/22/24 08:00 History mcg/dose blistr powdr for inhalation (Advair Diskus) fluticasone propionate 50 1 spray intranasal DAILY 09/25/23 12/23/24 12/22/24 08:00 History mcg/actuation nasal spray,suspension vitamins with calcium 1 tab PO DAILY 09/25/23 12/23/24 12/22/24 08:00 History no.72-iron 27 mg-folic acid 1 mg tablet (M-Jm Plus) benzonatate 100 mg capsule 200 mg (2 x 100 mg) PO TID #60 caps 10/04/23 12/23/24 12/22/24 08:00 Rx fluoxetine 20 mg capsule 20 mg PO DAILY #30 caps 10/04/23 12/23/24 12/22/24 08:00 Rx pantoprazole 40 mg tablet,delayed 40 mg PO DAILY #30 tabs 10/04/23 12/23/24 12/22/24 08:00 Rx release (Protonix) Diabetic shoes with 1 pair of #1 ea 03/06/24 12/23/24 Unknown Rx custom mold accomdative insoles ixekizumab 80 mg/mL subcutaneous 80 mg SUBCUT .Q4 weeks #1 mL 11/14/24 12/23/24 Unknown Rx auto-injector (Taltz Autoinjector) potassium chloride 20 mEq 20 meq PO DAILY #7 tabs 12/15/24 12/23/24 12/22/24 08:00 Rx tablet,extended release (K-Tab) budesonide 0.5 mg/2 mL suspension 0.5 mg inhalation BID.RESPIRATORY 12/23/24 12/23/24 12/22/24 08:00 History for nebulization PRN Shortness Of Breath leflunomide 20 mg tablet 20 mg PO DAILY PRN arthritis 12/23/24 12/23/24 Unknown History prednisone 20 mg tablet 20 mg PO DAILY 12/23/24 12/23/24 12/22/24 08:00 History Allergies Allergy/AdvReac Type Severity Reaction Status Date / Time codeine Allergy Severe Hives, Verified 06/05/24 08:52 Itching, & breathing problems vancomycin Allergy Severe Hives, Verified 06/05/24 08:52 Itching, Breathing problems Current Medications Generic Name Dose Route Start Last Admin Trade Name Freq PRN Reason Stop Dose Admin Heparin Sodium (Porcine) 5,000 unit 12/22/24 23:15 12/22/24 23:38 Heparin 5,000 Unit/Ml Inj 1 Ml SUBCUT 5,000 unit Q12H MARYAN Administration Potassium Chloride/Sodium Chloride 20 meq in 1,000 mls @ 100 mls/hr 12/22/24 23:15 12/23/24 06:13 Sodium Chlor 0.9% + Kcl 20 Meq IV 100 mls/hr .Q10H MARYAN Administration Piperacillin Sod/Tazobactam 50 mls @ 12.5 mls/hr 12/23/24 07:00 12/23/24 06:11 Sod 3.375 gm/ Sodium Chloride IV 12.5 mls/hr Q8H MARYAN Administration Morphine Sulfate 2 mg 12/22/24 23:12 12/23/24 04:57 Morphine 4 Mg/Ml Sdv 1 Ml IVP 2 mg Q4H PRN Administration SEVERE PAIN PFSH Anesthesia Medical History Immunocompromised patient Ankylosing spondylitis COPD (chronic obstructive pulmonary disease) Chronic diarrhea PTSD (post-traumatic stress disorder) Anxiety Amphetamine abuse in remission Opioid use disorder, severe, in sustained remission Major depressive disorder, recurrent, moderate Borderline personality disorder Axial spondyloarthritis High risk medication use Inflammatory back pain Inflammatory arthritis Cervical cancer pt had hysterectomy Colon cancer History of drug use Surgical History (Updated 12/22/24 @ 23:26 by Ti Greer MD) Post-splenectomy H/O splenectomy History of intestinal surgery pt states had removal of large intestines and uses antidiarrhea meds and vitamins due to low absorption History of hysterectomy pt states done for cervical cancer History of appendectomy History of cholecystectomy History of hammertoe correction History of bunionectomy Family History Other Cancer Chronic kidney disease (CKD) Lung disease Lupus Rheumatoid arthritis Denies family history of Diabetes CAD (coronary artery disease) Clotting disorder Dementia Hyperlipidemia Psychiatric illness Suicide Anesthesia complication Bleeding disorder Family history of premature coronary artery disease Hypertension Stroke Social History (Updated 12/22/24 @ 23:23 by Ti Greer MD) Smoking and tobacco/nicotine status: former use of tobacco/nicotine Quit status (tobacco/nicotine): has quit using Second hand smoke exposure: Yes Alcohol intake: current Alcohol intake frequency: holidays/special occasions only Substance/Drug Use: former Date of last use: 2021 Former substance use details: Used to use methamphetamines in 2019 stopped relapsed in 2021 then stopped Additional social history: Patient wants full code as discussed with Ti Greer MD on 12/22/2024. 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 Do you think of yourself as: Straight/Heterosexual Current gender identity: Female Data Anesthesia 12/23/24 04:41 12/23/24 04:41 Short CBC 12/22/24 12/23/24 Range/Units 19:12 04:41 WBC 12.83 H 10.87 (3.29-11.43) 10^3/uL Hgb 13.10 12.90 (11.27-16.99) g/dL Hct 39.4 39.1 (36-47) % MCV 91.8 92.7 (85-98) fl Plt Count 376 373 (157-399) 10^3/cmm Neut % (Auto) 61.6 58.4 % Neut # (Auto) 7.90 H 6.35 (1.8-7.7) 10^3/uL BMP 12/22/24 12/23/24 19:12 04:41 Sodium 136 137 Potassium 4.0 3.9 Chloride 99 103 Carbon Dioxide 27 27 BUN 8 7 Creatinine 0.5 0.5 Glucose 147 H 93 Calcium 8.8 8.4 L Liver Function 12/22/24 Range/Units 19:12 Total Bilirubin 0.3 (0.15-1.2) mg/dL AST 16 (0-32) U/L ALT 19 (0-33) U/L Alkaline Phosphatase 111 H (35-105) U/L Albumin 3.7 (3.5-5.2) g/dL Coags 12/22/24 19:12 ESR 19 H C-Reactive Protein 24.5 H Microbiology 12/22/24 20:08 Blood Culture - Preliminary Blood SPECIMEN COLLECTED 12/22/24 19:12 Blood Culture - Preliminary Blood SPECIMEN COLLECTED Cardiac Studies: Echocardiogram 09/27/23
--- NOTE | 2024-12-23 09:18 | W.PM.BPON ---
Date of procedure: 12/23/2024 Surgeon name: Dr. He Perdomo D.P.M. Horse And Wagon Driver(s) name(s): Fran Procedure(s) performed: Right ankle incision and drainage Description of findings: Large amount of hematoma/seroma formation right lateral ankle. Loculation extended to anterior ankle joint. Did not penetrate capsule. Estimated blood loss: 5 cc Tourniquet time: 10 minutes Specimen(s) removed: Soft tissue right foot sent to pathology, cultures aerobic and anaerobic sent to micro for ID and sensitivity Post-operative diagnosis: Right foot hematoma/seroma/early abscess formation Based on intraoperative findings continue IV antibiotics inpatient. Recommend continued monitoring in the inpatient setting for clinical improvement
--- NOTE | 2024-12-23 09:30 | PM.OP ---
Operative Report Date of procedure: December 24, 2024 Surgeon: He Perdomo DPM Procedure: Date of procedure: 12/23/2024 Pre-op diagnosis: Right ankle abscess Post-op diagnosis: Right ankle hematoma/seroma/early abscess formation Post-op findings: Large amount of hematoma/seroma formation right lateral ankle. Loculation extended anterior ankle joint. Did not penetrate capsule Procedure done: Right ankle incision and drainage CPT 10396 Implants: None Specimens removed: Cultures aerobic and anaerobic as well as soft tissue surgical specimen Surgeon: Dr. He Perdomo DPM Preschool Assistant Principal: Fran Estimated blood loss: 5 cc Tourniquet time: 10 minutes Complications: None The patient presents with a fluctuant soft tissue enhancement to the lateral right ankle. Concern for deep space abscess, characterized by erythema, swelling, and drainage. The infection is complicated by underlying conditions, including patient being status post splenectomy, which have contributed to the progression of the infection despite conservative management. Preoperative imaging and laboratory results indicate hematoma versus early abscess formation, necessitating surgical intervention. The planned procedure is intended to address the infection, debride necrotic tissue, and, if necessary, assess the viability of surrounding structures to prevent further complications. The patient has been NPO since midnight. The history has been reviewed and the history and physical is current. The signed consent was confirmed and placed in the patient chart. Patient imaging has been reviewed and is consistent with the diagnosis. Under mild sedation, the patient was brought into the operating room and placed on the table in the supine position. Patient is receiving antibiotics around the clock on the floor, Therefore, additional antibiotic prophylaxix was not administered. MAC sedation was then performed by the anesthesiateam. Local field block was performed using 0.5% Marcaine plain. A pneumatic tourniquet was then placed about the right ankle. The operative extremity was then prepped and draped in the usual fashion. After prep, the following procedure was then performed. Attention was directed to the lateral aspect of the right ankle where area of fluctuance was noted overlying the ATFL region and sinus tarsi. Sinus tarsi incision was made directly over this area using a #15 blade measuring approximately 4 cm. Blunt dissection was carried down through subcutaneous the superficial fascia with mosquito hemostat. Dissecting into the sinus tarsi there was an immediate extravasation of clear serous fluid. Cultures aerobic and anaerobic were taken at this point. The incision was expressed and a significant amount of hematoma and seroma was expressed from the wound. The wound was further evaluated and was noted to track anterior to the ankle joint. Intraoperatively it did not appear that the ankle joint capsule had been compromised. The site was continually expressed until no residual hematoma could be expressed. Site was then irrigated with copious amounts sterile saline before attention was directed to closure. Incision was closed with 3-0 nylon in horizontal mattress fashion. Tourniquet was let down and good hyperemic response was noted to all digits of the right foot. Incision was dressed with Xeroform, 4 x 4 gauze, Kerlix, Gopi. The patient tolerated the procedure and anesthesia well and without complication. The patient was transported from the operating room to the recovery room with vital signs stable and vascular status intact to all digits of the right foot. Thepatient was instructed to remain nonweightbearing to the operative extremity, to keep surgical dressing clean, dry and intact. The patient will be transferred back to the floor once anesthesia criteria is met. I will continue to round on and follow the patient in the inpatientsetting and provide recommendations to stabilize the patient for discharge.
--- NOTE | 2024-12-23 09:35 | ANE.PACU2 ---
Inpatient post-anesthesia follow up: Airway intact: Yes Vital signs: Temperature 97.8 F Pulse Rate 80 Respiratory Rate 18 Blood Pressure 118/80 Pulse Oximetry 96 Oxygen Delivery Me thod Room Air Oxygen Flow Rate 8 Fraction of Inspir ed Oxygen Hydration adequate: Yes Nausea and vomiting: No Pain level: 1 Mental status: Baseline
[2024-12-23] MEDS: heparin 5,000 unit/mL INJ 1 mL 5000 UNIT SUBCUT (10:48)
[2024-12-23] MEDS: oxyCODONE-APAP 5-325 mg Tablet 1 TAB PO ×2 (10:49→16:48)
--- NOTE | 2024-12-23 11:29 | USR_ITS ---
PROCEDURE INFORMATION: Exam: US Duplex Right Lower Extremity Veins, Limited Exam date and time: 12/23/2024 11:47 AM Age: 44 years old Clinical indication: Swelling (edema) of limb; Lower extremity, right; Prior surgery; Surgery date: Post-operative (0-2 days); Surgery type: Today- right ankle incision and drainage TECHNIQUE: Imaging protocol: Real-time duplex ultrasound of the right extremity with 2-D partida scale, color Doppler flow and spectral waveform analysis including responses to compression and other maneuvers (when performed) with image documentation. Limited exam was focused on the right lower extremity veins. COMPARISON: CT ankle RT w con [id number] 12/22/2024 11:15 PM FINDINGS: Right deep veins: Unremarkable. The common femoral, femoral, proximal profunda femoral and popliteal veins are patent without thrombus. Normal Doppler waveforms. Normal compressibility and/or augmentation response. Superficial veins: Greater saphenous vein at the saphenofemoral junction is patent without thrombus. Soft tissues: Unremarkable. US/[place] [id number] IMPRESSION: No evidence of deep vein thrombosis in the right lower extremity.
[2024-12-23] MEDS: levETIRAcetam 500 MG/100 ML PREMIX 400 MG IV (12:54)
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
--- NOTE | 2024-12-23 13:19 | PC.CHAP ---
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 [] Patient/Family/Request visit [] Outpatient visit [] Follow-up visit [] Physician referral [] Code/Alert [x] Routine visit [] Staff referral [] Actively dying [] Patient sleeping [] Family support [] [] Out of room [] Palliative care [] [x] Receiving care in room [] Pre-surgical visit [] Trauma [] Long length of stay [] ICU visit [] Other: Relational/Emotional Strength [] Patient feels connected with others/family/visitors/staff [] Distress [] Loneliness/isolation [] Abandonment Spirituality of Patient [] Person of Ayana [] Attends Oriental Orthodox of their Ayana [] Believes in Prayer [] Reads Bible or Roman Catholic materials [] There are Spiritual issues to be addressed Metal Solderer Interventions [] Prayer [] Active listening [] Non-anxious presence [] Spiritual/emotional support [] Crisis/trauma care [] Spiritual counseling [] Bereavement support [] Provided bereavement packet [] Provided Bible/devotional materials [] Provided toy/stuffed animal, coloring book to patient or family member [] Provided Communion [] Anointing/[place] [] Salvation [] Completed spiritual assessment [] Other: Impact on Illness or Injury [] Angry [] Fearful [] Anxious [] Often cries [] Exhaustion [] Unable to work [] Unable to attend muslim [] Unable to walk/stand [] Unable to read [] Unable to drive [] Unable to eat/drink [] Unable to sleep [] Unable to be with family [] Patient intubated [] Other: Summary Time spent with patient
[2024-12-24] VITALS (12 sets, daily range): BP systolic 118–147; BP diastolic 77–91; PULSE 80–102; RESP 16–20; TEMP 36.6–37.1; O2SAT 94–97
[2024-12-24] MEDS: levETIRAcetam 500 MG/100 ML PREMIX 400 MG IV ×2 (00:20→13:01)
[2024-12-24] MEDS: heparin 5,000 unit/mL INJ 1 mL 5000 UNIT SUBCUT ×2 (00:20→23:16)
[2024-12-24] MEDS: morphine 4 mg/mL SDV 1 mL 2 MG IVP (05:12)
[2024-12-24 06:05] LABS: Hematocrit 40.8 % (36-47); Hemoglobin 12.90 g/dL (11.27-16.99); Mean Corpuscular HGB Conc 31.6 g/dL (30-55); Mean Corpuscular Hemoglobin 30.5 pg (27-33); Mean Corpuscular Volume 96.5 fl (85-98); Nucleated Red Blood Cells % 0 %; Platelet Count 387 10^3/cmm (157-399); Red Blood Count 4.23 10^6/uL (3.85-5.65); White Blood Count 10.48 10^3/uL (3.29-11.43)
[2024-12-24] MEDS: piperacillin-tazobactam 3.375 GM in sodium chloride 0.9% (plus) 50 ML IV ×3 (06:19→23:15)
[2024-12-24 06:39] LABS: Alanine Aminotransferase 13 U/L (0-33); Albumin Level 3.2 g/dL (3.5-5.2); Alkaline Phosphatase 90 U/L (35-105); Anion Gap 11.3 (5-19); Aspartate Amino Transferase 13 U/L (0-32); Blood Urea Nitrogen 7 mg/dL (6-20); Calcium 8.3 mg/dL (8.5-10.5); Carbon Dioxide 22 mmol/L (22-29); Chloride 110 mmol/L (98-107); Creatinine Clr Calc Pharmacy 125.7528; Globulin 2.5 g/dL (1.3-4.6); Glucose 165 mg/dL (65-115); Magnesium 1.9 mg/dL (1.7-2.3); Osmolality Calculated 290 mOsm/kg (285-295); Potassium 4.3 mmol/L (3.5-5.1); Sodium 139 mmol/L (136-145); Total Protein 5.7 g/dL (6.6-8.7)
--- NOTE | 2024-12-24 07:48 | P.PN_ITS ---
Subjective 2 Subjective: Patient seen at bedside this morning. Resting comfortably. No overnight events. Pain is well-controlled. Patient states much improvement to pain in comparison to presurgery. Vitals/I&O/Wt Last Vital Signs Temp 97.8 F 12/24/24 07:29 Pulse 80 12/24/24 07:29 Resp 18 12/24/24 07:29 BP 118/80 12/24/24 07:29 Pulse Ox 96 12/24/24 07:29 O2 Del Method Room Air 12/24/24 07:29 O2 Flow Rate 8 12/23/24 09:25 12/23/24 12/24/24 12/24/24 22:59 06:59 14:59 Intake Total 710 / 2040 450 / 2490 Output Total 600 / 605 700 / 1305 Balance 110 / 1435 -250 / 1185 Weight last 48 hrs Weight 139 lb Weight 139 lb 14.4 oz Weight 135 lb 8 oz Weight 134 lb Physical Exam 2 Narrative: Physical Exam (focused lower extremity): VASCULAR: DP/PT pulses palpable 2/4 with capillary refill <3 seconds. DERMATOLOGICAL: Right ankle surgical dressing clean, dry, intact no strikethrough noted MUSCULOSKELETAL: Severe tenderness at lateral ankle ligaments. Pain with passive ankle ROM. No gross deformity. NEUROLOGICAL: Sensation intact L4?S1. No motor deficit noted. Imaging: CT scan of right foot shows comminuted posteromedial tubercle of talus as well as nondisplaced fracture of cuboid Data 12/24/24 05:01 12/24/24 05:01 Micro: Microbiology 12/22/24 20:08 Blood Culture - Preliminary Blood NEGATIVE TO DATE 12/22/24 19:12 Blood Culture - Preliminary Blood NEGATIVE TO DATE 12/23/24 09:06 Gram Stain - Final Ankle - Right A&P Assessment and plan 1. Ankle abscess: * Status post incision and drainage * No further surgical intervention indicated at this time * Patient has history of severe infections due to removal of spleen. Continue to monitor 2. Cellulitis of foot, right: * Improving * Continue to monitor 3. Fracture of right talus: * CT scan revealed comminuted fracture of right talus * This will be treated nonoperatively. * 6 weeks nonweightbearing in cam boot using crutches or knee scooter 4. Cuboid fracture: * Nonop treatment * 6 weeks nonweightbearing in cam boot using crutches or knee scooter Plan: Discharge plan: * No further surgical intervention by podiatry * Patient will need to be nonweightbearing for the following 6 weeks. Will need crutches upon discharge * Surgical dressing is to be left clean, dry, intact until follow-up with podiatry in the outpatient setting * Recommend follow-up with podiatry within 1 week of discharge from hospital * Recommend discharge with oral antibiotics pending culture results PDMP PDMP Reviewed: Not Reviewed Attestations 2 Medical Necessity Statement*: See hospitalist note Coding Level of Care Code Acute Code for Chg Fwd Diagnoses Ankle abscess L02.419 Cellulitis of foot, right L03.115 Fracture of right talus S92.101A Cuboid fracture S92.213A
[2024-12-24] MEDS: oxyCODONE-APAP 5-325 mg Tablet 1 TAB PO ×4 (08:56→23:21)
[2024-12-24] MEDS: linezolid premix 600 MG/300 ML PREMIX 300 MG IV ×2 (10:34→22:08)
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
[2024-12-24] MEDS: sodium chlor 0.9% + KCl 20 mEq 20 MEQ/1,000 ML BAG 100 MEQ IV (13:00)
[2024-12-25 03:43] VITALS: BP 118/82; PULSE 82; RESP 17; TEMP 36.7; O2SAT 97
[2024-12-25 05:08] VITALS: RESP 20
[2024-12-25] MEDS: oxyCODONE-APAP 5-325 mg Tablet 1 TAB PO ×2 (05:08→09:12)
[2024-12-25 05:21] LABS: Hematocrit 35.7 % (36-47); Hemoglobin 11.90 g/dL (11.27-16.99); Mean Corpuscular HGB Conc 33.3 g/dL (30-55); Mean Corpuscular Hemoglobin 30.7 pg (27-33); Mean Corpuscular Volume 92.2 fl (85-98); Nucleated Red Blood Cells % 0 %; Platelet Count 376 10^3/cmm (157-399); Red Blood Count 3.87 10^6/uL (3.85-5.65); White Blood Count 12.74 10^3/uL (3.29-11.43)
[2024-12-25 05:56] LABS: Alanine Aminotransferase 12 U/L (0-33); Albumin Level 3.2 g/dL (3.5-5.2); Alkaline Phosphatase 78 U/L (35-105); Blood Urea Nitrogen 7 mg/dL (6-20); Calcium 8.2 mg/dL (8.5-10.5); Carbon Dioxide 23 mmol/L (22-29); Chloride 110 mmol/L (98-107); Creatinine Clr Calc Pharmacy 125.7528; Globulin 2.3 g/dL (1.3-4.6); Glucose 89 mg/dL (65-115); Magnesium 1.7 mg/dL (1.7-2.3); Osmolality Calculated 285 mOsm/kg (285-295); Sodium 139 mmol/L (136-145); Total Protein 5.5 g/dL (6.6-8.7)
[2024-12-25] MEDS: piperacillin-tazobactam 3.375 GM in sodium chloride 0.9% (plus) 50 ML IV (06:31)
[2024-12-25 06:52] LABS: Anion Gap 9.8 (5-19); Aspartate Amino Transferase 14 U/L (0-32); Potassium 3.8 mmol/L (3.5-5.1)
[2024-12-25 07:58] VITALS: BP 123/84; PULSE 78; RESP 16; TEMP 36.4; O2SAT 96
[2024-12-25] MEDS: linezolid premix 600 MG/300 ML PREMIX 300 MG IV (09:12)
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
[2024-12-25 11:51] VITALS: BP 131/82; PULSE 76; RESP 16; TEMP 36.6; O2SAT 97
== END 2024-12-25 14:05 | disposition home or self-care (01) | DRG 602 ==
LOC: ER 22:10 → MEDSURG 22:19
PROVIDERS: Emergency Medicine; Family Medicine; Podiatrist Foot & Ankle Surgery; Admitting Provider Internal Medicine; Emergency Provider Physician Assistant; PCP Family Medicine; Visit Provider Student in an Organized Health Care Education/Training Program
PROC: 0J9Q0ZZ Drainage of Right Foot Subcutaneous Tissue and Fascia, Open Approach (ICD-10-PCS; principal; 2024-12-23 09:00)
DX: L02.415 Cutaneous abscess of right lower limb (principal); B59 Pneumocystosis; D84.821 Immunodeficiency due to drugs; J84.9 Interstitial pulmonary disease, unspecified; F33.1 Major depressive disorder, recurrent, moderate; S90.01XA Contusion of right ankle, initial encounter; V49.9XXA Car occupant (driver) (passenger) injured in unspecified traffic accident, initial encounter; L03.115 Cellulitis of right lower limb; M45.9 Ankylosing spondylitis of unspecified sites in spine; S92.211A Displaced fracture of cuboid bone of right foot, initial encounter for closed fracture; M19.90 Unspecified osteoarthritis, unspecified site; J44.9 Chronic obstructive pulmonary disease, unspecified; K52.9 Noninfective gastroenteritis and colitis, unspecified; F43.10 Post-traumatic stress disorder, unspecified; F60.3 Borderline personality disorder; F15.11 Other stimulant abuse, in remission; F11.21 Opioid dependence, in remission; F41.9 Anxiety disorder, unspecified; Z79.52 Long term (current) use of systemic steroids; Z79.899 Other long term (current) drug therapy; Z87.891 Personal history of nicotine dependence; Z85.41 Personal history of malignant neoplasm of cervix uteri; Z85.038 Personal history of other malignant neoplasm of large intestine; Z90.81 Acquired absence of spleen; Z90.710 Acquired absence of both cervix and uterus
CPT/HCPCS: 36415; 73610; 73701; 80048; 80053; 83735; 84100; 85025; 85651; 86140; 87040; 87070; 87075; 87205; 88307; 93971; 96365; 96367; 96372; 96375; 99285; J1171; J1644; J1885; J1953; J2020; J2270; J2405; J2543; J2704; J3010; J3480; J3490; J7030; J7512; J9999

== ENCOUNTER → 2025-01-03 10:54 | Outpatient (BNVA) | payer MEDICAID, SELFPAY | PROVIDERS: PCP Family Medicine; Visit Provider Podiatrist Foot & Ankle Surgery | DX: S92.101A Unspecified fracture of right talus, initial encounter for closed fracture (principal); S92.211A Displaced fracture of cuboid bone of right foot, initial encounter for closed fracture; L03.115 Cellulitis of right lower limb; Z98.890 Other specified postprocedural states; W01.0XXA Fall on same level from slipping, tripping and stumbling without subsequent striking against object, initial encounter | CPT/HCPCS: 73630 ==

== ENCOUNTER → 2025-01-18 11:44 | Outpatient (BNVA) | payer MEDICAID, SELFPAY | PROVIDERS: PCP Family Medicine; Visit Provider Podiatrist Foot & Ankle Surgery | DX: S92.154D Nondisplaced avulsion fracture (chip fracture) of right talus, subsequent encounter for fracture with routine healing (principal); S92.214D Nondisplaced fracture of cuboid bone of right foot, subsequent encounter for fracture with routine healing; X58.XXXD Exposure to other specified factors, subsequent encounter; L03.115 Cellulitis of right lower limb; B02.29 Other postherpetic nervous system involvement; Z79.899 Other long term (current) drug therapy | CPT/HCPCS: 73630; 80076; 82306; 82565; 85025; 85651; 86140; 86480 ==

== ENCOUNTER → 2025-02-08 13:04 | Outpatient (BNVA) | payer MEDICAID, SELFPAY | PROVIDERS: PCP Family Medicine; Visit Provider Podiatrist Foot & Ankle Surgery | DX: S92.214D Nondisplaced fracture of cuboid bone of right foot, subsequent encounter for fracture with routine healing (principal); M79.671 Pain in right foot; M79.672 Pain in left foot; E11.42 Type 2 diabetes mellitus with diabetic polyneuropathy; L03.115 Cellulitis of right lower limb; M25.872 Other specified joint disorders, left ankle and foot; M20.42 Other hammer toe(s) (acquired), left foot; S92.154D Nondisplaced avulsion fracture (chip fracture) of right talus, subsequent encounter for fracture with routine healing; X58.XXXD Exposure to other specified factors, subsequent encounter; B02.29 Other postherpetic nervous system involvement; M20.41 Other hammer toe(s) (acquired), right foot; M20.21 Hallux rigidus, right foot; M20.22 Hallux rigidus, left foot; Z79.84 Long term (current) use of oral hypoglycemic drugs | CPT/HCPCS: 73630 ==

== ENCOUNTER 2025-02-13 08:01 | Outpatient (CLI) | payer MEDICAID, SELFPAY ==
--- NOTE | 2025-02-13 08:00 | MR_ITS ---
WS: [id number] MRI RIGHT ANKLE WITH AND WITHOUT CONTRAST. COMPARISON: Foot radiograph 02/08/2025 Multiplanar, multisequence imaging is performed with and without contrast. Sagittal and axial T1 fat sat sequences post-MultiHance IV. History swelling and redness RIGHT ankle. Possible abscess. Marrow edema involving several bones of the foot including a large portion of the talus, subtalar portion of the calcaneus, cuboid and distal fibula. Small amount of edema in the medial malleolus. Healing fracture of the distal fibula. Small tibiotalar joint effusion. Small amount of edema extends along the lateral talonavicular joint. Fluid extending along the interosseous membrane. Mild soft tissue edema surrounding the ankle. On the postcontrast imaging there is enhancement in the talus and the distal fibula. Enhancement in the fibula is along the fracture site which is nondisplaced. There is also enhancement involving the tibiotalar joint and the soft tissues surrounding the ankle. Mild synovial enhancement. There is no large fluid collection identified with peripheral enhancement to suggest a focal soft tissue abscess. Tibiotalar joint space narrowing. There is osteoarthritic changes at the tibiotalar joint. No acute findings involving the Achilles tendon. Normal anterior inferior and posterior inferior tibiofibular ligaments. There is fluid closely associated with the anterior tibiofibular ligament but it does appear to be intact. Anterior talofibular ligament and posterior talofibular ligament are intact with surrounding fluid. Normal appearance of the peroneal tendons. Flexor hallucis longus, flexor digitorum longus and the posterior tibialis tendons are normal and intact. Anterior tibialis tendon and flexor tendons are normal. As visualized the deltoid ligament appears intact. Calcaneofibular ligament is norm al. MR/MR ankle RT wo/w con [id number] IMPRESSION: 1. Marrow edema involving a large portion of the talus, subtalar calcaneus, cu boid and distal fibula. Enhancement in the talus and distal fibula on the postc ontrast imaging suggesting osteomyelitis. The enhancement in the fibula may be related to healing fracture. 2. Diffuse soft tissue edema does enhance surrounding the ankle and joint effu jett. Highly suspicious for septic joint. Additional cellulitis surrounding the ankle. 3. No well-formed soft tissue abscess. 4. Moderate osteoarthritis at the tibiotalar joint.
[2025-02-13] MEDS: gadobenate dimeglumine 20 mL vial IV (09:30)
[2025-02-13 13:38] LABS: Hematocrit 41.4 % (36-47); Hemoglobin 13.90 g/dL (11.27-16.99); Mean Corpuscular HGB Conc 33.6 g/dL (30-55); Mean Corpuscular Hemoglobin 30.9 pg (27-33); Mean Corpuscular Volume 92.0 fl (85-98); Nucleated Red Blood Cells % 0 %; Platelet Count 437 10^3/cmm (157-399); Red Blood Count 4.50 10^6/uL (3.85-5.65); White Blood Count 14.07 10^3/uL (3.29-11.43)
[2025-02-13 13:58] LABS: Alanine Aminotransferase 14 U/L (0-33); Albumin Level 4.4 g/dL (3.5-5.2); Alkaline Phosphatase 91 U/L (35-105); Anion Gap 19.9 (5-19); Aspartate Amino Transferase 19 U/L (0-32); Blood Urea Nitrogen 12 mg/dL (6-20); Calcium 8.9 mg/dL (8.5-10.5); Carbon Dioxide 19 mmol/L (22-29); Chloride 106 mmol/L (98-107); Globulin 2.7 g/dL (1.3-4.6); Glucose 196 mg/dL (65-115); Osmolality Calculated 295 mOsm/kg (285-295); Potassium 4.9 mmol/L (3.5-5.1); Sodium 140 mmol/L (136-145); Total Protein 7.1 g/dL (6.6-8.7)
== END 2025-02-13 08:02 | disposition home or self-care (01) ==
LOC: RAD 08:02
PROVIDERS: PCP Family Medicine; Visit Provider Podiatrist Foot & Ankle Surgery
DX: E11.42 Type 2 diabetes mellitus with diabetic polyneuropathy (principal); L03.115 Cellulitis of right lower limb; M19.071 Primary osteoarthritis, right ankle and foot; S92.101A Unspecified fracture of right talus, initial encounter for closed fracture; X58.XXXA Exposure to other specified factors, initial encounter
CPT/HCPCS: 36415; 73723; 80053; 85025; 85651; 86140

== ENCOUNTER 2025-02-16 12:35 | Day surgery (SDC) | payer MEDICAID, SELFPAY ==
[2025-02-16] VITALS (11 sets, daily range): BP systolic 90–119; BP diastolic 54–75; PULSE 67–102; RESP 10–20; TEMP 36.1–36.6; O2SAT 92–96; BMI 24.7
--- NOTE | 2025-02-16 13:40 | W.PM.OPSUD ---
Surgery/Procedure H&P Update DATE OF PROCEDURE: February 16, 2025 DATE H&P PERFORMED: 02/13/25 H&P UPDATE INFORMATION: I have reviewed H&P completed within last 30 days, I have examined patient prior to procedure, No changes to prior documentation, H&P is in [facility] EMR on date indicated and Risks and benefits of the procedure reviewed PREOP DIAGNOSIS: Septic right ankle joint PLANNED PROCEDURE: Operation Date: 02/16/25 14:10 Proposed Procedures p Ankle Arthroscopy(Right) - [place] DPM
--- NOTE | 2025-02-16 13:48 | P.ANESASSM_ITS ---
Pre-Anesthetic Assessment Height/Weight: Height 1.6 m Weight 63.503 kg O2 Del Method Room Air 02/16/25 13:06 Preop Diagnosis: Septic right ankle joint Operation Date: 02/16/25 14:10 Proposed Procedures p Ankle Arthroscopy(Right) - [place] DPM Familial anesthetic complications: None Was Beta Amadou taken within 24 hours: N/A Was Clonidine taken within 24 hours: N/A Last intake: Intake Last Liquid Date 02/15/25 Last Liquid Time 23:00 Last Solid Date 02/16/25 Last Solid Time 02:00 Social Tobacco and No alcohol Exam alert, oriented x 3, clear to auscultation bilaterally and regular rate & rhythm Airway Mallampati: Class II Dentition: full Pulmonary Chronic Obstructive Pulmonary Disease Neuropsych Seizure Anesthetic Plan ASA status: 3 Anesthesia: General and Regional (specify below) Risk of > 500 ml blood loss (7ml/kg in children): No Medications/Allergies Home Medications ?Medication ?Instructions ?Recorded ?Confirmed ?Last Taken ?Type dicyclomine 20 mg tablet 20 mg PO QID PRN 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 07/27/19 02/15/25 02/15/25 History diphenoxylate-atropine 2.5 3 tab PO QID PRN Diarrhea 0 07/27/19 02/15/25 02/16/25 History mg-0.025 mg tablet (Lomotil) tizanidine 2 mg capsule (Zanaflex) 4 mg PO TID PRN Mus roberto Pain 07/27/19 02/15/25 12/22/20 History tramadol 50 mg tablet 50 mg PO Q6H PRN Pain 02/15/25 02/14/25 History Sole Supports #1 ea 09/02/21 02/13/25 Unkn own Rx Custom Molded Orthotics #1 ea 11/05/21 02/13/25 Unkn own Rx fluticasone 250 mcg-salmeterol 50 1 inh inhalation BID 09/25/23 02/15/25 02/15/25 History mcg/dose blistr powdr for inhalation (Advair Diskus) fluticasone propionate 50 1 spray intranasal DAILY 02/16/25 12/22/24 08:00 History mcg/actuation nasal spray,suspension vitamins with calcium 1 tab PO DAILY 09/25/23 02/15/2525 History no.72-iron 27 mg-folic acid 1 mg tablet (M- Plus) fluoxetine 20 mg capsule 20 mg PO DAILY #30 caps 09/0802/15/25 02/15/25 Rx pantoprazole 40 mg tablet,delayed 40 mg PO DAILY #30 t abs 10/04/23 02/16/25 02/16/25 Rx release (Protonix) budesonide 0.5 mg/2 mL suspension 0.5 mg inhalation BI D.RESPIRATORY 12/23/24 02/16/25 02/08/25 History for nebulization PRN Shortness Of Breath metformin 500 mg tablet,extended 500 mg PO DAILY 12/2502/15/25 02/15/25 History release 24hr (osmotic) gabapentin 300 mg capsule 300 mg PO TID 30 days #90 ca ps 01/18/25 02/15/2502/15 Rx ixekizumab 80 mg/mL subcutaneous 80 mg SUBCUT .Q4 week s #1 mL 01/18/25 02/15/25 12/04/24 Rx auto-injector (Taltz Autoinjector) Diabetic shoes with 1 pair of #1 ea 02/08/25 02/13/25 Unknown Rx custom mold accomdative insoles prednisone 20 mg tablet 20 mg PO DIRECTED 5 02/15/25 02/15/25 History albuterol sulfate 90 mcg/actuation 2 puff inhalation Q ID 02/16/25 02/16/25 02/16/25 History aerosol inhaler Allergies Allergy/AdvReac Type Severity Reaction Status Date / Time codeine Allergy Severe Hives, Verified 02/16/25 12:54 Itching, & breathing problems vancomycin Allergy Severe Hives, Verified 02/16/25 12:54 Itching, Breathing problems PFSH Anesthesia Medical History Immunocompromised patient Ankylosing spondylitis COPD (chronic obstructive pulmonary disease) Chronic diarrhea PTSD (post-traumatic stress disorder) Anxiety Amphetamine abuse in remission Opioid use disorder, severe, in sustained remission Major depressive disorder, recurrent, moderate Borderline personality disorder Axial spondyloarthritis High risk medication use Inflammatory back pain Inflammatory arthritis Cervical cancer pt had hysterectomy Colon cancer History of drug use Surgical History Post-splenectomy H/O splenectomy History of intestinal surgery pt states had removal of large intestines and uses antidiarrhea meds and vitamins due to low absorption History of hysterectomy pt states done for cervical cancer History of appendectomy History of cholecystectomy History of hammertoe correction History of bunionectomy Family History Other Cancer Chronic kidney disease (CKD) Lung disease Lupus Rheumatoid arthritis Denies family history of Diabetes CAD (coronary artery disease) Clotting disorder Dementia Hyperlipidemia Psychiatric illness Suicide Anesthesia complication Bleeding disorder Family history of premature coronary artery disease Hypertension Stroke Social History Smoking and tobacco/nicotine status: former use of tobacco/nicotine Quit status (tobacco/nicotine): has quit using Second hand smoke exposure: Yes Alcohol intake: current Alcohol intake frequency: holidays/special occasions only Substance/Drug Use: former Date of last use: 2021 Former substance use details: Used to use methamphetamines in 2019 stopped relapsed in 2021 then stopped Additional social history: Patient wants full code as discussed with Ti Greer MD on 12/22/2024. 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 Do you think of yourself as: Straight/Heterosexual Current gender identity: Female Data Anesthesia Cardiac Studies: Echocardiogram 09/27/23 Anesthesia Procedures Nerve Block Nerve Block 1: Main Anesthesia: general anesthesia Time Out Performed: Yes Consent: requested by attending/covering physician, from patient, from other, risks and benefits reviewed and patient agrees to proceed Nerve block location: popliteal (R) Anesthesia monitors applied: pulse oximetry, EKG, BP cuff and oxygen Nerve block position: supine Anesthetic Used: ropivicaine 0.5% (20 ml) and with decadron (4 mg) Ultrasound used to: recognize landmarks Nerve Stimulator Used?: No Interscalene/Femoral BLK: 4 stimuplex 21 g needle used for position and inplane approach, visualize local anesthetic spread and no vascular puncture identified Injection: neg aspiration of heme Patient Tolerated Procedure: well Complications: none Additional Comments: performed by Benny REED
[2025-02-16] MEDS: ceFAZolin 2,000 mg SDV 2000 MG IVP (14:22)
[2025-02-16] MEDS: BUPivacaine 0.5% INJ 10 mL INJECTION (14:30)
--- NOTE | 2025-02-16 14:55 | P.BOP_ITS ---
Date of Procedure: 07/23/23 Surgeon: [place] DPM Fulfillment Associate(s): Rhett Procedure(s) performed: Left ankle scope and arthrocentesis Findings of the procedure(s): Left ankle joint effusion, no purulent Estimated blood loss: 2 mL Specimen(s) removed: Joint fluid left ankle sent to microbiology for Gram stain culture and sensitivity, glucose white blood cell count and crystals Post-operative diagnosis: Left ankle joint effusion
[2025-02-16 15:36] LABS: RBC Synovial Fluid 3 10^3/uL (0-0); Synovial Fluid Mononuclear # 0.382 10^3/uL; Synovial Fluid Mononuclear % 91.000 %; Synovial Fluid Polynuclear # 0.038 10^3/uL; Synovial Fluid Polynuclear % 9.000 %
[2025-02-16 15:38] LABS: Color Synovial Fluid PALE YELLOW (PALE YELLOW); PATH Referal YES
[2025-02-16 15:39] LABS: Crystals, Fluid SENT TO PATH
--- NOTE | 2025-02-16 16:25 | ANE.PACU2 ---
Inpatient post-anesthesia follow up: Airway intact: Yes Vital signs: Temperature 97.9 F Pulse Rate 96 Respiratory Rate 18 Blood Pressure 111/73 Pulse Oximetry 96 Oxygen Delivery Me thod Room Air Oxygen Flow Rate Fraction of Inspir ed Oxygen Hydration adequate: Yes Nausea and vomiting: No Pain level: 1 Mental status: Baseline
--- NOTE | 2025-02-16 16:28 | P.OP_ITS ---
Operative Report Date of procedure: February 16, 2025 Pre-op diagnosis: Septic arthritis M00.9 Post-op diagnosis: Septic arthritis M00.9 Post-op findings: Right ankle joint effusion, 13 cc aspirated with yellow fluid Procedure done: Right ankle scope CPT code 69016 Implants: None Specimens removed/disposition: Joint aspiration arthrocentesis right ankle joint sent to microbiology for Gram stain, culture, sensitivity, glucose and white blood cell count. Pathology: Right ankle joint aspiration sent to pathology for evaluation for crystals. Surgeon: [place] DPM Instructor Business Education: Rhett Estimated blood loss: 2 mm No tourniquet IV fluids: See intraoperative documentation Urine output: No urine output Complications: No complications Brief History: Ms. Fuentes is an established 44 year old female patient here to go over recent MRI results of the right ankle. Had an abscess right ankle drained in December, oral antibiotics at discharge from that hospitalization as arthrocentesis was negative for bacteria. She has had a reeruption with increased redness and pain at the ankle with concern for reoccurring abscess Procedure: Under mild sedation the patient was brought to the operating room and remained on the gurney in supine position. A timeout was performed. Anesthesia was then administered by the anesthesia service. Of note right popliteal block and adductor block performed per anesthesia preoperatively. Well-padded pneumatic tourniquet applied to the right high calf. Right lower extremity was then scrubbed, prepped and draped utilizing normal aseptic technique. Right ankle and foot were elevated and Tourniquet inflated to 250 mmHg. Attention was directed to the anterior right ankle noted to have localized edema circumferentially about the ankle, warmth and erythema without proximal lymphangitic streaking. Dual portals established and standard neck and tuck technique both anterior medial and anterior lateral portals medial to the tibialis anterior tendon and lateral to the extensor digitorum longus tendons care taken to visualize superficial nerves and avoid tendon sheath. Ankle joint was aspirated 13 cc of off yellow fluid and sent to microbiology and pathology as noted above to include white blood cell count, glucose, culture and sensitivity as well as evaluation for crystals. A Arthrex Sobeida scope was introduced into the medial portal with a shaver at the lateral portal and the ankle joint was irrigated with 3 L of lactated Ringer's and debrided of all synovial fluid and hemorrhagic synovitis. Ankle inspection under direct vi sualization arthroscopically yielded viable cartilage at the tibia and talar articular surfaces without defect and intact intracapsular ligaments. No further pathology or devitalized tissue appreciated. Scope and shaver were removed and closure of anterior portals with 4-0 nylon, dressed with Xeroform, sterile 4 x 4 gauze, Kerlix, Gopi wrap and application of a cam boot to the right lower extremity. Tourniquet was deflated and a prompt hyperemic response is noted to the distal digits of the right foot. Patient tolerated the procedure and anesthesia well and was transferred to the PACU with vital signs stable and vascular status intact. Following a period of postoperative monitoring she will be discharged home without home care instructions and scheduled follow-up. She will be contacted with any findings from microbiology or pathology of concern that would necessitate further treatment including antibiotic therapy.
== END 2025-02-16 16:25 | disposition home or self-care (01) ==
PROVIDERS: PCP Family Medicine; Visit Provider Podiatrist Foot & Ankle Surgery
PROC: (CPT 29898; principal; 2025-02-16 14:00)
DX: M00.9 Pyogenic arthritis, unspecified (principal); J44.9 Chronic obstructive pulmonary disease, unspecified; R56.9 Unspecified convulsions; Z79.84 Long term (current) use of oral hypoglycemic drugs; F43.10 Post-traumatic stress disorder, unspecified; F33.9 Major depressive disorder, recurrent, unspecified; Z85.038 Personal history of other malignant neoplasm of large intestine; F11.11 Opioid abuse, in remission; Z87.891 Personal history of nicotine dependence; Z85.41 Personal history of malignant neoplasm of cervix uteri; E11.42 Type 2 diabetes mellitus with diabetic polyneuropathy
CPT/HCPCS: 29898; 36416; 80503; 82945; 82962; 87070; 87075; 87205; 89050; J0690; J1100; J2250; J2704; J2795; J3010; J3490; J7030